=== PATIENT | male | born 1935 | race Caucasian/White ===

== ENCOUNTER → 2016-03-06 | Outpatient (CLI) | payer BC ==
[~2016-03-06] MED LIST: ASPI1TAB83 PO; CALCCHW17 PO; CHOL100010 PO; FSMD/70 PO; LPT40 PO; LSN5 PO; LUTE20CA PO; LZL125 PO; MULT-610 PO; NITR1CAP33 PO; NTRGSL/4 SL; OMEG120013 PO; PLV75 PO; PSYL55.43 PO
[2016-03-06 15:29] LABS: BASO % 0.5 %; BASO ABS # 0.03 K/uL (0-0.2); COMPLETE YES; EOS % 2.5 %; HEMATOCRIT 33.5 % (42-52); IG% 0.2 %; LYMPH % 13.9 %; MEAN CELL VOLUME 93.3 fL (80-100); MEAN CORPUSCULAR HEMOGLOBIN 31.2 pg (25-34); MEAN CORPUSCULAR HGB CONC 33.4 g/dl (32-36); MONO % 10.3 %; NEUT % 72.6 %; PLATELET COUNT 237 K/uL (130-400); RED BLOOD COUNT 3.59 M/uL (4.7-6.1); WHITE BLOOD COUNT 6.48 K/uL (4.8-10.8)
[2016-03-06 15:33] LABS: URINE APPEARANCE CLEAR (CLEAR); URINE BILIRUBIN NEG (NEG); URINE COLOR DK YELLOW; URINE EPITHELIAL CELL AUTO >30 /lpf (0-5); URINE NITRITE NEG (NEG); URINE PH 6.5 (4.5-7.5); URINE SPECIFIC GRAVITY 1.022 (1.000-1.030); UROBILINOGEN NEG (NEG)
[2016-03-06 15:36] LABS: MANUAL MICROSCOPIC REQUIRED? NO; REVIEW REQ? YES
[2016-03-06 15:56] LABS: BLOOD UREA NITROGEN 21 mg/dl (7-18); BUN/CREATININE RATIO 19.3 (10-20); CALCIUM 7.9 mg/dl (8.5-10.1); CARBON DIOXIDE 25 mmol/L (21-32); CHLORIDE 105 mmol/L (98-107); GLUCOSE 93 mg/dl (70-99); POTASSIUM 4.3 mmol/L (3.5-5.1); SODIUM 137 mmol/L (136-145)
[2016-03-06 15:57] LABS: URINE PROTIEN/CREAT RATIO 0.5 (0-0.2); URINE TOTAL PROTEIN 88.6 mg/dl (0-11.9)
== END | disposition home or self-care (01) ==
LOC: C.LAB1850 14:30
PROVIDERS: ATTEND Internal Medicine
DX: E78.00 Pure hypercholesterolemia, unspecified (principal)

== ENCOUNTER → 2016-03-28 | Outpatient (CLI) | payer BC ==
[2016-03-28 12:18] LABS: BASO % 0.8 %; BASO ABS # 0.04 K/uL (0-0.2); COMPLETE YES; EOS % 2.5 %; HEMATOCRIT 34.1 % (42-52); IG% 0.6 %; LYMPH % 19.3 %; LYMPH ABS # 1.01 K/uL (1.2-3.4); MEAN CELL VOLUME 94.2 fL (80-100); MEAN CORPUSCULAR HEMOGLOBIN 31.2 pg (25-34); MEAN CORPUSCULAR HGB CONC 33.1 g/dl (32-36); MEAN PLATELET VOLUME 8.8 fL (7.4-10.4); MONO % 18.9 %; NEUT % 57.9 %; PLATELET COUNT 196 K/uL (130-400); RED BLOOD COUNT 3.62 M/uL (4.7-6.1); WHITE BLOOD COUNT 5.23 K/uL (4.8-10.8)
[2016-03-28 12:27] LABS: BLOOD UREA NITROGEN 21 mg/dl (7-18); BUN/CREATININE RATIO 23.7 (10-20); CALCIUM 8.5 mg/dl (8.5-10.1); CARBON DIOXIDE 27 mmol/L (21-32); CHLORIDE 103 mmol/L (98-107); CREATININE 0.89 mg/dl (0.60-1.40); GLUCOSE 87 mg/dl (70-99); POTASSIUM 4.2 mmol/L (3.5-5.1); SODIUM 140 mmol/L (136-145)
[2016-03-28 12:32] LABS: FERRITIN 155.2 ng/ml (8.0-388.0); TOTAL IRON BINDING CAPACITY 263 mcg/dl (250-450)
== END | disposition home or self-care (01) ==
LOC: C.LAB1850 10:50
PROVIDERS: ATTEND Internal Medicine
DX: R60.9 Edema, unspecified (principal)

== ENCOUNTER → 2016-06-06 | Outpatient (CLI) | payer BC ==
[2016-06-06 17:46] LABS: BASO % 0.7 %; BASO ABS # 0.03 K/uL (0-0.2); COMPLETE YES; EOS % 15.4 %; HEMATOCRIT 35.4 % (42-52); IG% 0.2 %; LYMPH ABS # 1.19 K/uL (1.2-3.4); MEAN CELL VOLUME 95.4 fL (80-100); MEAN CORPUSCULAR HEMOGLOBIN 31.3 pg (25-34); MEAN CORPUSCULAR HGB CONC 32.8 g/dl (32-36); MEAN PLATELET VOLUME 9.1 fL (7.4-10.4); MONO % 11.3 %; NEUT % 45.4 %; PLATELET COUNT 149 K/uL (130-400); RED BLOOD COUNT 3.71 M/uL (4.7-6.1); WHITE BLOOD COUNT 4.41 K/uL (4.8-10.8)
== END | disposition home or self-care (01) ==
LOC: C.LAB1850 16:30
PROVIDERS: ATTEND Internal Medicine
DX: Z00.00 Encounter for general adult medical examination without abnormal findings (principal); D64.9 Anemia, unspecified; I25.10 Atherosclerotic heart disease of native coronary artery without angina pectoris

== ENCOUNTER → 2016-08-24 | Outpatient (CLI) | payer BC ==
[2016-08-24 17:10] LABS: BASO % 0.5 %; BASO ABS # 0.02 K/uL (0-0.2); COMPLETE YES; EOS % 4.1 %; LYMPH % 32.3 %; LYMPH ABS # 1.41 K/uL (1.2-3.4); MEAN CELL VOLUME 95.6 fL (80-100); MEAN CORPUSCULAR HEMOGLOBIN 31.6 pg (25-34); MEAN CORPUSCULAR HGB CONC 33.1 g/dl (32-36); MEAN PLATELET VOLUME 9.7 fL (7.4-10.4); MONO % 12.1 %; PLATELET COUNT 156 K/uL (130-400); RED BLOOD COUNT 4.08 M/uL (4.7-6.1); WHITE BLOOD COUNT 4.37 K/uL (4.8-10.8)
[2016-08-24 17:19] LABS: ALT/SGPT 31 U/L (12-78); AST/SGOT 27 U/L (15-37); BLOOD UREA NITROGEN 18 mg/dl (7-18); BUN/CREATININE RATIO 16.4 (10-20); CALCIUM 8.5 mg/dl (8.5-10.1); CARBON DIOXIDE 29 mmol/L (21-32); CHLORIDE 104 mmol/L (98-107); CHOLESTEROL 82 mg/dl (0-200); GLUCOSE 87 mg/dl (70-99); POTASSIUM 4.2 mmol/L (3.5-5.1); SODIUM 139 mmol/L (136-145)
[2016-08-24 17:29] LABS: CHOLESTEROL/HDL RATIO 2.6; HDL CHOLESTEROL 32 mg/dl; LDL CHOLESTEROL CALCULATED 39 mg/dl; TRIGLYCERIDES 57 mg/dl (0-150); VERY LOW DENSITY LIPOPROT CALC 11 mg/dl
[2016-08-25 07:03] LABS: ESTIMATED AVERAGE GLUCOSE 117 mg/dl; HA1C FLAG Normal (Normal)
--- NOTE | 2016-08-29 06:47 | CODING QUERY MEDICAL NECESSITY ---
SUPPORTING DIAGNOSIS NEEDED A supporting diagnosis is required for the test/procedure performed on this patient in order for us to be reimbursed by the patient's insurance. Please provide a supporting diagnosis for the following test/procedure listed below next to the test name along with your signature. *If there is no additional diagnosis for this patient that would support the following test/procedure please document that below next to the test/procedure. Test(s)/Procedure(s) that require a supporting diagnosis: * HEMOGLOBIN A1C DIAGNOSIS: Provider Signature: Date: Thank you Ranjana Ordoñez [employer] Once completed, please kindly fax back to [phone] For questions please call [phone]
== END | disposition home or self-care (01) ==
LOC: C.LAB1850 15:41
PROVIDERS: ATTEND Internal Medicine
DX: E78.00 Pure hypercholesterolemia, unspecified (principal); R73.9 Hyperglycemia, unspecified

== ENCOUNTER → 2016-12-13 | Outpatient (CLI) | payer BC ==
--- NOTE | 2016-12-13 15:20 | DIAGNOSTIC IMAGING REPORT ---
HEAD CT NONCONTRAST CT DOSE: 537.48 mGy.cm HISTORY: HEADACHE TECHNIQUE: Multiaxial CT images of the head were performed without the use of intravenous contrast. Automated exposure control was utilized for this study. A dose lowering technique was utilized adhering to the principles of ALARA. Comparison: None. Findings: The paranasal sinuses and mastoid air cells are clear. The calvarium and skull base are intact. There is no mass, hematoma, midline shift, acute infarct. White matter hypodensity is nonspecific but suggestive of microvascular ischemic change. The ventricles and sulci demonstrate mild age-related involutional changes. Impression: No acute intracranial abnormality. Atrophy and microvascular ischemic changes. Electronically signed by: Eliel Garrett M.D. 12/13/2016 3:18 PM Dictated Date/Time: 12/13/2016 3:14 PM
== END | disposition home or self-care (01) ==
LOC: C.CTS 15:03
PROVIDERS: ATTEND Internal Medicine
DX: R51 Headache (principal); I67.82 Cerebral ischemia

== ENCOUNTER → 2017-01-22 | Outpatient (CLI) | payer BC | END | disposition home or self-care (01) | LOC: C.MAMM 15:34 | PROVIDERS: ATTEND Internal Medicine | DX: M85.88 Other specified disorders of bone density and structure, other site (principal); M85.852 Other specified disorders of bone density and structure, left thigh; M85.851 Other specified disorders of bone density and structure, right thigh ==

== ENCOUNTER 2021-04-11 17:23 | Inpatient (IN) ==
[2021-04-11] MEDS ORDERED: oxyCODONE HCL IR 5 MG TAB (IMMEDIATE RELEASE) PO STA (17:46)
--- NOTE | 2021-04-11 17:54 | Emergency Department Note ---
Impression & Plan Closed fracture of right hip ED Provider Note CHIEF COMPLAINT: Right hip injury 1 hour ago HISTORY OF PRESENT ILLNESS: Patient is an 85-year-old male who presents the emergency department by private vehicle, accompanied by his , for evaluation of right hip pain after a fall. He was out walking with his , and a dog came up to him. He was trying to back away from the dog when he lost his balance and fell, landing on his right hip on the ground. He did not strike his head, no loss of consciousness. He did try to get up and put some pressure on the right leg, but it was painful and unstable. He sat on the curb, and a neighbor helped to get him into their vehicle and brought him here to the emergency department. He notes a constant, throbbing pain in the right hip that he rates a 9/10. It is in the lateral aspect of the hip and does not radiate. No numbness or tingling, save from his chronic peripheral neuropathy. He denies any other injuries related to the fall. REVIEW OF SYSTEMS: Review of systems as per HPI. All other systems reviewed were negative. 10 systems reviewed. PAST MEDICAL HISTORY: Electronic medical records are reviewed and summarized as above/below. See Problem List. SOCIAL HISTORY: Patient lives at home with his . Non-smoker. PHYSICAL EXAM: Vital Signs: Reviewed Nurse's notes. GENERAL: Pleasant 85-year-old gentleman who is awake and alert and in mild distress due to his stated complaint. HEENT: Head - normocephalic and atraumatic. Pupils are equal, round, and reactive to light. Extraocular eye muscles are intact and sclera are anicteric. Ears - bilaterally patent canals with no evidence of hemotympanum. Nose - brittany st nasal mucosa without evidence of trauma or discharge. Mouth - moist buccal mucosa with no trauma to the teeth or signs of malocclusion. Heart: Regular rate, and regular rhythm. Lungs: Breath sounds equal and clear to auscultation without wheezes, rales, or rhonchi heard. Abdomen: Bowel sounds are present. Abdomen is soft, nontender, nondistended. No guarding or rebound. Extremities: Examination of the right hip note that the patient has the hip and knee flexed. He is tender over the greater trochanter. He is able to extend the leg, there is some slight shortening and internal rotation appreciated. Right lower extremity is neurovascularly intact. EMERGENCY DEPARTMENT COURSE: The patient was seen and assessed as above. Old records were reviewed. He was offered parenteral versus oral pain medications, he elected the latter. He was given oxycodone 5 mg p.o. Right hip and pelvic x-rays were obtained. Hip x-ray note a displaced impacted right femoral neck fracture. Patient was reviewed with Dr. Adam. X-ray findings were reviewed with the patient and his . Preoperative EKG, chest x-ray and laboratory studies were collected. Gerardo catheter was placed. Covid swab was obtained for admitting purposes. Patient's family would like to consult Dr. Edward Schroeder, the patient's had surgery done by him in the past. Consultation was placed with the [facility] Hospitalist service for further care and management. Laboratory studies were reviewed. Mild anemia noted, hemoglobin and hematocrit 12.3 and 36.7. Platelet count is 148,000, coags are normal. Sodium 130, potassium 3.7, chloride 96, carbon dioxide 28, BUN 20 and creatinine 0.86. Transaminases are normal. Urine microscopy notes some hematuria, likely traumatic from the catheter placement. No other indicators for infection. Covid swab is negative. Chest x-ray notes a mild right midlung opacity favoring atelectasis or scarring. Infectious process felt to be less likely, particularly given lack of symptoms. Patient requested something additional for pain. He was given morphine 4 mg IV and Zofran 4 mg IV with good relief of his pain. Patient was reviewed with Dr. Schroeder for admission. Please refer to admission H&P and orders for further information. Past Med/Surg History Medical History CAD (coronary artery disease) Coronary artery disease, occlusive Hypercholesterolemia Hyperglycemia Hyperlipidemia Hypertension Nontoxic multinodular goiter Osteoporosis Paroxysmal atrial fibrillation Presence of stent in LAD coronary artery Unstable angina Surgical History History of coronary artery bypass surgery Family History Uncle Colorectal cancer Prostate cancer Denies family history of Ovarian cancer Myocardial infarction Breast cancer Social History Smoking Status: Never smoker Second Hand Exposure: No; Hx Alcohol Use: No Hx Substance Use: No Preferred Language: Amharic marital status: Current Living Situation: Spouse current occupational status: retired Feels Safe at Home: Yes Childhood Exposure to Second-Hand Smoke: No Dental Care, Regularly: Yes Physical Activity Frequency: Daily Seatbelt Use: always Sunscreen Use: No Allergies Allergies Allergy/AdvReac Type Severity Reaction Status Date / Time Sulfa (Sulfonamide Allergy Intermediate Hives Verified 04/11/21 18:58 Antibiotics) tetracycline Allergy Intermediate Hives Verified 04/11/21 18:58 Home Meds Home Medications Medication Instructions Recorded Confirmed lutein 20 mg capsule 20 mg PO DAILY cap 10/18/18 04/11/21 cholecalciferol (vitamin D3) 50 2,000 units PO DAILY cap 09/02/19 04/11/21 mcg (2,000 unit) capsule docusate sodium 100 mg capsule 200 mg PO DAILY cap 09/02/19 04/11/21 aspirin 81 mg tablet,delayed 81 mg PO PM 03/05/20 04/11/21 release (Aspirin Low Dose) Lactobacillus acidophilus 1 1,000 mmu cells PO DAILY 12/21/20 04/11/21 billion cell tablet cranberry 500 mg capsule 500 mg PO DAILY cap 12/21/20 04/11/21 magnesium oxide 400 mg PO DAILY 12/21/20 04/11/21 atorvastatin 40 mg tablet 40 mg PO HS 04/11/21 04/11/21 coQ10 (ubiquinol) 200 mg capsule 200 mg PO DAILY 04/11/21 04/11/21 chlhcdnwoarw-dgrhammo-erihna tablet 1 tab PO DAILY 04/11/21 04/11/21 Previous Rx's Medication Instructions Recorded nitroglycerin 0.4 mg sublingual 0.4 mg SL Q5M PRN #30 tab 12/26/19 tablet indapamide 1.25 mg tablet 1.25 mg PO QAM #90 tab 07/30/20 apixaban 5 mg tablet 5 mg PO BID #180 tab 08/04/20 lisinopril 2.5 mg tablet 2.5 mg PO DAILY #90 tab 08/09/20 nitrofurantoin macrocrystal 50 mg 50 mg PO DAILY PRN #30 cap 10/15/20 capsule (Macrodantin) Results & Data (ED) Vital Signs Vital Signs - 24 hr 04/11/21 17:31 04/11/21 19:12 Temperature 36.3 C L Temperature Source Temporal Artery Scan Pulse Rate 84 Pulse Rate [Apical] 81 Respiratory Rate 20 15 Respiratory Effort / Characteristics Non-Labored Non-Labored Respiratory Depth Normal Blood Pressure 128/93 Blood Pressure [Left Arm] 168/66 H Blood Pressure Mean 104 Blood Pressure Mean [Left Arm] 100 Pulse Oximetry 99 100 Oxygen Delivery Method Room Air Sepsis Recent Fever Within 48 Hours No Sepsis New/Unexplained Change in Mental Status N/A Sepsis Action Taken by Nursing No Action Required Home Medications Current Medication List: was personally reviewed by me Laboratory Data Attestation: I reviewed the patient's lab results. Result diagrams: 04/11/21 18:46 04/11/21 18:46 Lab Results 04/11/21 04/11/21 04/11/21 Range/Units 18:44 18:46 18:46 WBC 10.03 (4.8-10.8) K/uL RBC 3.86 L (4.7-6.1) M/uL Hgb 12.3 L (14.0-18.0) g/dL Hct 36.7 L (42-52) % MCV 95.1 (80-100) fL MCH 31.9 (25-34) pg MCHC 33.5 (32-36) g/dL RDW Std Deviation 47.3 H (36.4-46.3) fL RDW Coeff of Ralph 13.7 (11.5-14.5) % Plt Count 148 (130-400) K/uL MPV 9.1 (7.4-10.4) fL Immature Gran % (Auto) 0.1 % Neut % (Auto) 82.4 % Lymph % (Auto) 9.2 % [place] % (Auto) 7.5 % Eos % (Auto) 0.7 % Baso % (Auto) 0.1 % Neut # (Auto) 8.27 H (1.4-6.5) K/uL Lymph # (Auto) 0.92 L (1.2-3.4) K/uL [place] # (Auto) 0.75 H (0.11-0.59) K/uL Eos # (Auto) 0.07 (0-0.5) K/uL Baso # (Auto) 0.01 (0-0.2) K/uL Immature Gran # (Auto) 0.01 (0.00-0.02) K/uL PT 11.5 (9.0-12.0) Seconds INR 1.1 (0.9-1.1) APTT 26.3 (21.0-31.0) Seconds PTT Ratio 1.0 Sodium (136-145) mmol/L Potassium (3.5-5.1) mmol/L Chloride (98-107) mmol/L Carbon Dioxide (21-32) mmol/L Anion Gap (3-11) BUN (6-23) mg/dl Creatinine (0.6-1.4) mg/dl Est Cr Clr Drug Dosing Est GFR ( Amer) ml/min Est GFR (Non-Af Amer) ml/min BUN/Creatinine Ratio (10-20) Glucose (70-99(Fasting)) mg/dl Calcium (8.5-10.1) mg/dl Total Bilirubin (0.2-1.0) mg/dl AST (13-39) U/L ALT (7-52) U/L Alkaline Phosphatase (34-104) U/L Total Protein (6.0-8.3) gm/dl Albumin (3.4-5.0) gm/dl Globulin (2.5-4.0) gm/dl Albumin/Globulin Ratio (0.9-2) Urine Color Urine Appearance (Clear) Urine pH (4.5-7.5) Ur Specific [place] (1.000-1.030) Urine Protein (Negative) Urine Glucose (UA) (Negative) Urine Ketones (Negative) Urine Blood (Negative) Urine Nitrite (Negative) Urine Bilirubin (Negative) Urine Urobilinogen (Negative) Ur Leukocyte Esterase (Negative) Urine WBC (Auto) (0-5) /hpf Urine RBC (Auto) (0-4) /hpf U Hyaline Cast (Auto) (0-5) /lpf U Epithel Cells (Auto) (0-5) /lpf Urine Bacteria (Auto) (Negative) SARS-CoV-2, RNA, NAAT NEGATIVE (NEGATIVE) 04/11/21 04/11/21 Range/Units 18:46 18:46 WBC (4.8-10.8) K/uL RBC (4.7-6.1) M/uL Hgb (14.0-18.0) g/dL Hct (42-52) % MCV (80-100) fL MCH (25-34) pg MCHC (32-36) g/dL RDW Std Deviation (36.4-46.3) fL RDW Coeff of Ralph (11.5-14.5) % Plt Count (130-400) K/uL MPV (7.4-10.4) fL Immature Gran % (Auto) % Neut % (Auto) % Lymph % (Auto) % [place] % (Auto) % Eos % (Auto) % Baso % (Auto) % Neut # (Auto) (1.4-6.5) K/uL Lymph # (Auto) (1.2-3.4) K/uL [place] # (Auto) (0.11-0.59) K/uL Eos # (Auto) (0-0.5) K/uL Baso # (Auto) (0-0.2) K/uL Immature Gran # (Auto) (0.00-0.02) K/uL PT (9.0-12.0) Seconds INR (0.9-1.1) APTT (21.0-31.0) Seconds PTT Ratio Sodium 130 L (136-145) mmol/L Potassium 3.7 (3.5-5.1) mmol/L Chloride 96 L (98-107) mmol/L Carbon Dioxide 28 (21-32) mmol/L Anion Gap 6 (3-11) BUN 20 (6-23) mg/dl Creatinine 0.86 (0.6-1.4) mg/dl Est Cr Clr Drug Dosing Not Reportable Est GFR ( Amer) 92.3 ml/min Est GFR (Non-Af Amer) 79.6 ml/min BUN/Creatinine Ratio 23.3 H (10-20) Glucose 141 H (70-99(Fasting)) mg/dl Calcium 8.9 (8.5-10.1) mg/dl Total Bilirubin 0.5 (0.2-1.0) mg/dl AST 31 (13-39) U/L ALT 22 (7-52) U/L Alkaline Phosphatase 80 (34-104) U/L Total Protein 6.6 (6.0-8.3) gm/dl Albumin 4.1 (3.4-5.0) gm/dl Globulin 2.5 (2.5-4.0) gm/dl Albumin/Globulin Ratio 1.6 (0.9-2) Urine Color Yellow Urine Appearance Clear (Clear) Urine pH 7.0 (4.5-7.5) Ur Specific [place] 1.019 (1.000-1.030) Urine Protein Trace H (Negative) Urine Glucose (UA) Negative (Negative) Urine Ketones Negative (Negative) Urine Blood 2+ H (Negative) Urine Nitrite Negative (Negative) Urine Bilirubin Negative (Negative) Urine Urobilinogen Negative (Negative) Ur Leukocyte Esterase Negative (Negative) Urine WBC (Auto) 1-5 (0-5) /hpf Urine RBC (Auto) 10-30 H (0-4) /hpf U Hyaline Cast (Auto) 1-5 (0-5) /lpf U Epithel Cells (Auto) 20-30 H (0-5) /lpf Urine Bacteria (Auto) Negative (Negative) SARS-CoV-2, RNA, NAAT (NEGATIVE) Administered Medications Discontinued Medications Morphine Sulfate (Morphine Sulfate 4 Mg/Ml 1 Ml Carp\Vial) 4 mg IV NOW STA Stop: 04/11/21 18:54 Last Admin: 04/11/21 19:01 Dose: 4 mg Documented by: [id number] Ondansetron HCl (Ondansetron Inj 2 Mg/Ml 2 Ml Vial) 4 mg IV NOW STA Stop: 04/11/21 18:54 Last Admin: 04/11/21 19:01 Dose: 4 mg Documented by: [id number] Oxycodone HCl (Oxycodone Hcl Ir 5 Mg Tab (Immediate Release)) 5 mg PO NOW STA Stop: 04/11/21 17:47 Last Admin: 04/11/21 17:54 Dose: 5 mg Documented by: [id number] Imaging Data Attestation: I personally reviewed and interpreted this imaging study as follows: Radiologist's Impression: Hip/Pelvis X-Ray 04/11/21 17:46 XR hip RT 2V w pelvis CLINICAL HISTORY: Right hip pain following fall. COMPARISON: Pelvis and right hip radiographs October 15, 2020. FINDINGS: Sacroiliac joints and symphysis pubis are intact. Note is made of an acute impacted displaced right femoral neck fracture. There is no acute proximal left femoral fracture. 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 Pelvic calcifications favor phleboliths. IMPRESSION: Acute displaced impacted right femoral neck fracture. ACT 112: Negative or not required by law. Electronically signed by: David Pastor M.D. 04/11/2021 6:20 PM Chest X-Ray 04/11/21 18:19 XR chest 1V portable CLINICAL HISTORY: HIP FRACTURE, PREOP COMPARISON STUDY: Chest radiograph March 05, 2020. FINDINGS: Severe dextroscoliosis of the thoracic spine is incidentally noted. There are median sternotomy wires. Cardiomediastinal silhouette is stable. There is no pneumothorax or pleural effusion. No evidence for pulmonary edema. There is mild right midlung opacity. Old right fifth rib deformity is incidentally noted. IMPRESSION: 1. Mild right midlung opacity. This favors atelectasis or scarring. An infectious process could appear similar although is considered less likely. Radiographic follow-up is recommended. 2. No evidence for pulmonary edema. 3. Severe scoliosis. ACT 112: Negative or not required by law. Electronically signed by: David Pastor M.D. 04/11/2021 6:43 PM Discharge Plan Visit Data Chief Complaint: Hip Pain Stated Complaint: RIGHT HIP PAIN, POSS. FRACTURE ED Provider: Jasen Adam ED Midlevel Provider: Jasmeet Irizarry Discharge Problem: Closed fracture of right hip Patient Disposition: Being Evaluated by Hospitalist Forms Stand Alone Forms: [facility] Prescriptions Prescriptions: No Action nitroglycerin 0.4 mg tablet, sublingual 0.4 mg SL Q5M PRN (Reason: chest pain) Qty: 30 RF: 3 apixaban 5 mg tablet 5 mg PO BID Qty: 180 RF: 3 lisinopril 2.5 mg tablet 2.5 mg PO DAILY Qty: 90 RF: 3 docusate sodium 100 mg capsule 200 mg PO DAILY RF: 0 cranberry 500 mg capsule 500 mg PO DAILY RF: 0 Lactobacillus acidophilus 1 billion cell tablet 1,000 mmu cells PO DAILY RF: 0 magnesium oxide 400 mg magnesium capsule 400 mg PO DAILY RF: 0 cholecalciferol (vitamin D3) 50 mcg (2,000 unit) capsule 2,000 units PO DAILY RF: 0 nitrofurantoin macrocrystal [Macrodantin] 50 mg capsule 50 mg PO DAILY PRN (Reason: HX of UTI) Qty: 30 RF: 0 lutein 20 mg capsule 20 mg PO DAILY RF: 0 indapamide 1.25 mg tablet 1.25 mg PO QAM Qty: 90 RF: 3 aspirin [Aspirin Low Dose] 81 mg Tablet,Delayed Release (Dr/Ec) 81 mg PO PM RF: 0 Centrum Silver Tablet 1 tab PO DAILY RF: 0 coQ10 (ubiquinol) 200 mg Capsule 200 mg PO DAILY RF: 0 atorvastatin 40 mg tablet 40 mg PO HS RF: 0 Referrals Referrals: Leni Schroeder CRNP [Primary Care Provider] - Discharge Problem: Closed fracture of right hip Qualifiers: Encounter type: initial encounter Qualified Code(s): S72.001A - Fracture of unspecified part of neck of right femur, initial encounter for closed fracture
--- NOTE | 2021-04-11 18:21 | XRay Report ---
XR hip RT 2V w pelvis CLINICAL HISTORY: Right hip pain following fall. COMPARISON: Pelvis and right hip radiographs October 15, 2020. FINDINGS: Sacroiliac joints and symphysis pubis are intact. Note is made of an acute impacted displa jemima right femoral neck fracture. There is no acute proximal left femoral fracture. Moderate osteoarth ritis of both hips is greater on the left. Pelvic calcifications favor phleboliths. IMPRESSION: Acute displaced impacted right femoral neck fracture. ACT 112: Negative or not required by law. Electronically signed by: David Pastor M.D. 04/11/2021 6:20 PM
--- NOTE | 2021-04-11 18:45 | XRay Report ---
XR chest 1V portable CLINICAL HISTORY: HIP FRACTURE, PREOP COMPARISON STUDY: Chest radiograph March 05, 2020. FINDINGS: Severe dextroscoliosis of the thoracic spine is incidentally noted. There are median sterno lida wires. Cardiomediastinal silhouette is stable. There is no pneumothorax or pleural effusion. No evidence for pulmonary edema. There is mild right midlung opacity. Old right fifth rib deformity is i ncidentally noted. IMPRESSION: 1. Mild right midlung opacity. This favors atelectasis or scarring. An infectious process could appea r similar although is considered less likely. Radiographic follow-up is recommended. 2. No evidence for pulmonary edema. 3. Severe scoliosis. ACT 112: Negative or not required by law. Electronically signed by: David Pastor M.D. 04/11/2021 6:43 PM
[2021-04-11] MEDS ORDERED: ONDANSETRON INJ 2 MG/ML 2 ML VIAL IV STA (18:53)
[2021-04-11] MEDS ORDERED: MoRPHine SULFATE 4 MG/ML 1 ML CARP\\VIAL IV PRN (18:53)
[2021-04-11] MEDS ORDERED: MoRPHine SULFATE 4 MG/ML 1 ML CARP\\VIAL IV STA (18:53)
--- NOTE | 2021-04-11 18:54 | Emergency Department Note ---
ED Visit Note This Patient was discussed with the physician dam tender assistant, Carmen Irizarry PA-C. The pertinent historical and physical exam findings were confirmed. I agree with the studies ordered and with the interpretations of these studies. I agree with the disposition and care plan. . : Closed fracture of right hip Qualifiers: Encounter type: initial encounter Qualified Code(s): S72.001A - Fracture of unspecified part of neck of right femur, initial encounter for closed fracture
[2021-04-11 19:07] LABS: Appearance Urine Clear (Clear); Bacteria Urine Automated Negative (Negative); Basophils # (auto) 0.01 K/uL (0-0.2); Basophils % (auto) 0.1 %; Bilirubin Urine Negative (Negative); Blood Urine 2+ (Negative); Color Urine Yellow; Eosinophils # (auto) 0.07 K/uL (0-0.5); Eosinophils % (auto) 0.7 %; Epithelial Cell Urine Auto 20-30 /lpf (0-5); Glucose Urine UA Negative (Negative); Hematocrit (blood only) 36.7 % (42-52); Hemoglobin 12.3 g/dL (14.0-18.0); Immature Granulocytes # (auto) 0.01 K/uL (0.00-0.02); Immature Granulocytes % (auto) 0.1 %; Ketones Urine Negative (Negative); Leukocyte Esterase Urine Negative (Negative); Lymphocytes # (auto) 0.92 K/uL (1.2-3.4); Lymphocytes % (auto) 9.2 %; Mean Corpuscular Hemoglobin 31.9 pg (25-34); Mean Corpuscular Hgb Conc 33.5 g/dL (32-36); Mean Corpuscular Volume 95.1 fL (80-100); Mean Platelet Volume 9.1 fL (7.4-10.4); Monocytes # (auto) 0.75 K/uL (0.11-0.59); Monocytes % (auto) 7.5 %; Neutrophils # (auto) 8.27 K/uL (1.4-6.5); Neutrophils % (auto) 82.4 %; Nitrite Urine Negative (Negative); Platelet Count 148 K/uL (130-400); Protein Urine Trace (Negative); RDW Coefficient of Variation 13.7 % (11.5-14.5); RDW Standard Deviation 47.3 fL (36.4-46.3); Red Blood Count 3.86 M/uL (4.7-6.1); Specific Gravity Urine 1.019 (1.000-1.030); Urobilinogen Urine Negative (Negative); White Blood Count 10.03 K/uL (4.8-10.8)
[2021-04-11 19:23] LABS: INR 1.1 (0.9-1.1); Partial Thromboplastin Time 26.3 Seconds (21.0-31.0); Prothrombin Time 11.5 Seconds (9.0-12.0)
[2021-04-11 19:29] LABS: Alanine Aminotransferase 22 U/L (7-52); Albumin Globulin Ratio 1.6 (0.9-2); Albumin Level 4.1 gm/dl (3.4-5.0); Alkaline Phosphatase 80 U/L (34-104); Anion Gap 6 (3-11); Aspartate Aminotransferase 31 U/L (13-39); BUN Creatinine Ratio 23.3 (10-20); Bilirubin,Total 0.5 mg/dl (0.2-1.0); Blood Urea Nitrogen 20 mg/dl (6-23); Calcium 8.9 mg/dl (8.5-10.1); Carbon Dioxide 28 mmol/L (21-32); Chloride 96 mmol/L (98-107); Est GFR (African American) 92.3 ml/min; Est GFR (Non-African American) 79.6 ml/min; Globulin 2.5 gm/dl (2.5-4.0); Glucose 141 mg/dl (70-99(Fasting)); Potassium 3.7 mmol/L (3.5-5.1); Sodium 130 mmol/L (136-145); Total Protein 6.6 gm/dl (6.0-8.3)
--- NOTE | 2021-04-11 19:35 | History & Physical Report ---
Date of Service April 11, 2021 Assessment & Plan (1) Closed fracture of right hip: Plan: -Witnessed ground level fall without LOC. Hip x-ray showed acute displaced impacted right femoral neck fracture. -Patient takes 5 mg Eliquis twice daily, only took first dose today around 4:00 PM. Took ASA 81 mg last evening. -INR 1.2. -NPO after midnight. -LRs at 75 cc/hr. -Gerardo catheter in place, patient on bedrest orders. -Morphine ordered Q3h prn for pain control. -Orthopedics consulted, appreciate their input. (2) CAD (coronary artery disease): Plan: -Does not complain of chest pain or shortness of breath, has never had to use nitroglycerin for chest pain. Patient has been active, walks several days a week. Compliant with medications. -Proximal LAD HOA, August 2014; CABG x2, January 2016. -Hold KIARA inhibitor, thiazide diuretic, and ASA 81 mg due to likely need for surgical repair of hip fracture. -Continuing statin. -Follows with cardiology. (3) Paroxysmal atrial fibrillation: Plan: -Patient denies any recent episodes of palpitations. Currently compliant with Eliquis 5 mg twice daily. Last dose was today around 4 PM. Did not yet take 2nd dose. -Will hold upcoming doses due to likely need for surgical repair of hip fracture. -Follows with cardiology. (4) Hyponatremia: Plan: -Na+ 130 today in ED has previously been low on previous lab draws. Patient not complaining of weakness, dizziness, fatigue, nausea, vomiting, or confusion. -LRs started at 75 cc/hr. -Continue to monitor. (5) Hypertension: Plan: -Stable on lisinopril and indapamide. -We will hold both of these due to likely need for surgical repair of hip fracture. -Monitor BP. (6) Hyperlipidemia: Plan: -Continue atorvastatin 40 mg daily. (7) Hyperglycemia: Plan: -Per PCP note, is controlled with diet and exercise. Most recent A1c was 5.4 in December. Glucose today in ED was 141, unsure if this was fasting or not. -Continue to monitor throughout hospitalization, can consider adding on coverage if sugars are consistently elevated. (8) DVT prophylaxis: Plan: -SCDs ordered. -Patient took half his daily dose of Eliquis today. We will hold off on further chemoprophylaxis due to likely need for surgical repair of hip fracture. History of Present Illness Chief Complaint: Right hip pain Primary Care Provider: JACINDA Wright Patient is an 85 y/o male with a PMH of CAD s/p CABG in 2016, paroxysmal atrial fibrillation on Eliquis, hyperglycemia, hyperlipidemia, and hypertension who presents this evening for evaluation of right hip pain after a fall.Patient was out walking with his when an unleashed dog ran up to him. As he was backing away, he lost his balance and fell landing on his right hip. He notes a constant, throbbing pain in the lateral right hip, without radiation which he rates a 9/10. Denies hitting his head, loss of consciousness, dizziness, weakness or palpitations leading up to the fall. He denies pain elsewhere. Hip x-ray revealed a acute displaced impacted right femoral neck fracture. Patient has been receiving 4 mg IV morphine for pain control, patient states this has been adequate so far. Na+ is 130, glucose is 141, all other labs within normal limits. Last dose of aspirin was last evening, last dose of Eliquis was 5mg around 4 PM today. Allergies Allergy/AdvReac Type Severity Reaction Status Date / Time Sulfa (Sulfonamide Allergy Intermediate Hives Verified 04/11/21 18:58 Antibiotics) tetracycline Allergy Intermediate Hives Verified 04/11/21 18:58 Home Medications Medication Instructions Recorded Confirmed Type lutein 20 mg capsule 20 mg PO DAILY cap 10/18/18 04/11/21 History cholecalciferol (vitamin D3) 50 2,000 units PO DAILY cap 09/02/19 04/11/21 History mcg (2,000 unit) capsule docusate sodium 100 mg capsule 200 mg PO DAILY cap 09/02/19 04/11/21 History nitroglycerin 0.4 mg sublingual 0.4 mg SL Q5M PRN #30 tab 12/26/19 04/11/21 Rx tablet aspirin 81 mg tablet,delayed 81 mg PO PM 03/05/20 04/11/21 History release (Aspirin Low Dose) indapamide 1.25 mg tablet 1.25 mg PO QAM #90 tab 07/30/20 04/11/21 Rx apixaban 5 mg tablet 5 mg PO BID #180 tab 08/04/20 04/11/21 Rx lisinopril 2.5 mg tablet 2.5 mg PO DAILY #90 tab 08/09/20 04/11/21 Rx nitrofurantoin macrocrystal 50 mg 50 mg PO DAILY PRN #30 cap 10/15/20 04/11/21 Rx capsule (Macrodantin) Lactobacillus acidophilus 1 1,000 mmu cells PO DAILY 12/21/20 04/11/21 History billion cell tablet cranberry 500 mg capsule 500 mg PO DAILY cap 12/21/20 04/11/21 History magnesium oxide 400 mg PO DAILY 12/21/20 04/11/21 History atorvastatin 40 mg tablet 40 mg PO HS 04/11/21 04/11/21 History coQ10 (ubiquinol) 200 mg capsule 200 mg PO DAILY 04/11/21 04/11/21 History fdtflpfqmxlg-quuemczt-rankso tablet 1 tab PO DAILY 04/11/21 04/11/21 History Past Med/Surg History Medical History CAD (coronary artery disease) Coronary artery disease, occlusive Hypercholesterolemia Hyperglycemia Hyperlipidemia Hypertension Nontoxic multinodular goiter Osteoporosis Paroxysmal atrial fibrillation Surgical History History of coronary artery bypass surgery Presence of stent in LAD coronary artery Family History Uncle Colorectal cancer Prostate cancer Denies family history of Ovarian cancer Myocardial infarction Breast cancer Social History Smoking Status: Never smoker Second Hand Exposure: No; Hx Alcohol Use: No Hx Substance Use: No Preferred Language: Pakistani Communication Ability: Effective Flower Stripper Required: No Beliefs That Will Affect Care: None marital status: Current Living Situation: Spouse current occupational status: retired Feels Safe at Home: Yes Safety Concerns: Feels Safe At This Time Childhood Exposure to Second-Hand Smoke: No Dental Care, Regularly: Yes Physical Activity Frequency: Daily Seatbelt Use: always Sunscreen Use: No Review of Systems Review of Systems: Constitutional: No fever, sweats or chills Eyes: No diplopia, no worsening or blurred vision ENT: normal hearing, no trouble swallowing Respiratory: No cough, sputum, dyspnea at rest or on exertion Cardiovascular: No chest pain, tightness or palpitations Abdomen: No pain, nausea, vomiting, diarrhea or constipation Musculoskeletal: Right hip pain without radiation; no calf pain, swelling Neurologic: No weakness, numbness/tingling, or balance problems Psychiatric: No anxiety or depression Skin: No rash or itch Physical Exam Physical Exam: General: awake, alert, no apparent distress Head: Normocephalic, atraumatic ENT: PERRL, EOMI, no pharyngeal exudate, mucous membranes moist Chest: Clear to auscultation, on room air, no adventitious breath sounds Cardiac: Regular rate and rhythm, no murmur, no JVD, normal peripheral pulses, good capillary refill Abdominal: NABS x 4 quadrants, soft, nontender to palpation, no rebound, guarding or tenderness Extremities: right hip tender to palpation, limited ROM due to pain. Psych: Normal mood and affect Neuro: AAO x 3, strength intact bilaterally and rated 5/5, no motor deficits, speech is clear, no peripheral sensory deficits Skin: no rash or erythema Results & Data Results & Data ([facility]) Vital Signs (Past 12 Hours) Vital Signs Temp Pulse Pulse Resp BP BP Pulse Ox 04/11/21 19:12 81 15 168/66 H 100 04/11/21 17:31 36.3 C L 84 20 128/93 99 Laboratory Results Abnormal lab results 04/11/21 04/11/21 04/11/21 Range/Units 18:46 18:46 18:46 RBC 3.86 L (4.7-6.1) M/uL Hgb 12.3 L (14.0-18.0) g/dL Hct 36.7 L (42-52) % RDW Std Deviation 47.3 H (36.4-46.3) fL Neut # (Auto) 8.27 H (1.4-6.5) K/uL Lymph # (Auto) 0.92 L (1.2-3.4) K/uL [place] # (Auto) 0.75 H (0.11-0.59) K/uL Sodium 130 L (136-145) mmol/L Chloride 96 L (98-107) mmol/L BUN/Creatinine Ratio 23.3 H (10-20) Glucose 141 H (70-99(Fasting)) mg/dl Urine Protein Trace H (Negative) Urine Blood 2+ H (Negative) Urine RBC (Auto) 10-30 H (0-4) /hpf U Epithel Cells (Auto) 20-30 H (0-5) /lpf Diagnostic Findings Hip/Pelvis X-Ray 04/11/21 17:46 XR hip RT 2V w pelvis CLINICAL HISTORY: Right hip pain following fall. COMPARISON: Pelvis and right hip radiographs October 15, 2020. FINDINGS: Sacroiliac joints and symphysis pubis are intact. Note is made of an acute impacted displaced right femoral neck fracture. There is no acute proximal left femoral fracture. 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 Pelvic calcifications favor phleboliths. IMPRESSION: Acute displaced impacted right femoral neck fracture. Chest X-Ray 04/11/21 18:19 XR chest 1V portable CLINICAL HISTORY: HIP FRACTURE, PREOP COMPARISON STUDY: Chest radiograph March 05, 2020. FINDINGS: Severe dextroscoliosis of the thoracic spine is incidentally noted. There are median sternotomy wires. Cardiomediastinal silhouette is stable. There is no pneumothorax or pleural effusion. No evidence for pulmonary edema. There is mild right midlung opacity. Old right fifth rib deformity is incidentally noted. IMPRESSION: 1. Mild right midlung opacity. This favors atelectasis or scarring. An infectious process could appear similar although is considered less likely. Radiographic follow-up is recommended. 2. No evidence for pulmonary edema. 3. Severe scoliosis. Medications Administered Current Medications Morphine Sulfate (Morphine Sulfate 4 Mg/Ml 1 Ml Carp\Vial) 4 mg IV Q1H PRN PRN Reason: Pain Stop: 04/25/21 18:52 ECG Additional Comments: Undetermined rhythm. Left axis deviation. RSR' or QR pattern in V1 suggests right ventricular conduction delay. Nonspecific T wave abnormality. Abnormal ECG. When compared with ECG of 05-MAR-2020 04:34, Current undetermined rhythm precludes rhythm comparison, needs review Code Status & VTE Plan Code Status Full Code VTE Prophylaxis Plan VTE Prophylaxis will be ordered: Yes Supervising Physician Co-Signing Physician Notes Patient seen and examined, chart reviewed, case discussed with PAC Childers and I agree with her assessment and plan as above PG Care Time/CCT Total # of Minutes Spent Total Time Spent with Patient: Total time spent is greater than 50% in coordination of care (as documented) at patient's floor/unit and/or counseling patient: Coding Level of Care Code 89517 Initial Inpt Care Lvl 3 Diagnoses Closed fracture of right hip S72.001A Encounter type: initial encounter CAD (coronary artery disease) I25.810 Associated angina: without angina Coronary Disease-Associated Artery/Lesion type: bypass graft [place] vs. transplanted heart: [place] heart Hyperlipidemia E78.5 Paroxysmal atrial fibrillation I48.0 Hypertension I10 Hypertension type: unspecified Hyperglycemia R73.9 Hyponatremia E87.1 DVT prophylaxis Z29.9 (1) CAD (coronary artery disease) Associated angina: without angina Coronary Disease-Associated Artery/Lesion type: bypass graft [place] vs. transplanted heart: [place] heart Qualified Code(s): I25.810 - Atherosclerosis of coronary artery bypass graft(s) without angina pectoris (2) Hypertension Hypertension type: unspecified Qualified Code(s): I10 - Essential (primary) hypertension (3) Closed fracture of right hip Encounter type: initial encounter Qualified Code(s): S72.001A - Fracture of unspecified part of neck of right femur, initial encounter for closed fracture
[2021-04-11] MEDS ORDERED: NALOXONE HCL 0.4 MG/1 ML VIAL/CARP IV PRN (20:32)
[2021-04-11] MEDS ORDERED: MoRPHine SULFATE 2 MG/ML CARP IV PRN (20:32)
[2021-04-11] MEDS: LACTATED RINGER'S 1,000 ML IV SCH (20:59)
[2021-04-11 21:01] LABS: INR 1.2 (0.9-1.1)
[2021-04-11] MEDS: MoRPHine SULFATE 4 MG/ML 1 ML CARP\\VIAL IV PRN (21:53)
[2021-04-11] MEDS ORDERED: NITROGLYCERIN SL 0.4 MG/TAB TAB SL PRN (22:26)
[2021-04-11] MEDS ORDERED: POLYETHYLENE (MIRALAX) 17 GM PACK PO PRN (22:26)
[2021-04-12] MEDS: ATORVASTATIN 40 MG TAB PO SCH ×2 (00:47→20:11)
[2021-04-12] MEDS: MoRPHine SULFATE 4 MG/ML 1 ML CARP\\VIAL IV PRN ×4 (00:50→10:23)
[2021-04-12] MEDS: ACETAMINOPHEN 325 MG TAB PO PRN ×2 (03:44→09:03)
[2021-04-12 05:01] LABS: Basophils # (auto) 0.01 K/uL (0-0.2); Basophils % (auto) 0.1 %; Eosinophils # (auto) 0.04 K/uL (0-0.5); Eosinophils % (auto) 0.5 %; Hematocrit (blood only) 34.9 % (42-52); Hemoglobin 11.6 g/dL (14.0-18.0); Immature Granulocytes # (auto) 0.01 K/uL (0.00-0.02); Immature Granulocytes % (auto) 0.1 %; Lymphocytes # (auto) 0.68 K/uL (1.2-3.4); Lymphocytes % (auto) 7.9 %; Mean Corpuscular Hemoglobin 31.7 pg (25-34); Mean Corpuscular Hgb Conc 33.2 g/dL (32-36); Mean Corpuscular Volume 95.4 fL (80-100); Mean Platelet Volume 8.8 fL (7.4-10.4); Monocytes # (auto) 0.77 K/uL (0.11-0.59); Monocytes % (auto) 8.9 %; Neutrophils % (auto) 82.5 %; Platelet Count 135 K/uL (130-400); RDW Coefficient of Variation 13.8 % (11.5-14.5); RDW Standard Deviation 47.5 fL (36.4-46.3); Red Blood Count 3.66 M/uL (4.7-6.1); White Blood Count 8.61 K/uL (4.8-10.8)
[2021-04-12 07:45] LABS: Calcium 8.5 mg/dl (8.5-10.1); Creatinine Clr Calc Pharmacy 58.5 ml/min; Est GFR (African American) 89.4 ml/min; Est GFR (Non-African American) 77.1 ml/min; Potassium 4.7 mmol/L (3.5-5.1)
--- NOTE | 2021-04-12 08:35 | Anesthesiology Consultation ---
Date of Service April 12, 2021 Assessment & Plan (1) Encounter for pre-operative examination: Chart Review Chart Review: Acceptable Risk for Surgery (per notes last took his eliquis at 4PM on 04/11/21) History Surgery Operation Date: 04/12/21 13:05 Proposed Procedures p Right Cemented Hip Hemiarthroplasty - Edward Schroeder MD Height/Weight Height: 5 ft 8 in Weight: 73 kg Allergies Allergy/AdvReac Type Severity Reaction Status Date / Time Sulfa (Sulfonamide Allergy Intermediate Hives Verified 04/11/21 18:58 Antibiotics) tetracycline Allergy Intermediate Hives Verified 04/11/21 18:58 Medications Home Medications Medication Instructions Recorded Confirmed Last Taken lutein 20 mg capsule 20 mg PO DAILY cap 10/18/18 04/11/21 Unknown cholecalciferol (vitamin D3) 50 2,000 units PO DAILY cap 09/02/19 04/11/21 Unknown mcg (2,000 unit) capsule docusate sodium 100 mg capsule 200 mg PO DAILY cap 09/02/19 04/11/21 Unknown nitroglycerin 0.4 mg sublingual 0.4 mg SL Q5M PRN #30 tab 12/26/19 04/11/21 Unknown tablet aspirin 81 mg tablet,delayed 81 mg PO PM 03/05/20 04/11/21 Unknown release (Aspirin Low Dose) indapamide 1.25 mg tablet 1.25 mg PO QAM #90 tab 07/30/20 04/11/21 04/11/21 16:00 apixaban 5 mg tablet 5 mg PO BID #180 tab 08/04/20 04/11/21 04/11/21 16:00 lisinopril 2.5 mg tablet 2.5 mg PO DAILY #90 tab 08/09/20 04/11/21 Unknown nitrofurantoin macrocrystal 50 mg 50 mg PO DAILY PRN #30 cap 10/15/20 04/11/21 Unknown capsule (Macrodantin) Lactobacillus acidophilus 1 1,000 mmu cells PO DAILY 12/21/20 04/11/21 Unknown billion cell tablet cranberry 500 mg capsule 500 mg PO DAILY cap 12/21/20 04/11/21 Unknown magnesium oxide 400 mg PO DAILY 12/21/20 04/11/21 Unknown atorvastatin 40 mg tablet 40 mg PO HS 04/11/21 04/11/21 Unknown coQ10 (ubiquinol) 200 mg capsule 200 mg PO DAILY 04/11/21 04/11/21 Unknown dgnyahferhzc-sijfeuau-simbqq tablet 1 tab PO DAILY 04/11/21 04/11/21 Unknown Active Medications Generic Name Dose Route Start Last Admin Trade Name Freq PRN Reason Stop Dose Admin Acetaminophen 650 mg 04/11/21 22:26 04/12/21 03:44 Acetaminophen 325 Mg Tab PO 05/11/21 22:25 650 mg Q4H PRN Administration Pain or Fever Atorvastatin Calcium 40 mg 04/11/21 22:26 04/12/21 00:47 Atorvastatin 40 Mg Tab PO 05/11/21 22:25 40 mg HS CHANNING Administration Lactated Ringer's 1,000 mls @ 75 mls/hr 04/11/21 20:45 04/11/21 20:59 Lr IV 05/11/21 20:44 75 mls/hr .[id number] CHANNING Administration Morphine Sulfate 4 mg 04/11/21 20:32 04/12/21 07:20 Morphine Sulfate 4 Mg/Ml 1 Ml Carp\\Vial IV 04/25/21 20:31 4 mg Q3H PRN Administration Pain (6,7,8,9,10) Past Medical History Medical History (Updated 04/12/21 @ 08:38 by Aki García MD) CAD (coronary artery disease) Coronary artery disease, occlusive Hypercholesterolemia Hyperglycemia Hyperlipidemia Hypertension Nontoxic multinodular goiter Osteoporosis Paroxysmal atrial fibrillation Past Family History Family History Uncle Colorectal cancer Prostate cancer Denies family history of Ovarian cancer Myocardial infarction Breast cancer Past Surgical History Surgical History History of coronary artery bypass surgery Presence of stent in LAD coronary artery Social History Smoking Status: Never smoker Hx Alcohol Use: No Hx Substance Use: No Physical Exam Vital Signs Last Vital Signs Temp 36.7 C 04/12/21 07:00 Pulse 65 04/12/21 07:00 Resp 16 04/12/21 07:00 BP 114/51 L 04/12/21 07:00 Pulse Ox 96 04/12/21 07:00 Testing Laboratory Results 04/12/21 04:50 04/12/21 04:50 PT 12.0 Seconds (9.0-12.0) 04/11/21 20:43 INR 1.2 (0.9-1.1) H 04/11/21 20:43 APTT 26.3 Seconds (21.0-31.0) 04/11/21 18:46 Urine Color Yellow 04/11/21 18:46 Urine Appearance Clear (Clear) 04/11/21 18:46 Urine pH 7.0 (4.5-7.5) 04/11/21 18:46 Ur Specific [place] 1.019 (1.000-1.030) 04/11/21 18:46 Urine Protein Trace (Negative) H 04/11/21 18:46 Urine Glucose (UA) Negative (Negative) 04/11/21 18:46 Urine Ketones Negative (Negative) 04/11/21 18:46 Urine Nitrite Negative (Negative) 04/11/21 18:46 Ur Leukocyte Esterase Negative (Negative) 04/11/21 18:46 Urine WBC (Auto) 1-5 /hpf (0-5) 04/11/21 18:46 Urine RBC (Auto) 10-30 /hpf (0-4) H 04/11/21 18:46 U Hyaline Cast (Auto) 1-5 /lpf (0-5) 04/11/21 18:46 U Epithel Cells (Auto) 20-30 /lpf (0-5) H 04/11/21 18:46 Urine Bacteria (Auto) Negative (Negative) 04/11/21 18:46 Blood Type A Positive 04/11/21 20:43 Antibody Screen NEGATIVE 04/11/21 20:43 Electrocardiogram Date: 04/11/21 Findings: + NSST changes "undetermined rhythm" rate of 80 - likely a fib? Chest X-Ray Date: 04/11/21 Findings: + NAD severe scoliosis right midlung opacity likely scar vs atelectasis
[2021-04-12] MEDS: DOCUSATE SODIUM 100 MG CAP PO SCH (09:04)
[2021-04-12] MEDS: CHOLECALCIFEROL 1,000 UNITS 25 MCG TAB PO SCH (09:04)
--- NOTE | 2021-04-12 09:31 | Orthopedic Consultation ---
Date of Service April 12, 2021 Assessment & Plan (1) Closed fracture of right hip: He is NPO. He was educated on this type of fracture and treatment for it. I did recommend hemiarthroplasty. The procedure was explained including risks, benefits, and alternatives to surgery. Questions were answered, consent obtained. We will plan on doing this surgery today, with Dr. Schroeder. History of Present Illness Reason for Consultation: . Requesting Physician: . Attending Physician: Francisco Salguero .85 year old male admitted with a right femoral neck fracture. Him and his were out for a walk yesterday evening a stray dog came around. He tried to back up sort of to face the dog and fell. He was brought to the ER, xrays obtained and showed a displaced femoral neck fracture. No other complaints. Allergies Allergy/AdvReac Type Severity Reaction Status Date / Time Sulfa (Sulfonamide Allergy Intermediate Hives Verified 04/11/21 18:58 Antibiotics) tetracycline Allergy Intermediate Hives Verified 04/11/21 18:58 Home Medications Medication Instructions Recorded Confirmed Type lutein 20 mg capsule 20 mg PO DAILY cap 10/18/18 04/11/21 History cholecalciferol (vitamin D3) 50 2,000 units PO DAILY cap 09/02/19 04/11/21 History mcg (2,000 unit) capsule docusate sodium 100 mg capsule 200 mg PO DAILY cap 09/02/19 04/11/21 History nitroglycerin 0.4 mg sublingual 0.4 mg SL Q5M PRN #30 tab 12/26/19 04/11/21 Rx tablet aspirin 81 mg tablet,delayed 81 mg PO PM 03/05/20 04/11/21 History release (Aspirin Low Dose) indapamide 1.25 mg tablet 1.25 mg PO QAM #90 tab 07/30/20 04/11/21 Rx apixaban 5 mg tablet 5 mg PO BID #180 tab 08/04/20 04/11/21 Rx lisinopril 2.5 mg tablet 2.5 mg PO DAILY #90 tab 08/09/20 04/11/21 Rx nitrofurantoin macrocrystal 50 mg 50 mg PO DAILY PRN #30 cap 10/15/20 04/11/21 Rx capsule (Macrodantin) Lactobacillus acidophilus 1 1,000 mmu cells PO DAILY 12/21/20 04/11/21 History billion cell tablet cranberry 500 mg capsule 500 mg PO DAILY cap 12/21/20 04/11/21 History magnesium oxide 400 mg PO DAILY 12/21/20 04/11/21 History atorvastatin 40 mg tablet 40 mg PO HS 04/11/21 04/11/21 History coQ10 (ubiquinol) 200 mg capsule 200 mg PO DAILY 04/11/21 04/11/21 History haxywbacdmaq-buzvwxkc-lfstmd tablet 1 tab PO DAILY 04/11/21 04/11/21 History Past Med/Surg History Medical History CAD (coronary artery disease) Coronary artery disease, occlusive Hypercholesterolemia Hyperglycemia Hyperlipidemia Hypertension Nontoxic multinodular goiter Osteoporosis Paroxysmal atrial fibrillation Surgical History History of coronary artery bypass surgery Presence of stent in LAD coronary artery Family History Uncle Colorectal cancer Prostate cancer Denies family history of Ovarian cancer Myocardial infarction Breast cancer Social History Smoking Status: Never smoker Second Hand Exposure: No; Hx Alcohol Use: No Hx Substance Use: No Preferred Language: Upper Sorbian Communication Ability: Effective Automotive Parts Counterperson Required: No Beliefs That Will Affect Care: None marital status: Current Living Situation: Spouse current occupational status: retired Feels Safe at Home: Yes Safety Concerns: Feels Safe At This Time Childhood Exposure to Second-Hand Smoke: No Dental Care, Regularly: Yes Physical Activity Frequency: Daily Seatbelt Use: always Sunscreen Use: No Review of Systems All systems reviewed & are unremarkable except as noted in HPI & below. Physical Exam . alert and oriented. NAD. No pain with ROM of Bilateral upper extremities. No pain with motion of the left leg. I did not do any hip motion with the right hip. No tenderness around the knee. He is able to DF/PF appropriately. NVI. Skin intact around the lateral hip. Results & Data Results & Data Laboratory Results . Diagnostic Findings . xrays of the pelvis show a displaced femoral neck fracture, right. PG Care Time/CCT Total # of Minutes Spent Total Time Spent with Patient: Total time spent is greater than 50% in coordination of care (as documented) at patient's floor/unit and/or counseling patient: Coding Level of Care Code 03392 Inpt Consult Level 4 Diagnoses Closed fracture of right hip S72.001A Encounter type: initial encounter (1) Closed fracture of right hip Encounter type: initial encounter Qualified Code(s): S72.001A - Fracture of unspecified part of neck of right femur, initial encounter for closed fracture
[2021-04-12] MEDS: LACTATED RINGER'S 1,000 ML IV SCH (10:23)
[2021-04-12] MEDS ORDERED: PROPOFOL IV EMULSION 10 MG/ML 20 ML VIAL IV ONE (11:16)
[2021-04-12] MEDS ORDERED: ONDANSETRON INJ 2 MG/ML 2 ML VIAL ONE ×2 (11:16→14:24)
[2021-04-12] MEDS ORDERED: fentaNYL citrate 100 MCG/2 ML VIAL ONE (11:16)
[2021-04-12] MEDS ORDERED: LIDOCAINE 2% 2 ML VIAL/AMP(20MG/ML) INFIL ONE (11:16)
[2021-04-12] MEDS ORDERED: ROPIVACAINE 0.5% 5 MG/ML 30 ML VIAL ONE (11:24)
[2021-04-12] MEDS ORDERED: fentaNYL citrate 100 MCG/2 ML VIAL IV PRN (11:25)
[2021-04-12] MEDS ORDERED: ePHEDrine sulfate 50 MG/ML AMP IV PRN (11:25)
[2021-04-12] MEDS ORDERED: ATROPINE SULFATE 0.1 MG/ML 10ML SYR IV PRN (11:25)
[2021-04-12] MEDS ORDERED: ONDANSETRON INJ 2 MG/ML 2 ML VIAL IV PRN (11:25)
--- NOTE | 2021-04-12 11:50 | History & Physical Bridge Note ---
Date of Service April 12, 2021 History & Physical Bridge Note I have examined the patient, reviewed the History & Physical and in the interval since the performance of the History & Physical I have noted the following changes of clinical significance: no changes noted
[2021-04-12] MEDS ORDERED: ceFAZolin 2,000 MG/15 ML IV PUSH IV ONE (12:05)
[2021-04-12] MEDS ORDERED: ceFAZolin 2000MG 2,000 MG/15 ML SYR IV ONE (12:07)
[2021-04-12] MEDS ORDERED: EPINEPHrine INJ 1 MG/ML AMP ONE (12:23)
[2021-04-12] MEDS ORDERED: BUPIVACAINE 0.5 % 5 MG/1 ML MPF 30ML VIAL ONE ×2 (12:23→12:27)
[2021-04-12] MEDS ORDERED: DEXAMETHASONE SOD INJ 4 MG/ML VIAL ONE (13:34)
--- NOTE | 2021-04-12 14:41 | Operative Report ---
Post Operative Report Pre & Post Diagnosis Operation Date: 04/12/21 13:05 Pre-Op Diagnosis: Right displaced femoral neck fracture Post-Op Diagnosis: Right displaced femoral neck fracture I identified the patient and participated in the time-out.: Yes Procedure Operation Date: 04/12/21 13:05 Actual Procedures p Right Cemented Hip Hemiarthroplasty(Right) - Edward Schroeder MD Surgeon Edward Schroeder MD Drone Pilot Greg Campos PA-C Estimated Blood Loss 200 Findings Consistent with Post-Op Diagnosis Fluids 700 cc Specimens Right femoral head sent for pathology Anesthesia Type General Regional Complications none Disposition Accompanied Patient To Recovery: No Indications Patient is an 85-year-old gentleman who sustained a fall yesterday. He lost his balance and fell on his right hip. Gait is brought to emergency room where x- rays revealed displaced femoral neck fracture. The patient was admitted by the hospitalist service, medically optimized, and indicated for surgical treatment. Description of Procedure Operative implants consist of: 1. Joes size 14 LD/fracture femoral stem. 2. +3.5/28 mm articular ball. 3. 54 mm bipolar shell and liner. 4. Distal cementralizer. 5. Large cement restrictor. The patient was taken to the operating room, identified, and placed on the operating table supine position protectors were properly padded. IV antibiotics 5 by anesthesia team. A general anesthetic was implemented as the patient's had been on blood thinner. The patient was then placed in the left lateral cubitus position. He did have an emesis so we had to turn him back supine and intubate him. There is no signs of aspiration. The patient was then placed back in the lateral decubitus position. An axillary roll was placed. A Stulberg hip positioner was used for positioning. The right hip and leg were then scrubbed with a Hibiclens and then prepped with ChloraPrep and draped in usual sterile fashion. A posterior lateral approach of the right hip was then performed to a curvilinear incision centered over the greater trochanter. Sharp dissection carried through subcutaneous tissue down to level the IT band gluteal fascia the IT band gluteal fascia were incised longitudinally in line with skin incision. There is quite a bit hemorrhage and hematoma posteriorly where he fell onto the step. The posterior capsule and external rotators were then released from the posterior aspect of the hip joint as a single layer. The capsule was then very carefully teed taking great care to protect the sciatic nerve. The hip was internally rotated. Femoral neck osteotomy cut was made just at the base of the fracture site which was about a centimeter above the lesser trochanter. Femoral head and neck were removed and sent for pathology. The femur was retracted anteriorly. The femoral head was removed and sent for pathology. The femoral head was sized to a size 54. I trialed the acetabulum and 54 bipolar shell was selected. Attention drawn the femur. The proximal femur then with a cookie-cutter followed by canal finder and lateralizing reamer. I then broached beginning with size 10 and progressing up to 14. We got good fit with a 14. We trialed the hip and the +3.5 articular ball procedure provide most appropriate soft tissue tension and leg length. We elect to place these implants. All trial implants were removed. A distal cement plug/restrictor was placed. I irrigated the wound extensively. A double batch [place] G cement was mixed and then injected in the canal. A size 14 stem with a centralizer was placed. All extraneous cement was removed. We held this until the cement hardened. A +3.5/20 mm metal articular ball was placed with a 54 bipolar shell liner. Hip was located once again found to be stable. Was fully stable full extension and external rotation flexion to 9 degrees internal rotation over 50 degrees. I did inject locally with about 30 cc of half percent Marcaine with epinephrine. I irrigated the wound extensively. The posterior capsule was then closed with #2 Tycron suture in a [id number] fashion. The IT band gluteal fascia then loagn sed #1 PDS suture running fashion for subcutaneous tissues then closed 2 layers with a deep layer #1 Vicryl suture in the subcutaneous tissues with 2 Dexon suture in a buried interrupted fashion the skin was closed skin malik. Leg was then cleaned dried and sterile dressing was Xeroform, 4 x 4's, ABD pad, foam tape was applied. The patient then brought out of general incision transferred to the recovery room in stable condition. Patient tolerated procedure well and there were no complications. Greg Campos, my physician dental office assistant, was present for the entire procedure. His assistance was essential and required for appropriate patient positioning, prepping and draping, surgical exposure, performing the technical details of the operation, placement the implants, closure of the wound, and placement of the sterile bandage. I attest to the content of the Intraoperative Record and any orders documented therein. Any exceptions are noted below.
[2021-04-12] MEDS ORDERED: FAMOTIDINE/PF 20 MG/2 ML VIAL IV ONE (14:48)
--- NOTE | 2021-04-12 15:39 | Hospitalist Progress Note ---
Date of Service April 12, 2021 Assessment & Plan (1) Closed fracture of right hip: Plan: -Witnessed ground level fall without LOC. Hip x-ray showed acute displaced im pacted right femoral neck fracture. -is s/p Right hemiarthroplasty (04/12/21 Dr. Schroeder) -There was concern for some minimal ST elevation on monitor intraoperatively (around 1 mm). EKG done at this time showing no evidence of ST elevation. Patient without chest pain. Will obtain cardiac enzymes -Otherwise, uneventful perioperative course -Recommend adequate postoperative pain management, PT/OT, incentive spirometry, continued perioperative antibiotic prophylaxis (at discretion of surgeon), and DVT prophylaxiswould resume Eliquis tomorrow (2) CAD (coronary artery disease): Plan: -Proximal LAD HOA, August 2014; CABG x2, January 2016. -Follows Dr. Barr -Again, there was question of mild ST elevation on the monitor intraoperatively (around 1 mm). EKG done at this time showing no evidence of ST elevation or ST/T wave changes. -Currently, patient without chest pain or anginal equivalent symptoms -We will obtain cardiac enzymes and trend his troponin -Obtain an echocardiogram -KIARA inhibitor on hold X 48 hours given attempted spinal anesthesia of menses to reduce risk of hypotension and/or JANAE -Would resume aspirin 48 hours postoperatively -Continuing statin. (3) Paroxysmal atrial fibrillation: Plan: -Currently in a normal sinus rhythm with controlled ventricular rate -Would resume Eliquis tomorrow (4) Hyponatremia: Plan: -Na+ 130 upon presentation to the EDasymptomatic -With review of old records, not a new finding -Patient appears volume contracted -Likely related to diuretic therapy that he takes routinely -LRs started at 75 cc/hr by admitting provider. Has since been transitioned to NS postoperatively. We will continue this with follow-up labs in the a.m. (5) Hypertension: Plan: -Stable on lisinopril and indapamide--both of these medications currently on hold as outlined above (6) Hyperlipidemia: Plan: -Continue atorvastatin 40 mg daily. (7) DVT prophylaxis: Plan: -Would advise resumption of Eliquis tomorrow. This will provide adequate DVT prophylaxis postoperatively (chemical DVT prophylaxis recommended in the setting of fracture). -Plan of care discussed with Dr. Salguero Admission and Anticipated Discharge Date Admission Date: April 11, 2021 Subjective Patient seen on daily rounds today. S/p right hemiarthroplasty following a ground-level fall resulting in a fracture. Perioperatively, there was concern that the monitor showed some mild ST elevation. This was approximately 1 mm. He was slightly hypotensive with a systolic of 90 requiring a total of 40 mg of ephedrine. EKG done showing no e vidence of ST elevation. Actually no change from preoperative EKG. Does have an underlying history of CAD s/p CABG. Follows Dr. Barr. Patient started with spinal anesthesia but was subsequently converted to general. Did receive TXA, bupivacaine, ropivacaine. Currently, denies any chest pain or shortness of breath. Not having any pain in his lower extremity. Reports living in a one-story home with his Review of Systems Review of Systems: All systems reviewed and are unremarkable except as noted in HPI and below Denies fevers, chills, headache, nasal congestion, sore throat, cough, chest pain, shortness of breath, palpitations, orthopnea, PND, abdominal pain, nausea, vomiting, diarrhea, constipation, dysuria, hematuria, frequency, back pain, joint pain or swelling, easy bruising or bleeding, skin lesions or rashes. Physical Exam Physical Exam: General: Resting comfortably in his hospital bed in PACU. NAD. HEENT: Head is AT/NC buccal mucosa is moist and pink Neck: No JVD. Negative hepatojugular reflex Cardiac: RRR with 1/6 to 2/6 YEIMI Lungs: CTA without W/R/R Abdomen: Normoactive X4. Soft and nontender in all quadrants. Extremities: Right hip with intact dressing that is dry. No obvious indwelling drains. Distal pulses the bilateral lower extremities are intact symmetrical bi laterally. Capillary fill +2. Negative Homans' sign. No calf tenderness. Neuro: A&O X4 cranial nerves II through XII are grossly intact no focal neuro deficits Skin: No obvious skin lesions or rashes Psych: Appropriate affect pleasant and cooperative Results & Data Results & Data ([facility] [place]) Vital Signs (Past 12 Hours) Vital Signs Temp Pulse Pulse Resp BP Pulse Ox 04/12/21 15:20 72 15 144/73 H 97 04/12/21 15:10 73 15 158/73 H 98 04/12/21 15:00 71 16 154/67 H 98 04/12/21 14:50 73 14 161/72 H 98 04/12/21 14:47 36.5 C 77 12 147/76 H 99 04/12/21 11:01 37.1 C 63 18 135/61 99 04/12/21 07:00 36.7 C 65 16 114/51 L 96 04/12/21 04:00 36.7 C 67 16 138/61 92 Laboratory Results 04/12/21 04:50 04/12/21 04:50 PG Care Time/CCT Total # of Minutes Spent Total Time Spent with Patient: Total time spent is greater than 50% in coordination of care (as documented) at patient's floor/unit and/or counseling patient: Coding Level of Care Code 66265 Subseq Hosp Care Lvl 3 Diagnoses Closed fracture of right hip S72.001A Encounter type: initial encounter CAD (coronary artery disease) I25.810 Coronary Disease-Associated Artery/Lesion type: bypass graft [place] vs. transplanted heart: [place] heart Associated angina: without angina Paroxysmal atrial fibrillation I48.0 Hyponatremia E87.1 Hypertension I10 Hypertension type: unspecified Hyperlipidemia E78.5 DVT prophylaxis Z29.9 (1) Closed fracture of right hip Encounter type: initial encounter Qualified Code(s): S72.001A - Fracture of unspecified part of neck of right femur, initial encounter for closed fracture (2) CAD (coronary artery disease) Coronary Disease-Associated Artery/Lesion type: bypass graft [place] vs. transplanted heart: [place] heart Associated angina: without angina Qualified Code(s): I25.810 - Atherosclerosis of coronary artery bypass graft(s) without angina pectoris (3) Hypertension Hypertension type: unspecified Qualified Code(s): I10 - Essential (primary) hypertension
--- NOTE | 2021-04-12 15:53 | XRay Report ---
XR hip RT min 2V CLINICAL HISTORY: Post-Operative implant position TECHNIQUE: 2 views of the right hip and single frontal view of the pelvis were obtained. Comparison: Comparison is made to right hip radiographs 04/11/2021 FINDINGS: Patient is status post total knee arthroplasty with expected postsurgical changes including soft tiss ue swelling, subcutaneous emphysema, and surgical staple placement. No periarticular lucency or hardw are fracture is seen. The alignment is anatomic. Joint spaces are well-preserved. No soft tissue abn ormality is seen. IMPRESSION: Expected postoperative appearance status post placement of total hip arthroplasty. ACT 112: Negative or not required by law. Electronically signed by: Mingo Castillo M.D. 04/12/2021 3:51 PM
--- NOTE | 2021-04-12 17:43 | Anesthesiology Progress Note ---
Date of Service April 12, 2021 Anesthesia Post Procedure Vital Signs Vital Signs: Temp Pulse Pulse Resp BP Pulse Ox 04/12/21 17:25 71 20 127/67 100 04/12/21 16:55 72 19 135/66 99 04/12/21 16:40 68 16 129/71 99 04/12/21 16:25 67 20 145/73 H 100 04/12/21 16:10 70 20 143/74 H 100 04/12/21 15:55 69 16 143/70 H 99 04/12/21 15:40 36.4 C L 72 15 147/72 H 99 04/12/21 15:30 74 15 140/70 98 04/12/21 15:20 72 15 144/73 H 97 04/12/21 15:10 73 15 158/73 H 98 04/12/21 15:00 71 16 154/67 H 98 04/12/21 14:50 73 14 161/72 H 98 04/12/21 14:47 36.5 C 77 12 147/76 H 99 04/12/21 11:01 37.1 C 63 18 135/61 99 04/12/21 07:00 36.7 C 65 16 114/51 L 96 04/12/21 04:00 36.7 C 67 16 138/61 92 04/11/21 23:48 36.8 C 75 17 132/62 96 04/11/21 21:00 64 22 118/56 L 98 04/11/21 19:12 81 15 168/66 H 100 Pain Intensity Hip: Pain Intensity: 8 Right Hip: Pain Intensity: 0 Transfer of Care Handoff Completed per policy Notes Mental Status: alert / awake / arousable Patient Amnestic to Procedure: Yes Nausea / Vomiting: adequately controlled Pain: adequately controlled Airway Patency, RR, SpO2: stable & adequate BP & HR: stable & adequate Hydration State: stable & adequate Anesthetic Complications: no major complications apparent
[2021-04-12] MEDS: SODIUM CHLORIDE 0.9% 1000ML 1,000 ML IV SCH (20:53)
--- NOTE | 2021-04-12 22:43 | Electrocardiogram Report ---
Test Reason : Blood Pressure : / mmHG Vent. Rate : 080 BPM Atrial Rate : 080 BPM P-R Int : 172 ms QRS Dur : 100 ms QT Int : 380 ms P-R-T Axes : 154 -42 059 degrees QTc Int : 438 ms Poor data quality, interpretation may be adversely affected Sinus rhythm Left axis deviation RSR' or QR pattern in V1 suggests right ventricular conduction delay Nonspecific T wave abnormality Abnormal ECG When compared with ECG of 05-MAR-2020 04:34, Premature ventricular complexes are no longer Present Confirmed by Dawit Landin ([id number]) on 04/12/2021 10:43:12 PM Referred By: REFERRED SELF Confirmed By:Dawit Landin
[2021-04-13 07:20] LABS: Eosinophils # (auto) 0.01 K/uL (0-0.5); Eosinophils % (auto) 0.1 %; Hematocrit (blood only) 30.4 % (42-52); Hemoglobin 10.2 g/dL (14.0-18.0); Immature Granulocytes # (auto) 0.01 K/uL (0.00-0.02); Immature Granulocytes % (auto) 0.1 %; Lymphocytes # (auto) 0.48 K/uL (1.2-3.4); Lymphocytes % (auto) 5.5 %; Mean Corpuscular Hgb Conc 33.6 g/dL (32-36); Mean Corpuscular Volume 95.3 fL (80-100); Mean Platelet Volume 8.9 fL (7.4-10.4); Monocytes # (auto) 1.01 K/uL (0.11-0.59); Monocytes % (auto) 11.5 %; Neutrophils # (auto) 7.29 K/uL (1.4-6.5); Neutrophils % (auto) 82.8 %; Platelet Count 132 K/uL (130-400); RDW Coefficient of Variation 13.9 % (11.5-14.5); RDW Standard Deviation 48.6 fL (36.4-46.3); Red Blood Count 3.19 M/uL (4.7-6.1)
[2021-04-13] MEDS: DOCUSATE SODIUM 100 MG CAP PO SCH (07:41)
[2021-04-13] MEDS: CHOLECALCIFEROL 1,000 UNITS 25 MCG TAB PO SCH (07:41)
[2021-04-13 07:43] LABS: Troponin I 0.04 ng/ml (0-0.04)
[2021-04-13 07:46] LABS: Albumin Globulin Ratio 1.5 (0.9-2); Albumin Level 3.2 gm/dl (3.4-5.0); BUN Creatinine Ratio 26.4 (10-20); Bilirubin,Total 0.6 mg/dl (0.2-1.0); Calcium 8.2 mg/dl (8.5-10.1); Creatinine Clr Calc Pharmacy 61.1 ml/min; Est GFR (African American) 91.9 ml/min; Est GFR (Non-African American) 79.3 ml/min; Globulin 2.2 gm/dl (2.5-4.0); Magnesium 1.7 mg/dl (1.7-2.4); Potassium 4.4 mmol/L (3.5-5.1); Total Protein 5.4 gm/dl (6.0-8.3)
[2021-04-13] MEDS: SODIUM CHLORIDE 0.9% 1000ML 1,000 ML IV SCH (07:47)
--- NOTE | 2021-04-13 07:53 | Hospitalist Progress Note ---
Date of Service April 13, 2021 Assessment & Plan (1) Closed fracture of right hip: Plan: -Witnessed ground level fall without LOC. Hip x-ray showed acute displaced impacted right femoral neck fracture. -is -There was concern for some minimal ST elevation on monitor intraoperatively (around 1 mm). EKG done at this time showing no evidence of ST elevation. Patient without chest pain. Will obtain cardiac enzymes -Otherwise, uneventful perioperative course -Recommend adequate postoperative pain management, PT/OT, incentive spirometry, continued perioperative antibiotic prophylaxis (at discretion of surgeon), and DVT prophylaxiswould resume Eliquis tomorrow 04/13 POD #1 s/p Right hemiarthroplasty (04/12/21 Dr. Schroeder) PT/OT consults pending Pain control -- added oxycodone for oral/longer lasting option Passing gas but no BM -- added senna/increase ambulation Doing well this AM except for some low BP when up with therapy (got 20mg IV lasix for elevated BNP/hyponatremia this morning) and BPs had been ok, improved this afternoon AFIB/RVR TSH wnl 1.086 04/13 However, flipped into afib rbvr with rates up to 180s, palpations noted but no CP/SOB reported --> 250cc NSS bolus, 2gm IV mag for mag 1.7 on am labs, and lopressor IV 5mg x 3 given. Mag currently infusing --> Monitor on telemetry Eliquis resumed this morning for his history of afib of note, given 5mg but ortho ordered 2.5mg BID --> changed back to 5mg BID (got 5mg dose this morning) Cards consulted -- appreciate recs. Holding off on additional IV medications to prevent further hypotension unless becomes symptomatic --> Per Dr Barr, happens at home 25mg Q6H at home as needed. Ordered Q6H prn. Possible amiodarone tomorrow if needed. (2) Paroxysmal atrial fibrillation: Plan: -Currently in a normal sinus rhythm with controlled ventricular rate THIS MORNING, however around lunch flipped into afib/rvr with rates 170-180s. Palpitations but no SOB/CP reported Eliquis resumed this morning Lopressor 5mg IV x 3 this morning, then 10mg iv cardizem per cards, patient asymptomatic and does this at home and uses metoprolol 25mg q6h prn cards to see later this afternoon but rec to avoid further iv medications at this time to prevent worsening hypotension with elevated HRs --> possible amiodarone tomorrow if needed -- appreciate recs/asssitance (3) CAD (coronary artery disease): Plan: -Proximal LAD HOA, August 2014; CABG x2, January 2016. -Follows Dr. Barr -Again, there was question of mild ST elevation on the monitor intraoperatively (around 1 mm). EKG done at this time showing no evidence of ST elevation or ST/T wave changes. -Currently, patient without chest pain or anginal equivalent symptoms Repeat trop 0.04 KIARA on hold -- resume in AM (lisinopril 2.5mg daily) if not hypotensive (holding continued given low BPs and giving medications to help with his ECHO to have been ordered, not in system. Ordered Resume ASA in AM 48 hours post op, continued statin No CP/SOB reported --> See above regarding afib/RVR. Takes metoprolol po prn at home per dr Barr note Cards on consult as above (4) Hyponatremia: Plan: -Na+ 130 upon presentation to the EDasymptomatic -With review of old records, not a new finding -Patient appears volume contracted -Likely related to diuretic therapy that he takes routinely (indapamide 1.25mg daily) No further IVF at this time -- given 250nss bolus for some hypotension/low BP this morning Hold KIARA still Encourage PO intake BMP in AM (5) Hypertension: Plan: -Stable on lisinopril and indapamide--both of these medications currently on hold as outlined above 250cc bolus for low BP above Continue to hold KIARA/diuretic BP currently 94/61 Continue to monitor (6) Hyperlipidemia: Plan: -Continue atorvastatin 40 mg daily. (7) DVT prophylaxis: Plan: Eliquis 5mg resumed this morning Admission and Anticipated Discharge Date Admission Date: April 11, 2021 Subjective patient evaluated this morning pain controlled but had some nausea/lightheadedness from the morphine and anesthesia. Stated some pain when standing, worse with movement and this could contribute to the lightheadedness. No headache/visual changes. Will ask RN to recheck orthostatic vitals as well as wean O2 as is 99% on 1L currently. If symptomatic on repeat can give some IVF but hoping to avoid given the elevated BNP and he did get 20mg dose of IV lasix this morning. Murmur c/w , discussed fine balance. He is hopeful for d/c with home health through [facility], possible in next 24-48 hours. This afternoon following drinking coffee/cold water noted to have palpitations and flipped into afib/rvr with rates to 170-180s. No chest pain/shortness of breath. Ordered IV magnesium and IV lopressor and 250cc NS bolus. BPs better If continues may need moved/cardizem gtt but will order 10mg IV cardizem now/consult cards and continue to monitor. Review of Systems Review of Systems: All systems reviewed & are unremarkable except as noted in HPI & below Physical Exam Physical Exam: General: WN/WD male sitting up in bed eating breakfast, NAD Eyes anicteric, pupils equal and reactive ENT: mmm, trachea midline without deviation Resp: CTAB, no w/c/r, on1L NC CV: RRR, systolic ejection murmur, no edema/calf tenderness, pulses palpable GI: +BS, soft, nontender Ext: dressing to R hip c/d/i, tender to palpation, pulses palpable and symmetric, cap refill <3 seconds. Skin: warm, dry Neuro/Psych: alert, oriented to person/place/time, cooperative, no focal deficit Results & Data Results & Data ([facility]) Vital Signs (Past 12 Hours) Vital Signs Temp Pulse Pulse Resp BP Pulse Ox 04/13/21 07:23 37.5 C 69 18 134/69 99 04/13/21 07:09 64 04/13/21 04:41 65 04/13/21 04:03 36.7 C 65 18 138/58 L 99 04/13/21 00:27 36.9 C 66 18 120/67 99 04/12/21 23:27 36.6 C 65 18 122/70 100 04/12/21 22:27 36.9 C 71 18 123/67 97 04/12/21 21:21 36.9 C 78 18 122/69 97 04/12/21 20:51 36.9 C 77 18 130/70 97 04/12/21 20:16 36.7 C 76 18 128/72 96 04/12/21 19:55 36.8 C 80 18 124/66 97 Laboratory Results 04/13/21 04/13/21 04/13/21 Range/Units 06:53 06:53 06:53 WBC 8.80 (4.8-10.8) K/uL RBC 3.19 L (4.7-6.1) M/uL Hgb 10.2 L (14.0-18.0) g/dL Hct 30.4 L (42-52) % MCV 95.3 (80-100) fL MCH 32.0 (25-34) pg MCHC 33.6 (32-36) g/dL RDW Std Deviation 48.6 H (36.4-46.3) fL RDW Coeff of Ralph 13.9 (11.5-14.5) % Plt Count 132 (130-400) K/uL MPV 8.9 (7.4-10.4) fL Immature Gran % (Auto) 0.1 % Neut % (Auto) 82.8 % Lymph % (Auto) 5.5 % [place] % (Auto) 11.5 % Eos % (Auto) 0.1 % Baso % (Auto) 0.0 % Neut # (Auto) 7.29 H (1.4-6.5) K/uL Lymph # (Auto) 0.48 L (1.2-3.4) K/uL [place] # (Auto) 1.01 H (0.11-0.59) K/uL Eos # (Auto) 0.01 (0-0.5) K/uL Baso # (Auto) 0.00 (0-0.2) K/uL Immature Gran # (Auto) 0.01 (0.00-0.02) K/uL Sodium 129 L (136-145) mmol/L Potassium 4.4 (3.5-5.1) mmol/L Chloride 97 L (98-107) mmol/L Carbon Dioxide 26 (21-32) mmol/L Anion Gap 6 (3-11) BUN 23 (6-23) mg/dl Creatinine 0.87 (0.6-1.4) mg/dl Est Cr Clr Drug Dosing 61.1 ml/min Est GFR ( Amer) 91.9 ml/min Est GFR (Non-Af Amer) 79.3 ml/min BUN/Creatinine Ratio 26.4 H (10-20) Glucose 144 H (70-99(Fasting)) mg/dl Calcium 8.2 L (8.5-10.1) mg/dl Magnesium 1.7 (1.7-2.4) mg/dl Total Bilirubin 0.6 (0.2-1.0) mg/dl AST 23 (13-39) U/L ALT 15 (7-52) U/L Alkaline Phosphatase 58 (34-104) U/L Troponin I 0.04 (0-0.04) ng/ml Total Protein 5.4 L (6.0-8.3) gm/dl Albumin 3.2 L (3.4-5.0) gm/dl Globulin 2.2 L (2.5-4.0) gm/dl Albumin/Globulin Ratio 1.5 (0.9-2) 25-OH Vitamin D Total Pending 04/12/21 04/12/21 Range/Units 22:42 16:17 WBC (4.8-10.8) K/uL RBC (4.7-6.1) M/uL Hgb (14.0-18.0) g/dL Hct (42-52) % MCV (80-100) fL MCH (25-34) pg MCHC (32-36) g/dL RDW Std Deviation (36.4-46.3) fL RDW Coeff of Ralph (11.5-14.5) % Plt Count (130-400) K/uL MPV (7.4-10.4) fL Immature Gran % (Auto) % Neut % (Auto) % Lymph % (Auto) % [place] % (Auto) % Eos % (Auto) % Baso % (Auto) % Neut # (Auto) (1.4-6.5) K/uL Lymph # (Auto) (1.2-3.4) K/uL [place] # (Auto) (0.11-0.59) K/uL Eos # (Auto) (0-0.5) K/uL Baso # (Auto) (0-0.2) K/uL Immature Gran # (Auto) (0.00-0.02) K/uL Sodium (136-145) mmol/L Potassium (3.5-5.1) mmol/L Chloride (98-107) mmol/L Carbon Dioxide (21-32) mmol/L Anion Gap (3-11) BUN (6-23) mg/dl Creatinine (0.6-1.4) mg/dl Est Cr Clr Drug Dosing ml/min Est GFR ( Amer) ml/min Est GFR (Non-Af Amer) ml/min BUN/Creatinine Ratio (10-20) Glucose (70-99(Fasting)) mg/dl Calcium (8.5-10.1) mg/dl Magnesium (1.7-2.4) mg/dl Total Bilirubin (0.2-1.0) mg/dl AST (13-39) U/L ALT (7-52) U/L Alkaline Phosphatase (34-104) U/L Troponin I 0.05 H* 0.05 H* (0-0.04) ng/ml Total Protein (6.0-8.3) gm/dl Albumin (3.4-5.0) gm/dl Globulin (2.5-4.0) gm/dl Albumin/Globulin Ratio (0.9-2) 25-OH Vitamin D Total PG Care Time/CCT Total # of Minutes Spent Total Time Spent with Patient: Total time spent is greater than 50% in coordination of care (as documented) at patient's floor/unit and/or counseling patient: Coding Level of Care Code 28317 Subseq Hosp Care Lvl 3 Diagnoses Closed fracture of right hip S72.001A Encounter type: initial encounter CAD (coronary artery disease) I25.810 Associated angina: without angina Coronary Disease-Associated Artery/Lesion type: bypass graft [place] vs. transplanted heart: [place] heart Paroxysmal atrial fibrillation I48.0 Hyponatremia E87.1 Hypertension I10 Hypertension type: unspecified Hyperlipidemia E78.5 DVT prophylaxis Z29.9 (1) CAD (coronary artery disease) Associated angina: without angina Coronary Disease-Associated Artery/Lesion type: bypass graft [place] vs. transplanted heart: [place] heart Qualified Code(s): I25.810 - Atherosclerosis of coronary artery bypass graft(s) without angina pectoris (2) Hypertension Hypertension type: unspecified Qualified Code(s): I10 - Essential (primary) hypertension (3) Closed fracture of right hip Encounter type: initial encounter Qualified Code(s): S72.001A - Fracture of unspecified part of neck of right femur, initial encounter for closed fracture
[2021-04-13] MEDS ORDERED: APIXABAN 5 MG TABLET PO SCH (09:00)
[2021-04-13] MEDS ORDERED: FUROSEMIDE INJ 20 MG/2 ML VIAL IV ONE (09:26)
[2021-04-13] MEDS: MoRPHine SULFATE 4 MG/ML 1 ML CARP\\VIAL IV PRN (10:12)
--- NOTE | 2021-04-13 12:15 | Progress Notes ---
DATE OF SERVICE: 04/13/2021. SUBJECTIVE: An 85-year-old gentleman now postoperative day 1 from a right cemented bipolar hip arthr oplasty for fracture. He is doing pretty well. Has not been out of bed yet, but complains of no arminda n. No chest pain or shortness of breath. Not feeling dizzy or lightheaded. OBJECTIVE: VITAL SIGNS: Temperature 37.5. Vital signs are stable. PHYSICAL EXAMINATION: GENERAL: Shows a pleasant, elderly male. He is lying in bed, looks pretty comfortable. EXTREMITIES: Examination of the right hip reveals the leg to be well aligned. Dressing is clean, dr y and intact. Thigh is soft and supple. He can dorsiflex and plantarflex his foot appropriately. NEUROLOGIC: He is neurologically intact. LABORATORY DATA: Hemoglobin 10.2. Hematocrit 30.4. Electrolytes are fairly stable. He is chronica lly hyponatremic. ASSESSMENT: An 85-year-old gentleman postoperative day 1 from right cemented bipolar hip arthroplast y for fracture. He is doing pretty well orthopedically. Medically, he seems stable. His hip is loc ated. He is neurologically intact. PLAN: 1. DVT prophylaxis includes thigh-high TEDs, SCDs, and we will start him back on anticoagulation tod ay. We will use a prophylactic dose for 48 hours and then back to his regular dose. 2. PT, OT, he can weightbear as tolerated. Right total hip protocol. 3. Pain control, doing okay with current pain regimen. 4. Medical management as per the medicine service. 5. Disposition: He is orthopedically okay for discharge any time medically stable. I need to see h im back 2-3 weeks out from surgery date. Any orthopedic questions can be directed to me at . Job ID: [id number]
[2021-04-13] MEDS ORDERED: METOPROLOL TARTRATE 1 MG/ML VIAL IV STA ×2 (12:57→13:24)
[2021-04-13] MEDS ORDERED: METOPROLOL TARTRATE 1 MG/ML VIAL IV ONE (12:59)
[2021-04-13] MEDS ORDERED: SODIUM CHLORIDE 0.9% 1000ML 250 ML IV ONE ×2 (13:25→21:05)
[2021-04-13] MEDS: METOPROLOL TARTRATE 1 MG/ML VIAL IV PRN ×2 (13:41→13:55)
[2021-04-13] MEDS: MAGNESIUM SULFATE / D5W 1 GM/100 ML BAG IV SCH ×2 (14:00→16:01)
[2021-04-13] MEDS ORDERED: dilTIAZem HCl 5 MG/ML 5 ML VIAL IV STA (14:03)
[2021-04-13] MEDS ORDERED: dilTIAZem HCl 5 MG/ML 5 ML VIAL IV ONE (14:06)
[2021-04-13] MEDS ORDERED: METOPROLOL TARTRATE 25 MG TAB PO PRN (14:30)
--- NOTE | 2021-04-13 14:51 | XCELERA ---
[id number] \\[id number]_[id number]
--- NOTE | 2021-04-13 16:50 | Cardiology Consultation ---
Date of Consultation April 13, 2021 Assessment & Plan (1) Paroxysmal atrial fibrillation: (2) CAD (coronary artery disease): (3) Hypertension: ASSESSMENT/PLAN: 1. Paroxysmal atrial fibrillation: Developed atrial fibrillation 04/13/2021 while receiving anticoagulation therapy earlier in the morning. Mildly symptomatic but nothing out of the ordinary for him. Episode may be exacerbated by the fact that he is postop. Discussed treatment strategies. For now, recommend metoprolol 25 mg p.o. q.6 hours for rate control. He typically converts spontaneously. If not, will consider cardioversion versus antiarrhythmic therapy. These options were discussed with him. If episodes bec ome more frequent, could consider long-term antiarrhythmic therapy at some point. Continue anticoagulation for stroke risk reduction. 2. CAD s/p prior LAD PCI and then CABG x 2: No angina. Given prior PCI, recommend resuming aspirin 81 mg daily, although had significant in stent restenosis, prompting CABG and unclear if LAD stent is still patent. Continue high-intensity statin therapy. 3. Hypertension: History of hypertension although blood pressure has been mostly normotensive here. Had orthostatic symptoms this morning. Typically takes lisinopril at home. Beta-percy being used now for rate control as noted above. 4. Disposition: Cardiology will continue to follow. Plan of care personally discussed with Sandi Santamaria of the primary hospitalist service. When ready for discharge, follow-up with Dr. Barr, his primary screen making technician. Thank you for allowing me to participate in the care of your patient. Please call for any other questions or concerns. Sincerely, Kirill Landin M.D. History of Present Illness Reason for Consultation: afib with rvr Requesting Physician: Hina Attending Physician: Francisco Salguero History of Present Illness Mr. Valdez is a very pleasant 85-year-old gentleman with a history significant for multivessel CAD s/p CABG x2 (ALLEN to LAD and SVG to ramus; January 2016) and previous LAD PCI (August 2014), paroxysmal atrial fibrillation, PFO ligation during CABG, hypertension, and dyslipidemia. His primary screen making technician is Dr. Barr. He was admitted on 04/11/2021 with right hip fracture. Hip fracture was sustained after mechanical fall when on least dog ran towards him and he fell while backing away. He denied any loss of consciousness. He had been on Eliquis for stroke risk reduction given paroxysmal atrial fibrillation. This was held briefly while undergoing surgical correction by Dr. Schroeder on 04/12/2021. Eliquis was resumed this morning. He had been in sinus rhythm on presentation and also noted on telemetry until 12:46 p.m. this afternoon when he developed AFib with RVR. He had his typical symptoms, which includes only palpitations. He denies syncope, near-syncope, chest pain, shortness of breath, or any other significant symptom. He was given intravenous diltiazem 10 mg x 1 and multiple doses of metoprolol 5 mg IV to help improve heart rate, by hospitalist service. He has a few episodes of atrial fibrillation throughout the year and typically episodes last anywhere from 30 seconds to 2 minutes but has had episodes lasting a few days, with the longest being 12 days. He recalls being cardioverted following CABG in 2016 at [facility] [place] He was discharged on amiodarone. While on loading dose, he had dermatologic issues, decreased appetite, and difficulty walking. Amiodarone was then discontinued. He also has developed fatigue if taking beta-percy on a scheduled prolonged basis. He tolerates it well when taking it on an as-needed basis. At home he takes 25 mg p.o. q.6 hours as needed for episodes of atrial fibrillation as outlined by his screen making technician. He was comfortable laying in bed without particular issues other than mild palpitations. He denies melena, hematochezia, hematuria, chest pain or shortness of breath. He had orthostatic symptoms this morning when standing out of bed, while in sinus rhythm. Review of systems: As above. Review of systems otherwise negative/unremarkable. Family history: Mother had atrial fibrillation in her 70s. Social history: Denies smoking, alcohol, drug abuse. Lives at home with his . They have no children. His was present at the bedside. Allergies Allergy/AdvReac Type Severity Reaction Status Date / Time Sulfa (Sulfonamide Allergy Intermediate Hives Verified 04/11/21 18:58 Antibiotics) tetracycline Allergy Intermediate Hives Verified 04/11/21 18:58 Home Medications Medication Instructions Recorded Confirmed Type lutein 20 mg capsule 20 mg PO DAILY cap 10/18/18 04/11/21 History cholecalciferol (vitamin D3) 50 2,000 units PO DAILY cap 09/02/19 04/11/21 History mcg (2,000 unit) capsule docusate sodium 100 mg capsule 200 mg PO DAILY cap 09/02/19 04/11/21 History nitroglycerin 0.4 mg sublingual 0.4 mg SL Q5M PRN #30 tab 12/26/19 04/11/21 Rx tablet aspirin 81 mg tablet,delayed 81 mg PO PM 03/05/20 04/11/21 History release (Aspirin Low Dose) indapamide 1.25 mg tablet 1.25 mg PO QAM #90 tab 07/30/20 04/11/21 Rx apixaban 5 mg tablet 5 mg PO BID #180 tab 08/04/20 04/11/21 Rx lisinopril 2.5 mg tablet 2.5 mg PO DAILY #90 tab 08/09/20 04/11/21 Rx nitrofurantoin macrocrystal 50 mg 50 mg PO DAILY PRN #30 cap 10/15/20 04/11/21 Rx capsule (Macrodantin) Lactobacillus acidophilus 1 1,000 mmu cells PO DAILY 12/21/20 04/11/21 History billion cell tablet cranberry 500 mg capsule 500 mg PO DAILY cap 12/21/20 04/11/21 History magnesium oxide 400 mg PO DAILY 12/21/20 04/11/21 History atorvastatin 40 mg tablet 40 mg PO HS 04/11/21 04/11/21 History coQ10 (ubiquinol) 200 mg capsule 200 mg PO DAILY 04/11/21 04/11/21 History mjlpeqkbjooe-kqowumat-lsvpfq tablet 1 tab PO DAILY 04/11/21 04/11/21 History Patient History Medical History CAD (coronary artery disease) Coronary artery disease, occlusive Hypercholesterolemia Hyperglycemia Hyperlipidemia Hypertension Nontoxic multinodular goiter Osteoporosis Paroxysmal atrial fibrillation Surgical History History of coronary artery bypass surgery Presence of stent in LAD coronary artery Family History Uncle Colorectal cancer Prostate cancer Denies family history of Ovarian cancer Myocardial infarction Breast cancer Social History Smoking Status: Never smoker Second Hand Exposure: No; Hx Alcohol Use: No Hx Substance Use: No Preferred Language: Amharic Communication Ability: Effective Ct Scan Tech Required: No Beliefs That Will Affect Care: None marital status: Current Living Situation: Spouse current occupational status: retired Feels Safe at Home: Yes Childhood Exposure to Second-Hand Smoke: No Dental Care, Regularly: Yes Physical Activity Frequency: Daily Seatbelt Use: always Sunscreen Use: No Assistive Devices: Walker Physical Exam Physical Exam: Gen.: No acute distress. Alert and oriented. HEENT: Anicteric sclera. Neck: No JVD. No bruits. Normal carotid upstrokes bilaterally. Cardiac: PMI was prominent but nondisplaced. No ventricular heave. Irregularly irregular and tachycardic. Normal S1-S2. No murmurs, rubs, or gallops. Pulmonary: Clear to auscultation bilaterally without wheezes, rales, or rhonchi. Abdomen: Soft, nontender, nondistended, with normoactive bowel sounds. No bruits noted. Extremities: 2+ radial pulses bilaterally. 2+ posterior tibialis pulses bilaterally. No edema or cyanosis. Psychiatric: Affect appears appropriate. Results & Data ([facility]) Vital Signs (Past 12 Hours) Vital Signs Temp Pulse Pulse Pulse Resp BP BP 04/13/21 15:18 36.3 C L 103 H 18 04/13/21 14:30 110 H 94/61 L 04/13/21 14:25 109 H 82/54 L 04/13/21 14:21 150 H 16 104/67 04/13/21 14:13 04/13/21 13:50 96/53 L 04/13/21 13:41 97/60 L 04/13/21 13:26 36.8 C 171 H 16 97/60 L 04/13/21 13:00 36.4 C L 171 H 16 142/93 H 04/13/21 10:59 37.0 C 77 16 116/66 04/13/21 07:23 37.5 C 69 18 134/69 04/13/21 07:09 64 BP Pulse Ox 04/13/21 15:18 105/67 98 04/13/21 14:30 04/13/21 14:25 04/13/21 14:21 100 02/09/22 14:13 100 04/13/21 13:50 04/13/21 13:41 04/13/21 13:26 100 04/13/21 13:00 100 04/13/21 10:59 99 04/13/21 07:23 99 04/13/21 07:09 Laboratory Results Laboratory Results - last 24 hr 04/12/21 04/12/21 04/13/21 16:17 22:42 06:53 WBC 8.80 RBC 3.19 L Hgb 10.2 L Hct 30.4 L MCV 95.3 MCH 32.0 MCHC 33.6 RDW Std Deviation 48.6 H RDW Coeff of Ralph 13.9 Plt Count 132 MPV 8.9 Immature Gran % (Auto) 0.1 Neut % (Auto) 82.8 Lymph % (Auto) 5.5 [place] % (Auto) 11.5 Eos % (Auto) 0.1 Baso % (Auto) 0.0 Neut # (Auto) 7.29 H Lymph # (Auto) 0.48 L [place] # (Auto) 1.01 H Eos # (Auto) 0.01 Baso # (Auto) 0.00 Immature Gran # (Auto) 0.01 Sodium Potassium Chloride Carbon Dioxide Anion Gap BUN Creatinine Est Cr Clr Drug Dosing Est GFR ( Amer) Est GFR (Non-Af Amer) BUN/Creatinine Ratio Glucose Calcium Magnesium Total Bilirubin AST ALT Alkaline Phosphatase Troponin I 0.05 H* 0.05 H* B-Natriuretic Peptide Total Protein Albumin Globulin Albumin/Globulin Ratio 25-OH Vitamin D Total TSH 04/13/21 04/13/21 04/13/21 06:53 06:53 08:00 WBC RBC Hgb Hct MCV MCH MCHC RDW Std Deviation RDW Coeff of Ralph Plt Count MPV Immature Gran % (Auto) Neut % (Auto) Lymph % (Auto) [place] % (Auto) Eos % (Auto) Baso % (Auto) Neut # (Auto) Lymph # (Auto) [place] # (Auto) Eos # (Auto) Baso # (Auto) Immature Gran # (Auto) Sodium 129 L Potassium 4.4 Chloride 97 L Carbon Dioxide 26 Anion Gap 6 BUN 23 Creatinine 0.87 Est Cr Clr Drug Dosing 61.1 Est GFR ( Amer) 91.9 Est GFR (Non-Af Amer) 79.3 BUN/Creatinine Ratio 26.4 H Glucose 144 H Calcium 8.2 L Magnesium 1.7 Total Bilirubin 0.6 AST 23 ALT 15 Alkaline Phosphatase 58 Troponin I 0.04 B-Natriuretic Peptide 127 H Total Protein 5.4 L Albumin 3.2 L Globulin 2.2 L Albumin/Globulin Ratio 1.5 25-OH Vitamin D Total 49.0 TSH 04/13/21 08:00 WBC RBC Hgb Hct MCV MCH MCHC RDW Std Deviation RDW Coeff of Ralph Plt Count MPV Immature Gran % (Auto) Neut % (Auto) Lymph % (Auto) [place] % (Auto) Eos % (Auto) Baso % (Auto) Neut # (Auto) Lymph # (Auto) [place] # (Auto) Eos # (Auto) Baso # (Auto) Immature Gran # (Auto) Sodium Potassium Chloride Carbon Dioxide Anion Gap BUN Creatinine Est Cr Clr Drug Dosing Est GFR ( Amer) Est GFR (Non-Af Amer) BUN/Creatinine Ratio Glucose Calcium Magnesium Total Bilirubin AST ALT Alkaline Phosphatase Troponin I B-Natriuretic Peptide Total Protein Albumin Globulin Albumin/Globulin Ratio 25-OH Vitamin D Total TSH 1.086 Diagnostic Findings Telemetry personally reviewed: Sinus rhythm until approximately 12:46 p.m. on 04/13/2021 when AFib with RVR developed. No significant pauses. ECG personally reviewed: ECG 04/12/2021 at 12:44 p.m.: Sinus rhythm 72 beats per minute. Incomplete RBBB. LVH. Echo 04/13/2021: Normal LV size, wall motion, systolic function. EF 55-60%. Moderate biatrial dilation. Sclerotic aortic valve. RVSP 41. Similar findings compared to prior study on 12/15/2015. Chart reviewed. Medications Administered Current Inpatient Medications Acetaminophen (Acetaminophen 325 Mg Tab) 650 mg PO Q4H PRN PRN Reason: Pain or Fever Stop: 05/11/21 22:25 Last Admin: 04/12/21 09:03 Dose: 650 mg Documented by: Apixaban (Apixaban 5 Mg Tablet) 5 mg PO BID [facility] Stop: 05/13/21 20:59 Atorvastatin Calcium (Atorvastatin 40 Mg Tab) 40 mg PO HS [place] Stop: 05/11/21 22:25 Last Admin: 04/12/21 20:11 Dose: 40 mg Documented by: Docusate Sodium (Docusate Sodium 100 Mg Cap) 200 mg PO DAILY [place] Stop: 05/12/21 08:59 Last Admin: 04/13/21 07:41 Dose: 200 mg Documented by: Magnesium Sulfate/Dextrose (Magnesium Sulfate / D5w) 1 gm in 100 mls @ 50 mls/hr IV Q2H [place] Stop: 04/13/21 17:29 Last Admin: 04/13/21 16:01 Dose: 50 mls/hr Documented by: Metoprolol Tartrate (Metoprolol Tartrate 1 Mg/Ml Vial) 5 mg IV Q5M PRN; Protocol PRN Reason: Tachycardia, HR > 120 Last Admin: 04/13/21 13:55 Dose: 5 mg Documented by: Metoprolol Tartrate (Metoprolol Tartrate 25 Mg Tab) 25 mg PO Q6H [facility] Stop: 05/13/21 16:29 Morphine Sulfate (Morphine Sulfate 2 Mg/Ml Carp) 2 mg IV Q3H PRN PRN Reason: Pain (1,2,3,4,5) & Pre PT Stop: 04/25/21 20:31 Morphine Sulfate (Morphine Sulfate 4 Mg/Ml 1 Ml Carp\Vial) 4 mg IV Q3H PRN PRN Reason: Pain (6,7,8,9,10) Stop: 04/25/21 20:31 Last Admin: 04/13/21 10:12 Dose: 4 mg Documented by: Naloxone HCl (Naloxone Hcl 0.4 Mg/1 Ml Vial/Carp) 0.1 mg IV UD PRN PRN Reason: Opiate Overdose Stop: 05/11/21 20:31 Nitroglycerin (Nitroglycerin Sl 0.4 Mg/Tab Tab) 0.4 mg SL Q5M PRN PRN Reason: chest pain Stop: 05/11/21 22:25 Ondansetron HCl (Ondansetron Inj 2 Mg/Ml 2 Ml Vial) 4 mg IV Q6H PRN PRN Reason: Nausea Stop: 05/11/21 22:25 Oxycodone HCl (Oxycodone Hcl Ir 5 Mg Tab (Immediate Release)) 5 mg PO Q4H PRN PRN Reason: Pain Stop: 04/27/21 12:08 Polyethylene Glycol (Polyethylene (Miralax) 17 Gm Pack) 17 gm PO DAILY PRN PRN Reason: Constipation Stop: 05/11/21 22:25 Sennosides (Senna 8.6 Mg Tab) 8.6 mg PO QAM [facility] Stop: 05/14/21 08:59 Vitamin D (Cholecalciferol 1,000 Units 25 Mcg Tab) 2,000 units PO DAILY [facility] Stop: 05/12/21 08:59 Last Admin: 04/13/21 07:41 Dose: 2,000 units Documented by: PG Care Time/CCT Total # of Minutes Spent Total Time Spent with Patient: Total time spent is greater than 50% in coordination of care (as documented) at patient's floor/unit and/or counseling patient: Coding Level of Care Code 06489 Initial Inpt Care Lvl 3 Diagnoses Paroxysmal atrial fibrillation I48.0 CAD (coronary artery disease) I25.810 Coronary Disease-Associated Artery/Lesion type: bypass graft [place] vs. transplanted heart: [place] heart Associated angina: without angina Hypertension I10 Hypertension type: unspecified (1) CAD (coronary artery disease) Coronary Disease-Associated Artery/Lesion type: bypass graft [place] vs. transplanted heart: [place] heart Associated angina: without angina Qualified Code(s): I25.810 - Atherosclerosis of coronary artery bypass graft(s) without angina pectoris (2) Hypertension Hypertension type: unspecified Qualified Code(s): I10 - Essential (primary) h ypertension
[2021-04-13] MEDS: METOPROLOL TARTRATE 25 MG TAB PO SCH ×2 (17:47→21:38)
--- NOTE | 2021-04-13 20:13 | Communication Note ---
Date of Service: April 13, 2021 Informed by patient's RN that patient has persistently been in atrial fibrillation with rapid ventricular response with rates in the 150s to 160s over the last several hours. Unfortunately, his blood pressure has also been on the softer side in the setting of administration of rate control medications at the start of the evening. Blood pressure obtained at the bedside did reveal 85/56, which precludes further as needed medications and scheduled metoprolol. Thankfully, patient does not report any symptoms at this time and reports feeling quite well. Update: approx. 30 min later, patient's BP was rechecked and found to be 135/77. At the bedside: Patient reports palpitations but otherwise no chest symptoms, SOB, nausea, TOURE. No pallor. He has an irregular heart rhythm. Lung sounds CTAB w/o crackles or wheezes. At this point, this individual continues to be in paroxysmal atrial fibrillation with RVR despite numerous rate controlling medications throughout the day, magnesium repletion, and fluid boluses. Suspect the majority of this is postoperative stress. He is appropriately anticoagulated. Cardiology consultation was reviewed. I will recheck his CBC given his postop status to ensure his hemoglobin is stable. I will also recheck a magnesium and BMP. I will transfer him to PCU for further cardiac monitoring. Based on the results of the after mentioned labs / his BPs / HRs, will consider amiodarone loading and initiation of gtt if metoprolol becomes contraindicated d/t pressures. I have reviewed this case with my attending. Spoke briefly with Dr. Sandy reviewing his case, too. Resident Activity Tracking Resident Involvement: Resident Care Provided Care Provided: Adult [facility] Medicine
[2021-04-13] MEDS: ATORVASTATIN 40 MG TAB PO SCH (20:24)
[2021-04-13] MEDS: APIXABAN 5 MG TABLET PO SCH (20:26)
[2021-04-13 20:44] LABS: Basophils # (auto) 0.01 K/uL (0-0.2); Basophils % (auto) 0.1 %; Eosinophils # (auto) 0.08 K/uL (0-0.5); Eosinophils % (auto) 0.9 %; Hematocrit (blood only) 31.1 % (42-52); Hemoglobin 10.3 g/dL (14.0-18.0); Immature Granulocytes # (auto) 0.01 K/uL (0.00-0.02); Immature Granulocytes % (auto) 0.1 %; Lymphocytes # (auto) 0.76 K/uL (1.2-3.4); Lymphocytes % (auto) 8.6 %; Mean Corpuscular Hemoglobin 31.6 pg (25-34); Mean Corpuscular Hgb Conc 33.1 g/dL (32-36); Mean Corpuscular Volume 95.4 fL (80-100); Monocytes % (auto) 14.7 %; Neutrophils % (auto) 75.6 %; Platelet Count 136 K/uL (130-400); RDW Coefficient of Variation 13.9 % (11.5-14.5); RDW Standard Deviation 48.2 fL (36.4-46.3); Red Blood Count 3.26 M/uL (4.7-6.1); White Blood Count 8.86 K/uL (4.8-10.8)
[2021-04-13] MEDS ORDERED: APIXABAN 2.5 MG TAB PO SCH (21:00)
[2021-04-13 21:03] LABS: BUN Creatinine Ratio 25.7 (10-20); Calcium 8.2 mg/dl (8.5-10.1); Creatinine Clr Calc Pharmacy 52.7 ml/min; Est GFR (African American) 78.8 ml/min; Magnesium 2.2 mg/dl (1.7-2.4); Potassium 4.5 mmol/L (3.5-5.1)
--- NOTE | 2021-04-13 21:57 | Electrocardiogram Report ---
Test Reason : Blood Pressure : / mmHG Vent. Rate : 072 BPM Atrial Rate : 072 BPM P-R Int : 224 ms QRS Dur : 108 ms QT Int : 422 ms P-R-T Axes : 085 -44 084 degrees QTc Int : 462 ms Poor data quality, interpretation may be adversely affected Sinus rhythm with 1st degree A-V block Left axis deviation Incomplete right bundle branch block Left ventricular hypertrophy with repolarization abnormality Cannot rule out Septal infarct , age undetermined Abnormal ECG When compared with ECG of 11-APR-2021 18:36, Minimal criteria for Septal infarct are now Present Non-specific change in ST segment in Anterior leads Confirmed by Dawit Landin ([id number]) on 04/13/2021 9:57:16 PM Referred By: REFERRED SELF Confirmed By:Dawit Landin
[2021-04-14] MEDS ORDERED: METOPROLOL TARTRATE 1 MG/ML VIAL IV STA (03:15)
[2021-04-14] MEDS: METOPROLOL TARTRATE 25 MG TAB PO SCH ×2 (04:48→12:04)
--- NOTE | 2021-04-14 06:06 | Electrocardiogram Report ---
Test Reason : Blood Pressure : / mmHG Vent. Rate : 068 BPM Atrial Rate : 068 BPM P-R Int : 166 ms QRS Dur : 116 ms QT Int : 444 ms P-R-T Axes : 070 -39 075 degrees QTc Int : 472 ms Normal sinus rhythm Left axis deviation Left ventricular hypertrophy with QRS widening and repolarization abnormality Abnormal ECG When compared with ECG of 12-APR-2021 12:44, No significant change Confirmed by Dawit Landin ([id number]) on 04/14/2021 6:05:37 AM Referred By: REFERRED SELF Confirmed By:Dawit Landin
--- NOTE | 2021-04-14 06:30 | Electrocardiogram Report ---
Test Reason : Blood Pressure : / mmHG Vent. Rate : 120 BPM Atrial Rate : 122 BPM P-R Int : 000 ms QRS Dur : 112 ms QT Int : 330 ms P-R-T Axes : 000 -08 056 degrees QTc Int : 466 ms Atrial fibrillation with rapid ventricular response Septal infarct (cited on or before 12-APR-2021) Abnormal ECG When compared with ECG of 12-APR-2021 16:16, Atrial fibrillation has replaced Sinus rhythm Vent. rate has increased BY 52 BPM Questionable change in initial forces of Septal leads Confirmed by Dawit Landin ([id number]) on 04/14/2021 6:30:29 AM Referred By: REFERRED SELF Confirmed By:Dawit Landin
[2021-04-14 07:42] LABS: Basophils # (auto) 0.01 K/uL (0-0.2); Basophils % (auto) 0.1 %; Eosinophils # (auto) 0.16 K/uL (0-0.5); Eosinophils % (auto) 1.8 %; Hematocrit (blood only) 29.1 % (42-52); Hemoglobin 9.8 g/dL (14.0-18.0); Immature Granulocytes # (auto) 0.02 K/uL (0.00-0.02); Immature Granulocytes % (auto) 0.2 %; Lymphocytes # (auto) 1.16 K/uL (1.2-3.4); Lymphocytes % (auto) 12.7 %; Mean Corpuscular Hemoglobin 31.9 pg (25-34); Mean Corpuscular Hgb Conc 33.7 g/dL (32-36); Mean Corpuscular Volume 94.8 fL (80-100); Monocytes # (auto) 1.34 K/uL (0.11-0.59); Monocytes % (auto) 14.7 %; Neutrophils # (auto) 6.43 K/uL (1.4-6.5); Neutrophils % (auto) 70.5 %; Platelet Count 133 K/uL (130-400); RDW Coefficient of Variation 14.1 % (11.5-14.5); Red Blood Count 3.07 M/uL (4.7-6.1); White Blood Count 9.12 K/uL (4.8-10.8)
--- NOTE | 2021-04-14 08:24 | Progress Notes ---
DATE OF SERVICE: 04/14/2021. SUBJECTIVE: An 85-year-old gentleman, postoperative day 2 from right cemented bipolar hip arthroplas ty for fracture. He is doing pretty well. Not having any pain at all while lying in bed. No chest pain or shortness of breath. Apparently, he did go into AFib yesterday. OBJECTIVE: VITAL SIGNS: Temperature is 37.2. Vital signs, fairly stable. His heart rate is fairly fast this m orning at 129. GENERAL: Examination reveals a pleasant, elderly male. He is lying in bed, looks completely comfort able. EXTREMITIES: Examination of the right hip and leg reveals the dressing to be clean, dry and intact. Leg lengths are equal. His hip is located. He is neurologically intact. He can dorsiflex and plan tarflex his foot appropriately. LABORATORY DATA: Pending this morning. ASSESSMENT: An 85-year-old gentleman with history of paroxysmal atrial fibrillation, postoperative d ay 2 from right cemented bipolar hip arthroplasty for fracture. Orthopedically, he is doing well. H e did go back into AFib yesterday and his heart rate still a little bit fast. PLAN: 1. DVT prophylaxis includes thigh-high TEDs, SCDs and back on his Eliquis. He is back on a full dos e due to his recurrent AFib. His leg looks benign and there is no significant bruising or swelling. He is neurologically intact. 2. PT/OT. He can fully weightbear on the right leg. He needs to obey hip precautions. 3. Pain control, doing okay with current pain regimen. 4. Medical management as per the medicine service. 5. Disposition: He is orthopedically okay for discharge any time medically stable. It sounds like his AFib issue needs to be evaluated and straightened out. I need to see him back in 2-3 weeks out f rom surgery date. Any orthopedic questions can be directed to me at [phone]. Job ID: [id number]
[2021-04-14 08:30] LABS: BUN Creatinine Ratio 27.2 (10-20); Creatinine Clr Calc Pharmacy 57.8 ml/min; Est GFR (African American) 88.2 ml/min; Est GFR (Non-African American) 76.1 ml/min; Potassium 4.1 mmol/L (3.5-5.1)
[2021-04-14] MEDS ORDERED: SODIUM CHLORIDE 0.9% 1000ML 1,000 ML IV SCH (08:45)
--- NOTE | 2021-04-14 08:53 | Hospitalist Progress Note ---
Date of Service April 14, 2021 Assessment & Plan (1) Closed fracture of right hip: Plan: Witnessed ground level fall without LOC. Hip x-ray showed acute displaced impacted right femoral neck fracture. There was concern for some minimal ST elevation on monitor intraoperatively (around 1 mm). EKG done at this time showing no evidence of ST elevation. Patient without chest pain. trop 0.05, 0.05, 0.04 04/14 --> POD #2 s/p Right hemiarthroplasty (04/12/21 Dr. Schroeder) Went into Afib rvr with rates 170-180 afternoon 04/13 --> given lopressor 5mg IV x3, 10mg cardizem IV. Discussed with cards, and scheduled 25mg metoprolol PO Q6H. TSH wnl Did have his eliquis resumed 5mg BID AM 04/13 as was initially to have half dose for 24 hours, but ok'd with orthopedics given possible need for cardioversion if remained in afib/rvr --> Got 250cc NSS bolus last night, also given 2gm IV mag and repeat 2.2 at that time --> Converted to NSR last evening around 22:54pm and rates have been in 110-120s but confirmed on EKG still in aflutter --> transferred to PCU overnight in case of need for IV cardiac meds Amiodarone initiated by cardiology, if chemically not converted, possible need for cardioversion tomorrow. Dr Barr to resume care tomorrow. Hgb did drop slightly since initiation of eliquis back to usual dosing, however had received multiple IVF boluses for low BPs Will also order 2gm IV mag for mag 1.8 to keep >2. K 4.1 on BMP +JVD on exam and avoiding restarting diuretics at this time per cardiology and working on rate/rhythm control with low BPs. Patient denies any CP/SOB at this time Pain control -- added oxycodone for oral/longer lasting option Passing gas but no BM -- added senna/increase ambulation PT/OT with rec for rehab. Patient refusing referrals. Will need to see how he does once above resolved Continue to monitor (2) Paroxysmal atrial fibrillation: Plan: -Currently in a normal sinus rhythm with controlled ventricular rate THIS MORNING, however around lunch flipped into afib/rvr with rates 170-180s. Palpitations but no SOB/CP reported Eliquis resumed 04/13 04/13 Lopressor 5mg IV x 3 this morning, then 10mg IV Cardizem per cards, patient asymptomatic and does this at home and uses metoprolol 25mg q6h prn cards to see later this afternoon but rec to avoid further iv medications at this time to prevent worsening hypotension with elevated HRs --> possible amiodarone tomorrow if needed -- appreciate recs/assistance 04/14 Amiodarone started by cardiology Continue eliquis possible cardioversion tomorrow --> DR Barr to resume service, patient's primary research laboratory manager Mag 2gm IV to keep closer to 2, K>4 Continue to monitor on telemetry (3) CAD (coronary artery disease): Plan: -Proximal LAD HOA, August 2014; CABG x2, January 2016. -Follows Dr. Barr -Again, there was question of mild ST elevation on the monitor intraoperatively (around 1 mm). EKG done at this time showing no evidence of ST elevation or ST/T wave changes. -Currently, patient without chest pain or anginal equivalent symptoms Repeat trop 0.04 KIARA on hold -- (lisinopril 2.5mg daily) -- holding continued given low BPs and giving medications to help with his ECHO ordered --> Normal LV size/systolic function. EF 55-60%. No visualized wma but cannor exclude regional wall motion abnormalities due to image quality Similar findings compared to prior study Dec 2015 Cards on consult as above --> Amio gtt for afib/flutter as above. Resume ASA in AM 48 hours post op, continued statin -- ASA resumed today No CP/SOB reported --> See above regarding afib/RVR. Takes metoprolol po prn at home per dr Barr note (4) Hyponatremia: Plan: Na+ 130 upon presentation to the EDasymptomatic -With review of old records, not a new finding -Patient appears volume contracted -Likely related to diuretic therapy that he takes routinely (indapamide 1.25mg daily), HOWEVER WITH JVD ON EXAM this morning and further IVF held Got additional 250cc bolus x 2 04/13 for low BPs and Na 128 on AM labs --> No diuretics to be resumed per cards while working on converting back to NSR TSH wnl Continue to hold indapamide/KIARA for hypotension Encourage PO intake BMP in AM (5) Hypertension: Plan: Has been on low end of normal -- see IV bolus/IVF as above, no further at this time BP currently 98/66 Amiodarone gtt as above for afib/flutter Continue to monitor (6) Hyperlipidemia: Plan: -Continue atorvastatin 40 mg daily. (7) DVT prophylaxis: Plan: Eliquis 5mg resumed AM 04/13 Admission and Anticipated Discharge Date Admission Date: April 11, 2021 Subjective patient evaluated this morning feeling better, does not endorse the same irregularity with palpitations. per maintenance mechanic telephone, converted to NSR last evening around 22:54 but EKG with aflutter, rates one teens. Patient does have appreciable JVD, discussed will check with cards prior to resuming the indapamide but he may have aspect of heart failure. No fever, chills, chest pain or shortness of breath. Has not been up out of bed yet today and did not get to work with therapy yesterday but hopeful for today. No lightheadedness/dizziness. Had been on RA this morning but currently on 2L for SpO2 92%. Eating/drinking no issues and reports passing gas. No BM yet but stated bringing some prunes with her this afternoon as this typically works for him. Review of Systems Review of Systems: All systems reviewed & are unremarkable except as noted in HPI & below Physical Exam Physical Exam: General: WN/WD male sitting up in bed eating breakfast, NAD Eyes anicteric, pupils equal and reactive ENT: mmm, trachea midline without deviation, +JVD Resp: CTAB, diminished in the bases, no w/c/r, on 2L NC CV: irregularly irregular, systolic ejection murmur, no edema/calf tenderness, pulses palpable GI: +BS, soft, nontender Ext: dressing to R hip c/d/i, tender to palpation, pulses palpable and symmetric, cap refill <3 seconds. Skin: warm, dry Neuro/Psych: alert, oriented to person/place/time, cooperative, no focal deficit Results & Data Results & Data ([facility]) Vital Signs (Past 12 Hours) Vital Signs Temp Pulse Pulse Pulse Resp BP BP 04/14/21 07:06 37.3 C 129 H 17 99/67 L 04/14/21 04:49 128 H 106/73 04/14/21 03:21 126 H 107/71 04/14/21 03:12 37.1 C 126 H 18 107/71 04/13/21 22:45 120 H 95/60 L 04/13/21 22:30 121 H 04/13/21 21:30 137 H 18 135/77 04/13/21 21:11 132 H Pulse Ox 04/14/21 07:06 90 04/14/21 04:49 04/14/21 03:21 04/14/21 03:12 95 04/13/21 22:45 04/13/21 22:30 04/13/21 21:30 04/13/21 21:11 Laboratory Results 04/14/21 04/14/21 04/13/21 Range/Units 06:55 06:55 20:26 WBC 9.12 (4.8-10.8) K/uL RBC 3.07 L (4.7-6.1) M/uL Hgb 9.8 L (14.0-18.0) g/dL Hct 29.1 L (42-52) % MCV 94.8 (80-100) fL MCH 31.9 (25-34) pg MCHC 33.7 (32-36) g/dL RDW Std Deviation 49.0 H (36.4-46.3) fL RDW Coeff of Ralph 14.1 (11.5-14.5) % Plt Count 133 (130-400) K/uL MPV 9.0 (7.4-10.4) fL Immature Gran % (Auto) 0.2 % Neut % (Auto) 70.5 % Lymph % (Auto) 12.7 % [place] % (Auto) 14.7 % Eos % (Auto) 1.8 % Baso % (Auto) 0.1 % Neut # (Auto) 6.43 (1.4-6.5) K/uL Lymph # (Auto) 1.16 L (1.2-3.4) K/uL [place] # (Auto) 1.34 H (0.11-0.59) K/uL Eos # (Auto) 0.16 (0-0.5) K/uL Baso # (Auto) 0.01 (0-0.2) K/uL Immature Gran # (Auto) 0.02 (0.00-0.02) K/uL Sodium 128 L 128 L (136-145) mmol/L Potassium 4.1 4.5 (3.5-5.1) mmol/L Chloride 96 L 96 L (98-107) mmol/L Carbon Dioxide 27 28 (21-32) mmol/L Anion Gap 5 4 (3-11) BUN 25 H 26 H (6-23) mg/dl Creatinine 0.92 1.01 (0.6-1.4) mg/dl Est Cr Clr Drug Dosing 57.8 52.7 ml/min Est GFR ( Amer) 88.2 78.8 ml/min Est GFR (Non-Af Amer) 76.1 68.0 ml/min BUN/Creatinine Ratio 27.2 H 25.7 H (10-20) Glucose 106 H 134 H (70-99(Fasting)) mg/dl Calcium 8.0 L 8.2 L (8.5-10.1) mg/dl Magnesium 2.2 (1.7-2.4) mg/dl B-Natriuretic Peptide (0-100) pg/ml TSH (0.300-4.500) uIu/ml 04/13/21 04/13/21 04/13/21 Range/Units 20:26 08:00 08:00 WBC 8.86 (4.8-10.8) K/uL RBC 3.26 L (4.7-6.1) M/uL Hgb 10.3 L (14.0-18.0) g/dL Hct 31.1 L (42-52) % MCV 95.4 (80-100) fL MCH 31.6 (25-34) pg MCHC 33.1 (32-36) g/dL RDW Std Deviation 48.2 H (36.4-46.3) fL RDW Coeff of Ralph 13.9 (11.5-14.5) % Plt Count 136 (130-400) K/uL MPV 9.0 (7.4-10.4) fL Immature Gran % (Auto) 0.1 % Neut % (Auto) 75.6 % Lymph % (Auto) 8.6 % [place] % (Auto) 14.7 % Eos % (Auto) 0.9 % Baso % (Auto) 0.1 % Neut # (Auto) 6.70 H (1.4-6.5) K/uL Lymph # (Auto) 0.76 L (1.2-3.4) K/uL [place] # (Auto) 1.30 H (0.11-0.59) K/uL Eos # (Auto) 0.08 (0-0.5) K/uL Baso # (Auto) 0.01 (0-0.2) K/uL Immature Gran # (Auto) 0.01 (0.00-0.02) K/uL Sodium (136-145) mmol/L Potassium (3.5-5.1) mmol/L Chloride (98-107) mmol/L Carbon Dioxide (21-32) mmol/L Anion Gap (3-11) BUN (6-23) mg/dl Creatinine (0.6-1.4) mg/dl Est Cr Clr Drug Dosing ml/min Est GFR ( Amer) ml/min Est GFR (Non-Af Amer) ml/min BUN/Creatinine Ratio (10-20) Glucose (70-99(Fasting)) mg/dl Calcium (8.5-10.1) mg/dl Magnesium (1.7-2.4) mg/dl B-Natriuretic Peptide 127 H (0-100) pg/ml TSH 1.086 (0.300-4.500) uIu/ml PG Care Time/CCT Total # of Minutes Spent Total Time Spent with Patient: Total time spent is greater than 50% in coordination of care (as documented) at patient's floor/unit and/or counseling patient: Coding Level of Care Code 23915 Subseq Hosp Care Lvl 3 Diagnoses Closed fracture of right hip S72.001A Encounter type: initial encounter Paroxysmal atrial fibrillation I48.0 CAD (coronary artery disease) I25.810 Associated angina: without angina Coronary Disease-Associated Artery/Lesion type: bypass graft [place] vs. transplanted heart: [place] heart Hyponatremia E87.1 Hypertension I10 Hypertension type: unspecified Hyperlipidemia E78.5 DVT prophylaxis Z29.9 (1) CAD (coronary artery disease) Associated angina: without angina Coronary Disease-Associated Artery/Lesion type: bypass graft [place] vs. transplanted heart: [place] heart Qualified Code(s): I25.810 - Atherosclerosis of coronary artery bypass graft(s) without angina pectoris (2) Hypertension Hypertension type: unspecified Qualified Code(s): I10 - Essential (primary) hypertension (3) Closed fracture of right hip Encounter type: initial encounter Qualified Code(s): S72.001A - Fracture of unspecified part of neck of right femur, initial encounter for closed fracture
[2021-04-14] MEDS: SENNA 8.6 MG TAB PO SCH (08:55)
[2021-04-14] MEDS: DOCUSATE SODIUM 100 MG CAP PO SCH (08:55)
[2021-04-14] MEDS: CHOLECALCIFEROL 1,000 UNITS 25 MCG TAB PO SCH (08:55)
[2021-04-14] MEDS: APIXABAN 5 MG TABLET PO SCH ×2 (08:56→20:29)
[2021-04-14] MEDS ORDERED: STAT IV Infusion **Titration per Protocol STA (12:30)
[2021-04-14] MEDS ORDERED: AMIODARONE / D5W 150 MG/100 ML BAG IV STA (12:30)
[2021-04-14] MEDS ORDERED: 0.2 MICRON FILTER SET 1 EA IV ONE (12:30)
[2021-04-14] MEDS ORDERED: AMIODARONE IV BOLUS & DRIP IV STA (12:30)
--- NOTE | 2021-04-14 12:34 | Cardiology Progress Note ---
Date of Service April 14, 2021 Assessment & Plan (1) Paroxysmal atrial fibrillation: (2) CAD (coronary artery disease): (3) Hypertension: Plan: ASSESSMENT/PLAN: 1. Paroxysmal atrial fibrillation: Developed atrial fibrillation 04/13/2021. Had already received therapeutic anticoagulation prior to AFib episode. Intermittent mild symptoms described as palpitations which appear to occur when heart rate is especially fast. Episode may be exacerbated by the fact that he is postop. Because he has not yet spontaneously converted, recommended attempt at cardioversion. For now, start amiodarone IV. If he does not chemically convert, could consider electrical cardioversion at some point. Tolerating rhythm well. Amiodarone for now will be used in the short term during this hospital stay. 2. CAD s/p prior LAD PCI and then CABG x 2: No angina. Given prior PCI, recommend resuming aspirin 81 mg daily, although had significant in stent restenosis, prompting CABG and unclear if LAD stent is still patent. Continue high-intensity statin therapy. 3. Hypertension: History of hypertension although blood pressure has been mostly normotensive or hypotensive here. Had orthostatic symptoms in the morning of 04/13/2021. Typically takes lisinopril at home. 4. Disposition: Cardiology will continue to follow. Plan of care communicated with Sandi Santamaria of the primary hospitalist service. Dr. Barr, his primary lock fitter, will likely resume his cardiology care tomorrow. When ready for discharge, follow-up with Dr. Barr, his primary lock fitter. Admission and Anticipated Discharge Date Admission Date: April 11, 2021 Subjective Patient was transferred to PCU overnight. He had some episodes of asymptomatic hypotension. He is no longer experiencing palpitations although remains in AFib or flutter with rapid ventricular response. He denies chest pain, lightheadedness, syncope, shortness of breath. Review of systems: As above. Physical Exam Physical Exam: Gen.: No acute distress. Alert and oriented. HEENT: Anicteric sclera. Neck: No JVD. Cardiac: PMI was prominent but nondisplaced. No ventricular heave. Irregularly irregular and tachycardic. Normal S1-S2. No murmurs, rubs, or gallops. Pulmonary: Clear to auscultation bilaterally without wheezes, rales, or rhonchi. Abdomen: Soft, nontender, nondistended, with normoactive bowel sounds. No bruits noted. Extremities: 2+ radial pulses bilaterally. 2+ posterior tibialis pulses bilaterally. No significant edema. No cyanosis. Psychiatric: Affect appears appropriate. Results & Data ([facility]) Vital Signs (Past 12 Hours) Vital Signs Temp Pulse Pulse Pulse Resp BP BP 04/14/21 11:40 36.8 C 119 H 16 103/66 04/14/21 11:09 120 H 94/69 L 04/14/21 08:49 117 H 92/58 L 04/14/21 08:48 04/14/21 07:06 37.3 C 129 H 17 99/67 L 04/14/21 07:00 127 H 04/14/21 04:49 128 H 106/73 04/14/21 03:21 126 H 107/71 04/14/21 03:12 37.1 C 126 H 18 107/71 Pulse Ox 04/14/21 11:40 96 04/14/21 11:09 04/14/21 08:49 92 04/14/21 08:48 87 L 04/14/21 07:06 90 04/14/21 07:00 04/14/21 04:49 04/14/21 03:21 04/14/21 03:12 95 Laboratory Results Laboratory Results - last 24 hr 04/13/21 04/13/21 04/14/21 20:26 20:26 06:55 WBC 8.86 9.12 RBC 3.26 L 3.07 L Hgb 10.3 L 9.8 L Hct 31.1 L 29.1 L MCV 95.4 94.8 MCH 31.6 31.9 MCHC 33.1 33.7 RDW Std Deviation 48.2 H 49.0 H RDW Coeff of Ralph 13.9 14.1 Plt Count 136 133 MPV 9.0 9.0 Immature Gran % (Auto) 0.1 0.2 Neut % (Auto) 75.6 70.5 Lymph % (Auto) 8.6 12.7 [place] % (Auto) 14.7 14.7 Eos % (Auto) 0.9 1.8 Baso % (Auto) 0.1 0.1 Neut # (Auto) 6.70 H 6.43 Lymph # (Auto) 0.76 L 1.16 L [place] # (Auto) 1.30 H 1.34 H Eos # (Auto) 0.08 0.16 Baso # (Auto) 0.01 0.01 Immature Gran # (Auto) 0.01 0.02 Sodium 128 L Potassium 4.5 Chloride 96 L Carbon Dioxide 28 Anion Gap 4 BUN 26 H Creatinine 1.01 Est Cr Clr Drug Dosing 52.7 Est GFR ( Amer) 78.8 Est GFR (Non-Af Amer) 68.0 BUN/Creatinine Ratio 25.7 H Glucose 134 H Calcium 8.2 L Magnesium 2.2 04/14/21 04/14/21 06:55 06:55 WBC RBC Hgb Hct MCV MCH MCHC RDW Std Deviation RDW Coeff of Ralph Plt Count MPV Immature Gran % (Auto) Neut % (Auto) Lymph % (Auto) [place] % (Auto) Eos % (Auto) Baso % (Auto) Neut # (Auto) Lymph # (Auto) [place] # (Auto) Eos # (Auto) Baso # (Auto) Immature Gran # (Auto) Sodium 128 L Potassium 4.1 Chloride 96 L Carbon Dioxide 27 Anion Gap 5 BUN 25 H Creatinine 0.92 Est Cr Clr Drug Dosing 57.8 Est GFR ( Amer) 88.2 Est GFR (Non-Af Amer) 76.1 BUN/Creatinine Ratio 27.2 H Glucose 106 H Calcium 8.0 L Magnesium 1.8 Diagnostic Findings Telemetry personally reviewed: Atrial fibrillation with rapid ventricular response. ECG personally reviewed 04/14/2021 9:32 a.m.: Atrial fibrillation 127 beats per minute. Medications Administered Current Inpatient Medications Acetaminophen (Acetaminophen 325 Mg Tab) 650 mg PO Q4H PRN PRN Reason: Pain or Fever Stop: 05/11/21 22:25 Last Admin: 04/12/21 09:03 Dose: 650 mg Documented by: Apixaban (Apixaban 5 Mg Tablet) 5 mg PO BID [facility] Stop: 05/13/21 20:59 Last Admin: 04/14/21 08:56 Dose: 5 mg Documented by: Atorvastatin Calcium (Atorvastatin 40 Mg Tab) 40 mg PO HS [facility] Stop: 05/11/21 22:25 Last Admin: 04/13/21 20:24 Dose: 40 mg Documented by: Docusate Sodium (Docusate Sodium 100 Mg Cap) 200 mg PO DAILY [facility] Stop: 05/12/21 08:59 Last Admin: 04/14/21 08:55 Dose: 200 mg Documented by: Sodium Chloride (Nss 1000ml) 1,000 mls @ 80 mls/hr IV .[id number] [place] Stop: 05/14/21 08:44 Last Infusion: 04/14/21 10:00 Dose: 0 mls/hr Documented by: Amiodarone HCl/Dextrose (Nexterone / D5w) 360 mg in 200 mls @ 33.333 mls/hr IV ONE ONE Stop: 04/14/21 18:39 Last Admin: 04/14/21 13:07 Dose: 33.3 mls/hr Documented by: Amiodarone HCl/Dextrose (Nexterone / D5w) 360 mg in 200 mls @ 16.667 mls/hr IV .Q12H [place] Stop: 05/14/21 18:29 Metoprolol Tartrate (Metoprolol Tartrate 1 Mg/Ml Vial) 5 mg IV Q5M PRN; Protocol PRN Reason: Tachycardia, HR > 120 Last Admin: 04/13/21 13:55 Dose: 5 mg Documented by: Morphine Sulfate (Morphine Sulfate 2 Mg/Ml Carp) 2 mg IV Q3H PRN PRN Reason: Pain (1,2,3,4,5) & Pre PT Stop: 04/25/21 20:31 Morphine Sulfate (Morphine Sulfate 4 Mg/Ml 1 Ml Carp\Vial) 4 mg IV Q3H PRN PRN Reason: Pain (6,7,8,9,10) Stop: 04/25/21 20:31 Last Admin: 04/13/21 10:12 Dose: 4 mg Documented by: Naloxone HCl (Naloxone Hcl 0.4 Mg/1 Ml Vial/Carp) 0.1 mg IV UD PRN PRN Reason: Opiate Overdose Stop: 05/11/21 20:31 Nitroglycerin (Nitroglycerin Sl 0.4 Mg/Tab Tab) 0.4 mg SL Q5M PRN PRN Reason: chest pain Stop: 05/11/21 22:25 Ondansetron HCl (Ondansetron Inj 2 Mg/Ml 2 Ml Vial) 4 mg IV Q6H PRN PRN Reason: Nausea Stop: 05/11/21 22:25 Oxycodone HCl (Oxycodone Hcl Ir 5 Mg Tab (Immediate Release)) 5 mg PO Q4H PRN PRN Reason: Pain Stop: 04/27/21 12:08 Polyethylene Glycol (Polyethylene (Miralax) 17 Gm Pack) 17 gm PO DAILY PRN PRN Reason: Constipation Stop: 05/11/21 22:25 Sennosides (Senna 8.6 Mg Tab) 8.6 mg PO QAM [place] Stop: 05/14/21 08:59 Last Admin: 04/14/21 08:55 Dose: 8.6 mg Documented by: Vitamin D (Cholecalciferol 1,000 Units 25 Mcg Tab) 2,000 units PO DAILY [place] Stop: 05/12/21 08:59 Last Admin: 04/14/21 08:55 Dose: 2,000 units Documented by: PG Care Time/CCT Total # of Minutes Spent Total Time Spent with Patient: Total time spent is greater than 50% in coordination of care (as documented) at patient's floor/unit and/or counseling patient: Coding Level of Care Code 60480 Subseq Hosp Care Lvl 3 Diagnoses Paroxysmal atrial fibrillation I48.0 CAD (coronary artery disease) I25.810 Associated angina: without angina Coronary Disease-Associated Artery/Lesion type: bypass graft [place] vs. transplanted heart: [place] heart Hypertension I10 Hypertension type: unspecified (1) CAD (coronary artery disease) Associated angina: without angina Coronary Disease-Associated Artery/Lesion type: bypass graft [place] vs. transplanted heart: [place] heart Qualified Code(s): I25.810 - Atherosclerosis of coronary artery bypass graft(s) without angina pectoris (2) Hypertension Hypertension type: unspecified Qualified Code(s): I10 - Essential (primary) hypertension
[2021-04-14] MEDS ORDERED: AMIODARONE / D5W 360 MG/200 ML BAG IV ONE (12:40)
[2021-04-14] MEDS: ASPIRIN 81 MG ECTAB PO SCH (15:44)
[2021-04-14] MEDS: MAGNESIUM SULFATE / D5W 1 GM/100 ML BAG IV SCH ×2 (17:02→19:28)
[2021-04-14] MEDS: AMIODARONE / D5W 360 MG/200 ML BAG IV SCH (18:41)
[2021-04-14] MEDS: ATORVASTATIN 40 MG TAB PO SCH (20:29)
[2021-04-15] MEDS: ONDANSETRON INJ 2 MG/ML 2 ML VIAL IV PRN (03:32)
[2021-04-15] MEDS: AMIODARONE / D5W 360 MG/200 ML BAG IV SCH ×2 (05:36→16:32)
[2021-04-15 07:06] LABS: Basophils # (auto) 0.01 K/uL (0-0.2); Basophils % (auto) 0.1 %; Eosinophils # (auto) 0.07 K/uL (0-0.5); Eosinophils % (auto) 0.8 %; Hematocrit (blood only) 29.2 % (42-52); Hemoglobin 9.9 g/dL (14.0-18.0); Immature Granulocytes # (auto) 0.01 K/uL (0.00-0.02); Immature Granulocytes % (auto) 0.1 %; Lymphocytes # (auto) 0.87 K/uL (1.2-3.4); Lymphocytes % (auto) 10.1 %; Mean Corpuscular Hemoglobin 31.5 pg (25-34); Mean Corpuscular Hgb Conc 33.9 g/dL (32-36); Mean Platelet Volume 9.4 fL (7.4-10.4); Monocytes # (auto) 1.36 K/uL (0.11-0.59); Monocytes % (auto) 15.7 %; Neutrophils # (auto) 6.33 K/uL (1.4-6.5); Neutrophils % (auto) 73.2 %; Platelet Count 158 K/uL (130-400); RDW Coefficient of Variation 13.9 % (11.5-14.5); RDW Standard Deviation 47.5 fL (36.4-46.3); Red Blood Count 3.14 M/uL (4.7-6.1); White Blood Count 8.65 K/uL (4.8-10.8)
[2021-04-15 07:26] LABS: BUN Creatinine Ratio 27.5 (10-20); Calcium 7.7 mg/dl (8.5-10.1); Creatinine Clr Calc Pharmacy 66.5 ml/min; Est GFR (African American) 95.1 ml/min; Magnesium 1.8 mg/dl (1.7-2.4); Potassium 3.7 mmol/L (3.5-5.1)
--- NOTE | 2021-04-15 07:43 | Hospitalist Progress Note ---
Date of Service April 15, 2021 Assessment & Plan (1) Closed fracture of right hip: Plan: Witnessed ground level fall without LOC. Hip x-ray showed acute displaced impacted right femoral neck fracture. There was concern for some minimal ST elevation on monitor intraoperatively (around 1 mm). EKG done at this time showing no evidence of ST elevation. Patient without chest pain. trop 0.05, 0.05, 0.04 04/15 --> POD #3 s/p Right hemiarthroplasty (04/12/21 Dr. Schroeder) Went into Afib rvr with rates 170-180 afternoon 04/13 --> given lopressor 5mg IV x3, 10mg cardizem IV. Discussed with cards, and scheduled 25mg metoprolol PO Q6H. TSH wnl Did have his eliquis resumed 5mg BID AM 04/13 as was initially to have half dose for 24 hours, but ok'd with orthopedics given possible need for cardioversion if remained in afib/rvr --> Got 250cc NSS bolus last night, also given 2gm IV mag and repeat 2.2 at that time --> Converted to NSR last evening around 22:54pm and rates have been in 110-120s but confirmed on EKG still in aflutter --> transferred to PCU overnight 04/13 in case of need for IV cardiac meds Amiodarone initiated by cardiology 04/14 Still in afib/flutter rates 120-130s Palpitations but no CP/SOB NPO for cardioversion with Dr. Landin when anesthesia available. Has been back on his eliquis 5mg BID since AM 04/13 TO hold off on further metoprolol at this time, BP stable and improved compared to prior at 108/73 Home indapamide and lisinopril 2.5mg currently on hold NSS @ 80cc/hr for now while NPO Mag 1gm IV to keep Mag closer to 2 Obtain orthostatic VS later today to assess for orthostatic hypotension but has not yet been again out of bed Pain control -- added oxycodone for oral/longer lasting option Passing gas but no BM -- added senna/increase ambulation PT/OT with rec for rehab. Patient refusing referrals. Will need to see how he does once above resolved -- encouraged rehab with patient today Continue to monitor (2) Paroxysmal atrial fibrillation: Plan: -Currently in a normal sinus rhythm with controlled ventricular rate THIS MORNING, however around lunch flipped into afib/rvr with rates 170-180s. Palpitations but no SOB/CP reported Eliquis resumed 04/13 Lopressor x 3IV, cardizem on 04/13, consulted cards PO metoprolol Q6H scheduled -- currently onl hold, as started amio gtt 04/14 Remains in afib/flutter. NO CP/SOB. +Palpitations Mag to keep closer to 2 NPO for cardioversion today as above Continue to monitor on telemetry Hgb stable but prior B12 levels lower end of normal 2020, and will check B12/iron levels to see if anemia also contributing. Also having issues with balance but felt related to BP/pain --> monitor B12/iron panel (3) CAD (coronary artery disease): Plan: -Proximal LAD HOA, August 2014; CABG x2, January 2016. -Follows Dr. Barr -Again, there was question of mild ST elevation on the monitor intraoperatively (around 1 mm). EKG done at this time showing no evidence of ST elevation or ST/T wave changes. -Currently, patient without chest pain or anginal equivalent symptoms Repeat trop 0.04 KIARA on hold -- (lisinopril 2.5mg daily) -- holding continued given low BPs and giving medications to help with his ECHO ordered --> Normal LV size/systolic function. EF 55-60%. No visualized wma but cannor exclude regional wall motion abnormalities due to image quality Similar findings compared to prior study Dec 2015 Cards on consult as above --> Amio gtt for afib/flutter as above. Resume ASA in AM 48 hours post op, continued statin -- ASA resumed today No CP/SOB reported --> See above regarding afib/RVR. Takes metoprolol po prn at home per dr Barr note (4) Hyponatremia: Plan: Na+ 130 upon presentation to the EDasymptomatic -With review of old records, not a new finding -Patient appears volume contracted -Likely related to diuretic therapy that he takes routinely (indapamide 1.25mg daily), HOWEVER WITH JVD ON EXAM this morning and further IVF held Got additional 250cc bolus x 2 04/13 for low BPs and Na 128 on AM labs --> No diuretics to be resumed per cards while working on converting back to NSR TSH wnl Continue to hold indapamide/KIARA for hypotension -- BP improved Not much PO intake 04/14, started NS @ 80cc/hr while NPO for cardioversion as above Follow BMP , possibly recheck later today (5) Hypertension: Plan: Has been on low end of normal -- see IV bolus/IVF as above, no further at this time BP currently 100s systolically Amiodarone gtt as above for afib/flutter, cardioversion planned Continue to monitor (6) Hyperlipidemia: Plan: -Continue atorvastatin 40 mg daily. (7) DVT prophylaxis: Plan: Eliquis 5mg resumed AM 04/13 Plan: NPO for cardioversion today Admission and Anticipated Discharge Date Admission Date: April 11, 2021 Subjective patient evaluated this morning doing alright pain controlled, worse with movement has not really been out of bed much no fever, chills can still endorse palpitations but no chest pain or shortness of breath did not have much of an appetite yesterday. IVF ordered while NPO as plans for cardioversion this morning with Dr Landin. Patient states he does have concerning about lightheaded/dizziness when standing and also discussed rehab may be best option but we can see how he does. He is not keen on going to rehab, but does understand his post-op course has been complicated and we will continue to evaluate. Passing gas but no BM yet. Physical Exam Physical Exam: General: WN/WD male sitting up in bed eating breakfast, NAD Eyes anicteric, pupils equal and reactive ENT: mmm, trachea midline without deviation, +JVD Resp: CTAB, diminished in the bases, no w/c/r, on 2L NC CV: irregularly irregular (rate 124bpm), systolic ejection murmur, no edema/calf tenderness, pulses palpable GI: +BS, soft, nontender Ext: dressing to R hip c/d/i, tender to palpation, pulses palpable and symmetric, cap refill <3 seconds. Skin: warm, dry Neuro/Psych: alert, oriented to person/place/time, cooperative, no focal deficit Results & Data Results & Data ([facility]) Vital Signs (Past 12 Hours) Vital Signs Temp Pulse Pulse Resp BP BP Pulse Ox 04/15/21 04:17 37.3 C 130 H 18 97/66 L 98 04/15/21 00:05 131 H 04/14/21 22:40 37.5 C 130 H 18 105/64 97 04/14/21 20:02 37.6 C H 129 H 17 100/65 99 Laboratory Results 04/15/21 04/15/21 04/14/21 Range/Units 06:33 06:33 06:55 WBC 8.65 (4.8-10.8) K/uL RBC 3.14 L (4.7-6.1) M/uL Hgb 9.9 L (14.0-18.0) g/dL Hct 29.2 L (42-52) % MCV 93.0 (80-100) fL MCH 31.5 (25-34) pg MCHC 33.9 (32-36) g/dL RDW Std Deviation 47.5 H (36.4-46.3) fL RDW Coeff of Ralph 13.9 (11.5-14.5) % Plt Count 158 (130-400) K/uL MPV 9.4 (7.4-10.4) fL Immature Gran % (Auto) 0.1 % Neut % (Auto) 73.2 % Lymph % (Auto) 10.1 % [place] % (Auto) 15.7 % Eos % (Auto) 0.8 % Baso % (Auto) 0.1 % Neut # (Auto) 6.33 (1.4-6.5) K/uL Lymph # (Auto) 0.87 L (1.2-3.4) K/uL [place] # (Auto) 1.36 H (0.11-0.59) K/uL Eos # (Auto) 0.07 (0-0.5) K/uL Baso # (Auto) 0.01 (0-0.2) K/uL Immature Gran # (Auto) 0.01 (0.00-0.02) K/uL Sodium 125 L (136-145) mmol/L Potassium 3.7 (3.5-5.1) mmol/L Chloride 93 L (98-107) mmol/L Carbon Dioxide 25 (21-32) mmol/L Anion Gap 7 (3-11) BUN 22 (6-23) mg/dl Creatinine 0.80 (0.6-1.4) mg/dl Est Cr Clr Drug Dosing 66.5 ml/min Est GFR ( Amer) 95.1 ml/min Est GFR (Non-Af Amer) 82.0 ml/min BUN/Creatinine Ratio 27.5 H (10-20) Glucose 118 H (70-99(Fasting)) mg/dl Calcium 7.7 L (8.5-10.1) mg/dl Magnesium 1.8 1.8 (1.7-2.4) mg/dl 04/14/21 Range/Units 06:55 WBC (4.8-10.8) K/uL RBC (4.7-6.1) M/uL Hgb (14.0-18.0) g/dL Hct (42-52) % MCV (80-100) fL MCH (25-34) pg MCHC (32-36) g/dL RDW Std Deviation (36.4-46.3) fL RDW Coeff of Ralph (11.5-14.5) % Plt Count (130-400) K/uL MPV (7.4-10.4) fL Immature Gran % (Auto) % Neut % (Auto) % Lymph % (Auto) % [place] % (Auto) % Eos % (Auto) % Baso % (Auto) % Neut # (Auto) (1.4-6.5) K/uL Lymph # (Auto) (1.2-3.4) K/uL [place] # (Auto) (0.11-0.59) K/uL Eos # (Auto) (0-0.5) K/uL Baso # (Auto) (0-0.2) K/uL Immature Gran # (Auto) (0.00-0.02) K/uL Sodium 128 L (136-145) mmol/L Potassium 4.1 (3.5-5.1) mmol/L Chloride 96 L (98-107) mmol/L Carbon Dioxide 27 (21-32) mmol/L Anion Gap 5 (3-11) BUN 25 H (6-23) mg/dl Creatinine 0.92 (0.6-1.4) mg/dl Est Cr Clr Drug Dosing 57.8 ml/min Est GFR ( Amer) 88.2 ml/min Est GFR (Non-Af Amer) 76.1 ml/min BUN/Creatinine Ratio 27.2 H (10-20) Glucose 106 H (70-99(Fasting)) mg/dl Calcium 8.0 L (8.5-10.1) mg/dl Magnesium (1.7-2.4) mg/dl PG Care Time/CCT Total # of Minutes Spent Total Time Spent with Patient: Total time spent is greater than 50% in coordination of care (as documented) at patient's floor/unit and/or counseling patient: Coding Level of Care Code 35620 Subseq Hosp Care Lvl 3 Diagnoses Closed fracture of right hip S72.001A Encounter type: initial encounter Paroxysmal atrial fibrillation I48.0 CAD (coronary artery disease) I25.810 Coronary Disease-Associated Artery/Lesion type: bypass graft [place] vs. transplanted heart: [place] heart Associated angina: without angina Hyponatremia E87.1 Hypertension I10 Hypertension type: unspecified Hyperlipidemia E78.5 DVT prophylaxis Z29.9 (1) Closed fracture of right hip Encounter type: initial encounter Qualified Code(s): S72.001A - Fracture of unspecified part of neck of right femur, initial encounter for closed fracture (2) CAD (coronary artery disease) Coronary Disease-Associated Artery/Lesion type: bypass graft [place] vs. trans planted heart: [place] heart Associated angina: without angina Qualified Code(s): I25.810 - Atherosclerosis of coronary artery bypass graft(s) without angina pectoris (3) Hypertension Hypertension type: unspecified Qualified Code(s): I10 - Essential (primary) hypertension
[2021-04-15] MEDS ORDERED: SODIUM CHLORIDE 0.9% 1000ML 1,000 ML IV SCH (07:45)
--- NOTE | 2021-04-15 07:58 | Progress Notes ---
DATE OF SERVICE: 04/15/2021. SUBJECTIVE: An 85-year-old gentleman now postop day 3 from a right cemented bipolar hip arthroplasty for fracture. Orthopedically, he has done pretty well. He continues to have a rapid heart rate and AFib. His pain is controlled. No other complaints. OBJECTIVE: VITAL SIGNS: Temperature 37.3. Vital signs are stable. Pulse is 130. GENERAL: Reveals a pleasant, elderly male. He is lying in bed, looks completely comfortable. EXTREMITIES: Examination of the right leg reveals the leg to be well aligned. His thigh is soft and supple. He is neurologically intact. Hip is located. LABORATORY DATA: Hemoglobin 9.9. Hematocrit 29.2. Electrolytes are pretty stable. Still slightly h yponatremic. ASSESSMENT: An 85-year-old gentleman now postop day 3 from a right cemented bipolar hip arthroplasty for fracture. Orthopedically, he is doing well. Hip is located. He is neurologically intact. He has been tachycardic since surgery and back in atrial fibrillation. He is on appropriate anticoagula tion. PLAN: 1. DVT prophylaxis includes thigh-high TEDs, SCDs and back on his therapeutic Eliquis. 2. PT/OT. He can weight bear as tolerated on the right leg. 3. Pain control, doing okay with current pain regimen. 4. Medical management as per the Medicine and Cardiology services. 5. Disposition: He is okay for discharge any time medically stable. I need to see him back in 2-3 weeks out from surgery date. Any orthopedic questions can be directed to me at [phone]. Job ID: [id number]
[2021-04-15] MEDS: ASPIRIN 81 MG ECTAB PO SCH (07:59)
[2021-04-15] MEDS: MAGNESIUM SULFATE / D5W 1 GM/100 ML BAG IV SCH ×2 (07:59→10:03)
[2021-04-15] MEDS: CHOLECALCIFEROL 1,000 UNITS 25 MCG TAB PO SCH (08:00)
[2021-04-15] MEDS: APIXABAN 5 MG TABLET PO SCH ×2 (08:00→20:28)
[2021-04-15] MEDS: DOCUSATE SODIUM 100 MG CAP PO SCH (08:00)
[2021-04-15] MEDS: SENNA 8.6 MG TAB PO SCH (08:49)
--- NOTE | 2021-04-15 09:57 | Cardiology Progress Note ---
Date of Service April 15, 2021 Assessment & Plan (1) Paroxysmal atrial fibrillation: Plan: -ventricular response remains elevated despite intravenous amiodarone. -blood pressure borderline low. -remains on Eliquis 5 mg b.i.d.. -will proceed with electrical cardioversion today. (2) CAD (coronary artery disease): Plan: -proximal LAD HOA, August 2014; CABG x2, January 2016. -quiescent on medical therapy. (3) Hypertension: Plan: -blood pressure is borderline low. Admission and Anticipated Discharge Date Admission Date: April 11, 2021 Subjective The patient is resting comfortably in bed without complaints of chest pain, dyspnea, or palpitations. Does note some orthostatic dizziness. Physical Exam Physical Exam: In general is well-developed well-nourished white male in no acute distress. HEENT exam is negative. Neck is supple with full carotid upstrokes. No carotid bruits. No JVD. No thyromegaly. Cardiovascular exam reveals an irregular rhythm with distant heart sounds. No obvious murmurs. Lungs are clear without rales, rhonchi or wheezes. Chest reveals well-healed midline scar. Abdomen is soft without bruits. Extremities reveal intact radial artery and posterior tibial pulses bilaterally. There is no peripheral edema. Results & Data ([facility]) Vital Signs (Past 12 Hours) Vital Signs Temp Pulse Pulse Pulse Resp BP BP 04/15/21 07:52 36.7 C 130 H 18 108/73 04/15/21 07:00 129 H 04/15/21 04:17 37.3 C 130 H 18 97/66 L 04/15/21 00:05 131 H 04/14/21 22:40 37.5 C 130 H 18 105/64 Pulse Ox 04/15/21 07:52 97 04/15/21 07:00 04/15/21 04:17 98 04/15/21 00:05 04/14/21 22:40 97 PG Care Time/CCT Total # of Minutes Spent Total Time Spent with Patient: Total time spent is greater than 50% in coordination of care (as documented) at patient's floor/unit and/or counseling patient: Coding Level of Care Code 14160 Subseq Hosp Care Lvl 3 Diagnoses Paroxysmal atrial fibrillation I48.0 CAD (coronary artery disease) I25.810 Coronary Disease-Associated Artery/Lesion type: bypass graft [place] vs. transplanted heart: [place] heart Associated angina: without angina Hypertension I10 Hypertension type: unspecified (1) CAD (coronary artery disease) Coronary Disease-Associated Artery/Lesion type: bypass graft [place] vs. transplanted heart: [place] heart Associated angina: without angina Qualified Code(s): I25.810 - Atherosclerosis of coronary artery bypass graft(s) without angina pectoris (2) Hypertension Hypertension type: unspecified Qualified Code(s): I10 - Essential (primary) hypertension
--- NOTE | 2021-04-15 10:05 | XRay Report ---
XR chest 1V portable CLINICAL HISTORY: Hypoxia. Fever. COMPARISON STUDY: Chest radiograph April 11, 2021. FINDINGS: Severe S-shaped scoliosis of the thoracolumbar spine is incidentally noted. There are media n sternotomy wires. Cardiomediastinal silhouette is stable. There is no pneumothorax or pleural effus ion. No evidence for pulmonary edema. Linear left lower lung retrocardiac opacity is noted. Mild righ t lower lung opacity has improved. IMPRESSION: 1. Mild right lower lung opacity, improved since prior exam. 2. Linear left lower lung retrocardiac opacity which favors atelectasis. ACT 112: Negative or not required by law. Electronically signed by: David Pastor M.D. 04/15/2021 10:04 AM
--- NOTE | 2021-04-15 10:49 | Anesthesiology Consultation ---
Date of Service April 15, 2021 Assessment & Plan (1) Encounter for pre-operative examination: Chart Review Chart Review: Acceptable Risk for Surgery History Surgery Operation Date: 04/12/21 13:05 Proposed Procedures p Right Cemented Hip Hemiarthroplasty - Edward Schroeder MD Operation Date: 04/15/21 11:00 Proposed Procedures p Cardioversion Site Medical Director w/Anesthesia - Dawit Landin MD Height/Weight Height: 5 ft 8 in Weight: 79.1 kg Allergies Allergy/AdvReac Type Severity Reaction Status Date / Time Sulfa (Sulfonamide Allergy Intermediate Hives Verified 04/11/21 18:58 Antibiotics) tetracycline Allergy Intermediate Hives Verified 04/11/21 18:58 Medications Home Medications Medication Instructions Recorded Confirmed Last Taken lutein 20 mg capsule 20 mg PO DAILY cap 10/18/18 04/11/21 Unknown cholecalciferol (vitamin D3) 50 2,000 units PO DAILY cap 09/02/19 04/11/21 Unknown mcg (2,000 unit) capsule docusate sodium 100 mg capsule 200 mg PO DAILY cap 09/02/19 04/11/21 Unknown nitroglycerin 0.4 mg sublingual 0.4 mg SL Q5M PRN #30 tab 12/26/19 04/11/21 Unknown tablet aspirin 81 mg tablet,delayed 81 mg PO PM 03/05/20 04/11/21 Unknown release (Aspirin Low Dose) indapamide 1.25 mg tablet 1.25 mg PO QAM #90 tab 07/30/20 04/11/21 04/11/21 16:00 apixaban 5 mg tablet 5 mg PO BID #180 tab 08/04/20 04/11/21 04/11/21 16:00 lisinopril 2.5 mg tablet 2.5 mg PO DAILY #90 tab 08/09/20 04/11/21 Unknown nitrofurantoin macrocrystal 50 mg 50 mg PO DAILY PRN #30 cap 10/15/20 04/11/21 Unknown capsule (Macrodantin) Lactobacillus acidophilus 1 1,000 mmu cells PO DAILY 12/21/20 04/11/21 Unknown billion cell tablet cranberry 500 mg capsule 500 mg PO DAILY cap 12/21/20 04/11/21 Unknown magnesium oxide 400 mg PO DAILY 12/21/20 04/11/21 Unknown atorvastatin 40 mg tablet 40 mg PO HS 04/11/21 04/11/21 Unknown coQ10 (ubiquinol) 200 mg capsule 200 mg PO DAILY 04/11/21 04/11/21 Unknown bpzigpfqzeik-xijobkzr-cvixvw tablet 1 tab PO DAILY 04/11/21 04/11/21 Unknown Active Medications Generic Name Dose Route Start Last Admin Trade Name Freq PRN Reason Stop Dose Admin Acetaminophen 650 mg 04/11/21 22:26 04/12/21 09:03 Acetaminophen 325 Mg Tab PO 05/11/21 22:25 650 mg Q4H PRN Administration Pain or Fever Apixaban 5 mg 04/13/21 21:00 04/15/21 08:00 Apixaban 5 Mg Tablet PO 05/13/21 20:59 5 mg BID CHANNING Administration Aspirin 81 mg 04/14/21 14:30 04/15/21 07:59 Aspirin 81 Mg Ectab PO 05/14/21 14:29 81 mg QAM CHANNING Administration Atorvastatin Calcium 40 mg 04/11/21 22:26 04/14/21 20:29 Atorvastatin 40 Mg Tab PO 05/11/21 22:25 40 mg HS CHANNING Administration Docusate Sodium 200 mg 04/12/21 09:00 04/15/21 08:00 Docusate Sodium 100 Mg Cap PO 05/12/21 08:59 200 mg DAILY CHANNING Administration Amiodarone HCl/Dextrose 360 mg in 200 mls @ 16.667 mls/hr 04/14/21 18:30 04/15/21 05:36 Nexterone / D5w IV 05/14/21 18:29 0.5 mg/min .Q12H CHANNING 16.7 mls/hr Administration 0.5 MG/MIN Sodium Chloride 1,000 mls @ 80 mls/hr 04/15/21 07:45 04/15/21 07:50 Nss 1000ml IV 05/15/21 07:44 80 mls/hr .[id number] CHANNING Administration Magnesium Sulfate/Dextrose 1 gm in 100 mls @ 50 mls/hr 04/15/21 08:00 04/15/21 10:03 Magnesium Sulfate / D5w IV 04/15/21 11:59 50 mls/hr Q2H CHANNING Administration Metoprolol Tartrate 5 mg 04/13/21 13:24 04/13/21 13:55 Metoprolol Tartrate 1 Mg/Ml Vial IV 5 mg Q5M PRN Administration Tachycardia, HR > 120 Protocol Morphine Sulfate 4 mg 04/11/21 20:32 04/13/21 10:12 Morphine Sulfate 4 Mg/Ml 1 Ml Carp\Vial IV 04/25/21 20:31 4 mg Q3H PRN Administration Pain (6,7,8,9,10) Ondansetron HCl 4 mg 04/11/21 22:26 04/15/21 03:32 Ondansetron Inj 2 Mg/Ml 2 Ml Vial IV 05/11/21 22:25 4 mg Q6H PRN Administration Nausea Sennosides 8.6 mg 04/14/21 09:00 04/15/21 08:49 Senna 8.6 Mg Tab PO 05/14/21 08:59 8.6 mg QAM CHANNING Administration Vitamin D 2,000 units 04/12/21 09:00 04/15/21 08:00 Cholecalciferol 1,000 Units 25 Mcg Tab PO 05/12/21 08:59 2,000 units DAILY CHANNING Administration NPO Date Last Intake of Fluids: 04/11/21 Time Last Intake of Fluids: 23:00 Date Last Intake of Solids: 04/11/21 Time Last Intake of Solids: 17:00 Past Medical History Medical History CAD (coronary artery disease) Coronary artery disease, occlusive Hypercholesterolemia Hyperglycemia Hyperlipidemia Hypertension Nontoxic multinodular goiter Osteoporosis Paroxysmal atrial fibrillation Past Family History Family History Uncle Colorectal cancer Prostate cancer Denies family history of Ovarian cancer Myocardial infarction Breast cancer Past Surgical History Surgical History History of coronary artery bypass surgery Presence of stent in LAD coronary artery had troch nail done 04/12/21 Social History Smoking Status: Never smoker Hx Alcohol Use: No Hx Substance Use: No substance use type: does not use Physical Exam Vital Signs Last Vital Signs Temp 36.8 C 04/15/21 10:30 Pulse 132 H 04/15/21 10:30 Resp 20 04/15/21 10:30 BP 103/68 04/15/21 10:30 Pulse Ox 98 04/15/21 10:30 Testing Laboratory Results 04/15/21 06:33 04/15/21 06:33 PT 12.0 Seconds (9.0-12.0) 04/11/21 20:43 INR 1.2 (0.9-1.1) H 04/11/21 20:43 APTT 26.3 Seconds (21.0-31.0) 04/11/21 18:46 Urine Color Yellow 04/11/21 18:46 Urine Appearance Clear (Clear) 04/11/21 18:46 Urine pH 7.0 (4.5-7.5) 04/11/21 18:46 Ur Specific [place] 1.019 (1.000-1.030) 04/11/21 18:46 Urine Protein Trace (Negative) H 04/11/21 18:46 Urine Glucose (UA) Negative (Negative) 04/11/21 18:46 Urine Ketones Negative (Negative) 04/11/21 18:46 Urine Nitrite Negative (Negative) 04/11/21 18:46 Ur Leukocyte Esterase Negative (Negative) 04/11/21 18:46 Urine WBC (Auto) 1-5 /hpf (0-5) 04/11/21 18:46 Urine RBC (Auto) 10-30 /hpf (0-4) H 04/11/21 18:46 U Hyaline Cast (Auto) 1-5 /lpf (0-5) 04/11/21 18:46 U Epithel Cells (Auto) 20-30 /lpf (0-5) H 04/11/21 18:46 Urine Bacteria (Auto) Negative (Negative) 04/11/21 18:46 Blood Type A Positive 04/11/21 20:43 Antibody Screen NEGATIVE 04/11/21 20:43 Electrocardiogram Date: 04/14/21 Findings: + AFIB @ (127) and + RBBB (incomplete) Echocardiogram Date: 04/13/21 EF: 55-60% Valvular Disease: + no significant valvular disease mild pulm htn
--- NOTE | 2021-04-15 11:17 | Cardioversion ---
Date of Service April 15, 2021 PG Electrical Cardioversion Rp Electrical Cardioversion Report Procedure: Elective DC cardioversion Indication: Atrial fibrillation/flutter Sedation: Provided by anesthesiology Anticoagulation: Eliquis Antiarrhythmic therapy: Intravenous amiodarone Consent: Informed written consent was obtained prior to procedure. Time out: Performed. Procedure details: Once he was sufficiently sedated, 100 joules were delivered in a synchronized fashion which successfully converted atrial flutter to sinus rhythm. He tolerated the procedure well. He became hypotensive following sedation with systolic blood pressure in the 70s. IV fluids were given and systolic blood pressure remained in the 70s to 80s. Anesthesiology provided intravenous medical therapy to further improved blood pressure. No complications known at the time of this note. Plan: 1. Amiodarone to be managed by Dr. Barr, his primary shell sorter. 2. Continue anticoagulation therapy without interruption for at least 4 weeks following cardioversion. He has been on indefinite anticoagulation therapy. Coding Level of Care Code Cardioversion, elective Additional Codes Electrical Cardioversion Report ([id number])
--- NOTE | 2021-04-15 11:25 | Anesthesiology Progress Note ---
Date of Service April 15, 2021 Anesthesia Post Procedure Vital Signs Vital Signs: Temp Pulse Pulse Pulse Resp BP BP 04/15/21 11:02 60 14 79/40 L 04/15/21 11:00 86 14 121/86 04/15/21 10:30 36.8 C 132 H 20 103/68 04/15/21 07:52 36.7 C 130 H 18 108/73 04/15/21 07:00 129 H 04/15/21 04:17 37.3 C 130 H 18 97/66 L 04/15/21 00:05 131 H 04/14/21 22:40 37.5 C 130 H 18 105/64 04/14/21 20:02 37.6 C H 129 H 17 100/65 04/14/21 16:35 37.1 C 110 H 18 93/61 L 04/14/21 15:00 130 H 04/14/21 13:33 127 H 94/63 L 98/66 L 04/14/21 12:49 123 H 100/66 04/14/21 11:40 36.8 C 119 H 16 103/66 Pulse Ox 04/15/21 11:02 98 04/15/21 11:00 97 04/15/21 10:30 98 04/15/21 07:52 97 04/15/21 07:00 04/15/21 04:17 98 04/15/21 00:05 04/14/21 22:40 97 04/14/21 20:02 99 04/14/21 16:35 100 04/14/21 15:00 04/14/21 13:33 04/14/21 12:49 04/14/21 11:40 96 Pain Intensity Hip: Pain Intensity: 8 Right Hip: Pain Intensity: 8 Transfer of Care Handoff Completed per policy Notes Mental Status: alert / awake / arousable Patient Amnestic to Procedure: Yes Nausea / Vomiting: adequately controlled Pain: adequately controlled Airway Patency, RR, SpO2: stable & adequate BP & HR: stable & adequate Hydration State: stable & adequate Anesthetic Complications: no major complications apparent
[2021-04-15] MEDS ORDERED: PROPOFOL IV EMULSION 10 MG/ML 20 ML VIAL IV ONE (11:32)
[2021-04-15] MEDS ORDERED: ePHEDrine sulfate 50 MG/ML SYR ONE (11:32)
[2021-04-15 12:11] LABS: Ferritin 435.8 ng/ml (8-388)
[2021-04-15] MEDS ORDERED: STAT IV STA (13:54)
[2021-04-15] MEDS ORDERED: bisacodyL 5 MG TABEC PO ONE (13:56)
[2021-04-15] MEDS ORDERED: CALCIUM GLUCONATE 10% 1,000 MG in DEXTROSE 5% 50 ML IV ONE (14:00)
[2021-04-15] MEDS ORDERED: IRON SUCROSE 200 MG in 0.9 % SODIUM CHLORIDE 100 ML IV ONE (14:00)
[2021-04-15 18:26] LABS: Creatinine Clr Calc Pharmacy 57.8 ml/min; Est GFR (African American) 88.2 ml/min; Est GFR (Non-African American) 76.1 ml/min; Potassium 3.9 mmol/L (3.5-5.1)
[2021-04-15] MEDS: INDAPAMIDE 1.25 MG TAB PO SCH (19:49)
[2021-04-15] MEDS: ATORVASTATIN 40 MG TAB PO SCH (20:28)
[2021-04-15 20:58] LABS: Creatinine Urine Random 137.6 mg/dl; Sodium Random Urine < 10 mmol/L
[2021-04-15 23:07] LABS: BUN Creatinine Ratio 26.7 (10-20); Calcium 7.8 mg/dl (8.5-10.1); Creatinine Clr Calc Pharmacy 61.9 ml/min; Est GFR (African American) 92.3 ml/min; Est GFR (Non-African American) 79.6 ml/min; Potassium 3.7 mmol/L (3.5-5.1)
[2021-04-16] MEDS: AMIODARONE / D5W 360 MG/200 ML BAG IV SCH (03:24)
--- NOTE | 2021-04-16 05:56 | Electrocardiogram Report ---
Test Reason : Blood Pressure : / mmHG Vent. Rate : 127 BPM Atrial Rate : 264 BPM P-R Int : 000 ms QRS Dur : 098 ms QT Int : 288 ms P-R-T Axes : 113 -36 048 degrees QTc Int : 418 ms Atrial flutter with variable A-V block Left axis deviation Incomplete right bundle branch block Nonspecific T wave abnormality Abnormal ECG When compared with ECG of 13-APR-2021 14:48, Atrial flutter has replaced Atrial fibrillation Incomplete right bundle branch block is now Present Confirmed by Dawit Landin ([id number]) on 04/16/2021 5:55:56 AM Referred By: REFERRED SELF Confirmed By:Dawit Landin
--- NOTE | 2021-04-16 07:35 | Hospitalist Progress Note ---
Date of Service April 16, 2021 Assessment & Plan (1) Closed fracture of right hip: Plan: Witnessed ground level fall without LOC. Hip x-ray showed acute displaced impacted right femoral neck fracture. There was concern for some minimal ST elevation on monitor intraoperatively (around 1 mm). EKG done at this time showing no evidence of ST elevation. Patient without chest pain. trop 0.05, 0.05, 0.04 04/16 --> POD #4 s/p Right hemiarthroplasty (04/12/21 Dr. Schroeder) Went into Afib rvr with rates 170-180 afternoon 04/13 --> given lopressor 5mg IV x3, 10mg cardizem IV. Discussed with cards, and scheduled 25mg metoprolol PO Q6H. TSH wnl Did have his eliquis resumed 5mg BID AM 04/13 as was initially to have half dose for 24 hours, but ok'd with orthopedics given possible need for cardioversion if remained in afib/rvr --> Got 250cc NSS bolus last night, also given 2gm IV mag and repeat 2.2 at that time --> Converted to NSR last evening around 22:54pm and rates have been in 110-120s but confirmed on EKG still in aflutter --> transferred to PCU overnight 04/13 in case of need for IV cardiac meds Amiodarone initiated by cards 04/14 --> did not cardiovert. Shock x 1 04/16 with return of NSR and remains in the 60-80s on monitor --> Per discussion with cards, switched to 200mg PO daily until out of window from stress from surgery -- of note, had issues in past with amio n/rash but will monitor and continue per cards recs, has not seen yet today Indapamide given last evening and placed on fluid restriction for Na 124 --> 126 last evening but again 124 this morning and further limited fluid intake and give 1 gm NaCl tablet and monitor BMP on repeat this afternoon --> Per review of nephrology notes Mar 2020 with Na 131->124 and reported lightheaded/dizzy and improved with restricting fluids to 50% of normal intake. patient does endorse increased free water intake on the regular and suspect some dilutional effect. random sodium <10 (did endorse some lightheadedness when up with therapy today) Hold further indapamide for now and monitor repeat BMP Encouraging incentive spirometer --> bibasilar crackles/diminished in the bases but 96% on room air and denies SOB/cough/sputum production Pain control Bowel regimen PT/OT rec rehab but patient refusing --> will continue to monitor progress with therapy while inpatient and possible d/c with home PT if improves as Na improving (2) Hyponatremia: Plan: Na+ 130 upon presentation to the EDasymptomatic Review of old records, excessive free water intake and improved with fluid restriction per Dr Villatoro note Mar 2020 --> Fluid restriction 1800 last evening, decreased to 1200ml today. 1gm NaCl tablet today for low serum osm as well Hold further diuretics for tomorrow until review of labs --> BMP this afternoon (3) Paroxysmal atrial fibrillation: Plan: Currently in a normal sinus rhythm with controlled ventricular rate THIS MORNING , however around lunch flipped into afib/rvr with rates 170-180s. Palpitations but no SOB/CP reported Eliquis resumed 04/13 Lopressor, cardizem, then initiated amio gtt 04/14, needed shock 04/15 and now in NSR --> Per cards, to d/c gtt and place on 200mg daily until follow up Continue to monitor on telemetry Iron studies low iron/trans % sat --> 2nd dose venofer for today as well (4) CAD (coronary artery disease): Plan: Proximal LAD HOA, August 2014; CABG x2, January 2016. Follow[address] Dr. Barr Again, there was question of mild ST elevation on the monitor intraoperatively (around 1 mm). EKG done at this time showing no evidence of ST elevation or ST/T wave changes. Currently, patient without chest pain or anginal equivalent symptoms Repeat trop 0.04 KIARA on hold -- (lisinopril 2.5mg daily) -- holding continued given low BPs and giving medications to help with his ECHO ordered --> Normal LV size/systolic function. EF 55-60%. No visualized wma but cannor exclude regional wall motion abnormalities due to image quality Similar findings compared to prior study Dec 2015 Cards on consult as above --> Amio gtt for afib/flutter as above, shocked, now on PO amiodarone and to be continued ASA resumed 04/15 No CP/SOB reported --> See above regarding afib/RVR. Takes metoprolol po prn at home per dr Barr note (5) Hypertension: Plan: Has been on low end of normal -- see IV bolus/IVF as above, no further at this time and BP improved to 139/64 now that in NSR Got indapamide 1.25mg this morning, BP stable but holding further Have not resumed lisinopril just yet, could resume in AM if BP remains stable Metoprolol available prn for tachycardia as well Continue to monitor on tele (6) Hyperlipidemia: Plan: Continue atorvastatin 40 mg daily (7) DVT prophylaxis: Plan: Eliquis 5mg resumed AM 04/13, continued Plan: continued inpatient stay, continued PT/OT while inpatient Fluid restriction for hyponatremia as above, give 1gm NaCl and repeat BMP this afternoon Admission and Anticipated Discharge Date Admission Date: April 11, 2021 Subjective patient evaluated this morning got up into chair passing gas, but no BM. Thinks he may have to have one soon Issues in past with amiodarone and will contact Dr Barr about possible d/c this as causing nausea (did get zofran this morning) Discussed fluid restriction given nephrology notes. He does endorse lot of free water intake. Got up with therapy today and had some mild dizziness noted but states his blood pressure stayed in the 130-150s systolically. No fever, chills, chest pain, shortness of breath, cough, sputum production. Still not much of an appetite. Review of Systems Review of Systems: All systems reviewed & are unremarkable except as noted in HPI & below Physical Exam Physical Exam: General: WN/WD male sitting up in chair this morning, NAD Eyes anicteric, pupils equal and reactive ENT: mmm, trachea midline without deviation, no JVD Resp: CTAB, diminished in the bases/associated crackles (improved with cough), no wheezing/rales, on ROOM AIR CV: regular rhythm/rate (72bpm), systolic ejection murmur, minimal edema from hip surgery but no calf tenderness, pulses palpable GI: +BS (increased BS today), soft, nontender Ext: dressing to R hip c/d/i, tender to palpation, pulses palpable and symmetric, cap refill <3 seconds. Skin: warm, dry Neuro/Psych: alert, oriented to person/place/time, cooperative, no focal deficit Results & Data Results & Data ([facility]) Vital Signs (Past 12 Hours) Vital Signs Temp Pulse Pulse Resp BP BP Pulse Ox 04/16/21 06:19 36.8 C 61 16 125/68 98 04/16/21 03:23 36.8 C 62 16 153/72 H 95 04/16/21 00:00 70 04/15/21 20:37 37.1 C 72 22 137/72 95 Laboratory Results 04/16/21 04/16/21 04/15/21 Range/Units 09:31 09:31 22:36 WBC 7.78 (4.8-10.8) K/uL RBC 3.07 L (4.7-6.1) M/uL Hgb 9.8 L (14.0-18.0) g/dL Hct 28.4 L (42-52) % MCV 92.5 (80-100) fL MCH 31.9 (25-34) pg MCHC 34.5 (32-36) g/dL RDW Std Deviation 46.5 H (36.4-46.3) fL RDW Coeff of Ralph 13.7 (11.5-14.5) % Plt Count 184 (130-400) K/uL MPV 8.9 (7.4-10.4) fL Sodium 124 L 126 L (136-145) mmol/L Potassium 3.5 3.7 (3.5-5.1) mmol/L Chloride 90 L 93 L (98-107) mmol/L Carbon Dioxide 27 26 (21-32) mmol/L Anion Gap 7 7 (3-11) BUN 21 23 (6-23) mg/dl Creatinine 0.84 0.86 (0.6-1.4) mg/dl Est Cr Clr Drug Dosing 63.3 61.9 ml/min Est GFR ( Amer) 93.2 92.3 ml/min Est GFR (Non-Af Amer) 80.4 79.6 ml/min BUN/Creatinine Ratio 25.0 H 26.7 H (10-20) Glucose 146 H 122 H (70-99(Fasting)) mg/dl Osmolality (280-300) mOsm/kg Calcium 7.8 L 7.8 L (8.5-10.1) mg/dl Magnesium 1.8 (1.7-2.4) mg/dl Vitamin B12 (211-911) pg/ml Urine Osmolality (500-800) mOsm/kg Ur Random Creatinine mg/dl Ur Random Sodium mmol/L 04/15/21 04/15/21 04/15/21 Range/Units 20:00 20:00 17:44 WBC (4.8-10.8) K/uL RBC (4.7-6.1) M/uL Hgb (14.0-18.0) g/dL Hct (42-52) % MCV (80-100) fL MCH (25-34) pg MCHC (32-36) g/dL RDW Std Deviation (36.4-46.3) fL RDW Coeff of Ralph (11.5-14.5) % Plt Count (130-400) K/uL MPV (7.4-10.4) fL Sodium 124 L (136-145) mmol/L Potassium 3.9 (3.5-5.1) mmol/L Chloride 92 L (98-107) mmol/L Carbon Dioxide 25 (21-32) mmol/L Anion Gap 7 (3-11) BUN 23 (6-23) mg/dl Creatinine 0.92 (0.6-1.4) mg/dl Est Cr Clr Drug Dosing 57.8 ml/min Est GFR ( Amer) 88.2 ml/min Est GFR (Non-Af Amer) 76.1 ml/min BUN/Creatinine Ratio 25.0 H (10-20) Glucose 164 H (70-99(Fasting)) mg/dl Osmolality (280-300) mOsm/kg Calcium 8.0 L (8.5-10.1) mg/dl Magnesium (1.7-2.4) mg/dl Vitamin B12 (211-911) pg/ml Urine Osmolality 771 (500-800) mOsm/kg Ur Random Creatinine 137.6 mg/dl Ur Random Sodium < 10 mmol/L 04/15/21 04/15/21 Range/Units 12:02 12:02 WBC (4.8-10.8) K/uL RBC (4.7-6.1) M/uL Hgb (14.0-18.0) g/dL Hct (42-52) % MCV (80-100) fL MCH (25-34) pg MCHC (32-36) g/dL RDW Std Deviation (36.4-46.3) fL RDW Coeff of Ralph (11.5-14.5) % Plt Count (130-400) K/uL MPV (7.4-10.4) fL Sodium (136-145) mmol/L Potassium (3.5-5.1) mmol/L Chloride (98-107) mmol/L Carbon Dioxide (21-32) mmol/L Anion Gap (3-11) BUN (6-23) mg/dl Creatinine (0.6-1.4) mg/dl Est Cr Clr Drug Dosing ml/min Est GFR ( Amer) ml/min Est GFR (Non-Af Amer) ml/min BUN/Creatinine Ratio (10-20) Glucose (70-99(Fasting)) mg/dl Osmolality 267 L (280-300) mOsm/kg Calcium (8.5-10.1) mg/dl Magnesium (1.7-2.4) mg/dl Vitamin B12 497 (211-911) pg/ml Urine Osmolality (500-800) mOsm/kg Ur Random Creatinine mg/dl Ur Random Sodium mmol/L Diagnostic Findings Chest X-Ray 04/16/21 07:00 XR chest 2V PA/lateral HISTORY: f/u right middle lobe opacity vs atelectasis COMPARISON: Chest 04/15/2021. FINDINGS: No pneumothorax. The heart remains mildly enlarged. There are poststernotomy changes. Severe scoliosis persists. Bibasilar linear densities and trace bilateral pleural effusions. The upper lung zones are clear. No evidence for pulmonary edema. IMPRESSION: 1. Trace bilateral pleural effusions with slight progression of bibasilar linear densities suggesting subsegmental atelectasis. 2. Stable cardiomegaly. ACT 112: Negative or not required by law. Electronically signed by: Eliel Garrett M.D. 04/16/2021 8:04 AM PG Care Time/CCT Total # of Minutes Spent Total Time Spent with Patient: Total time spent is greater than 50% in coordination of care (as documented) at patient's floor/unit and/or counseling patient: Coding Level of Care Code 67297 Subseq Hosp Care Lvl 3 Diagnoses Closed fracture of right hip S72.001A Encounter type: initial encounter Paroxysmal atrial fibrillation I48.0 CAD (coronary artery disease) I25.810 Coronary Disease-Associated Artery/Lesion type: bypass graft [place] vs. transplanted heart: [place] heart Associated angina: without angina Hyponatremia E87.1 Hypertension I10 Hypertension type: unspecified Hyperlipidemia E78.5 DVT prophylaxis Z29.9 (1) Closed fracture of right hip Encounter type: initial encounter Qualified Code(s): S72.001A - Fracture of unspecified part of neck of right femur, initial encounter for closed fracture (2) CAD (coronary artery disease) Coronary Disease-Associated Artery/Lesion type: bypass graft [place] vs. transplanted heart: [place] heart Associated angina: without angina Qualified Code(s): I25.810 - Atherosclerosis of coronary artery bypass graft(s) without angina pectoris (3) Hypertension Hypertension type: unspecified Qualified Code(s): I10 - Essential (primary) hypertension
[2021-04-16] MEDS: APIXABAN 5 MG TABLET PO SCH ×2 (07:39→20:37)
[2021-04-16] MEDS: SENNA 8.6 MG TAB PO SCH (07:39)
[2021-04-16] MEDS: CHOLECALCIFEROL 1,000 UNITS 25 MCG TAB PO SCH (07:39)
[2021-04-16] MEDS: ASPIRIN 81 MG ECTAB PO SCH (07:39)
[2021-04-16] MEDS: INDAPAMIDE 1.25 MG TAB PO SCH (07:40)
[2021-04-16] MEDS: DOCUSATE SODIUM 100 MG CAP PO SCH (07:42)
[2021-04-16] MEDS ORDERED: IRON SUCROSE 200 MG in 0.9 % SODIUM CHLORIDE 100 ML IV ONE (08:00)
--- NOTE | 2021-04-16 08:05 | XRay Report ---
XR chest 2V PA/lateral HISTORY: f/u right middle lobe opacity vs atelectasis COMPARISON: Chest 04/15/2021. FINDINGS: No pneumothorax. The heart remains mildly enlarged. There are poststernotomy changes. Sever e scoliosis persists. Bibasilar linear densities and trace bilateral pleural effusions. The upper [place] g zones are clear. No evidence for pulmonary edema. IMPRESSION: 1. Trace bilateral pleural effusions with slight progression of bibasilar linear densities suggesting subsegmental atelectasis. 2. Stable cardiomegaly. ACT 112: Negative or not required by law. Electronically signed by: Eliel Garrett M.D. 04/16/2021 8:04 AM
[2021-04-16 09:52] LABS: Hematocrit (blood only) 28.4 % (42-52); Hemoglobin 9.8 g/dL (14.0-18.0); Mean Corpuscular Hemoglobin 31.9 pg (25-34); Mean Corpuscular Hgb Conc 34.5 g/dL (32-36); Mean Corpuscular Volume 92.5 fL (80-100); Mean Platelet Volume 8.9 fL (7.4-10.4); Platelet Count 184 K/uL (130-400); RDW Coefficient of Variation 13.7 % (11.5-14.5); RDW Standard Deviation 46.5 fL (36.4-46.3); Red Blood Count 3.07 M/uL (4.7-6.1); White Blood Count 7.78 K/uL (4.8-10.8)
[2021-04-16] MEDS: AMIODARONE 200 MG TAB PO SCH (10:47)
[2021-04-16 11:05] LABS: Calcium 7.8 mg/dl (8.5-10.1); Creatinine Clr Calc Pharmacy 63.3 ml/min; Est GFR (African American) 93.2 ml/min; Est GFR (Non-African American) 80.4 ml/min; Magnesium 1.8 mg/dl (1.7-2.4); Potassium 3.5 mmol/L (3.5-5.1)
[2021-04-16] MEDS ORDERED: SODIUM CHLORIDE 1 GM TABLET PO ONE (11:20)
[2021-04-16] MEDS: ONDANSETRON INJ 2 MG/ML 2 ML VIAL IV PRN (12:28)
[2021-04-16 16:28] LABS: BUN Creatinine Ratio 24.7 (10-20); Calcium 7.6 mg/dl (8.5-10.1); Creatinine Clr Calc Pharmacy 65.7 ml/min; Est GFR (African American) 94.6 ml/min; Est GFR (Non-African American) 81.6 ml/min; Potassium 3.6 mmol/L (3.5-5.1)
[2021-04-16] MEDS: SODIUM CHLORIDE 0.9% 1000ML 1,000 ML IV SCH (17:28)
[2021-04-16] MEDS: ATORVASTATIN 40 MG TAB PO SCH (20:37)
[2021-04-16 23:34] LABS: BUN Creatinine Ratio 21.8 (10-20); Calcium 7.5 mg/dl (8.5-10.1); Creatinine Clr Calc Pharmacy 61.1 ml/min; Est GFR (African American) 91.9 ml/min; Est GFR (Non-African American) 79.3 ml/min; Potassium 3.5 mmol/L (3.5-5.1)
[2021-04-17] MEDS: SODIUM CHLORIDE 0.9% 1000ML 1,000 ML IV SCH (04:29)
[2021-04-17 05:17] LABS: Appearance Urine Clear (Clear); Bacteria Urine Automated Negative (Negative); Bilirubin Urine Negative (Negative); Blood Urine 2+ (Negative); Cast Urine Automated 0 /lpf (0-5); Color Urine Yellow; Epithelial Cell Urine Auto 0-5 /lpf (0-5); Glucose Urine UA Negative (Negative); Ketones Urine Negative (Negative); Leukocyte Esterase Urine Negative (Negative); Nitrite Urine Negative (Negative); Protein Urine Negative (Negative); Specific Gravity Urine 1.011 (1.000-1.030); Urobilinogen Urine Negative (Negative); pH Urine 6.5 (4.5-7.5)
[2021-04-17] MEDS: ASPIRIN 81 MG ECTAB PO SCH (07:44)
[2021-04-17] MEDS: APIXABAN 5 MG TABLET PO SCH ×2 (07:44→20:37)
[2021-04-17] MEDS: AMIODARONE 200 MG TAB PO SCH (07:44)
[2021-04-17] MEDS: SENNA 8.6 MG TAB PO SCH (07:44)
[2021-04-17] MEDS: CHOLECALCIFEROL 1,000 UNITS 25 MCG TAB PO SCH (07:44)
[2021-04-17] MEDS: DOCUSATE SODIUM 100 MG CAP PO SCH (07:47)
--- NOTE | 2021-04-17 07:52 | Hospitalist Progress Note ---
Date of Service April 17, 2021 Assessment & Plan (1) Closed fracture of right hip: Plan: Witnessed ground level fall without LOC. Hip x-ray showed acute displaced impacted right femoral neck fracture. There was concern for some minimal ST elevation on monitor intraoperatively (around 1 mm). EKG done at this time showing no evidence of ST elevation. Patient without chest pain. trop 0.05, 0.05, 0.04 04/17 --> POD #5 s/p Right hemiarthroplasty (04/12/21 Dr. Schroeder) Pain control -- decreased pain reported today with better ability to work with therapy Bowel regimen -- +BM 04/16 PT/OT rec rehab but patient refusing * will continue to monitor progress with therapy while inpatient and possible d/c with home PT if improves as Na improving Went into Afib rvr with rates 170-180 afternoon 04/13 --> given lopressor 5mg IV x3, 10mg cardizem IV. Discussed with [facility], and scheduled 25mg metoprolol PO Q6H. TSH wnl * Did have his eliquis resumed 5mg BID AM 04/13 as was initially to have half dose for 24 hours, but ok'd with orthopedics given possible need for cardioversion if remained in afib/rvr * --> Got 250cc NSS bolus last night, also given 2gm IV mag and repeat 2.2 at that time * --> transferred to PCU overnight 04/13 in case of need for IV cardiac meds * Amiodarone initiated by [facility] 04/14 --> did not cardiovert. * Shock x 1 04/16 with return of NSR and remains in the 60-80s on monitor * --> Per discussion with cards, switched to 200mg PO daily until out of window from stress from surgery -- of note, had issues in past with amio n/rash but will monitor and continue per cards recs, has not seen yet today Hyponatremia/llightheadedness/dizziness with standing ACUTE ON CHRONIC ISSUE --> Per review of nephrology notes Mar 2020 with Na 131->124 and reported lightheaded/dizzy and improved with restricting fluids to 50% of normal intake. patient does endorse increased free water intake on the regular and suspect some dilutional effect. random sodium <10 * Placed on NSS @ 100cc/hr evening 04/16, repeat Na evening 124-->125, Ordered 1gm NaCl as well 04/16 * AM labs pending --> Na up to 127 * Also given 1gm NaCl 04/16 as well. * Liberalized salt in diet as well and decreased free water restriction. * Hold further indapamide. Nephrology consulted as well, appreciate input Nephrology saw this morning, * repeat urine osm ordered, now low. * IVF d/c, STOPPED INDAPAMIDE (would at d/c as well), giving lasix 20mg daily * Continue to hold lisinopril for now * Follow labs (2) Hyponatremia: Plan: ABOVE * [facility] and had been drinking lots of water during inpatient stay to stay hydrated * Review of old records, excessive free water intake and improved with fluid restriction per Dr Villatoro note Mar 2020 * Urine sodium <10 * --> Fluid restriction 1800, decreased to 1200ml 04/16, given 1gm NaCl * Repeat BMP Na 124--125, started NSS @ 100cc/hr, consulted Nephro -- see above (3) Paroxysmal atrial fibrillation: Plan: Currently in a normal sinus rhythm with controlled ventricular rate THIS MORNING, however around lunch flipped into afib/rvr with rates 170-180s. Palpitations but no SOB/CP reported TSH wnl Eliquis resumed 04/13 Lopressor, cardizem, then initiated amio gtt 04/14, needed shock 04/15 and now in NSR and continues in NSR on monitor --> Per cards, to d/c gtt and placed on 200mg daily until follow up Iron studies low iron/trans % sat --> 2nd dose venofer as well, can repeat tomorrow vs start some oral supplementation but will hold off PO at this time to prevent worsening constipation. Hgb 8.4 and stable/no bleeding/sob --> had gotten 2L IVF overnight for above Continue to monitor on telemetry (4) CAD (coronary artery disease): Plan: Proximal LAD HOA, August 2014; CABG x2, January 2016. Follow[address] Dr[address] Barr, Takes metoprolol po prn at home per dr Barr note Again, there was question of mild ST elevation on the monitor intraoperatively (around 1 mm). EKG done at this time showing no evidence of ST elevation or ST/T wave changes. Currently, patient without chest pain or anginal equivalent symptoms Repeat trop 0.04 ECHO ordered --> Normal LV size/systolic function. EF 55-60%. No visualized wma but cannor exclude regional wall motion abnormalities due to image quality Similar findings compared to prior study Dec 2015 KIARA on hold -- (lisinopril 2.5mg daily) -- holding continued given low BPs and giving medications to help with his Cards on consult as above --> Amio gtt for afib/flutter as above, shocked, now on PO amiodarone and to be continued until follow up per Dr Momo WELLS resumed 04/15 No on daily BB, lisinopril on hold for BP as above (5) Hypertension: Plan: Has been on low end of normal -- see IV bolus/IVF as above, no further at this time and BP improved to 139/64 now that in NSR Got indapamide 1.25mg AM 04/16, since discontinued Started 20mg PO lasix daily Have not resumed lisinopril just yet, could resume in AM if BP remains stable but holding per nephr and BP stable Metoprolol available prn for tachycardia as well -- HRs 50-70/80s on monitor currently and will continue to monitor (6) Hyperlipidemia: Plan: Continue atorvastatin 40 mg daily (7) DVT prophylaxis: Plan: Eliquis 5mg resumed AM 04/13, continued Plan: Eliquis BID for DVT prophylaxis/pAfib Tx for hyponatremia--> 1gm NaCl tablet daily, lasix 20mg daily (indapamide discontinued). D/c'd IVF would start daily iron supplementation for a couple of weeks. will need to continue amiodarone 200mg daily as well until see by cards in follow up continued inpatient stay, continued PT/OT while inpatient but if making improvements possible could go home with home health but working on correction of Na to help with dizzy/lightheadedness and prevention of repeat falls would be ideal given fall/hip fx on admission Admission and Anticipated Discharge Date Admission Date: April 11, 2021 Subjective patient evaluated this morning feeling better, improvement in appetite, less dizziness reported when working with therapy up in chair, pain much improved as well no palpitations/cp/sob reported seen by nephrology and discussed fluid restriction and d/c of IVF. To liberalize salt in diet and only to drink when thirsty. Started on daily NaCl tablets as well. Continued PT/repletion of Na but if continues to remain stable HR/rhythm/pain and continued improvement of sodium can consider home with home therapy vs inpatient rehab (but had been refusing). No fever, chills, chest pain, shortness of breath, headache, vomiting. +BM /. Questions/concerns addressed at this time. Review of Systems Review of Systems: All systems reviewed & are unremarkable except as noted in HPI & below Physical Exam Physical Exam: General: WN/WD male sitting up in chair this morning, NAD Eyes anicteric, pupils equal and reactive ENT: mmm, trachea midline without deviation, + JVD Resp: CTAB, diminished in the bases, no wheezing, on room air CV: regular rhythm/rate (70bpm), systolic ejection murmur, minimal edema from hip surgery (decreased) but no calf tenderness, pulses palpable GI: +BS, soft, nontender, no guarding/rigidity Ext: dressing to R hip c/d/i, tender to palpation, pulses palpable and symmetric, cap refill <3 seconds. good strength testing plantar/dorsiflexion and improvement in flexion/extension Skin: warm, dry Neuro/Psych: alert, oriented to person/place/time, cooperative, no focal deficit Results & Data Results & Data ([facility]) Vital Signs (Past 12 Hours) Vital Signs Temp Pulse Resp BP BP Pulse Ox 04/17/21 07:37 36.7 C 55 L 16 145/65 H 96 04/17/21 03:11 37.0 C 63 18 125/59 L 96 04/16/21 23:05 36.4 C L 60 16 144/65 H 97 04/16/21 20:27 36.8 C 73 18 161/66 H 92 Laboratory Results 04/17/21 04/17/21 04/17/21 Range/Units 11:30 07:10 07:10 WBC (4.8-10.8) K/uL RBC (4.7-6.1) M/uL Hgb (14.0-18.0) g/dL Hct (42-52) % MCV (80-100) fL MCH (25-34) pg MCHC (32-36) g/dL RDW Std Deviation (36.4-46.3) fL RDW Coeff of Ralph (11.5-14.5) % Plt Count (130-400) K/uL MPV (7.4-10.4) fL Immature Gran % (Auto) % Neut % (Auto) % Lymph % (Auto) % [place] % (Auto) % Eos % (Auto) % Baso % (Auto) % Neut # (Auto) (1.4-6.5) K/uL Lymph # (Auto) (1.2-3.4) K/uL [place] # (Auto) (0.11-0.59) K/uL Eos # (Auto) (0-0.5) K/uL Baso # (Auto) (0-0.2) K/uL Immature Gran # (Auto) (0.00-0.02) K/uL Sodium 127 L (136-145) mmol/L Potassium 3.3 L (3.5-5.1) mmol/L Chloride 96 L (98-107) mmol/L Carbon Dioxide 28 (21-32) mmol/L Anion Gap 3 (3-11) BUN 16 (6-23) mg/dl Creatinine 0.79 (0.6-1.4) mg/dl Est Cr Clr Drug Dosing 67.3 ml/min Est GFR ( Amer) 95.6 ml/min Est GFR (Non-Af Amer) 82.5 ml/min BUN/Creatinine Ratio 20.3 H (10-20) Glucose 101 H (70-99(Fasting)) mg/dl Calcium 7.2 L (8.5-10.1) mg/dl Magnesium 1.8 (1.7-2.4) mg/dl Folate > 22.30 (>5.38) ng/ml Urine Color Urine Appearance (Clear) Urine pH (4.5-7.5) Ur Specific [place] (1.000-1.030) Urine Protein (Negative) Urine Glucose (UA) (Negative) Urine Ketones (Negative) Urine Blood (Negative) Urine Nitrite (Negative) Urine Bilirubin (Negative) Urine Urobilinogen (Negative) Ur Leukocyte Esterase (Negative) Urine WBC (Auto) (0-5) /hpf Urine RBC (Auto) (0-4) /hpf U Hyaline Cast (Auto) (0-5) /lpf U Epithel Cells (Auto) (0-5) /lpf Urine Bacteria (Auto) (Negative) Urine Osmolality 493 L (500-800) mOsm/kg 04/17/21 04/17/21 04/16/21 Range/Units 07:10 05:05 22:43 WBC 6.36 (4.8-10.8) K/uL RBC 2.64 L (4.7-6.1) M/uL Hgb 8.4 L (14.0-18.0) g/dL Hct 24.3 L (42-52) % MCV 92.0 (80-100) fL MCH 31.8 (25-34) pg MCHC 34.6 (32-36) g/dL RDW Std Deviation 45.4 (36.4-46.3) fL RDW Coeff of Ralph 13.6 (11.5-14.5) % Plt Count 176 (130-400) K/uL MPV 9.0 (7.4-10.4) fL Immature Gran % (Auto) 0.3 % Neut % (Auto) 67.7 % Lymph % (Auto) 11.0 % [place] % (Auto) 18.6 % Eos % (Auto) 2.4 % Baso % (Auto) 0.0 % Neut # (Auto) 4.31 (1.4-6.5) K/uL Lymph # (Auto) 0.70 L (1.2-3.4) K/uL [place] # (Auto) 1.18 H (0.11-0.59) K/uL Eos # (Auto) 0.15 (0-0.5) K/uL Baso # (Auto) 0.00 (0-0.2) K/uL Immature Gran # (Auto) 0.02 (0.00-0.02) K/uL Sodium 125 L (136-145) mmol/L Potassium 3.5 (3.5-5.1) mmol/L Chloride 92 L (98-107) mmol/L Carbon Dioxide 27 (21-32) mmol/L Anion Gap 6 (3-11) BUN 19 (6-23) mg/dl Creatinine 0.87 (0.6-1.4) mg/dl Est Cr Clr Drug Dosing 61.1 ml/min Est GFR ( Amer) 91.9 ml/min Est GFR (Non-Af Amer) 79.3 ml/min BUN/Creatinine Ratio 21.8 H (10-20) Glucose 110 H (70-99(Fasting)) mg/dl Calcium 7.5 L (8.5-10.1) mg/dl Magnesium (1.7-2.4) mg/dl Folate (>5.38) ng/ml Urine Color Yellow Urine Appearance Clear (Clear) Urine pH 6.5 (4.5-7.5) Ur Specific [place] 1.011 (1.000-1.030) Urine Protein Negative (Negative) Urine Glucose (UA) Negative (Negative) Urine Ketones Negative (Negative) Urine Blood 2+ H (Negative) Urine Nitrite Negative (Negative) Urine Bilirubin Negative (Negative) Urine Urobilinogen Negative (Negative) Ur Leukocyte Esterase Negative (Negative) Urine WBC (Auto) 1-5 (0-5) /hpf Urine RBC (Auto) 10-30 H (0-4) /hpf U Hyaline Cast (Auto) 0 (0-5) /lpf U Epithel Cells (Auto) 0-5 (0-5) /lpf Urine Bacteria (Auto) Negative (Negative) Urine Osmolality (500-800) mOsm/kg 04/16/21 Range/Units 15:44 WBC (4.8-10.8) K/uL RBC (4.7-6.1) M/uL Hgb (14.0-18.0) g/dL Hct (42-52) % MCV (80-100) fL MCH (25-34) pg MCHC (32-36) g/dL RDW Std Deviation (36.4-46.3) fL RDW Coeff of Ralph (11.5-14.5) % Plt Count (130-400) K/uL MPV (7.4-10.4) fL Immature Gran % (Auto) % Neut % (Auto) % Lymph % (Auto) % [place] % (Auto) % Eos % (Auto) % Baso % (Auto) % Neut # (Auto) (1.4-6.5) K/uL Lymph # (Auto) (1.2-3.4) K/uL [place] # (Auto) (0.11-0.59) K/uL Eos # (Auto) (0-0.5) K/uL Baso # (Auto) (0-0.2) K/uL Immature Gran # (Auto) (0.00-0.02) K/uL Sodium 124 L (136-145) mmol/L Potassium 3.6 (3.5-5.1) mmol/L Chloride 91 L (98-107) mmol/L Carbon Dioxide 27 (21-32) mmol/L Anion Gap 6 (3-11) BUN 20 (6-23) mg/dl Creatinine 0.81 (0.6-1.4) mg/dl Est Cr Clr Drug Dosing 65.7 ml/min Est GFR ( Amer) 94.6 ml/min Est GFR (Non-Af Amer) 81.6 ml/min BUN/Creatinine Ratio 24.7 H (10-20) Glucose 122 H (70-99(Fasting)) mg/dl Calcium 7.6 L (8.5-10.1) mg/dl Magnesium (1.7-2.4) mg/dl Folate (>5.38) ng/ml Urine Color Urine Appearance (Clear) Urine pH (4.5-7.5) Ur Specific [place] (1.000-1.030) Urine Protein (Negative) Urine Glucose (UA) (Negative) Urine Ketones (Negative) Urine Blood (Negative) Urine Nitrite (Negative) Urine Bilirubin (Negative) Urine Urobilinogen (Negative) Ur Leukocyte Esterase (Negative) Urine WBC (Auto) (0-5) /hpf Urine RBC (Auto) (0-4) /hpf U Hyaline Cast (Auto) (0-5) /lpf U Epithel Cells (Auto) (0-5) /lpf Urine Bacteria (Auto) (Negative) Urine Osmolality (500-800) mOsm/kg Diagnostic Findings Chest X-Ray 04/16/21 07:00 XR chest 2V PA/lateral HISTORY: f/u right middle lobe opacity vs atelectasis COMPARISON: Chest 04/15/2021. FINDINGS: No pneumothorax. The heart remains mildly enlarged. There are poststernotomy changes. Severe scoliosis persists. Bibasilar linear densities and trace bilateral pleural effusions. The upper lung zones are clear. No evidence for pulmonary edema. IMPRESSION: 1. Trace bilateral pleural effusions with slight progression of bibasilar linear densities suggesting subsegmental atelectasis. 2. Stable cardiomegaly. ACT 112: Negative or not required by law. Electronically signed by: Eliel Garrett M.D. 04/16/2021 8:04 AM PG Care Time/CCT Total # of Minutes Spent Total Time Spent with Patient: Total time spent is greater than 50% in coordination of care (as documented) at patient's floor/unit and/or counseling patient: Coding Level of Care Code 45350 Subseq Hosp Care Lvl 3 Diagnoses Closed fracture of right hip S72.001A Encounter type: initial encounter Hyponatremia E87.1 Paroxysmal atrial fibrillation I48.0 CAD (coronary artery disease) I25.810 Associated angina: without angina Coronary Disease-Associated Artery/Lesion type: bypass graft [place] vs. transplanted heart: [place] heart Hypertension I10 Hypertension type: unspecified Hyperlipidemia E78.5 DVT prophylaxis Z29.9 (1) CAD (coronary artery disease) Associated angina: without angina Coronary Disease-Associated Artery/Lesion type: bypass graft [place] vs. transplanted heart: [place] heart Qualified Code(s): I25.810 - Atherosclerosis of coronary artery bypass graft(s) without angina pectoris (2) Hypertension Hypertension type: unspecified Qualified Code(s): I10 - Essential (primary) hypertension (3) Closed fracture of right hip Encounter type: initial encounter Qualified Code(s): S72.001A - Fracture of unspecified part of neck of right femur, initial encounter for closed fracture
[2021-04-17 08:09] LABS: Eosinophils # (auto) 0.15 K/uL (0-0.5); Eosinophils % (auto) 2.4 %; Hematocrit (blood only) 24.3 % (42-52); Hemoglobin 8.4 g/dL (14.0-18.0); Immature Granulocytes # (auto) 0.02 K/uL (0.00-0.02); Immature Granulocytes % (auto) 0.3 %; Mean Corpuscular Hemoglobin 31.8 pg (25-34); Mean Corpuscular Hgb Conc 34.6 g/dL (32-36); Monocytes # (auto) 1.18 K/uL (0.11-0.59); Monocytes % (auto) 18.6 %; Neutrophils # (auto) 4.31 K/uL (1.4-6.5); Neutrophils % (auto) 67.7 %; Platelet Count 176 K/uL (130-400); RDW Coefficient of Variation 13.6 % (11.5-14.5); RDW Standard Deviation 45.4 fL (36.4-46.3); Red Blood Count 2.64 M/uL (4.7-6.1); White Blood Count 6.36 K/uL (4.8-10.8)
[2021-04-17] MEDS: oxyCODONE HCL IR 5 MG TAB (IMMEDIATE RELEASE) PO PRN (08:27)
[2021-04-17 08:30] LABS: BUN Creatinine Ratio 20.3 (10-20); Calcium 7.2 mg/dl (8.5-10.1); Creatinine Clr Calc Pharmacy 67.3 ml/min; Est GFR (African American) 95.6 ml/min; Est GFR (Non-African American) 82.5 ml/min; Magnesium 1.8 mg/dl (1.7-2.4); Potassium 3.3 mmol/L (3.5-5.1)
[2021-04-17] MEDS ORDERED: POTASSIUM CHLORIDE 20 MEQ in SODIUM CHLORIDE 0.9% 1000ML 1,000 ML IV SCH (08:44)
[2021-04-17] MEDS ORDERED: POTASSIUM CHLORIDE CRTAB 20 MEQ TABCR PO STA (08:44)
[2021-04-17] MEDS ORDERED: NORMOSOL-R 1,000 ML IV SCH (08:45)
[2021-04-17] MEDS ORDERED: IRON SUCROSE 200 MG in 0.9 % SODIUM CHLORIDE 100 ML IV ONE (09:30)
--- NOTE | 2021-04-17 10:45 | Nephrology Consultation ---
Date of Consultation April 17, 2021 Assessment & Plan (1) Hyponatremia: * Hypoosmolar hyponatremia. No serum osmolar gap. No clinical evidence of CHF, cirrhosis or nephrosis. Hyponatremia has been chronic and likely related to thiazide therapy and low oral NaCl intake * Stop Indapamide. Avoid all thiazide diuretics * TSH wnl this hospitalization * Serum osmolality 267 measured (264 calculated) * Will order urine osmolality * D/C IVF * Liberalize NaCl in diet (stop salt substitute) and provide 1g NaCl today * Start Furosemide 20 mg po daily * Monitor PRP (2) Hypertension: * Stop Indapamide * Start low dose Furosemide * Hold Lisinopril for now and monitor BP (3) Nontoxic multinodular goiter: * TSH 1.086 04/13/21 (4) Paroxysmal atrial fibrillation: * s/p cardioversion 04/15/21 (5) Closed fracture of right hip: * R hemiarthroplasty 04/12/21 History of Present Illness Reason for Consultation: Hyponatremia Attending Physician: Gal Burt MD History of Present Illness Mr. Valdez is an 85 year old white male who is seen at the request of Sandi Santamaria PA-c for evaluation of hyponatremia. Medical records in the EMR were reviewed today and are summarized as follows: Mr. Valdez has longstanding arterial HTN that has been well controlled with a combination of Indapamide, low dose Lisinopril and a low Na diet. He substitutes KCl for NaCl. As an outpatient Mr. Valdez maintained ~ 2L free water intake/day. He developed chronic hyponatremia w/ serum Na 125 - 135 mmol/L. His PCP advised limiting free water intake by 50% and serum sodium improved to 130 - 135 mmol/L. Indapamide was continued for BP management. Mr. Valdez was admitted to [facility] 04/11 following a mechanical fall and R hip fracture. He underwent hemiarthro plasty 04/12/21. Since admission Indapamide has been administered and serum sodium has ranged 124 - 127 mmol/L. Mr. Valdez's medical history is significant for HTN, paroxysmal atrial fibrillation,, multinodular goiter, osteoporosis, ASCVD s/p PCI w/ stent. There is no documented h/o CHF, liver disease, nephrotic syndrome, tobacco use or malignancy. Allergies Allergy/AdvReac Type Severity Reaction Status Date / Time Sulfa (Sulfonamide Allergy Intermediate Hives Verified 04/11/21 18:58 Antibiotics) tetracycline Allergy Intermediate Hives Verified 04/11/21 18:58 Home Medications Medication Instructions Recorded Confirmed Type lutein 20 mg capsule 20 mg PO DAILY cap 10/18/18 04/11/21 History cholecalciferol (vitamin D3) 50 2,000 units PO DAILY cap 09/02/19 04/11/21 History mcg (2,000 unit) capsule docusate sodium 100 mg capsule 200 mg PO DAILY cap 09/02/19 04/11/21 History nitroglycerin 0.4 mg sublingual 0.4 mg SL Q5M PRN #30 tab 12/26/19 04/11/21 Rx tablet aspirin 81 mg tablet,delayed 81 mg PO PM 03/05/20 04/11/21 History release (Aspirin Low Dose) indapamide 1.25 mg tablet 1.25 mg PO QAM #90 tab 07/30/20 04/11/21 Rx apixaban 5 mg tablet 5 mg PO BID #180 tab 08/04/20 04/11/21 Rx lisinopril 2.5 mg tablet 2.5 mg PO DAILY #90 tab 08/09/20 04/11/21 Rx nitrofurantoin macrocrystal 50 mg 50 mg PO DAILY PRN #30 cap 10/15/20 04/11/21 Rx capsule (Macrodantin) Lactobacillus acidophilus 1 1,000 mmu cells PO DAILY 12/21/20 04/11/21 History billion cell tablet cranberry 500 mg capsule 500 mg PO DAILY cap 12/21/20 04/11/21 History magnesium oxide 400 mg PO DAILY 12/21/20 04/11/21 History atorvastatin 40 mg tablet 40 mg PO HS 04/11/21 04/11/21 History coQ10 (ubiquinol) 200 mg capsule 200 mg PO DAILY 04/11/21 04/11/21 History oycuiyxznlcg-xvogeswf-aqemii tablet 1 tab PO DAILY 04/11/21 04/11/21 History Patient History Medical History CAD (coronary artery disease) Coronary artery disease, occlusive Hypercholesterolemia Hyperglycemia Hyperlipidemia Hypertension Nontoxic multinodular goiter Osteoporosis Paroxysmal atrial fibrillation Surgical History History of coronary artery bypass surgery Presence of stent in LAD coronary artery Family History Uncle Colorectal cancer Prostate cancer Denies family history of Ovarian cancer Myocardial infarction Breast cancer Social History Smoking Status: Never smoker Second Hand Exposure: No; Hx Alcohol Use: No Hx Substance Use: No Preferred Language: [place]ic Communication Ability: Effective Hose Tender Required: No Beliefs That Will Affect Care: None marital status: Current Living Situation: Spouse current occupational status: retired Feels Safe at Home: Yes Childhood Exposure to Second-Hand Smoke: No Dental Care, Regularly: Yes Physical Activity Frequency: Daily Seatbelt Use: always Sunscreen Use: No Assistive Devices: Walker Review of Systems Constitutional: no fever Eyes: no problem reported Ear, Nose, Mouth, Throat: no problem reported Respiratory: no cough and no dyspnea Cardiovascular: no chest pain, no palpitations and no edema Gastrointestinal: no abdominal pain, no nausea, no vomiting and no diarr hea/loose stools Genitourinary: no dysuria, no urinary hesitancy or no hematuria Musculoskeletal: no back pain Integumentary: no rash Neurologic: no dizziness and no confusion Physical Exam Constitutional: not in distress Eyes: PERRL, conjunctivae normal, anicteric sclerae ENMT: external ear and nose normal, oropharynx normal Neck: trachea midline, no thyromegaly Respiratory: normal respiratory effort, lungs clear to auscultation Cardiovascular: RRR, no murmur, no edema Gastrointestinal (Abdomen): normal bowel sounds, soft, nontender, no hepatosplenomegaly Skin: no rashes, warm and dry Neurologic: awake; not confused Results & Data ([facility]) Vital Signs (Past 12 Hours) Vital Signs Temp Pulse Pulse Resp BP BP Pulse Ox 04/17/21 08:00 53 L 04/17/21 07:37 36.7 C 55 L 16 145/65 H 96 04/17/21 03:11 37.0 C 63 18 125/59 L 96 04/16/21 23:05 36.4 C L 60 16 144/65 H 97 Laboratory Results Laboratory Tests 04/13/21 04/13/21 04/17/21 06:53 08:00 07:10 WBC 6.36 Hgb 8.4 L Hct 24.3 L Plt Count 176 Sodium Potassium Chloride Carbon Dioxide BUN Creatinine Glucose Calcium Magnesium AST 23 ALT 15 Albumin 3.2 L TSH 1.086 04/17/21 07:10 WBC Hgb Hct Plt Count Sodium 127 L Potassium 3.3 L Chloride 96 L Carbon Dioxide 28 BUN 16 Creatinine 0.79 Glucose 101 H Calcium 7.2 L Magnesium 1.8 AST ALT Albumin TSH Laboratory Tests 04/15/21 12:02 Osmolality 267 L PG Care Time/CCT Total # of Minutes Spent Total Time Spent with Patient: Total time spent is greater than 50% in coordination of care (as documented) at patient's floor/unit and/or counseling patient: Coding Level of Care Code 16233 Inpt Consult Level 5 Diagnoses Hyponatremia E87.1 Hypertension I10 Hypertension type: unspecified Nontoxic multinodular goiter E04.2 Closed fracture of right hip S72.001A Encounter type: initial encounter Paroxysmal atrial fibrillation I48.0 (1) Hypertension Hypertension type: unspecified Qualified Code(s): I10 - Essential (primary) hypertension (2) Closed fracture of right hip Encounter type: initial encounter Qualified Code(s): S72.001A - Fracture of unspecified part of neck of right femur, initial encounter for closed fracture
[2021-04-17] MEDS ORDERED: SODIUM CHLORIDE 1 GM TABLET PO ONE ×2 (11:00→18:01)
[2021-04-17] MEDS: FUROSEMIDE 20 MG TAB PO SCH (11:21)
[2021-04-17 16:45] LABS: BUN Creatinine Ratio 22.4 (10-20); Calcium 7.4 mg/dl (8.5-10.1); Creatinine Clr Calc Pharmacy 62.6 ml/min; Est GFR (African American) 92.7 ml/min; Potassium 3.5 mmol/L (3.5-5.1)
[2021-04-17] MEDS: ATORVASTATIN 40 MG TAB PO SCH (20:37)
[2021-04-18 06:32] LABS: Hemoglobin 8.6 g/dL (14.0-18.0); Mean Corpuscular Hgb Conc 34.4 g/dL (32-36); Mean Corpuscular Volume 92.9 fL (80-100); Mean Platelet Volume 8.9 fL (7.4-10.4); Platelet Count 197 K/uL (130-400); RDW Coefficient of Variation 13.9 % (11.5-14.5); RDW Standard Deviation 46.8 fL (36.4-46.3); Red Blood Count 2.69 M/uL (4.7-6.1); White Blood Count 7.43 K/uL (4.8-10.8)
[2021-04-18 06:46] LABS: BUN Creatinine Ratio 19.5 (10-20); Calcium 7.4 mg/dl (8.5-10.1); Creatinine Clr Calc Pharmacy 74.8 ml/min; Est GFR (African American) 96.6 ml/min; Est GFR (Non-African American) 83.3 ml/min; Magnesium 1.8 mg/dl (1.7-2.4); Potassium 3.6 mmol/L (3.5-5.1)
[2021-04-18] MEDS: FUROSEMIDE 20 MG TAB PO SCH (07:30)
[2021-04-18] MEDS: ASPIRIN 81 MG ECTAB PO SCH (07:30)
[2021-04-18] MEDS: SENNA 8.6 MG TAB PO SCH (07:31)
[2021-04-18] MEDS: APIXABAN 5 MG TABLET PO SCH ×2 (07:31→20:13)
[2021-04-18] MEDS: AMIODARONE 200 MG TAB PO SCH (07:31)
[2021-04-18] MEDS: CHOLECALCIFEROL 1,000 UNITS 25 MCG TAB PO SCH (07:31)
[2021-04-18] MEDS: DOCUSATE SODIUM 100 MG CAP PO SCH (07:31)
[2021-04-18] MEDS ORDERED: SODIUM CHLORIDE 1 GM TABLET PO ONE (09:00)
[2021-04-18] MEDS: lisinopril 2.5 MG TAB PO SCH (09:35)
--- NOTE | 2021-04-18 09:56 | Nephrology Progress Note ---
Date of Service April 18, 2021 Assessment & Plan (1) Hyponatremia: Plan: * Hypoosmolar hyponatremia. No serum osmolar gap. No clinical evidence of CHF, cirrhosis or nephrosis. 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 Avoid all thiazide diuretics * TSH wnl this hospitalization * Serum osmolality 267 measured (264 calculated) * Urine osmolality > 400 * Hold IVF * Liberalize NaCl in diet (stop salt substitute) and supplement NaCl today * Continue Furosemide 20 mg po daily * SNa has risen from 124 to 128 mmol/L last 48 hours. Continue current management and monitor PRP (2) Hypertension: Plan: * Indapamide has been stopped. Recommend avoiding thiazide diuretics due to h/o hyponatremia * Continue low dose Furosemide * Will resume Lisinopril 2.5 mg po qAM and monitor BP (3) Nontoxic multinodular goiter: Plan: * TSH 1.086 04/13/21 (4) Paroxysmal atrial fibrillation: Plan: * s/p cardioversion 04/15/21 (5) Closed fracture of right hip: Plan: * R hemiarthroplasty 04/12/21 Admission and Anticipated Discharge Date Admission Date: April 11, 2021 Subjective Mr. Valdez was evaluated following OT this morning. He denies orthostatic symptoms and notes that he is tolerating NaCl supplement and Furosemide without GI upset Review of Systems Constitutional: no fever Eyes: no problem reported Ear, Nose, Mouth, Throat: no problem reported Respiratory: no cough and no dyspnea Cardiovascular: no chest pain, no palpitations and no edema Gastrointestinal: no abdominal pain, no nausea, no vomiting and no diarrhea/loose stools Genitourinary: no dysuria, no urinary hesitancy or no hematuria Musculoskeletal: no back pain Integumentary: no rash Neurologic: no dizziness and no confusion Physical Exam Constitutional: not in distress Eyes: PERRL, conjunctivae normal, anicteric sclerae ENMT: external ear and nose normal, oropharynx normal Neck: trachea midline, no thyromegaly Respiratory: normal respiratory effort, lungs clear to auscultation Cardiovascular: RRR, no murmur, no edema Gastrointestinal (Abdomen): normal bowel sounds, soft, nontender, no hepatosplenomegaly Skin: no rashes, warm and dry Neurologic: awake; not confused Results & Data ([facility]) Vital Signs (Past 12 Hours) Vital Signs Temp Pulse Pulse Resp BP BP Pulse Ox 04/18/21 08:00 61 04/18/21 07:39 36.8 C 61 18 147/71 H 96 04/18/21 04:15 37.0 C 60 16 136/66 96 04/17/21 22:28 37.0 C 65 16 135/69 98 Laboratory Results Laboratory Tests 04/17/21 04/17/21 04/18/21 05:05 11:30 05:35 WBC Hgb Hct Plt Count Sodium Potassium Chloride Carbon Dioxide BUN Creatinine Osmolality 270 L Calcium Magnesium Urine Color Yellow Urine Appearance Clear Urine pH 6.5 Ur Specific [place] 1.011 Urine Protein Negative Urine Glucose (UA) Negative Urine Ketones Negative Urine Blood 2+ H Urine Nitrite Negative Urine WBC (Auto) 1-5 Urine RBC (Auto) 10-30 H U Hyaline Cast (Auto) 0 U Epithel Cells (Auto) 0-5 Urine Bacteria (Auto) Negative Urine Osmolality 493 L 04/18/21 04/18/21 05:35 05:35 WBC 7.43 Hgb 8.6 L Hct 25.0 L Plt Count 197 Sodium 128 L Potassium 3.6 Chloride 96 L Carbon Dioxide 29 BUN 15 Creatinine 0.77 Osmolality Calcium 7.4 L Magnesium 1.8 Urine Color Urine Appearance Urine pH Ur Specific [place] Urine Protein Urine Glucose (UA) Urine Ketones Urine Blood Urine Nitrite Urine WBC (Auto) Urine RBC (Auto) U Hyaline Cast (Auto) U Epithel Cells (Auto) Urine Bacteria (Auto) Urine Osmolality PG Care Time/CCT Total # of Minutes Spent Total Time Spent with Patient: Total time spent is greater than 50% in coordination of care (as documented) at patient's floor/unit and/or counseling patient: Coding Level of Care Code 37146 Subseq Hosp Care Lvl 3 Diagnoses Hyponatremia E87.1 Hypertension I10 Hypertension type: unspecified Nontoxic multinodular goiter E04.2 Paroxysmal atrial fibrillation I48.0 Closed fracture of right hip S72.001A Encounter type: initial encounter (1) Hypertension Hypertension type: unspecified Qualified Code(s): I10 - Essential (primary) hypertension (2) Closed fracture of right hip Encounter type: initial encounter Qualified Code(s): S72.001A - Fracture of unspecified part of neck of right femur, initial encounter for closed fracture
[2021-04-18] MEDS: oxyCODONE HCL IR 5 MG TAB (IMMEDIATE RELEASE) PO PRN (10:51)
--- NOTE | 2021-04-18 12:53 | Cardiology Progress Note ---
Date of Service April 18, 2021 Assessment & Plan (1) Paroxysmal atrial fibrillation: Plan: -remains in sinus rhythm on amiodarone. -as above, he would like to discontinue amiodarone therapy as he had side effects previously. -remains on Eliquis 5 mg b.i.d. (2) CAD (coronary artery disease): Plan: -proximal LAD HOA, August 2014; CABG x2, January 2016. -quiescent on medical therapy. (3) Hypertension: Plan: -blood pressure is adequately controlled. Admission and Anticipated Discharge Date Admission Date: April 11, 2021 Subjective The patient is resting comfortably in bed without complaints of chest pain, dyspnea, or palpitations. He is anxious to discontinue amiodarone therapy as he had difficulty previously. Physical Exam Physical Exam: In general is well-developed well-nourished white male in no acute distress. HEENT exam is negative. Neck is supple with full carotid upstrokes. No carotid bruits. No JVD. No thyromegaly. Cardiovascular exam reveals a regular rhythm with distant heart sounds. No obvious murmurs. Lungs are clear without rales, rhonchi or wheezes. Chest reveals well-healed midline scar. Abdomen is soft without bruits. Extremities reveal intact radial artery and posterior tibial pulses bilaterally. There is no peripheral edema. Results & Data ([facility]) Vital Signs (Past 12 Hours) Vital Signs Temp Pulse Pulse Resp BP BP Pulse Ox 04/18/21 11:31 36.7 C 60 18 129/65 97 04/18/21 08:00 61 04/18/21 07:39 36.8 C 61 18 147/71 H 96 04/18/21 04:15 37.0 C 60 16 136/66 96 Diagnostic Findings cardiac monitor technician notes sinus rhythm. No further atrial fibrillation. PG Care Time/CCT Total # of Minutes Spent Total Time Spent with Patient: Total time spent is greater than 50% in coordination of care (as documented) at patient's floor/unit and/or counseling patient: Coding Level of Care Code 83071 Subseq Hosp Care Lvl 3 Diagnoses Paroxysmal atrial fibrillation I48.0 CAD (coronary artery disease) I25.810 Coronary Disease-Associated Artery/Lesion type: bypass graft [place] vs. transplanted heart: [place] heart Associated angina: without angina Hypertension I10 Hypertension type: unspecified (1) CAD (coronary artery disease) Coronary Disease-Associated Artery/Lesion type: bypass graft [place] vs. transplanted heart: [place] heart Associated angina: without angina Qualified Code(s): I25.810 - Atherosclerosis of coronary artery bypass graft(s) without angina pectoris (2) Hypertension Hypertension type: unspecified Qualified Code(s): I10 - Essential (primary) hypertension
--- NOTE | 2021-04-18 16:35 | Hospitalist Progress Note ---
Date of Service April 18, 2021 Assessment & Plan (1) Closed fracture of right hip: Plan: Witnessed ground level fall without LOC. Hip x-ray showed acute displaced impacted right femoral neck fracture. There was concern for some minimal ST elevation on monitor intraoperatively (around 1 mm). EKG done at this time showing no evidence of ST elevation. Patient without chest pain. trop 0.05, 0.05, 0.04 - S/P R hemiarthroplasty by Dr. Schroeder on 04/12 - Pain adequately controlled - maintain pain and bowel regimen - PT/OT -- Patient is considering [facility] with referral placed (2) Hyponatremia: Plan: - IMPROVING; Acute on Chronic - Hyperosmolar hyponatremia - suspected related to thiazide therapy and low salt intake -- Serum Osm 267 and urine Osm > 400 -- Per records review - seems to take in excessive free water intake - D/C Indapamide; liberalize NaCl in diet; Given NaCl tabs per nephro - Continue Lasix 20 mg daily - Nephrology following - appreciate input (3) Paroxysmal atrial fibrillation: Plan: - Currently NSR with rates of 60-70 on monitor - On 04/13 went into A Fib RVR with rates 170-180 and ultimately required cardioversion on 04/15 - placed on Amiodarone but patient would like to stop this medication due to side effects in the past and discussed with cardiology - will stop amiodarone but initial plan was to continue until out of stress from surgery and close outpatient F/U - will monitor - Eliquis resumed on 04/13 - initially covered with half dosing due to surgery but now on full dosing (4) CAD (coronary artery disease): Plan: - Proximal LAD HOA, August 2014; CABG x2, January 2016. -- Follows with Dr. Barr, Takes metoprolol PRN at home per Dr Barr's note -- Again, there was question of mild ST elevation on the monitor intraoeratively (around 1 mm); EKG done at this time showing no evidence of ST elevation or ST/T wave changes. - Currently, patient without chest pain or anginal equivalent symptoms - Echo - Normal LV size/systolic function. EF 55-60%. No visualized wma but cannot exclude regional wall motion abnormalities due to image quality; Similar findings compared to prior study Dec 2015 - Continue Lisinopril 2.5 mg daily and ASA 81 mg daily - Cardiology following - appreciate assistance (5) Hypertension: Plan: - STABLE - Continue Lasix and Lisinopril; D/C Indapamide (6) Hyperlipidemia: Plan: - Continue atorvastatin 40 mg daily (7) DVT prophylaxis: Plan: - Eliquis 5mg resumed AM 04/13 Plan: Continued inpatient stay, continued PT/OT while inpatient but if making improvements possible could go home but is considering [facility] referral Admission and Anticipated Discharge Date Admission Date: April 11, 2021 Subjective No acute events overnight. Reports getting poor sleep overall but at home tends to stay up until 3 AM and sleeps in longer so he is not on his normal routine. He is anxious about amiodarone and would like to come off of this. Na is starting to trend up and having less dizziness with working with therapy. Is considering acute rehab. Reports pain is manageable at this time. Review of Systems Review of Systems: All systems reviewed & are unremarkable except as noted in Subjective Physical Exam Physical Exam: PHYSICAL EXAM General Appearance: WDWN in NAD who is A&O x 3 HEENT: Head is normocephalic/atraumatic; Hearing grossly intact; Mucous membranes mo[place] Neck: Supple; Trachea midline; Neg JVD Heart: RRR with no M/G/R Lungs: CTA in all lung lopez bilaterally; Respirations unlabored; Neg accessory muscle use Abdomen: Soft, non-tender, non-distended; Positive BS x 4 quadrants Extremities: Neg cyanosis; Does appear to have more RLE edema but was sitting in a chair for majority of the day and will re-assess tomorrow Neurological: Speech clear; Gross motor/sensory function intact; Neg focal neurologic deficits Psychiatric: Appropriate mood/affect Skin: Normal Color; Warm/Dry Results & Data Results & Data ([facility]) Vital Signs (Past 12 Hours) Vital Signs Temp Pulse Pulse Resp BP BP Pulse Ox 04/18/21 15:29 36.7 C 58 L 18 102/59 L 99 04/18/21 11:31 36.7 C 60 18 129/65 97 04/18/21 08:00 61 04/18/21 07:39 36.8 C 61 18 147/71 H 96 PG Care Time/CCT Total # of Minutes Spent Total Time Spent with Patient: Total time spent is greater than 50% in coordination of care (as documented) at patient's floor/unit and/or counseling patient: Coding Level of Care Code 66248 Subseq Hosp Care Lvl 3 Diagnoses Closed fracture of right hip S72.001A Encounter type: initial encounter Hyponatremia E87.1 Paroxysmal atrial fibrillation I48.0 CAD (coronary artery disease) I25.810 Associated angina: without angina Coronary Disease-Associated Artery/Lesion type: bypass graft [place] vs. transplanted heart: [place] heart Hypertension I10 Hypertension type: unspecified Hyperlipidemia E78.5 DVT prophylaxis Z29.9 (1) CAD (coronary artery disease) Associated angina: without angina Coronary Disease-Associated Artery/Lesion type: bypass graft [place] vs. transplanted heart: [place] heart Qualified Code(s): I25.810 - Atherosclerosis of coronary artery bypass graft(s) without angina pectoris (2) Hypertension Hypertension type: unspecified Qualified Code(s): I10 - Essential (primary) hypertension (3) Closed fracture of right hip Encounter type: initial encounter Qualified Code(s): S72.001A - Fracture of unspecified part of neck of right femur, initial encounter for closed fracture
[2021-04-18 16:37] LABS: BUN Creatinine Ratio 21.6 (10-20); Calcium 7.6 mg/dl (8.5-10.1); Creatinine Clr Calc Pharmacy 65.5 ml/min; Est GFR (African American) 91.4 ml/min; Est GFR (Non-African American) 78.9 ml/min; Potassium 3.4 mmol/L (3.5-5.1)
[2021-04-18] MEDS: ATORVASTATIN 40 MG TAB PO SCH (20:13)
[2021-04-19 07:41] LABS: BUN Creatinine Ratio 23.8 (10-20); Calcium 7.3 mg/dl (8.5-10.1); Creatinine Clr Calc Pharmacy 91.5 ml/min; Est GFR (African American) 104.9 ml/min; Est GFR (Non-African American) 90.5 ml/min; Potassium 3.4 mmol/L (3.5-5.1)
[2021-04-19] MEDS: ASPIRIN 81 MG ECTAB PO SCH (08:15)
[2021-04-19] MEDS: FUROSEMIDE 20 MG TAB PO SCH (08:16)
[2021-04-19] MEDS: APIXABAN 5 MG TABLET PO SCH ×2 (08:16→19:52)
[2021-04-19] MEDS: CHOLECALCIFEROL 1,000 UNITS 25 MCG TAB PO SCH (08:16)
[2021-04-19] MEDS: lisinopril 2.5 MG TAB PO SCH (08:19)
[2021-04-19] MEDS: SENNA 8.6 MG TAB PO SCH ×2 (08:20→08:23)
[2021-04-19] MEDS: DOCUSATE SODIUM 100 MG CAP PO SCH (08:23)
[2021-04-19] MEDS ORDERED: SODIUM CHLORIDE 1 GM TABLET PO ONE ×2 (09:25→12:34)
--- NOTE | 2021-04-19 09:26 | Nephrology Progress Note ---
Date of Service April 19, 2021 Assessment & Plan (1) Hyponatremia: Plan: * Hypoosmolar hyponatremia. No serum osmolar gap. No clinical evidence of CHF, cirrhosis or nephrosis. 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 Avoid all thiazide diuretics * TSH wnl this hospitalization * Serum osmolality 267 measured (264 calculated) * Urine osmolality > 400 * Hold IVF * Liberalize NaCl in diet (stop salt substitute) and supplement NaCl today * Continue Furosemide 20 mg po daily * SNa remains stable at ~128 mmol/L. Continue to monitor PRP (2) Hypertension: Plan: * Indapamide has been stopped. Recommend avoiding thiazide diuretics due to h/o hyponatremia * Continue low dose Furosemide * Continue Lisinopril 2.5 mg po qAM * SBP 110 - 140 mm Hg (3) Nontoxic multinodular goiter: Plan: * TSH 1.086 04/13/21 (4) Paroxysmal atrial fibrillation: Plan: * s/p cardioversion 04/15/21 (5) Closed fracture of right hip: Plan: * R hemiarthroplasty 04/12/21 Admission and Anticipated Discharge Date Admission Date: April 11, 2021 Subjective Mr. Valdez was evaluated this morning. He denies orthostatic symptoms and notes that he is tolerating NaCl supplement and Furosemide without GI upset. He has been participating in PT and hopes to transfer to [facility] later for ongoing strengthening Review of Systems Constitutional: no fever Eyes: no problem reported Ear, Nose, Mouth, Throat: no problem reported Respiratory: no cough and no dyspnea Cardiovascular: no chest pain, no palpitations and no edema Gastrointestinal: no abdominal pain, no nausea, no vomiting and no diarrhea/loose stools Genitourinary: no dysuria, no urinary hesitancy or no hematuria Musculoskeletal: no back pain Integumentary: no rash Neurologic: no dizziness and no confusion Physical Exam Constitutional: not in distress Eyes: PERRL, conjunctivae normal, anicteric sclerae ENMT: external ear and nose normal, oropharynx normal Neck: trachea midline, no thyromegaly Respiratory: normal respiratory effort, lungs clear to auscultation Cardiovascular: RRR, no murmur, no edema Gastrointestinal (Abdomen): normal bowel sounds, soft, nontender, no hepatosplenomegaly Skin: no rashes, warm and dry Neurologic: awake; not confused Results & Data ([facility]) Vital Signs (Past 12 Hours) Vital Signs Temp Pulse Pulse Resp BP BP Pulse Ox 04/19/21 07:42 54 L 04/19/21 07:41 36.8 C 58 L 19 147/68 H 97 04/19/21 03:55 36.6 C 72 18 110/80 95 04/19/21 01:00 62 04/18/21 23:21 37 C 65 18 121/64 95 Laboratory Results Laboratory Tests 04/19/21 06:33 Sodium 127 L Potassium 3.4 L Chloride 96 L Carbon Dioxide 26 BUN 15 Creatinine 0.63 Glucose 96 PG Care Time/CCT Total # of Minutes Spent Total Time Spent with Patient: Total time spent is greater than 50% in coordination of care (as documented) at patient's floor/unit and/or counseling patient: Coding Level of Care Code 98606 Subseq Hosp Care Lvl 3 Diagnoses Hyponatremia E87.1 Hypertension I10 Hypertension type: unspecified Nontoxic multinodular goiter E04.2 Paroxysmal atrial fibrillation I48.0 Closed fracture of right hip S72.001A Encounter type: initial encounter (1) Hypertension Hypertension type: unspecified Qualified Code(s): I10 - Essential (primary) hypertension (2) Closed fracture of right hip Encounter type: initial encounter Qualified Code(s): S72.001A - Fracture of unspecified part of neck of right femur, initial encounter for closed fracture
[2021-04-19] MEDS: oxyCODONE HCL IR 5 MG TAB (IMMEDIATE RELEASE) PO PRN ×2 (10:26→14:38)
--- NOTE | 2021-04-19 11:11 | Hospitalist Progress Note ---
Date of Service April 19, 2021 Assessment & Plan (1) Closed fracture of right hip: Plan: Witnessed ground level fall without LOC. Hip x-ray showed acute displaced impacted right femoral neck fracture. There was concern for some minimal ST elevation on monitor intraoperatively (around 1 mm). EKG done at this time showing no evidence of ST elevation. Patient without chest pain. trop 0.05, 0.05, 0.04 - S/P R hemiarthroplasty by Dr. Schroeder on 04/12 - Pain adequately controlled - maintain pain and bowel regimen - Does have unilateral swelling of the RLE which is likely related injury/surgery and was off his thiazide diuretic - however was off anticoagulation for a period of time and will obtain doppler to R/O DVT - do not overall suspect this is the case but should appropriately rule out - PT/OT -- Patient is considering [facility] with referral placed (2) Hyponatremia: Plan: - IMPROVING; Acute on Chronic - Hyperosmolar hyponatremia - suspected related to thiazide therapy and low salt intake -- Serum Osm 267 and urine Osm > 400 -- Per records review - seems to take in excessive free water intake - D/C Indapamide; liberalize NaCl in diet; Given NaCl tabs per nephro - Continue Lasix 20 mg daily - Nephrology following - appreciate input (3) Paroxysmal atrial fibrillation: Plan: - Currently NSR with rates of 60-70 on monitor - On 04/13 went into A Fib RVR with rates 170-180 and ultimately required cardioversion on 04/15 - placed on Amiodarone but patient would like to stop this medication due to side effects in the past and discussed with cardiology - will stop amiodarone but initial plan was to continue until out of stress from surgery and close outpatient F/U - will monitor - Eliquis resumed on 04/13 - initially covered with half dosing due to surgery but now on full dosing (4) CAD (coronary artery disease): Plan: - Proximal LAD HOA, August 2014; CABG x2, January 2016. -- Follows with Dr. Barr, Takes metoprolol PRN at home per Dr Barr's note -- Again, there was question of mild ST elevation on the monitor intraoeratively (around 1 mm); EKG done at this time showing no evidence of ST elevation or ST/T wave changes. - Currently, patient without chest pain or anginal equivalent symptoms - Echo - Normal LV size/systolic function. EF 55-60%. No visualized wma but cannot exclude regional wall motion abnormalities due to image quality; Similar findings compared to prior study Dec 2015 - Continue Lisinopril 2.5 mg daily and ASA 81 mg daily - Cardiology following - appreciate assistance (5) Hypertension: Plan: - STABLE - Continue Lasix and Lisinopril; D/C Indapamide (6) Hyperlipidemia: Plan: - Continue atorvastatin 40 mg daily (7) DVT prophylaxis: Plan: - Eliquis 5mg resumed AM 04/13 Plan: Continued inpatient stay, continued PT/OT while inpatient but if making improvements possible could go home but is considering [facility] referral Trying to get Na to 130 prior to D/C to confirm stability Admission and Anticipated Discharge Date Admission Date: April 11, 2021 Subjective No acute events overnight. Reports hip pain was better in the evening but a little more pronounced this AM but improving through the morning. He reports no dizziness. Was able to sleep better last night. Moving his bowels. Tolerating a diet. Verbalizes no new complaints Review of Systems Review of Systems: All systems reviewed & are unremarkable except as noted in Subjective Physical Exam Physical Exam: PHYSICAL EXAM General Appearance: WDWN in NAD who is A&O x 3 HEENT: Head is normocephalic/atraumatic; Hearing grossly intact; Mucous membranes moist Neck: Supple; Trachea midline; Neg JVD Heart: RRR with no M/G/R Lungs: CTA in all lung lopez bilaterally; Respirations unlabored; Neg accessory muscle use Abdomen: Soft, non-tender, non-distended; Positive BS x 4 quadrants Extremities: Capillary refill < 2 seconds; Neg cyanosis; edema of RLE extending to lateral thigh Neurological: Speech clear; Gross motor/sensory function intact; Neg focal neurologic deficits Psychiatric: Appropriate mood/affect Skin: Normal Color; Warm/Dry Results & Data Results & Data ([facility]) Vital Signs (Past 12 Hours) Vital Signs Temp Pulse Pulse Resp BP BP Pulse Ox 04/19/21 07:42 54 L 04/19/21 07:41 36.8 C 58 L 19 147/68 H 97 04/19/21 03:55 36.6 C 72 18 110/80 95 04/19/21 01:00 62 04/18/21 23:21 37 C 65 18 121/64 95 PG Care Time/CCT Total # of Minutes Spent Total Time Spent with Patient: Total time spent is greater than 50% in coordination of care (as documented) at patient's floor/unit and/or counseling patient: Coding Level of Care Code 93882 Subseq Hosp Care Lvl 3 Diagnoses Closed fracture of right hip S72.001A Encounter type: initial encounter Hyponatremia E87.1 Paroxysmal atrial fibrillation I48.0 CAD (coronary artery disease) I25.810 Coronary Disease-Associated Artery/Lesion type: bypass graft [place] vs. transplanted heart: [place] heart Associated angina: without angina Hypertension I10 Hypertension type: unspecified Hyperlipidemia E78.5 DVT prophylaxis Z29.9 (1) Closed fracture of right hip Encounter type: initial encounter Qualified Code(s): S72.001A - Fracture of unspecified part of neck of right femur, initial encounter for closed fracture (2) CAD (coronary artery disease) Coronary Disease-Associated Artery/Lesion type: bypass graft [place] vs. transplanted heart: [place] heart Associated angina: without angina Qualified Code(s): I25.810 - Atherosclerosis of coronary artery bypass graft(s) without angina pectoris (3) Hypertension Hypertension type: unspecified Qualified Code(s): I10 - Essential (primary) hypertension
--- NOTE | 2021-04-19 12:59 | Cardiology Progress Note ---
Date of Service April 19, 2021 Assessment & Plan (1) Paroxysmal atrial fibrillation: Plan: -remains in sinus rhythm. -amiodarone therapy discontinued yesterday as he had side effects previously. -remains on Eliquis 5 mg b.i.d. (2) CAD (coronary artery disease): Plan: -proximal LAD HOA, August 2014; CABG x2, January 2016. -quiescent on medical therapy. (3) Hypertension: Plan: -blood pressure is adequately controlled. Admission and Anticipated Discharge Date Admission Date: April 11, 2021 Subjective The patient is resting comfortably in bed without complaints of chest pain, dyspnea, or palpitations. He feels he slept better last evening as he was not taking amiodarone. Physical Exam Physical Exam: In general is well-developed well-nourished white male in no acute distress. HEENT exam is negative. Neck is supple with full carotid upstrokes. No carotid bruits. No JVD. No thyromegaly. Cardiovascular exam reveals a regular rhythm with distant heart sounds. No obvious murmurs. Lungs are clear without rales, rhonchi or wheezes. Chest reveals well-healed midline scar. Abdomen is soft without bruits. Extremities reveal intact radial artery and posterior tibial pulses bilaterally. There is no peripheral edema. Results & Data ([facility]) Vital Signs (Past 12 Hours) Vital Signs Temp Pulse Pulse Resp BP Pulse Ox 04/19/21 07:42 54 L 04/19/21 07:41 36.8 C 58 L 19 147/68 H 97 04/19/21 03:55 36.6 C 72 18 110/80 95 04/19/21 01:00 62 PG Care Time/CCT Total # of Minutes Spent Total Time Spent with Patient: Total time spent is greater than 50% in coordination of care (as documented) at patient's floor/unit and/or counseling patient: Coding Level of Care Code 45327 Subseq Hosp Care Lvl 3 Diagnoses Paroxysmal atrial fibrillation I48.0 CAD (coronary artery disease) I25.810 Coronary Disease-Associated Artery/Lesion type: bypass graft [place] vs. transplanted heart: [place] heart Associated angina: without angina Hypertension I10 Hypertension type: unspecified (1) CAD (coronary artery disease) Coronary Disease-Associated Artery/Lesion type: bypass graft [place] vs. transplanted heart: [place] heart Associated angina: without angina Qualified Code(s): I25.810 - Atherosclerosis of coronary artery bypass graft(s) without angina pectoris (2) Hypertension Hypertension type: unspecified Qualified Code(s): I10 - Essential (primary) hypertension
--- NOTE | 2021-04-19 13:47 | Ultrasound Report ---
US venous doppler LE RT CLINICAL HISTORY: Right lower extremity swelling COMPARISON: None available at the time of this dictation. TECHNIQUE: Right lower extremity real-time compression venous ultrasound with Color Doppler imaging. Utilizing real-time ultrasonic imaging multiple real time high-resolution ultrasonic images with comp ression and noncompression maneuvers of the deep venous system in addition to color doppler imaging w ere performed from the common femoral vein through the proximal calf veins. FINDINGS: Currently there is normal compressibility of the deep venous system from the common femoral vein thro ugh the proximal calf veins. No current evidence of acute thrombosis is identified. There is evidence for a popliteal cyst posteromedially measuring 5.6 x 1.6 x 3.2 cm. Impression: No evidence of deep venous thrombus. Popliteal cyst. ACT 112: Negative or not required by law. Electronically signed by: Hamzah Tineo M.D. 04/19/2021 1:46 PM
[2021-04-19 15:31] LABS: BUN Creatinine Ratio 21.8 (10-20); Calcium 7.5 mg/dl (8.5-10.1); Creatinine Clr Calc Pharmacy 73.9 ml/min; Est GFR (African American) 96.1 ml/min; Est GFR (Non-African American) 82.9 ml/min; Potassium 3.4 mmol/L (3.5-5.1)
[2021-04-19] MEDS: ATORVASTATIN 40 MG TAB PO SCH (19:53)
--- NOTE | 2021-04-19 20:44 | Progress Notes ---
DATE OF SERVICE: 04/19/2021. SUBJECTIVE: An 85-year-old gentleman now 1 week out from a right cemented bipolar hip arthroplasty f or fracture. He is doing relatively well. Not really having much hip pain. He underwent cardiovers ion, is now in sinus rhythm. Still on Eliquis. No real complaints. Anxious to get out of the hospi [facility]. OBJECTIVE: VITAL SIGNS: Temperature 36.8. Vital signs stable. PHYSICAL EXAMINATION: GENERAL: Shows a pleasant, elderly male. He is lying in bed, looks comfortable, talking to his . EXTREMITIES: Examination of the right leg reveals the leg to be well aligned. He has got diffuse ed roberto in his leg. Incision is clean, dry and intact. He is neurologically intact. IMAGING: He did have a venous Doppler, which showed no signs of DVT. LABORATORIES: Electrolytes still show hyponatremia at 127. Rest of the labs look pretty stable. ASSESSMENT: An 85-year-old gentleman with multiple medical comorbidities, now a week out from a righ t cemented bipolar hip arthroplasty for fracture. He is currently in sinus rhythm. He is on Eliquis . He has been hyponatremic and treated by the wire stretcher. He did have an ultrasound today, which showed no deep venous thrombosis. PLAN: 1. DVT prophylaxis includes thigh-high TEDs, SCDs and back on his Eliquis. He is back on his full d ose. 2. PT, OT, weightbear as tolerated in the right lower extremity. 3. Pain control, doing okay with current pain regimen. 4. Medical management as per the medicine service. 5. Disposition: He is orthopedically okay for discharge any time. I need to see him back in 2-3 we eks out from surgery date. Any orthopedic questions can be directed to me at [phone]. We will sign off for now. Call with any questions or issues. Job ID: [id number]
[2021-04-20] MEDS: DOCUSATE SODIUM 100 MG CAP PO SCH (07:26)
[2021-04-20] MEDS: ASPIRIN 81 MG ECTAB PO SCH (07:27)
[2021-04-20] MEDS: SENNA 8.6 MG TAB PO SCH (07:27)
[2021-04-20] MEDS: APIXABAN 5 MG TABLET PO SCH ×2 (07:27→21:19)
[2021-04-20] MEDS: CHOLECALCIFEROL 1,000 UNITS 25 MCG TAB PO SCH (07:27)
[2021-04-20] MEDS: FUROSEMIDE 20 MG TAB PO SCH (07:27)
[2021-04-20] MEDS: lisinopril 2.5 MG TAB PO SCH (07:27)
[2021-04-20 08:25] LABS: BUN Creatinine Ratio 21.1 (10-20); Calcium 7.7 mg/dl (8.5-10.1); Creatinine Clr Calc Pharmacy 74.9 ml/min; Est GFR (African American) 99.9 ml/min; Est GFR (Non-African American) 86.2 ml/min; Potassium 3.4 mmol/L (3.5-5.1)
[2021-04-20] MEDS ORDERED: POTASSIUM CHLORIDE CRTAB 20 MEQ TABCR PO STA (08:43)
[2021-04-20] MEDS ORDERED: SODIUM CHLORIDE 1 GM TABLET PO ONE (09:29)
--- NOTE | 2021-04-20 10:30 | Nephrology Progress Note ---
Date of Service April 20, 2021 Assessment & Plan (1) Hyponatremia: Plan: * Hypoosmolar hyponatremia. No serum osmolar gap. No clinical evidence of CHF, cirrhosis or nephrosis. 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 Avoid all thiazide diuretics * TSH wnl this hospitalization * Serum osmolality 267 measured (264 calculated) * Urine osmolality > 400 * Hold IVF * Liberalize NaCl in diet (stop salt substitute) and supplement NaCl today * Continue Furosemide 20 mg po daily * SNa remains stable at ~128 mmol/L. Continue to monitor PRP * Patient has h/o chronic hyponatremia. Na has been stable. If discharge or transfer is anticipated, recommend 1200 cc oral free water restriction/day, liberal Na diet, furosemide 20 mg po qAM (2) Hypertension: Plan: * Indapamide has been stopped. Recommend avoiding thiazide diuretics due to h/o hyponatremia * Continue low dose Furosemide * Continue Lisinopril 2.5 mg po qAM * SBP 110 - 140 mm Hg (3) Nontoxic multinodular goiter: Plan: * TSH 1.086 04/13/21 (4) Paroxysmal atrial fibrillation: Plan: * s/p cardioversion 04/15/21 (5) Closed fracture of right hip: Plan: * R hemiarthroplasty 04/12/21 Admission and Anticipated Discharge Date Admission Date: April 11, 2021 Subjective Mr. Valdez was evaluated this morning. He denies orthostatic symptoms and notes that he is tolerating NaCl supplement and Furosemide without GI upset. He has been participating in PT and hopes to transfer to [facility] later for ongoing strengthening Review of Systems Constitutional: no fever Eyes: no problem reported Ear, Nose, Mouth, Throat: no problem reported Respiratory: no cough and no dyspnea Cardiovascular: no chest pain, no palpitations and no edema Gastrointestinal: no abdominal pain, no nausea, no vomiting and no diarrhea/loose stools Genitourinary: no dysuria, no urinary hesitancy or no hematuria Musculoskeletal: no back pain Integumentary: no rash Neurologic: no dizziness and no confusion Physical Exam Constitutional: not in distress Eyes: PERRL, conjunctivae normal, anicteric sclerae ENMT: external ear and nose normal, oropharynx normal Neck: trachea midline, no thyromegaly Respiratory: normal respiratory effort, lungs clear to auscultation Cardiovascular: RRR, no murmur, no edema Gastrointestinal (Abdomen): normal bowel sounds, soft, nontender, no hepatosplenomegaly Skin: no rashes, warm and dry Neurologic: awake; not confused Results & Data ([facility]) Vital Signs (Past 12 Hours) Vital Signs Temp Pulse Pulse Resp BP Pulse Ox 04/20/21 08:00 55 L 04/20/21 07:48 36.7 C 57 L 18 139/67 96 04/20/21 03:29 37 C 61 15 118/67 96 04/19/21 23:25 37 C 65 15 137/70 100 04/19/21 22:53 62 Laboratory Results Laboratory Tests 04/19/21 04/20/21 11:00 07:27 Sodium 128 L Potassium 3.4 L Chloride 95 L Carbon Dioxide 28 BUN 15 Creatinine 0.71 Glucose 96 Urine Osmolality 542 PG Care Time/CCT Total # of Minutes Spent Total Time Spent with Patient: Total time spent is greater than 50% in coordination of care (as documented) at patient's floor/unit and/or counseling patient: Coding Level of Care Code 01930 Subseq Hosp Care Lvl 3 Diagnoses Hyponatremia E87.1 Hypertension I10 Hypertension type: unspecified Nontoxic multinodular goiter E04.2 Paroxysmal atrial fibrillation I48.0 Closed fracture of right hip S72.001A Encounter type: initial encounter (1) Hypertension Hypertension type: unspecified Qualified Code(s): I10 - Essential (primary) hypertension (2) Closed fracture of right hip Encounter type: initial encounter Qualified Code(s): S72.001A - Fracture of unspecified part of neck of right femur, initial encounter for closed fracture
[2021-04-20] MEDS: oxyCODONE HCL IR 5 MG TAB (IMMEDIATE RELEASE) PO PRN (12:27)
[2021-04-20 15:19] LABS: BUN Creatinine Ratio 24.7 (10-20); Calcium 7.8 mg/dl (8.5-10.1); Creatinine Clr Calc Pharmacy 72.9 ml/min; Est GFR (African American) 98.7 ml/min; Est GFR (Non-African American) 85.2 ml/min; Potassium 3.7 mmol/L (3.5-5.1)
--- NOTE | 2021-04-20 18:57 | Hospitalist Progress Note ---
Date of Service April 20, 2021 Assessment & Plan (1) Closed fracture of right hip: Plan: Witnessed ground level fall without LOC. Hip x-ray showed acute displaced impacted right femoral neck fracture. There was concern for some minimal ST elevation on monitor intraoperatively (around 1 mm). EKG done at this time showing no evidence of ST elevation. Patient without chest pain. trop 0.05, 0.05, 0.04 - S/P R hemiarthroplasty by Dr. Schroeder on 04/12 - Pain adequately controlled - maintain pain and bowel regimen - Does have unilateral swelling of the RLE which is likely related injury/surgery and was off his thiazide diuretic - Doppler negative for DVT - PT/OT -- Awaiting insurance authorization from [facility] - Orthopedics following - WBAT; Dr. Schroeder will need to see in 2-3 weeks from surgery day (2) Hyponatremia: Plan: - IMPROVING/Stable; Acute on Chronic - Hyperosmolar hyponatremia - suspected related to thiazide therapy and low salt intake -- Serum Osm 267 and urine Osm > 400 -- Per records review - seems to take in excessive free water intake - D/C Indapamide; liberalize NaCl in diet; Given NaCl tabs per nephro in house but no plans to continue this as outpatient as labs stabilized here an asymptomatic - Continue Lasix 20 mg daily - Nephrology following - discussed plan with Dr. Kate - appreciate input (3) Paroxysmal atrial fibrillation: Plan: - Currently NSR with rates of 50-70 on monitor - On 04/13 went into A Fib RVR with rates 170-180 and ultimately required cardioversion on 04/15 - placed on Amiodarone but patient would like to stop this medication due to side effects in the past and discussed with cardiology - will stop amiodarone but initial plan was to continue until out of stress from surgery and close outpatient F/U - will monitor - Eliquis resumed on 04/13 - initially covered with half dosing due to surgery but now on full dosing (4) CAD (coronary artery disease): Plan: - Proximal LAD HOA, August 2014; CABG x2, January 2016. -- Follows with Dr. Barr, Takes metoprolol PRN at home per Dr Barr's note -- Again, there was question of mild ST elevation on the monitor intraoeratively (around 1 mm); EKG done at this time showing no evidence of ST elevation or ST/T wave changes. - Currently, patient without chest pain or anginal equivalent symptoms - Echo - Normal LV size/systolic function. EF 55-60%. No visualized wma but cannot exclude regional wall motion abnormalities due to image quality; Similar findings compared to prior study Dec 2015 - Continue Lisinopril 2.5 mg daily and ASA 81 mg daily - Cardiology following - appreciate assistance (5) Hypertension: Plan: - STABLE - Continue Lasix and Lisinopril; D/C Indapamide (6) Hyperlipidemia: Plan: - Continue atorvastatin 40 mg daily (7) DVT prophylaxis: Plan: - Eliquis 5mg resumed AM 04/13 Plan: Continued inpatient stay while awaiting auth Check BMP in AM however has been stable at this level and can be monitored as outpatient as he is asymptomatic Admission and Anticipated Discharge Date Admission Date: April 11, 2021 Subjective No acute events overnight. Reports feeling well today and each day less pain. Also feels that each day he is a bit stronger but still interested in going to [facility]. He no longer has any dizziness and no further A Fib on monitor. Review of Systems Review of Systems: All systems reviewed & are unremarkable except as noted in Subjective Physical Exam Physical Exam: PHYSICAL EXAM General Appearance: WDWN in NAD who is A&O x 3 HEENT: Head is normocephalic/atraumatic; Hearing grossly intact; Mucous membranes moist Neck: Supple; Trachea midline; Neg JVD Heart: RRR with no M/G/R Lungs: CTA in all lung lopez bilaterally; Respirations unlabored; Neg accessory muscle use Abdomen: Soft, non-tender, non-distended; Positive BS x 4 quadrants Extremities: Neg cyanosis; edema of RLE extending to lateral thigh Neurological: Speech clear; Gross motor/sensory function intact; Neg focal neurologic deficits Psychiatric: Appropriate mood/affect Skin: Normal Color; Warm/Dry Results & Data Results & Data ([facility]) Vital Signs (Past 12 Hours) Vital Signs Temp Pulse Pulse Resp BP Pulse Ox 04/20/21 16:00 66 04/20/21 15:40 36.5 C 68 16 126/70 99 04/20/21 12:05 36.7 C 70 18 125/66 96 04/20/21 08:00 55 L 04/20/21 07:48 36.7 C 57 L 18 139/67 96 PG Care Time/CCT Total # of Minutes Spent Total Time Spent with Patient: Total time spent is greater than 50% in coordination of care (as documented) at patient's floor/unit and/or counseling patient: Coding Level of Care Code 95824 Subseq Hosp Care Lvl 3 Diagnoses Closed fracture of right hip S72.001A Encounter type: initial encounter Hyponatremia E87.1 Paroxysmal atrial fibrillation I48.0 CAD (coronary artery disease) I25.810 Coronary Disease-Associated Artery/Lesion type: bypass graft [place] vs. transplanted heart: [place] heart Associated angina: without angina Hypertension I10 Hypertension type: unspecified Hyperlipidemia E78.5 DVT prophylaxis Z29.9 (1) Closed fracture of right hip Encounter type: initial encounter Qualified Code(s): S72.001A - Fracture of unspecified part of neck of right femur, initial encounter for closed fracture (2) CAD (coronary artery disease) Coronary Disease-Associated Artery/Lesion type: bypass graft [place] vs. transplanted heart: [place] heart Associated angina: without angina Qualified Code(s): I25.810 - Atherosclerosis of coronary artery bypass graft(s) without angina pectoris (3) Hypertension Hypertension type: unspecified Qualified Code(s): I10 - Essential (primary) hypertension
[2021-04-20] MEDS: ATORVASTATIN 40 MG TAB PO SCH (21:19)
[2021-04-21 06:32] LABS: BUN Creatinine Ratio 21.9 (10-20); Calcium 7.7 mg/dl (8.5-10.1); Creatinine Clr Calc Pharmacy 83.1 ml/min; Est GFR (African American) 104.2 ml/min; Est GFR (Non-African American) 89.9 ml/min; Potassium 3.6 mmol/L (3.5-5.1)
[2021-04-21] MEDS: DOCUSATE SODIUM 100 MG CAP PO SCH (07:39)
[2021-04-21] MEDS: SENNA 8.6 MG TAB PO SCH (07:39)
[2021-04-21] MEDS: FUROSEMIDE 20 MG TAB PO SCH (07:40)
[2021-04-21] MEDS: CHOLECALCIFEROL 1,000 UNITS 25 MCG TAB PO SCH (07:40)
[2021-04-21] MEDS: ASPIRIN 81 MG ECTAB PO SCH (07:40)
[2021-04-21] MEDS: lisinopril 2.5 MG TAB PO SCH (07:40)
[2021-04-21] MEDS: APIXABAN 5 MG TABLET PO SCH ×2 (07:40→20:56)
[2021-04-21] MEDS ORDERED: SODIUM CHLORIDE 1 GM TABLET PO ONE (08:36)
--- NOTE | 2021-04-21 08:39 | Nephrology Progress Note ---
Date of Service April 21, 2021 Assessment & Plan (1) Hyponatremia: Plan: * Hypoosmolar hyponatremia. No serum osmolar gap. No clinical evidence of CHF, cirrhosis or nephrosis. 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 Avoid all thiazide diuretics * TSH wnl this hospitalization * Serum osmolality 267 measured (264 calculated) * Urine osmolality > 400 * Hold IVF * Liberalize NaCl in diet (stop salt substitute) and supplement NaCl today * Continue Furosemide 20 mg po daily * SNa remains stable at ~129 mmol/L. Continue to monitor PRP * Patient has h/o chronic hyponatremia. Na has gradually improved w/ above medical interventions. If discharge or transfer is anticipated, recommend 1200 cc oral free water restriction/day, liberal Na diet, furosemide 20 mg po qAM (2) Hypertension: Plan: * Indapamide has been stopped. Recommend avoiding thiazide diuretics due to h/o hyponatremia * Continue low dose Furosemide * Continue Lisinopril 2.5 mg po qAM * SBP 110 - 140 mm Hg (3) Nontoxic multinodular goiter: Plan: * TSH 1.086 04/13/21 (4) Paroxysmal atrial fibrillation: Plan: * s/p cardioversion 04/15/21 (5) Closed fracture of right hip: Plan: * R hemiarthroplasty 04/12/21 Admission and Anticipated Discharge Date Admission Date: April 11, 2021 Subjective Mr. Valdez was evaluated this morning. He denies orthostatic symptoms and notes that he is tolerating NaCl supplement and Furosemide without GI upset. He has been participating in PT and hopes to transfer to [facility] later for ongoing strengthening Review of Systems Constitutional: no fever Eyes: no problem reported Ear, Nose, Mouth, Throat: no problem reported Respiratory: no cough and no dyspnea Cardiovascular: no chest pain, no palpitations and no edema Gastrointestinal: no abdominal pain, no nausea, no vomiting and no diarrhea/loose stools Genitourinary: no dysuria, no urinary hesitancy or no hematuria Musculoskeletal: no back pain Integumentary: no rash Neurologic: no dizziness and no confusion Physical Exam Constitutional: not in distress Eyes: PERRL, conjunctivae normal, anicteric sclerae ENMT: external ear and nose normal, oropharynx normal Neck: trachea midline, no thyromegaly Respiratory: normal respiratory effort, lungs clear to auscultation Cardiovascular: RRR, no murmur, no edema Gastrointestinal (Abdomen): normal bowel sounds, soft, nontender, no hepatosplenomegaly Skin: no rashes, warm and dry Neurologic: awake; not confused Results & Data ([facility]) Vital Signs (Past 12 Hours) Vital Signs Temp Pulse Pulse Resp BP Pulse Ox 04/21/21 06:56 36.7 C 58 L 20 135/57 L 97 04/21/21 03:34 36.4 C L 63 15 150/68 H 96 04/20/21 23:49 62 04/20/21 23:35 36.9 C 63 15 151/68 H 99 Laboratory Results Laboratory Tests 04/18/21 04/21/21 05:35 05:41 WBC 7.43 Hgb 8.6 L Hct 25.0 L Plt Count 197 Sodium 129 L Potassium 3.6 Chloride 98 Carbon Dioxide 28 BUN 14 Creatinine 0.64 Glucose 97 PG Care Time/CCT Total # of Minutes Spent Total Time Spent with Patient: Total time spent is greater than 50% in coordination of care (as documented) at patient's floor/unit and/or counseling patient: Coding Level of Care Code 25918 Subseq Hosp Care Lvl 3 Diagnoses Hyponatremia E87.1 Hypertension I10 Hypertension type: unspecified Nontoxic multinodular goiter E04.2 Paroxysmal atrial fibrillation I48.0 Closed fracture of right hip S72.001A Encounter type: initial encounter (1) Hypertension Hypertension type: unspecified Qualified Code(s): I10 - Essential (primary) hypertension (2) Closed fracture of right hip Encounter type: initial encounter Qualified Code(s): S72.001A - Fracture of unspecified part of neck of right femur, initial encounter for closed fracture
--- NOTE | 2021-04-21 12:24 | Hospitalist Progress Note ---
Date of Service April 21, 2021 Assessment & Plan (1) Closed fracture of right hip: Plan: Witnessed ground level fall without LOC. Hip x-ray showed acute displaced impacted right femoral neck fracture. There was concern for some minimal ST elevation on monitor intraoperatively (around 1 mm). EKG done at this time showing no evidence of ST elevation. Patient without chest pain. trop 0.05, 0.05, 0.04 on admission - S/P R hemiarthroplasty by Dr. Schroeder on 04/12 - Pain adequately controlled - maintain pain and bowel regimen - Does have unilateral swelling of the RLE which is likely related injury/surgery and was off his thiazide diuretic - Doppler negative for DVT - PT/OT -- Awaiting insurance authorization from [facility] - Orthopedics following - WBAT; Dr. Schroeder will need to see in 2-3 weeks from surgery day (2) Hyponatremia: Plan: - IMPROVING/Stable; Acute on Chronic -- up to 129 - Hyperosmolar hyponatremia - suspected related to thiazide therapy and low salt intake -- Serum Osm 267 and urine Osm > 400 -- Per records review - seems to take in excessive free water intake - D/C Indapamide; liberalize NaCl in diet; Given NaCl tabs per nephro in house but no plans to continue this as outpatient as labs stabilized here an asymptomatic - Continue Lasix 20 mg daily - Nephrology following - appreciate input (3) Paroxysmal atrial fibrillation: Plan: - Currently NSR with rates of 50-70 on monitor; no further bouts of A Fib since cardioversion - On 04/13 went into A Fib RVR with rates 170-180 and ultimately required cardioversion on 04/15 - placed on Amiodarone but patient would like to stop this medication due to side effects in the past and discussed with cardiology - will stop amiodarone but initial plan was to continue until out of stress from surgery and close outpatient F/U - will monitor - Eliquis resumed on 04/13 - initially covered with half dosing due to surgery but now on full dosing (4) CAD (coronary artery disease): Plan: - Proximal LAD HOA, August 2014; CABG x2, January 2016. -- Follows with Dr. Barr, Takes metoprolol PRN at home per Dr Barr's note -- Again, there was question of mild ST elevation on the monitor intraoeratively (around 1 mm); EKG done at this time showing no evidence of ST elevation or ST/T wave changes. - Currently, patient without chest pain or anginal equivalent symptoms - Echo - Normal LV size/systolic function. EF 55-60%. No visualized wma but cannot exclude regional wall motion abnormalities due to image quality; Similar findings compared to prior study Dec 2015 - Continue Lisinopril 2.5 mg daily and ASA 81 mg daily - Cardiology following - appreciate assistance (5) Hypertension: Plan: - STABLE - Continue Lasix and Lisinopril; D/C Indapamide (6) Hyperlipidemia: Plan: - Continue atorvastatin 40 mg daily (7) DVT prophylaxis: Plan: - Eliquis 5mg resumed AM 04/13 Plan: Continued inpatient stay while awaiting auth Check BMP in AM however has been stable at this level and can be monitored as outpatient as he is asymptomatic Admission and Anticipated Discharge Date Admission Date: April 11, 2021 Subjective No acute events overnight. Reports doing well. Pain continues to be controlled. He feels like he is getting stronger each day. No dizziness. Tolerating a diet without issue. Na up to 129. He is still interested in pursuing [facility] and awaiting authorization Review of Systems Review of Systems: All systems reviewed & are unremarkable except as noted in Subjective Physical Exam Physical Exam: PHYSICAL EXAM General Appearance: WDWN in NAD who is A&O x 3 HEENT: Head is normocephalic/atraumatic; Hearing grossly intact; Mucous membranes moist Neck: Supple; Trachea midline; Neg JVD Heart: RRR with no M/G/R Lungs: CTA in all lung lopez bilaterally; Respirations unlabored; Neg accessory muscle use Abdomen: Soft, non-tender, non-distended; Positive BS x 4 quadrants Extremities: Neg cyanosis; edema of RLE extending to lateral thigh Neurological: Speech clear; Gross motor/sensory function intact; Neg focal neurologic deficits Psychiatric: Appropriate mood/affect Skin: Normal Color; Warm/Dry Results & Data Results & Data ([facility]) Vital Signs (Past 12 Hours) Vital Signs Temp Pulse Pulse Resp BP Pulse Ox 04/21/21 11:01 36.9 C 65 19 130/64 93 04/21/21 08:00 55 L 04/21/21 06:56 36.7 C 58 L 20 135/57 L 97 04/21/21 03:34 36.4 C L 63 15 150/68 H 96 PG Care Time/CCT Total # of Minutes Spent Total Time Spent with Patient: Total time spent is greater than 50% in coordination of care (as documented) at patient's floor/unit and/or counseling patient: Coding Level of Care Code 54631 Subseq Hosp Care Lvl 3 Diagnoses Closed fracture of right hip S72.001A Encounter type: initial encounter Hyponatremia E87.1 Paroxysmal atrial fibrillation I48.0 CAD (coronary artery disease) I25.810 Associated angina: without angina Coronary Disease-Associated Artery/Lesion type: bypass graft [place] vs. transplanted heart: [place] heart Hypertension I10 Hypertension type: unspecified Hyperlipidemia E78.5 DVT prophylaxis Z29.9 (1) CAD (coronary artery disease) Associated angina: without angina Coronary Disease-Associated Artery/Lesion type: bypass graft [place] vs. transplanted heart: [place] heart Qualified Code(s): I25.810 - Atherosclerosis of coronary artery bypass graft(s) without angina pectoris (2) Hypertension Hypertension type: unspecified Qualified Code(s): I10 - Essential (primary) hypertension (3) Closed fracture of right hip Encounter type: initial encounter Qualified Code(s): S72.001A - Fracture of unspecified part of neck of right femur, initial encounter for closed fracture
[2021-04-21 15:44] LABS: BUN Creatinine Ratio 23.2 (10-20); Calcium 7.9 mg/dl (8.5-10.1); Creatinine Clr Calc Pharmacy 64.9 ml/min; Est GFR (African American) 94.1 ml/min; Est GFR (Non-African American) 81.2 ml/min; Potassium 3.7 mmol/L (3.5-5.1)
[2021-04-21] MEDS ORDERED: oxyCODONE HCL IR 5 MG TAB (IMMEDIATE RELEASE) PO PRN (20:36)
[2021-04-21] MEDS: ATORVASTATIN 40 MG TAB PO SCH (20:56)
[2021-04-22 06:41] LABS: Hematocrit (blood only) 25.1 % (42-52); Hemoglobin 8.4 g/dL (14.0-18.0); Mean Corpuscular Hemoglobin 32.2 pg (25-34); Mean Corpuscular Hgb Conc 33.5 g/dL (32-36); Mean Corpuscular Volume 96.2 fL (80-100); Mean Platelet Volume 8.3 fL (7.4-10.4); Platelet Count 284 K/uL (130-400); RDW Coefficient of Variation 15.1 % (11.5-14.5); RDW Standard Deviation 50.5 fL (36.4-46.3); Red Blood Count 2.61 M/uL (4.7-6.1); White Blood Count 7.74 K/uL (4.8-10.8)
[2021-04-22 06:42] LABS: BUN Creatinine Ratio 23.9 (10-20); Calcium 7.8 mg/dl (8.5-10.1); Creatinine Clr Calc Pharmacy 74.9 ml/min; Est GFR (African American) 99.9 ml/min; Est GFR (Non-African American) 86.2 ml/min; Potassium 3.7 mmol/L (3.5-5.1)
[2021-04-22] MEDS: APIXABAN 5 MG TABLET PO SCH ×2 (08:41→19:54)
[2021-04-22] MEDS: ASPIRIN 81 MG ECTAB PO SCH (08:42)
[2021-04-22] MEDS: CHOLECALCIFEROL 1,000 UNITS 25 MCG TAB PO SCH (08:42)
[2021-04-22] MEDS: lisinopril 2.5 MG TAB PO SCH (08:42)
[2021-04-22] MEDS: FUROSEMIDE 20 MG TAB PO SCH (08:42)
[2021-04-22] MEDS: SENNA 8.6 MG TAB PO SCH (08:42)
[2021-04-22] MEDS: DOCUSATE SODIUM 100 MG CAP PO SCH (08:45)
--- NOTE | 2021-04-22 08:59 | Nephrology Progress Note ---
Date of Service April 22, 2021 Assessment & Plan (1) Hyponatremia: Plan: * Hypoosmolar hyponatremia. No serum osmolar gap. No clinical evidence of CHF, cirrhosis or nephrosis. 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 Avoid all thiazide diuretics * TSH wnl this hospitalization * Serum osmolality 267 measured (264 calculated) * Urine osmolality > 400 * Hold IVF * Liberalize NaCl in diet (stop salt substitute) and supplement NaCl today * Continue Furosemide 20 mg po daily * SNa remains stable at ~129 mmol/L. Continue to monitor PRP * Patient has h/o chronic hyponatremia. Na has gradually improved w/ above medical interventions. If discharge or transfer is anticipated, recommend 1200 cc oral free water restriction/day, liberal Na diet, furosemide 20 mg po qAM * No further recommendations at this time. Will sign off. Please call if further Nephrology assistance is needed (2) Hypertension: Plan: * Indapamide has been stopped. Recommend avoiding thiazide diuretics due to h/o hyponatremia * Continue low dose Furosemide * Continue Lisinopril 2.5 mg po qAM * SBP 110 - 140 mm Hg (3) Nontoxic multinodular goiter: Plan: * TSH 1.086 04/13/21 (4) Paroxysmal atrial fibrillation: Plan: * s/p cardioversion 04/15/21 (5) Closed fracture of right hip: Plan: * R hemiarthroplasty 04/12/21 Admission and Anticipated Discharge Date Admission Date: April 11, 2021 Subjective Mr. Valdez was evaluated this morning. He denies orthostatic symptoms and notes that he is tolerating NaCl supplement and Furosemide without GI upset. He has been participating in PT and hopes to transfer to [facility] later for ongoing strengthening Review of Systems Constitutional: no fever Eyes: no problem reported Ear, Nose, Mouth, Throat: no problem reported Respiratory: no cough and no dyspnea Cardiovascular: no chest pain, no palpitations and no edema Gastrointestinal: no abdominal pain, no nausea, no vomiting and no diarrhea/loose stools Genitourinary: no dysuria, no urinary hesitancy or no hematuria Musculoskeletal: no back pain Integumentary: no rash Neurologic: no dizziness and no confusion Physical Exam Constitutional: not in distress Eyes: PERRL, conjunctivae normal, anicteric sclerae ENMT: external ear and nose normal, oropharynx normal Neck: trachea midline, no thyromegaly Respiratory: normal respiratory effort, lungs clear to auscultation Cardiovascular: RRR, no murmur, no edema Gastrointestinal (Abdomen): normal bowel sounds, soft, nontender, no hepatosplenomegaly Skin: no rashes, warm and dry Neurologic: awake; not confused Results & Data ([facility]) Vital Signs (Past 12 Hours) Vital Signs Temp Pulse Pulse Resp BP BP Pulse Ox 04/22/21 08:41 36.7 C 72 18 116/64 97 04/22/21 03:42 36.6 C 63 15 120/56 L 96 04/21/21 23:43 72 04/21/21 23:00 36.7 C 74 19 138/70 99 Laboratory Results Laboratory Tests 04/22/21 04/22/21 05:14 05:14 WBC 7.74 Hgb 8.4 L Hct 25.1 L Plt Count 284 Sodium 129 L Potassium 3.7 Chloride 97 L Carbon Dioxide 29 BUN 17 Creatinine 0.71 Glucose 89 PG Care Time/CCT Total # of Minutes Spent Total Time Spent with Patient: Total time spent is greater than 50% in coordination of care (as documented) at patient's floor/unit and/or counseling patient: Coding Level of Care Code 03795 Subseq Hosp Care Lvl 3 Diagnoses Hyponatremia E87.1 Hypertension I10 Hypertension type: unspecified Nontoxic multinodular goiter E04.2 Paroxysmal atrial fibrillation I48.0 Closed fracture of right hip S72.001A Encounter type: initial encounter (1) Hypertension Hypertension type: unspecified Qualified Code(s): I10 - Essential (primary) hypertension (2) Closed fracture of right hip Encounter type: initial encounter Qualified Code(s): S72.001A - Fracture of unspecified part of neck of right femur, initial encounter for closed fracture
[2021-04-22] MEDS: oxyCODONE HCL IR 5 MG TAB (IMMEDIATE RELEASE) PO PRN (15:31)
--- NOTE | 2021-04-22 18:56 | Progress Notes ---
DATE OF SERVICE: 04/22/2021. SUBJECTIVE: An 85-year-old gentleman, now 10 days out from a right cemented bipolar hip arthroplasty for fracture. He is doing pretty well. Pain is getting better. Swelling is improved. No chest pa in or shortness of breath. OBJECTIVE: VITAL SIGNS: Temperature 36.7. Vital signs are stable. PHYSICAL EXAMINATION: GENERAL: Shows a pleasant, elderly male. He is lying in bed, looks pretty comfortable this morning. EXTREMITIES: Examination of the right hip reveals the leg lengths are equal. The dressing is clean, dry and intact. His hip is located. He is neurologically intact. LABORATORY DATA: Hemoglobin 8.4. Hematocrit 25.1. Electrolytes still show hyponatremia. Fairly st able. ASSESSMENT: An 85-year-old gentleman, now 10 days out from a right cemented bipolar hip arthroplasty for fracture. Orthopedically, he is doing well. He has got a lot of medical issues that are being tuned up. PLAN: 1. DVT prophylaxis includes thigh-high TEDs, SCDs, and he is back on his normal anticoagulation. He is on Eliquis. 2. PT, OT, weightbear as tolerated. Right total hip protocol. Does need to obey hip precautions. 3. Pain control, doing okay with current pain regimen. 4. Medical management as per the medicine service. 5. Disposition: Orthopedically okay for discharge any time. I need to see him back in 2-3 weeks out from surgery date. Any orthopedic questions can be directed to me at [phone]. Job ID: [id number]
--- NOTE | 2021-04-22 19:32 | Hospitalist Progress Note ---
Date of Service April 22, 2021 Assessment & Plan (1) Closed fracture of right hip: Plan: Witnessed ground level fall without LOC. Hip x-ray showed acute displaced impacted right femoral neck fracture. There was concern for some minimal ST elevation on monitor intraoperatively (around 1 mm). EKG done at this time showing no evidence of ST elevation. Patient without chest pain. trop 0.05, 0.05, 0.04 on admission - S/P R hemiarthroplasty by Dr. Schroeder on 04/12 - Pain adequately controlled - maintain pain and bowel regimen - Does have unilateral swelling of the RLE which is likely related injury/surgery and was off his thiazide diuretic (is improving) - Doppler negative for DVT - PT/OT -- Now planning on returning home with home health services - Orthopedics following - WBAT; Dr. Schroeder will need to see in 2-3 weeks from surgery day (2) Hyponatremia: Plan: - IMPROVING/Stable; Acute on Chronic -- up to 129 - Hyperosmolar hyponatremia - suspected related to thiazide therapy and low salt intake -- Serum Osm 267 and urine Osm > 400 -- Per records review - seems to take in excessive free water intake - D/C Indapamide; liberalize NaCl in diet; Given NaCl tabs per nephro in house but no plans to continue this as outpatient as labs stabilized here an asymptomatic - Continue Lasix 20 mg daily - Nephrology following - appreciate input (3) Paroxysmal atrial fibrillation: Plan: - Currently NSR with rates of 50-70 on monitor; no further bouts of A Fib since cardioversion - On 04/13 went into A Fib RVR with rates 170-180 and ultimately required cardioversion on 04/15 - placed on Amiodarone but patient would like to stop this medication due to side effects in the past and discussed with cardiology - will stop amiodarone but initial plan was to continue until out of stress from surgery and close outpatient F/U - will monitor - Eliquis resumed on 04/13 - initially covered with half dosing due to surgery but now on full dosing (4) CAD (coronary artery disease): Plan: - Proximal LAD HOA, August 2014; CABG x2, January 2016. -- Follows with Dr. Barr, Takes metoprolol PRN at home per Dr Barr's note -- Again, there was question of mild ST elevation on the monitor intraoeratively (around 1 mm); EKG done at this time showing no evidence of ST elevation or ST/T wave changes. - Currently, patient without chest pain or anginal equivalent symptoms - Echo - Normal LV size/systolic function. EF 55-60%. No visualized wma but cannot exclude regional wall motion abnormalities due to image quality; Similar findings compared to prior study Dec 2015 - Continue Lisinopril 2.5 mg daily and ASA 81 mg daily - Cardiology following - appreciate assistance (5) Hypertension: Plan: - STABLE - Continue Lasix and Lisinopril; D/C Indapamide (6) Hyperlipidemia: Plan: - Continue atorvastatin 40 mg daily (7) DVT prophylaxis: Plan: - Eliquis 5mg resumed AM 2/ Plan: Plan for D/C home tomorrow after PT/OT; home with services Admission and Anticipated Discharge Date Admission Date: April 11, 2021 Subjective No acute events overnight. Reports feeling well. Tolerating a diet without issue. Continues to work with therapy. Insurance requested peer to peer however patient feels he can go home and did discuss with him and . Obtained a wheeled walker. Would like to work with therapy tomorrow to do stairs and plan will be to do PT/OT at home. Review of Systems Review of Systems: All systems reviewed & are unremarkable except as noted in Subjective Physical Exam Physical Exam: PHYSICAL EXAM General Appearance: WDWN in NAD who is A&O x 3 HEENT: Head is normocephalic/atraumatic; Hearing grossly intact; Mucous membranes moist Neck: Supple; Trachea midline; Neg JVD Heart: RRR with no M/G/R Lungs: CTA in all lung lopez bilaterally; Respirations unlabored; Neg accessory muscle use Abdomen: Soft, non-tender, non-distended; Positive BS x 4 quadrants Extremities: Neg cyanosis; edema of RLE extending to lateral thigh Neurological: Speech clear; Gross motor/sensory function intact; Neg focal neurologic deficits Psychiatric: Appropriate mood/affect Skin: Normal Color; Warm/Dry Results & Data [facility] Vital Signs (Past 12 Hours) Vital Signs Temp Pulse Pulse Resp BP Pulse Ox 04/22/21 16:50 72 04/22/21 12:35 36.7 C 68 18 127/67 97 04/22/21 08:45 61 04/22/21 08:41 36.7 C 72 18 116/64 97 PG Care Time/CCT Total # of Minutes Spent Total Time Spent with Patient: Total time spent is greater than 50% in coordination of care (as documented) at patient's floor/unit and/or counseling patient: Coding Level of Care Code 17307 Subseq Hosp Care Lvl 3 Diagnoses Closed fracture of right hip S72.001A Encounter type: initial encounter Hyponatremia E87.1 Paroxysmal atrial fibrillation I48.0 CAD (coronary artery disease) I25.810 Coronary Disease-Associated Artery/Lesion type: bypass graft [place] vs. transplanted heart: [place] heart Associated angina: without angina Hypertension I10 Hypertension type: unspecified Hyperlipidemia E78.5 DVT prophylaxis Z29.9 (1) Closed fracture of right hip Encounter type: initial encounter Qualified Code(s): S72.001A - Fracture of unspecified part of neck of right femur, initial encounter for closed fracture (2) CAD (coronary artery disease) Coronary Disease-Associated Artery/Lesion type: bypass graft [place] vs. transplanted heart: [place] heart Associated angina: without angina Qualified Code(s): I25.810 - Atherosclerosis of coronary artery bypass graft(s) without angina pectoris (3) Hypertension Hypertension type: unspecified Qualified Code(s): I10 - Essential (primary) hypertension
[2021-04-22] MEDS: ATORVASTATIN 40 MG TAB PO SCH (19:54)
[2021-04-23] MEDS: oxyCODONE HCL IR 5 MG TAB (IMMEDIATE RELEASE) PO PRN ×2 (01:15→14:38)
[2021-04-23 06:10] LABS: Hematocrit (blood only) 24.2 % (42-52); Hemoglobin 8.2 g/dL (14.0-18.0); Mean Corpuscular Hemoglobin 32.3 pg (25-34); Mean Corpuscular Hgb Conc 33.9 g/dL (32-36); Mean Corpuscular Volume 95.3 fL (80-100); Mean Platelet Volume 8.1 fL (7.4-10.4); Platelet Count 289 K/uL (130-400); RDW Coefficient of Variation 15.2 % (11.5-14.5); RDW Standard Deviation 50.7 fL (36.4-46.3); Red Blood Count 2.54 M/uL (4.7-6.1); White Blood Count 7.98 K/uL (4.8-10.8)
[2021-04-23 06:40] LABS: BUN Creatinine Ratio 23.4 (10-20); Calcium 7.7 mg/dl (8.5-10.1); Creatinine Clr Calc Pharmacy 83.1 ml/min; Est GFR (African American) 104.2 ml/min; Est GFR (Non-African American) 89.9 ml/min; Potassium 3.7 mmol/L (3.5-5.1)
[2021-04-23] MEDS: FUROSEMIDE 20 MG TAB PO SCH (08:14)
[2021-04-23] MEDS: lisinopril 2.5 MG TAB PO SCH (08:14)
[2021-04-23] MEDS: ASPIRIN 81 MG ECTAB PO SCH (08:14)
[2021-04-23] MEDS: SENNA 8.6 MG TAB PO SCH (08:14)
[2021-04-23] MEDS: APIXABAN 5 MG TABLET PO SCH (08:14)
[2021-04-23] MEDS: CHOLECALCIFEROL 1,000 UNITS 25 MCG TAB PO SCH (08:14)
[2021-04-23] MEDS: DOCUSATE SODIUM 100 MG CAP PO SCH (08:17)
--- NOTE | 2021-04-23 11:24 | Discharge Summary ---
Date of Service April 23, 2021 Admission HPI Per Admitting Provider Patient is an 85 y/o male with a PMH of CAD s/p CABG in 2016, paroxysmal atrial fibrillation on Eliquis, hyperglycemia, hyperlipidemia, and hypertension who presents this evening for evaluation of right hip pain after a fall.Patient was out walking with his when an unleashed dog ran up to him. As he was backing away, he lost his balance and fell landing on his right hip. He notes a constant, throbbing pain in the lateral right hip, without radiation which he rates a 9/10. Denies hitting his head, loss of consciousness, dizziness, weakness or palpitations leading up to the fall. He denies pain elsewhere. Hip x-ray revealed a acute displaced impacted right femoral neck fracture. Patient has been receiving 4 mg IV morphine for pain control, patient states this has been adequate so far. Na+ is 130, glucose is 141, all other labs within normal limits. Last dose of aspirin was last evening, last dose of Eliquis was 5mg around 4 PM today. Principal Diagnosis Right Hip Fracture S/P Repair; Paroxysmal Atrial Fibrillation with RVR S/P Cardioversion; Hyponatremia Discharge Exam PHYSICAL EXAM General Appearance: WDWN in NAD who is A&O x 3 HEENT: Head is normocephalic/atraumatic; Hearing grossly intact; Mucous membranes moist Neck: Supple; Trachea midline; Neg JVD Heart: RRR with no M/G/R Lungs: CTA in all lung lopez bilaterally; Respirations unlabored; Neg accessory muscle use Abdomen: Soft, non-tender, non-distended; Positive BS x 4 quadrants Extremities: Neg cyanosis; edema of RLE mostly around R knee but is not warm, no erythema, nontender to palp; linear ecchymosis extending down R lateral thigh Neurological: Speech clear; Gross motor/sensory function intact; Neg focal neurologic deficits Psychiatric: Appropriate mood/affect Skin: Normal Color; Warm/Dry Discharge Data Allergies Allergy/AdvReac Type Severity Reaction Status Date / Time Sulfa (Sulfonamide Allergy Intermediate Hives Verified 04/11/21 18:58 Antibiotics) tetracycline Allergy Intermediate Hives Verified 04/11/21 18:58 Consultations 04/11/21 19:29 ED Decision to Admit Stat 04/11/21 20:32 Consult Anesthesiology Routine Consult Orthopedic Surgery Routine 04/13/21 14:15 Consult Cardiology Routine 04/16/21 15:29 Consult Nephrology Routine Procedures Performed Operation Date: 04/12/21 13:05 Actual Procedures p Right Cemented Hip Hemiarthroplasty(Right) - Edward Schroeder MD Operation Date: 04/15/21 11:00 Actual Procedures p Cardioversion - Dawit Landin MD Ordered Studies Hip/Pelvis X-Ray 04/11/21 17:46 XR hip RT 2V w pelvis CLINICAL HISTORY: Right hip pain following fall. COMPARISON: Pelvis and right hip radiographs October 15, 2020. FINDINGS: Sacroiliac joints and symphysis pubis are intact. Note is made of an acute impacted displaced right femoral neck fracture. There is no acute proximal left femoral fracture. 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 Pelvic calcifications favor phleboliths. IMPRESSION: Acute displaced impacted right femoral neck fracture. ACT 112: Negative or not required by law. Electronically signed by: David Pastor M.D. 04/11/2021 6:20 PM Chest X-Ray 04/11/21 18:19 XR chest 1V portable CLINICAL HISTORY: HIP FRACTURE, PREOP COMPARISON STUDY: Chest radiograph March 05, 2020. FINDINGS: Severe dextroscoliosis of the thoracic spine is incidentally noted. There are median sternotomy wires. Cardiomediastinal silhouette is stable. There is no pneumothorax or pleural effusion. No evidence for pulmonary edema. There is mild right midlung opacity. Old right fifth rib deformity is incidentally noted. IMPRESSION: 1. Mild right midlung opacity. This favors atelectasis or scarring. An infectious process could appear similar although is considered less likely. Radiographic follow-up is recommended. 2. No evidence for pulmonary edema. 3. Severe scoliosis. ACT 112: Negative or not required by law. Electronically signed by: David Pastor M.D. 04/11/2021 6:43 PM Hip X-Ray 04/12/21 15:05 XR hip RT min 2V CLINICAL HISTORY: Post-Operative implant position TECHNIQUE: 2 views of the right hip and single frontal view of the pelvis were obtained. Comparison: Comparison is made to right hip radiographs 04/11/2021 FINDINGS: Patient is status post total knee arthroplasty with expected postsurgical changes including soft tissue swelling, subcutaneous emphysema, and surgical staple placement. No periarticular lucency or hardware fracture is seen. The alignment is anatomic. Joint spaces are well-preserved. No soft tissue abnormality is seen. IMPRESSION: Expected postoperative appearance status post placement of total hip arthroplasty. ACT 112: Negative or not required by law. Electronically signed by: Mingo Castillo M.D. 04/12/2021 3:51 PM Chest X-Ray 04/15/21 07:43 XR chest 1V portable CLINICAL HISTORY: Hypoxia. Fever. COMPARISON STUDY: Chest radiograph April 11, 2021. FINDINGS: Severe S-shaped scoliosis of the thoracolumbar spine is incidentally noted. There are median sternotomy wires. Cardiomediastinal silhouette is stable. There is no pneumothorax or pleural effusion. No evidence for pulmonary edema. Linear left lower lung retrocardiac opacity is noted. Mild right lower lung opacity has improved. IMPRESSION: 1. Mild right lower lung opacity, improved since prior exam. 2. Linear left lower lung retrocardiac opacity which favors atelectasis. ACT 112: Negative or not required by law. Electronically signed by: David Pastor M.D. 04/15/2021 10:04 AM Chest X-Ray 04/16/21 07:00 XR chest 2V PA/lateral HISTORY: f/u right middle lobe opacity vs atelectasis COMPARISON: Chest 04/15/2021. FINDINGS: No pneumothorax. The heart remains mildly enlarged. There are poststernotomy changes. Severe scoliosis persists. Bibasilar linear densities and trace bilateral pleural effusions. The upper lung zones are clear. No evidence for pulmonary edema. IMPRESSION: 1. Trace bilateral pleural effusions with slight progression of bibasilar linear densities suggesting subsegmental atelectasis. 2. Stable cardiomegaly. ACT 112: Negative or not required by law. Electronically signed by: Eliel Garrett M.D. 04/16/2021 8:04 AM Venous Doppler Study 04/19/21 11:03 US venous doppler LE RT CLINICAL HISTORY: Right lower extremity swelling COMPARISON: None available at the time of this dictation. TECHNIQUE: Right lower extremity real-time compression venous ultrasound with Color Doppler imaging. Utilizing real-time ultrasonic imaging multiple real time high-resolution ultrasonic images with compression and noncompression maneuvers of the deep venous system in addition to color doppler imaging were performed from the common femoral vein through the proximal calf veins. FINDINGS: Currently there is normal compressibility of the deep venous system from the common femoral vein through the proximal calf veins. No current evidence of acute thrombosis is identified. There is evidence for a popliteal cyst posteromedially measuring 5.6 x 1.6 x 3.2 cm. Impression: No evidence of deep venous thrombus. Popliteal cyst. ACT 112: Negative or not required by law. Electronically signed by: Hamzah Tineo M.D. 04/19/2021 1:46 PM Hospital Course (1) Closed fracture of right hip: Witnessed ground level fall without LOC. Hip x-ray showed acute displaced impacted right femoral neck fracture. There was concern for some minimal ST elevation on monitor intraoperatively (around 1 mm). EKG done at this time showing no evidence of ST elevation. Patient without chest pain. trop 0.05, 0.05, 0.04 on admission - S/P R hemiarthroplasty by Dr. Schroeder on 04/12 - Pain adequately controlled - continue Oxycodone PRN - Does have unilateral swelling of the RLE which is likely related injury/surgery and was off his thiazide diuretic (is improving) -- moslty around R knee and also with significant ecchymosis to the later R thigh - Doppler negative for DVT - PT/OT -- Now planning on returning home with home health services - Rx provided for repeat CBC/BMP in 2 weeks -- Hgb stable in 8s and asymptomatic. no indication for transfusion at this time - Orthopedics following - [facility]AT; Dr. Schroeder will need to see in 2-3 weeks from surgery day (2) Hyponatremia: - IMPROVING/Stable; Acute on Chronic -- up to 129 and stable x multiple days and asymptomatic - Hyperosmolar hyponatremia - suspected related to thiazide therapy and low salt intake -- Serum Osm 267 and urine Osm > 400 -- Per records review - seems to take in excessive free water intake - D/C Indapamide; liberalize NaCl in diet - Continue Lasix 20 mg daily - Rx provided for repeat CBC/BMP in 2 weeks - Nephrology followed - appreciate input (3) Paroxysmal atrial fibrillation: - Currently NSR with rates of 50-70 on monitor; no further bouts of A Fib since cardioversion - On 04/13 went into A Fib RVR with rates 170-180 and ultimately required cardioversion on 04/15 - placed on Amiodarone but patient would like to stop this medication due to side effects in the past and discussed with cardiology - did stop this medication and no further episodes of A Fib - Eliquis resumed on 04/13 - initially covered with half dosing due to surgery but now on full dosing (4) CAD (coronary artery disease): - Proximal LAD HOA, August 2014; CABG x2, January 2016. -- Follows with Dr. Barr, Takes metoprolol PRN at home per Dr Barr's note -- Again, there was question of mild ST elevation on the monitor intraoeratively (around 1 mm); EKG done at this time showing no evidence of ST elevation or ST/T wave changes. - Currently, patient without chest pain or anginal equivalent symptoms - Echo - Normal LV size/systolic function. EF 55-60%. No visualized wma but cannot exclude regional wall motion abnormalities due to image quality; Similar findings compared to prior study Dec 2015 - Continue Lisinopril 2.5 mg daily and ASA 81 mg daily - Cardiology followed - appreciate assistance (5) Hypertension: - STABLE - Continue Lasix and Lisinopril; D/C Indapamide (6) Hyperlipidemia: - Continue atorvastatin 40 mg daily (7) DVT prophylaxis: - Eliquis 5mg resumed AM 04/13 Return home with PT/OT/Home Services F/U with Dr. Schroeder in 2-3 weeks from surgery CBC/BMP x 2 weeks to reassess anemia and Na/K levels Home Health Attestation I certify that this patient is under my care and that I, or a physicians sales assistants and salespersons working with me, had a face to-face encounter that meets the home health [id number] encounter requirements with this patient. The encounter with the patient was in whole, or in part, for the following medical condition, which is the primary reason for home health care (list medical condition): Right Hip Fracture I certify that, based on my findings, the following services are medically necessary home health services: PT/OT/Visiting nurses My clinical findings support the need for the above services because: Improve mobility and independence following hip repair; reduce hospital re-admission Further, I certify that my clinical findings support that this patient is homebound (i.e. absences from home require considerable and taxing effort and are for medical reasons or restorationism services or infrequently or of short duration when for other reasons) because: Limited mobility independently Certification for Home Health Services: Based on the above findings, I certify that this patient is confined to the home and needs intermittent care home care, physical therapy and/or speech therapy or continues to need occupational therapy. The patient is under my care, and I have initiated the establishment of the plan of care. This patient will be followed by a physician who will periodically review the plan of care. Total Time Total Time Spent Total Time Spent (In Minutes): Spent greater than 30 minutes preparing patient for discharge. This includes discussion with patient/family, assessment, intervention, medication reconciliat ion, and coordination of care. Discharge Plan Discharge Items Patient Disposition: Home - Home Health Services Reason For Visit: RIGHT HIP FRACTURE Discharge Diagnosis: Right Hip Replacement for fracture Activity: Per Instructions section Activity Comment: Obey hip precautions at all times. Weightbearing: Full weightbearing Weightbearing Comment: Weightbear as tolerated obeying hip precautions at all times. Non-emergency contact: Primary Care Provider and Surgeon Call non-emergency contact if: you have any medication questions, your symptoms worsen and you have a fever Follow-up/Referrals: Leni Schroeder CRNP [Primary Care Provider] - Edward Schroeder MD [Physician] - (Orthopedic follow-up 2-3 weeks from surgery date.) Diet: Regular Ambulatory Orders: Basic Metabolic Panel (Routine) Timeframe: 2 Weeks Location: Determined by Patient Ordered By: Carmel Humphreys Complete Blood Count no Diff (Routine) Timeframe: 2 Weeks Location: Determined by Patient Ordered By: Carmel Humphreys Addtl Attending Provider Instructions: ACTIVITY RECOMMENDATIONS: Physical Therapy: * Aggressive physical therapy is not usually needed. You will learn to take care of yourself safely and walk. * Follow the "Hip Precautions Instructions." * In some cases, the social psychologist at the hospital will arrange to have a therapist come to your house for the first couple of weeks to help you learn these skills. * You need to practice on your own or with the help of a family member as needed. * When you learn these skills, most of the therapy can be done on your own. Home Exercise: * You were shown a series of exercises in the hospital. Do these exercises three to four times each day including the exercises you were shown in physical therapy. Walking: * Get up and walk several times each day. For the first four weeks, try not to stand or walk for more than one hour at a time. If you do stand or walk for more than one hour, you will not hurt anything, but your leg will likely swell. * As you feel comfortable, you may change from the walker or crutches to a cane and then to independent walking. MEDICATIONS: "VERY IMPORTANT TO READ AND REVIEW" Pain: * The immediate post-operative period after hip replacement surgery is often quite painful. * You are given a prescription for pain medicine. You should take it, as directed, when you need it, especially before physical therapy and before going to bed. Pain that interferes with sleep is very common and can last several months. * You will likely need pain medicine for the first two to four weeks. It will not stop all of the pain. The pain will lessen and as you feel better, you may change to milder pain medicine such as Tylenol. * The most common side effects of pain medicine are nausea and constipation, so don't take more than you need. SPECIAL CARE INSTRUCTIONS: TEDs/Elastic Stockings: * The white elastic stockings help limit swelling and prevent blood clots from forming in your legs. The more you wear them, the more they work. * Wear them for six weeks. Prevention of Infection: * Take antibiotics one hour before any dental cleaning, dental work, urological procedure, gastrointestinal procedure or any invasive surgery in order to prevent your new joint from getting infected. * You may get the antibiotics from the doctor performing the procedure or you may call our office at before and we will call in a prescription to the pharmacy of your choice. Things to Watch For: * Drainage from the incision site that occurs more than one week after your surgery. * Severely increased leg pain or swelling. * Increased redness at the incision site. * Fever above 102 degrees Fahrenheit. * Unusual chest pain or shortness of breath. * Unusual pain or burning with urination. Call [facility] at with any of the above problems or if you have any questions about your medicines or recovery. FOLLOW UP VISIT: Make an appointment to see your doctor for approximately two weeks after surgery for a progress check and staple removal by calling the office at . Addtl Assistant Women'S Rowing Coach Provider Instructions: Closed fracture of right hip: - Recommend to follow the directions/instructions given by the surgeon in this discharge paperwork - Recommend to continue to use your roller walker and follow-up with Dr. Schroeder as planned - You do have anemia (lower hemoglobin). This is normal after a surgery and overtime will come back up. There will be a script for blood work as well to check this Hyponatremia (Low Salt) - This has been a long standing issue and suspect this could ultimately be your baseline levels - Currently your salt level is at 129. Recommend to have routine testing with your family doctor to keep track of this -- Will give a script to have lab work in 1-2 weeks and this can be done wherever you normally get lab work and results will go to your family doctor - Plan is to STOP your indapamide and you were changed over to Lasix -- Will check your potassium levels with blood work. While in the hospital this has been fine but sometimes potassium supplements need added if this goes a bit lower. So your family doctor can add this if your next labs show lower levels. It has been good here and you can get potassium in your diet with bananas, avocado, spinach, sweet potatoes, oranges.... - You can stop limiting additional salt in your diet at this time Paroxysmal Atrial Fibrillation: - While in the hospital you went into atrial fibrillation with very high heart rates (170-180) which required cardioversion (a shock to reset it). Thankfully you had no more issues with this - Plan to continue your normal Eliquis - You were initially treated with Amiodarone but this was discontinued. Plan to follow-up with Dr. Barr as needed Home Medications: - Continue your home medications as previously prescribed. Pending Studies at Discharge: No Stand-Alone Forms: [facility], Smoking Cessation Medications and DC Order Prescriptions: New oxycodone 5 mg Tablet 5 - 10 mg PO Q4H PRN (Reason: pain) 3 Days Qty: 30 RF: 0 furosemide 20 mg Tablet 20 mg PO QAM 30 Days Qty: 30 RF: 0 Continued nitroglycerin 0.4 mg tablet, sublingual 0.4 mg SL Q5M PRN (Reason: chest pain) Qty: 30 RF: 3 apixaban 5 mg tablet 5 mg PO BID Qty: 180 RF: 3 lisinopril 2.5 mg tablet 2.5 mg PO DAILY Qty: 90 RF: 3 docusate sodium 100 mg capsule 200 mg PO DAILY RF: 0 cranberry 500 mg capsule 500 mg PO DAILY RF: 0 Lactobacillus acidophilus 1 billion cell tablet 1,000 mmu cells PO DAILY RF: 0 magnesium oxide 400 mg magnesium capsule 400 mg PO DAILY RF: 0 cholecalciferol (vitamin D3) 50 mcg (2,000 unit) capsule 2,000 units PO DAILY RF: 0 nitrofurantoin macrocrystal [Macrodantin] 50 mg capsule 50 mg PO DAILY PRN (Reason: HX of UTI) Qty: 30 RF: 0 lutein 20 mg capsule 20 mg PO DAILY RF: 0 aspirin [Aspirin Low Dose] 81 mg Tablet,Delayed Release (Dr/Ec) 81 mg PO PM RF: 0 dmyroicsulmn-ohnkcgcp-foymgl Tablet 1 tab PO DAILY RF: 0 coQ10 (ubiquinol) 200 mg Capsule 200 mg PO DAILY RF: 0 atorvastatin 40 mg tablet 40 mg PO HS RF: 0 Discontinued indapamide 1.25 mg tablet 1.25 mg PO QAM Qty: 90 RF: 3 Discharge Orders: Discharge Order (Routine); Ordered 04/23/21 Ordered By: Carmel Humphreys Admission Data Admit Date/Time: 04/11/21 20:09 Attending Provider: Francisco Salguero Admit Provider: Jodi Schroeder Primary Care Provider: Leni Schroeder. Other Providers: [facility] ; Jodi Schroeder ; Susan Barron ; Jackie Albert ; Ludivina Bedoya ; Angelica Darnell ; Aki García ; Frandy Benitez ; Chris Gates ; Eliel Corbin ; Aruna Corbin ; Catrachito Walters ; Ashley Rivera ; Arsen Baca ; Khoa Sinha ; Martin Escalona ; Derik Gregg ; Christel Khan ; Clark Manning ; Hetal Crabtree ; Sandi Manning ; Raza Weaver ; Carmel Garcia ; Otf Burris ; Leatha Crawford ; Marcelle Tidwell ; Carmel Yusuf ; Pilar Butt ; Juan Manuel Jones ; Jodi Saba ; Allie Garrett ; Elif Clifford ; Lucy Patton ; Layo Patton V ; Vinicio Madison ; Jackie Niño ; Rodger Grossman ; Judie Golden ; Rashmi Sharma ; Layo Clement ; Morro Khan ; Mingo Morris ; Sisi Santiago ; Elvi Buckner ; Layo Tracey ; Elif Pimentel ; Edward Moser ; Eh Gregg ; Ai De Dios ; Anjum Holley ; Taylor Ferrell ; Edgar Estes ; Wil Skinner ; Anjum Morrissey ; kAi Ly Jr ; Shanthi De Oliveira ; Johanna Gonzales ; Edward Schroeder ; [facility] ; Dawit Landin ; Lauro Billy ; Anca [facility] Other Interventions: Discharge Summary Assessment (RN) Last Done: 04/23/21 15:02 Supervising Physician Co-Signing Physician Notes During face to face encounter, obtained summary of hospital stay and physical examination. Patient appears calm, sitting up in no acute distress . I reviewed plan of care with CHUCK Humphreys and patient. I reviewed above document and agree with it. Patient will be discharged after sustaining hip fracture that was repaired. Patient is foregoing rehab placement as i was denied and did not want to wait for another appeal. Patient feels he can tolerated home health exercises. If patient is unable to improve at home, placement to rehab may be reconsidered. Will defer to PCP and ortho. Coding Level of Care Code D/C DAY MANAGEMENT >30 MINS Diagnoses Closed fracture of right hip S72.001A Encounter type: initial encounter Hyponatremia E87.1 Paroxysmal atrial fibrillation I48.0 CAD (coronary artery disease) I25.810 Associated angina: without angina Coronary Disease-Associated Artery/Lesion type: bypass graft [place] vs. transplanted heart: [place] heart Hypertension I10 Hypertension type: unspecified Hyperlipidemia E78.5 DVT prophylaxis Z29.9
--- NOTE | 2021-04-27 07:37 | Coding Query ---
To promote full compliance with coding requirements relating to patient care, physician participation is requested in all cases of wall attendant uncertainty. Please assist us with the question(s) below: Coding Question(s): It was noted on the ER and H&P and Consultations that the patient has/is suspected to have a history of osteoporosis. According to coding guidelines "a code for osteoporotic fracture, and not a traumatic fracture, should be used for any patient with known osteoporosis who suffers a fracture, even if the patient had a minor fall or trauma, if that fall or trauma would not usually break a normal, healthy bone." Please indicate below the type of fracture: Physician's Response(s): ( x ) Osteoporotic fracture of Right Hip ( ) Traumatic fracture of Right Hip ( ) Other, please specify ( ) Unable to be determined MTDD
== END 2021-04-23 15:03 | disposition home health service (06) | DRG 522 ==
LOC: ED 17:23 → EDINP 20:09 → SUATTDRO 20:09 → 2N 22:25 → 2S 04-13 21:08

== ENCOUNTER 2024-03-06 12:17 | Inpatient (IN) ==
[2024-03-06 13:31] LABS: Hematocrit (blood only) 31.3 % (42.0-52.0); Hemoglobin 10.6 g/dl (14.0-18.0); Mean Corpuscular Hemoglobin 31.8 pg (25.0-34.0); Mean Corpuscular Hgb Conc 33.9 g/dL (32.0-36.0); Mean Platelet Volume 8.6 fL (9.4-12.4); Platelet Count 217 K/uL (130-400); RDW Coefficient of Variation 15.1 % (11.5-14.5); RDW Standard Deviation 51.8 fL (36.4-46.3); Red Blood Count 3.33 M/uL (4.70-6.10); White Blood Count 24.43 K/ul (4.8-10.8)
[2024-03-06 13:48] LABS: Alanine Aminotransferase 20 U/L (7-52); Albumin Globulin Ratio 1.2 (0.9-2); Albumin Level 3.2 gm/dl (3.4-5.0); Alkaline Phosphatase 105 U/L (34-104); Anion Gap 8 (3-11); Aspartate Aminotransferase 26 U/L (13-39); Bilirubin,Total 0.6 mg/dl (0.2-1.0); Blood Urea Nitrogen 23 mg/dl (6-23); Calcium 8.4 mg/dl (8.6-10.3); Carbon Dioxide 25 mmol/L (21-32); Chloride 94 mmol/L (98-107); Globulin 2.7 gm/dl (2.5-4.0); Glucose 150 mg/dl (70-99(Fasting)); Potassium 4.4 mmol/L (3.5-5.1); Sodium 127 mmol/L (136-145); Total Protein 5.9 gm/dl (6.0-8.3)
[2024-03-06 13:51] LABS: Basophils # (auto) 0.05 K/uL (0.00-0.20); Basophils % (auto) 0.2 %; Eosinophils # (auto) 0.14 K/uL (0.00-0.50); Eosinophils % (auto) 0.6 %; Immature Granulocytes # (auto) 0.53 K/uL (0.01-0.20); Immature Granulocytes % (auto) 2.2 %; Lymphocytes # (auto) 0.36 K/uL (1.20-3.40); Lymphocytes % (auto) 1.5 %; Monocytes % (auto) 5.3 %; Neutrophils # (auto) 22.05 K/uL (1.40-6.50); Neutrophils % (auto) 90.2 %; Toxic Vacuolation 1+
[2024-03-06 13:55] LABS: Troponin I High Sensitivity 48.4 pg/ml (0-20)
--- NOTE | 2024-03-06 14:23 | Electrocardiogram Report ---
Test Reason : Blood Pressure : */* mmHG Vent. Rate : 103 BPM Atrial Rate : 208 BPM P-R Int : * ms QRS Dur : 104 ms QT Int : 352 ms P-R-T Axes : 261 -41 55 degrees QTcB Int : 461 ms Atrial flutter with variable A-V block Left axis deviation Incomplete right bundle branch block Nonspecific ST and T wave abnormality Abnormal ECG When compared with ECG of 08-Jan-2024 07:02, Atrial flutter has replaced Sinus rhythm Confirmed by Jasen Barr ([id number]) on 03/06/2024 2:22:53 PM Referred By: Confirmed By: Jasen Barr
--- NOTE | 2024-03-06 14:29 | Emergency Department Note ---
Impression & Plan Generalized weakness, Sepsis, Acute UTI (urinary tract infection), Presence of indwelling Gerardo catheter, Dehydration ED Provider Note ED Provider Note NAME: RICH MCDONALD AGE:88 SEX: Male : 1935 ARRIVES VIA: EMS INFORMANT: Patient, ED PROVIDER(s): Kerry Puentes DO CHIEF COMPLAINT: Weakness, near syncope HPI: This is an 88-year-old male presents emergency department via EMS with his after a near syncopal event at home. Patient just discharged from [facility] 2 days ago following evaluation and admission there for polytrauma. Patient states yesterday he felt well, however today he felt more weak and fatigued. He stood up out of his chair to walk towards the bathroom while using his walker, was immediately behind him. He states while en route to the bathroom he began to feel more weak and as though his legs were going to give out from under him. states his walking slowed to a standstill and then he slowly started to fall to the floor. She states he fell backwards onto her leg and then slid down her leg onto the floor landing on his buttocks. He was never unconscious and they both deny he struck his head. called a neighbor for help however the 2 of them were unable to successfully get him back up and into a chair again so they called 911. He denies any new prodromal pain, palpitations, worsening shortness of breath, fevers, nausea, or blurred vision. He states he did feel lightheaded while walking. He admits to decreased oral intake since arriving home. He states home health was arranged, and they did not feel he required inpatient rehab at time of discharge. He states he has been taking all of his medications as prescribed including the oxycodone and Flexeril he was discharged on. He did take both of those today as well. states he has been taking them concurrently. states patient's catheter has been in for more than a week and she was hoping he could be seen by urology to have it removed. She states she has been draining it every morning and this morning drain for 450 mL. She states she had not noticed any blood. PAST MEDICAL HISTORY:See Below PAST SURGICAL HISTORY:See Below FAMILY HISTORY:See Below SOCIAL HISTORY:See Below HOME MEDICATIONS:See Below ALLERGIES:See Below VITALS:See Below PHYSICAL EXAMINATION: GENERAL: alert, well appearing, well nourished, no distress, non-toxic EYE EXAM: normal conjunctiva, PERRL and EOM's grossly intact OROPHARYNX: no exudate, no erythema, lips, buccal mucosa, and tongue normal and mucous membranes are very dry LUNGS: Clear to auscultation. Normal chest wall mechanics, no w/r/r HEART: no murmurs, S1 normal and S2 normal CHEST WALL: Areas of resolving ecchymosis noted to the supraclavicular region on the right, dressing from prior chest tube noted to the right lateral chest wall, dressing removed and site well-appearing, a new dressing was placed by myself, additional ecchymosis noted into the right flank ABDOMEN: abdomen soft, non-tender, normo-active bowel sounds, no masses, no rebound or guarding. BACK: Back is symmetrical on inspection and there is no deformity, no midline tenderness, no CVA tenderness. SKIN: no rashes, petechiae, orbruising UPPER EXTREMITIES: upper extremities are grossly normal. FROM, nml pulses b/l. LOWER EXTREMITIES: No pitting edema. FROM, nml pulses b/l. NEURO EXAM: Normal sensorium, cranial nerves II-XII grossly intact, normal speech, no facial droop,nogross weakness of arms, no gross weakness of legs. Gross sensation intact. No ataxia. Vital Signs: reviewed and remarkable Differential Diagnosis: dehydration, anemia, hypoglycemia, hyponatremia, hypernatremia, urinary tract infection, pneumonia, bronchitis, sepsis, gastroenteritis, additional abdominal pathology, metabolic abnormalities, as well as others were considered MEDICAL DECISION MAKING: This is an 88-year-old male presents emergency department via EMS after having increased weakness and lightheaded this this morning trying to walk to the bathroom. Patient with minimal fall having landed on his . I do not suspect other acute injury. Patient never lost consciousness and denied hitting his head. Patient noted to be hypotensive and tachycardic on arrival. He did appear significantly clinically dehydrated. Patient's exam includes areas of resolving ecchymosis and prior incision from chest tube following a recent fall and admission to [facility]. These appear to be slowly improving. Labs drawn and sent, IV established, EKG and chest ray performed at bedside interpreted me and patient monitored on telemetry. After noting leukocytosis blood cultures, procalcitonin, lactic acid added. I did add urine culture additionally due to indwelling Greardo. Patient given IV cefepime after review of prior cultures. Patient's blood pressure improved with IV fluids. While in the emergency room patient did receive a total of 30 mL/KG based on ideal body weight. Patient did confirm he had not been taking his Eliquis since the original fall. Patient noted to have mild anemia compared to prior however I suspect this is secondary to recent trauma. I have a low suspicion for additional or ongoing occult blood loss. Patient noted to have elevated troponin however on repeat this was downtrending. Mild elevation of lactic acid at 2.1, procalcitonin mildly elevated also. Hyponatremia also noted although patient does have a chronic history of hyponatremia. Patient heart rate slowly improved as blood pressure remained stable following further IV fluid rehydration. I suspect his dizziness and weakness today are secondary to hypotension which is due to infection, poor p.o. intake and dehydration, as well as the concurrent use of oxycodone and Flexeril at his advanced age. Patient's blood pressure remains stable with IV fluid hydration. Case discussed with the hospitalist team for additional evaluation and management. Consultation(s): 1545: Discussed with Dr. P[place], [place] hospitalist team, for additional evaluation and mgmt. ER Treatment Provided: See below Diagnostics Interpreted By Me: -ECG: A flutter at 103, leftward axis, normal intervals, nonspecific ST/T wave changes -Cardiac Monitoring: An order was placed for continuous cardiac monitoring. The monitor shows a rate of 112 with a.flutter rhythm. -Laboratory studies: As stated above and show below. -Imaging studies: cxr: Right-sided rib fractures and clavicle fracture again noted, right pleural effusion, no pneumothorax, no cardiomegaly Triage Nursing Note Reviewed Prior/Outside Records Reviewed -discharge summary from 03/04/[address] [facility] Critical Care: Critical care of 48 min performed to assess and manage high likelihood of life-threatening hypotension and sepsis, involving labs and imaging performed with assessment to evaluate hypotension and weakness diagnosis with frequent reassessment. This time includes bedside time, treatment discussions with patient/family/consultants, documentation time and excludes procedure time. Past Med/Surg History Problem List (Updated 03/06/24 @ 22:25 by Kerry S. Pheasant, DO) Dehydration (Acute) Presence of indwelling Gerardo catheter (Acute) Acute UTI (urinary tract infection) (Acute) Sepsis (Acute) Atrial fibrillation Urinary retention Elevated troponin Sepsis Fall Generalized weakness (Acute) Fall from slipping on ice (Acute) HX: anticoagulation (Acute) Hematoma of muscle (Acute) Fracture of transverse process of thoracic vertebra (Acute) Multiple fractures of ribs, right side, initial encounter for closed fracture (Acute) Hemothorax on right (Acute) Chronic anticoagulation Atrial fibrillation, persistent Atrial fibrillation with RVR Tachycardia Recurrent urinary tract infection Fatigue Chronic hyponatremia 10/27/21 Anemia (Chronic) Constipation (Chronic) 10/20/20 Scoliosis Right hip pain 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) Dysuria 10/15/20 Bilateral leg numbness (Acute) 02/09/19 Hyperglycemia (Chronic) Nontoxic multinodular goiter (Chronic) Osteoporosis (Chronic) Paroxysmal atrial fibrillation (Chronic) Unstable angina (Chronic) Hypertension (Chronic) Hyperlipidemia (Chronic) CAD (coronary artery disease) (Chronic) Medical History On anticoagulant therapy History of unstable angina Osteoporosis Neuropathy Nontoxic multinodular goiter Hx of recurrent urinary tract infection Scoliosis Chronic anemia History of Mohs micrographic surgery for skin cancer Hx of basal cell carcinoma Chronic hyponatremia Atrial fibrillation History of cardioversion (04/2021) Coronary artery disease, occlusive Hypercholesterolemia Surgical History Hx of tooth extraction Presence of stent in LAD coronary artery (2015) History of total hip arthroplasty (04/2021) History of coronary artery bypass surgery (2016) Family History Uncle Colorectal cancer Prostate cancer Denies family history of Ovarian cancer Myocardial infarction Breast cancer Social History Smoking Status: Never smoker Second Hand Exposure: No; Do You Dip or Chew Tobacco: No; Hx Alcohol Use: No Hx Substance Use: No Preferred Language: Danish Communication Ability: Effective Twisting Operator Required: No Beliefs That Will Affect Care: None marital status: Current Living Situation: Spouse current occupational status: retired Feels Safe at Home: Yes Childhood Exposure to Second-Hand Smoke: No Dental Care, Regularly: Yes Physical Activity Frequency: Daily Seatbelt Use: always Sunscreen Use: No Assistive Devices: Glasses, Raised Toilet Seat and Walker Allergies Allergies Allergy/AdvReac Type Severity Reaction Status Date / Time Sulfa (Sulfonamide Allergy Intermediate Hives Verified 02/13/24 15:57 Antibiotics) tetracycline Allergy Intermediate Hives Verified 02/13/24 15:57 Home Meds Home Medications Medication Instructions Recorded Confirmed lutein 20 mg capsule 20 mg PO QPM 10/18/18 03/06/24 cholecalciferol (vitamin D3) 50 2,000 units PO QPM 09/02/19 03/06/24 mcg (2,000 unit) capsule docusate sodium 100 mg capsule 200 mg PO QPM 09/02/19 03/06/24 aspirin 81 mg tablet,delayed 81 mg PO PM 03/05/20 03/06/24 release (Marisol Low Dose Aspirin) magnesium oxide 400 mg PO QPM 12/21/20 03/06/24 coQ10 (ubiquinol) 200 mg capsule 200 mg PO QPM 04/11/21 03/06/24 [id number] tablet 1 tab PO QPM 04/11/21 03/06/24 cranberry 500 mg capsule 1,000 mg PO QPM 10/27/21 03/06/24 calcium carbonate (Tums Ultra) 400 mg PO DAILY PRN gerd 03/09/23 03/06/24 nitroglycerin 0.4 mg sublingual 0.4 mg sublingual Q5M PRN CHEST 03/09/23 03/06/24 tablet (Nitrostat) PAIN acetaminophen 500 mg tablet 1,000 mg PO Q6H PRN Pain 03/06/24 03/06/24 (Tylenol Extra Strength) amiodarone 200 mg tablet 200 mg PO QPM 03/06/24 03/06/24 apixaban 5 mg tablet (Eliquis) 5 mg PO UD 03/06/24 03/06/24 atorvastatin 40 mg tablet (Lipitor) 40 mg PO QPM 03/06/24 03/06/24 cyclobenzaprine 5 mg tablet 5 mg PO TID 03/06/24 03/06/24 digoxin 125 mcg (0.125 mg) tablet 250 mcg PO QPM 03/06/24 03/06/24 ezetimibe 10 mg tablet (Zetia) 10 mg PO QPM 03/06/24 03/06/24 furosemide 20 mg tablet (Lasix) 20 mg PO .ON HOLD 03/06/24 03/06/24 gabapentin 1 tab PO TID 03/06/24 03/06/24 metoprolol tartrate 25 mg tablet 25 mg PO QPM atrial fibrillation 03/06/24 03/06/24 nitrofurantoin macrocrystal 50 mg 50 mg PO DAILY PRN HISTORY OF UTI 03/06/24 03/06/24 capsule oxycodone 5 mg tablet 2.5 - 5 mg PO TID PRN Pain 03/06/24 03/06/24 tamsulosin 0.4 mg capsule 0.4 mg PO QPM 03/06/24 03/06/24 Results & Data (ED) Vital Signs Vital Signs - 24 hr 03/06/24 12:43 03/06/24 13:59 03/06/24 14:07 Temperature 36.8 C Temperature Source Temporal Artery Scan Pulse Rate 117 H 100 H 104 H Pulse Rate from SpO2 Sensor Pulse Rhythm Regular Respiratory Rate 22 22 20 Respiratory Effort / Characteristics Non-Labored Respiratory Depth Normal Blood Pressure 93/55 L 97/57 L Blood Pressure Mean 67 70 Pulse Oximetry 94 94 96 Oxygen Delivery Method Room Air Room Air Sepsis Recent Fever Within 48 Hours No Sepsis New/Unexplained Change in Mental Status No Sepsis Action Taken by Nursing No Action Required 03/06/24 14:12 03/06/24 14:30 03/06/24 15:00 Temperature Temperature Source Pulse Rate 104 H 114 H 112 H Pulse Rate from SpO2 Sensor Pulse Rhythm Respiratory Rate 23 17 Respiratory Effort / Characteristics Respiratory Depth Blood Pressure 100/57 L 101/50 L Blood Pressure Mean 62 77 Pulse Oximetry 93 91 Oxygen Delivery Method Sepsis Recent Fever Within 48 Hours Sepsis New/Unexplained Change in Mental Status Sepsis Action Taken by Nursing 03/06/24 15:30 03/06/24 15:47 Temperature Temperature Source Pulse Rate 119 H 117 H Pulse Rate from SpO2 Sensor 119 H Pulse Rhythm Respiratory Rate 22 23 Respiratory Effort / Characteristics Respiratory Depth Blood Pressure 92/56 L 108/59 L Blood Pressure Mean 65 75 Pulse Oximetry 92 Oxygen Delivery Method Sepsis Recent Fever Within 48 Hours Sepsis New/Unexplained Change in Mental Status Sepsis Action Taken by Nursing Laboratory Data 03/06/24 13:14 03/06/24 13:14 Lab Results 03/06/24 03/06/24 03/06/24 Range/Units 13:14 14:26 14:28 WBC 24.43 H (4.8-10.8) K/ul RBC 3.33 L (4.70-6.10) M/uL Hgb 10.6 L (14.0-18.0) g/dl Hct 31.3 L (42.0-52.0) % MCV 94.0 (80.0-100.0) fL MCH 31.8 (25.0-34.0) pg MCHC 33.9 (32.0-36.0) g/dL RDW Std Deviation 51.8 H (36.4-46.3) fL RDW Coeff of Ralph 15.1 H (11.5-14.5) % Plt Count 217 (130-400) K/uL MPV 8.6 L (9.4-12.4) fL Immature Gran % (Auto) 2.2 % Neut % (Auto) 90.2 % Lymph % (Auto) 1.5 % [place] % (Auto) 5.3 % Eos % (Auto) 0.6 % Baso % (Auto) 0.2 % Neut # (Auto) 22.05 H (1.40-6.50) K/uL Lymph # (Auto) 0.36 L (1.20-3.40) K/uL [place] # (Auto) 1.30 H (0.11-0.59) K/uL Eos # (Auto) 0.14 (0.00-0.50) K/uL Baso # (Auto) 0.05 (0.00-0.20) K/uL Immature Gran # (Auto) 0.53 H (0.01-0.20) K/uL Toxic Vacuolation 1+ Sodium 127 L (136-145) mmol/L Potassium 4.4 (3.5-5.1) mmol/L Chloride 94 L (98-107) mmol/L Carbon Dioxide 25 (21-32) mmol/L Anion Gap 8 (3-11) BUN 23 (6-23) mg/dl Creatinine 1.15 (0.6-1.4) mg/dl Est Cr Clr Drug Dosing Not Reportable eGFR 61.60 BUN/Creatinine Ratio 20.0 (10-20) Glucose 150 H (70-99(Fasting)) mg/dl Lactate 2.1 H* (0.4-2.0) mmol/L Calcium 8.4 L (8.6-10.3) mg/dl Magnesium 2.1 (1.7-2.4) mg/dl Total Bilirubin 0.6 (0.2-1.0) mg/dl AST 26 (13-39) U/L ALT 20 (7-52) U/L Alkaline Phosphatase 105 H (34-104) U/L Troponin I High Sens 48.4 H 36.5 H D (0-20) pg/ml Total Protein 5.9 L (6.0-8.3) gm/dl Albumin 3.2 L (3.4-5.0) gm/dl Globulin 2.7 (2.5-4.0) gm/dl Albumin/Globulin Ratio 1.2 (0.9-2) Procalcitonin 0.62 H (0-0.5) ng/ml TSH 6.567 H (0.300-4.500) uIu/ml Free T4 1.57 (0.61-1.60) ng/dl Administered Medications Sodium Chloride (Nss) 1,000 mls @ 80 mls/hr IV .[id number] CHANNING Stop: 03/07/24 16:29 Last Admin: 03/06/24 16:27 Dose: 80 mls/hr Documented By: FRANDY Discontinued Medications Cefepime HCl (Maxipime 2000mg) 2,000 mg in 20 mls @ 5 mls/min IV NOW STA; Protocol Stop: 03/06/24 14:25 Last Admin: 03/06/24 14:31 Dose: 5 mls/min Documented By: ANT Sodium Chloride (Nss) 1,000 mls @ 999 mls/hr IV .Q1H1M ONE Stop: 03/06/24 15:22 Last Infusion: 03/06/24 15:23 Dose: Infused Documented By: Admin: 03/06/24 14:31 Dose: 999 mls/hr Documented By: ANT Sodium Chloride (Nss) 1,000 mls @ 999 mls/hr IV .Q1H1M ONE Stop: 03/06/24 16:30 Last Infusion: 03/06/24 16:26 Dose: Infused Documented By: Admin: 03/06/24 15:46 Dose: 999 mls/hr Documented By: FRANDY Vancomycin HCl 1,500 mg/ (Sodium Chloride) 530 mls @ 200 mls/hr IV NOW ONE Stop: 03/06/24 18:23 Last Infusion: 03/06/24 21:05 Dose: Infused Documented By: Admin: 03/06/24 16:14 Dose: 200 mls/hr Documented By: FRANDY Acetaminophen (Ofirmev) 1,000 mg in 100 mls @ 400 mls/hr IV NOW STA Stop: 03/06/24 16:47 Last Infusion: 03/06/24 17:03 Dose: Infused Documented By: Admin: 03/06/24 16:42 Dose: 400 mls/hr Documented By: FRANDY Imaging Data Radiologist's Impression: Chest X-Ray 03/06/24 12:47 XR chest 1V portable CLINICAL HISTORY: recent broken ribs COMPARISON STUDY: Chest radiograph June 14, 2021. Chest CT February 25, 2024. FINDINGS: Thoracic spine dextroscoliosis is incidentally noted. Subacute minimally displaced distal right clavicular fracture is again noted as well as numerous subacute right-sided rib fractures which were shown on CT of February 25, 2024. A moderate size right pleural effusion is noted. There is associated right basilar opacity. There is no pneumothorax. Linear left basilar densities are present. There are median sternotomy wires. There is no radiographic evidence for pulmonary edema. IMPRESSION: 1. Numerous subacute right-sided rib fractures, as shown on chest CT of February 25, 2024. No pneumothorax. Redemonstration of a right pleural effusion which may represent a hemothorax which was also shown on prior CT. 2. Left basilar opacity which favors atelectasis. 3. Minimally displaced subacute distal right clavicular fracture. ACT 112: Negative or not required by law. Electronically signed by: David Pastor M.D. 03/06/2024 2:47 PM Discharge Plan Visit Data Chief Complaint: Fall ED Provider: Kerry Puentes Discharge Problem: Generalized weakness, Sepsis, Acute UTI (urinary tract infection), Presence of indwelling Gerardo catheter, Dehydration Patient Disposition: Admitted As Inpatient Discharge Instructions Interventions: ED Discharge Assessment Last Done: 03/06/24 21:40
[2024-03-06 14:31] LABS: Magnesium 2.1 mg/dl (1.7-2.4)
[2024-03-06] MEDS: SODIUM CHLORIDE 0.9% 1,000 ML IV ONE ×2 (14:31→15:46)
[2024-03-06] MEDS: CEFEPIME 2000MG 2,000 MG/20 ML SYR IV STA (14:31)
--- NOTE | 2024-03-06 14:49 | XRay Report ---
XR chest 1V portable CLINICAL HISTORY: recent broken ribs COMPARISON STUDY: Chest radiograph June 14, 2021. Chest CT February 25, 2024. FINDINGS: Thoracic spine dextroscoliosis is incidentally noted. Subacute minimally displaced distal r ight clavicular fracture is again noted as well as numerous subacute right-sided rib fractures which were shown on CT of February 25, 2024. A moderate size right pleural effusion is noted. There is asso ciated right basilar opacity. There is no pneumothorax. Linear left basilar densities are present. Th ere are median sternotomy wires. There is no radiographic evidence for pulmonary edema. IMPRESSION: 1. Numerous subacute right-sided rib fractures, as shown on chest CT of February 25, 2024. No pneumot horax. Redemonstration of a right pleural effusion which may represent a hemothorax which was also s hown on prior CT. 2. Left basilar opacity which favors atelectasis. 3. Minimally displaced subacute distal right clavicular fracture. ACT 112: Negative or not required by law. Electronically signed by: David Pastor M.D. 03/06/2024 2:47 PM
[2024-03-06] MEDS ORDERED: VANCOMYCIN CONSULT ACTIVE PRN (15:45)
[2024-03-06] MEDS: VANCOMYCIN HCL 1,500 MG in SODIUM CHLORIDE 0.9% 500 ML IV ONE (16:14)
--- NOTE | 2024-03-06 16:14 | History & Physical Report ---
Date of Service March 06, 2024 Assessment & Plan (1) Sepsis: Plan: Source unknown but suspect urinary source - WBC 24.43, hypotensive (93/55), tachycardic (117), afebrile on admission - leukocytosis with neutrophil predominance and left shift - procal 0.62 - lactate 2.1 -> 1.5 Fluids: Sepsis fluid bolus for ideal body weight = 2100 - Sepsis fluid bolus of 2L NSS given in ED - will give additional 1L NSS gentle resuscitation on admission - no history of CHF - Continue cefepime; will add vancomycin given recent hospitalization and risk for MRSA with numerous IV lines and chest tube placement - Blood and urine cultures pending - UA ordered although suspect contaminated with Wren catheter being placed for 1 week - trend CBC to monitor WBC - add COVID/flu/RSV (2) Generalized weakness: Plan: currently using rollator at baseline after fall noted below suspect secondary to sepsis with possible urinary source above along with polypharmacy with pain medication - covid/flu/rsv ordered - UA ordered - TSH ordered - digoxin level ordered pain medication polypharmacy: patient discharged home from [facility] on oxycodone 5 Mg Q6h, Flexeril 5 mg TID, gabapentin 100 TID, and Tylenol - suspect dizziness and weakness relating to taking all 4 medications together - will discontinue Flexeril - Decreasing gabapentin to 100 BID; plan to titrate during hospitalization and discontinue on discharge - cont oxycodone prn and Tylenol prn - PT/OT consulted - was to have home health PT after recent fall - fall and aspiration precautions (3) Fall: Plan: s/p polytrauma and transfer to [facility] 02/25; discharged 03/03 S/p right chest tube for hemopneumothorax, distal right clavicle fracture, R 3- 11 rib fxs, r T11 transverse process fx mild/debatable fall 1/2 while using rollator; no HS or LOC as per [facility] records holding Eliquis until 03/17; continue to hold Defer head CT as no HS, no neurological symptoms Q4 hour neurochecks overnight fall precautions (4) Hemothorax on right: Plan: s/p fall above wound care daily to right chest wall incentive spirometry (5) Chronic hyponatremia: Plan: chronic hyponatremia not on sodium supplement 127 on admission Suspect acutely worsened due to decreased p.o. intake IV fluid resuscitation with 3L NSS Trend BMP (6) Elevated troponin: Plan: 48.4 -> 36.5 suspect secondary to demand with acute infection and chronic A-fib denies cp trend trop EKG showing afib/flutter, artifact -> will repeat desk monitor on tele (7) Urinary retention: Plan: dx during recent admission at [facility] wren catheter in place and likely contributing to sepsis/urinary infection suspected continue flomax (8) Atrial fibrillation: Plan: previous history of a fib on Eliquis; currently being held after trauma until 03/17 electrolytes stable EKG in ED with artifact and difficult to differentiate A-fib versus a flutter; will repeat Continue to hold Eliquis Continue metoprolol with holding precautions Continue digoxin and amiodarone (9) Anemia: Plan: chronic Hgb 10.6, stable continue to trend CBC (10) Hypertension: Plan: Currently hypotensive with sepsis Recently discontinued Lasix Continue metoprolol with holding precautions Plan Patient is an 88-year-old male who was recently discharged from [facility] 03/03 after polytrauma due to fall; s/p right sided chest tube for hemopneumothorax, distal right clavicular fracture, multiple right sided rib fractures, T11 fracture. He presents today after an increase weakness and a slow fall to the ground. Suspect weakness is due to taking multiple pain medications together along with sepsis; no known source at this time but suspect urinary given Wren catheter placed for 1 week. Chronic stable diagnoses: CAD - s/p stent and CABG - continue ASA and statin VTE ppx: SCDs; Holding Eliquis given recent fall Diet: heart healthy Dispo: PCU Admission and Anticipated Discharge Date Admission Date: 03/06/23 History of Present Illness Chief Complaint: fall Primary Care Provider: Breanna Asif MD Patient is an 88-year-old male with past medical history of A-fib on Eliquis, hypertension, hyperlipidemia, CAD s/p CABG and stent placement, anemia, chronic hyponatremia. He was transferred to [facility] 02/25 after a fall/trauma. He was just discharged from there on Sunday after needing a right chest tube for hemopneumothorax. He also was found to have a right sided clavicle fracture. He had urinary retention while at [facility] and was discharged home on a Wren catheter. The patient presents today after increase in weakness and a "fall "while walking to the bathroom this morning. Patient's stated that the patient has been using a rollator and was getting around slowly today, he slowly fell to the ground, he denies it being a fall but more so slowly sitting down. He did not strike his head or lose consciousness. He has had decreased p.o. intake for the past few days while being home just due to generalized weakness. His has been changing his Wren catheter and stated it produced 450 mL overnight; she has had assistance with home health. Patient has chronic dizziness and lightheadedness and did feel dizzy prior to the fall today, currently dizzy but at baseline. He was to have home health PT/OT to start tomorrow. He was also discharged home on many new pain medications including oxycodone 5 mg, Flexeril, gabapentin 100 3 times daily, and Tylenol. His gave him all of these medications together at 1040 this morning. He denies any new pain after the "fall "today. He took all of his home medications this morning. He does not use oxygen at baseline. He wishes to be full code at this time. He has been holding his Eliquis as noted by Aleida till 03/17. Allergies Allergy/AdvReac Type Severity Reaction Status Date / Time Sulfa (Sulfonamide Allergy Intermediate Hives Verified 02/13/24 15:57 Antibiotics) tetracycline Allergy Intermediate Hives Verified 02/13/24 15:57 Home Medications Medication Instructions Recorded Confirmed Type lutein 20 mg capsule 20 mg PO QPM 10/18/18 03/06/24 History cholecalciferol (vitamin D3) 50 2,000 units PO QPM 09/02/19 03/06/24 History mcg (2,000 unit) capsule docusate sodium 100 mg capsule 200 mg PO QPM 09/02/19 03/06/24 History aspirin 81 mg tablet,delayed 81 mg PO PM 03/05/20 03/06/24 History release (Marisol Low Dose Aspirin) magnesium oxide 400 mg PO QPM 12/21/20 03/06/24 History coQ10 (ubiquinol) 200 mg capsule 200 mg PO QPM 04/11/21 03/06/24 History jkydolzzyujx-oxnwqmqs-cftuff tablet 1 tab PO QPM 04/11/21 03/06/24 History cranberry 500 mg capsule 1,000 mg PO QPM 10/27/21 03/06/24 History calcium carbonate (Tums Ultra) 400 mg PO DAILY PRN gerd 03/09/23 03/06/24 History nitroglycerin 0.4 mg sublingual 0.4 mg sublingual Q5M PRN CHEST 03/09/23 03/06/24 History tablet (Nitrostat) PAIN acetaminophen 500 mg tablet 1,000 mg PO Q6H PRN Pain 03/06/24 03/06/24 History (Tylenol Extra Strength) amiodarone 200 mg tablet 200 mg PO QPM 03/06/24 03/06/24 History apixaban 5 mg tablet (Eliquis) 5 mg PO UD 03/06/24 03/06/24 History atorvastatin 40 mg tablet (Lipitor) 40 mg PO QPM 03/06/24 03/06/24 History cyclobenzaprine 5 mg tablet 5 mg PO TID 03/06/24 03/06/24 History digoxin 125 mcg (0.125 mg) tablet 250 mcg PO QPM 03/06/24 03/06/24 History ezetimibe 10 mg tablet (Zetia) 10 mg PO QPM 03/06/24 03/06/24 History furosemide 20 mg tablet (Lasix) 20 mg PO .ON HOLD 03/06/24 03/06/24 History gabapentin 1 tab PO TID 03/06/24 03/06/24 History metoprolol tartrate 25 mg tablet 25 mg PO QPM atrial fibrillation 03/06/24 03/06/24 History nitrofurantoin macrocrystal 50 mg 50 mg PO DAILY PRN HISTORY OF UTI 03/06/2404/29 History capsule oxycodone 5 mg tablet 2.5 - 5 mg PO TID PRN Pain 03/06/24 03/06/24 History tamsulosin 0.4 mg capsule 0.4 mg PO QPM 03/06/24 03/06/24 History Past Med/Surg History Problem List (Updated 03/06/24 @ 16:29 by Daria Ybarra PA-C) Atrial fibrillation Urinary retention Elevated troponin Sepsis Fall Generalized weakness (Acute) Fall from slipping on ice (Acute) HX: anticoagulation (Acute) Hematoma of muscle (Acute) Fracture of transverse process of thoracic vertebra (Acute) Multiple fractures of ribs, right side, initial encounter for closed fracture (Acute) Hemothorax on right (Acute) Chronic anticoagulation Atrial fibrillation, persistent Atrial fibrillation with RVR Tachycardia Recurrent urinary tract infection Fatigue Chronic hyponatremia 10/27/21 Anemia (Chronic) Constipation (Chronic) 10/20/20 Scoliosis Right hip pain 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) Dysuria 10/15/20 Bilateral leg numbness (Acute) 02/09/19 Hyperglycemia (Chronic) Nontoxic multinodular goiter (Chronic) Osteoporosis (Chronic) Paroxysmal atrial fibrillation (Chronic) Unstable angina (Chronic) Hypertension (Chronic) Hyperlipidemia (Chronic) CAD (coronary artery disease) (Chronic) Medical History On anticoagulant therapy History of unstable angina Osteoporosis Neuropathy Nontoxic multinodular goiter Hx of recurrent urinary tract infection Scoliosis Chronic anemia History of Mohs micrographic surgery for skin cancer Hx of basal cell carcinoma Chronic hyponatremia Atrial fibrillation History of cardioversion (04/2021) Coronary artery disease, occlusive Hypercholesterolemia Surgical History Hx of tooth extraction Presence of stent in LAD coronary artery (2015) History of total hip arthroplasty (04/2021) History of coronary artery bypass surgery (2016) Family History Uncle Colorectal cancer Prostate cancer Denies family history of Ovarian cancer Myocardial infarction Breast cancer Social History Smoking Status: Never smoker Second Hand Exposure: No; Do You Dip or Chew Tobacco: No; Hx Alcohol Use: No Hx Substance Use: No Preferred Language: [place] Citizen Communication Ability: Effective Java Integration Developer Required: No Beliefs That Will Affect Care: None marital status: Current Living Situation: Spouse current occupational status: retired Feels Safe at Home: Yes Childhood Exposure to Second-Hand Smoke: No Dental Care, Regularly: Yes Physical Activity Frequency: Daily Seatbelt Use: always Sunscreen Use: No Assistive Devices: Other Review of Systems Review of Systems: see HPI Physical Exam Physical Exam: The patient is awake, alert and oriented 3, well developed and well nourished, normocephalic and atraumatic, in no acute distress. Non-toxic appearing. HEENT- EOMI, mucous membranes dry. Hearing grossly intact. Heart-normal S1 and S2. No murmurs, rubs or gallops. Lungs-clear bilaterally, no respiratory distress, no accessory muscle use. Ecchymosis to right clavicle. Clean healing wound from right chest tube. Abdomen-normal bowel sounds and soft. No ascites noted. Non-tender. Extremities- no clubbing, cyanosis, or edema. Rheumatologic-decreased range of motion. Psychiatric-normal affect. Results & Data Results & Data Vital Signs (Past 12 Hours) Vital Signs Temp Pulse Resp BP Pulse Ox O2 Del Method 03/06/24 15:30 119 H 22 92/56 L 03/06/24 15:00 112 H 17 101/50 L 91 03/06/24 14:30 114 H 23 100/57 L 93 03/06/24 14:12 104 H 03/06/24 14:07 104 H 20 96 Room Air 03/06/24 13:59 100 H 22 97/57 L 94 03/06/24 12:43 36.8 C 117 H 22 93/55 L 94 Room Air Laboratory Results reviewed CBC, CMP, troponin, lactate, magnesium Diagnostic Findings reviewed CXR Medications Administered ED: 2L NSS, cefepime 2g ECG Additional Comments: read as a flutter although artifact and possibly A-fib Code Status & VTE Plan Code Status full VTE Prophylaxis Plan VTE Prophylaxis will be ordered: Yes Supervising Physician Co-Signing Physician Notes I have personally seen, evaluated and examined the patient. I have also personally discussed the management of the patient with the resident physician/PAULINO and I agree with the exam findings documented in the history and physical examination and the documented assessment and plan unless otherwise stated below. Brief Exam: In general is a pleasant 88-year-old male who is accompanied by his at the time my exam he interacts appropriately and pleasantly. HEENT: Normocephalic atraumatic. Oral mucosa is pink and dry on exam. Torso: Has got a lot of ecchymoses in the shoulder region and right flank region. This is from his recent trauma please refer to the above. Heart: Irregular rate and rhythm consistent with atrial fibrillation. Heart rates around 95 bpm at the time of my exam. I do not appreciate any katia murmur. Lungs: Diminished right lower lung lopez secondary to trauma and pleural effusion. But essentially clear. No adventitious sounds. Abdomen: Soft and nontender. Wren catheter noted. Urinalysis pending at the time my evaluation. Neurologically: Alert and oriented x 3. No focal deficit. Assessment/plan: As discussed above. Due to his recent hospitalization and clinical sepsis here we will treat him with vancomycin and cefepime. Panculture the patient. COVID and influenza testing are pending. Monitor carefully on telemetry. Please refer to orders for further planning. PG Care Time/CCT Total # of Minutes Spent Total Time Spent with Patient: Total time spent is greater than 50% in coordination of care (as documented) at patient's floor/unit and/or counseling patient: Coding Level of Care Code 24327 INT INP/OBS CARE 375MIN Diagnoses Sepsis A41.9 Generalized weakness R53.1 Fall W19.XXXA Hemothorax on right J94.2 Chronic hyponatremia E87.1 Elevated troponin R79.89 Urinary retention R33.9 Atrial fibrillation I48.91 Anemia D64.9 Hypertension, unspecified type I10 Hypertension type: unspecified (10) Hypertension Hypertension type: unspecified Qualified Code(s): I10 - Essential (primary) hypertension
[2024-03-06] MEDS: SODIUM CHLORIDE 0.9% 1,000 ML IV SCH (16:27)
[2024-03-06] MEDS: ACETAMINOPHEN 1,000 MG/100 ML VIAL IV STA (16:42)
[2024-03-06 17:10] LABS: Thyroid Stimulating Hormone 6.567 uIu/ml (0.300-4.500)
[2024-03-06 17:43] LABS: T4 Free Thyroxine 1.57 ng/dl (0.61-1.60)
[2024-03-06 18:20] LABS: Influenza A virus by PCR Negative (Neg); Influenza B virus by PCR Negative (Neg); RSV by PCR Negative (Neg); SARS CoV2 RNA(COVID-19) Ceph NEGATIVE (Negative)
--- NOTE | 2024-03-06 19:03 | Pharmacy Report ---
Pharmacy PK ABX Note - Date of Service March 06, 2024 - Assessment and Plan Assessment * 88 year old M receiving cefepime and vancomycin for treatment of sepsis. Possible urinary source, although notable recent hospitalization w numerous IV lines and chest tube placement also considered as possible sources. WBC 24.43, hypotensive (93/55), tachycardic (117), afebrile on admission * Pertinent microbiologic data includes: blood and urine cultures pending * SCr may be slightly elevated from baseline Vancomycin * Will dose via level for now, but may consider scheduling vancomycin tomorrow pending SCr/vanco level assessment * Target AUC/ELISE of 400-600 mg/L.hr (when SCr at baseline / scheduling vanco) Plan * Vancomycin 1500 mg IV already administered * Random level with AM labs tomorrow Pharmacy will continue to follow and will adjust dose/frequency as necessary. Thank you. Pharmacy has transitioned to AUC monitoring for vancomycin. AUC/ELISE is the preferred PK/PD target and is associated with decreased risk of nephrotoxicity compared to traditional trough targets.
[2024-03-06 20:35] LABS: Appearance Urine Turbid (Clear); Bacteria Urine Automated 2+ (None Seen); Bilirubin Urine Negative (Negative); Blood Urine 2+ (Negative); Color Urine Dark Yellow; Epithelial Cell Urine Auto 0-2 /hpf (0-2); Glucose Urine UA Negative (Negative); Ketones Urine 1+ (Negative); Leukocyte Esterase Urine 3+ (Negative); Nitrite Urine Negative (Negative); Protein Urine 2+ (Negative); RBC Urine Automated >20 /hpf (0-2); Specific Gravity Urine 1.028 (1.000-1.030); Urobilinogen Urine Negative (Negative); WBC Urine Automated >50 /hpf (0-5); pH Urine 5.5 (4.5-7.5)
[2024-03-06] MEDS ORDERED: ONDANSETRON INJ 2 MG/ML 2 ML VIAL IV PRN (22:09)
[2024-03-06] MEDS ORDERED: CALCIUM CARBONATE 500 MG CHEWABLE TAB PO PRN (22:26)
[2024-03-06] MEDS: EZETIMIBE 10 MG TAB PO SCH (23:14)
[2024-03-06] MEDS: ASPIRIN 81 MG ECTAB PO SCH (23:14)
[2024-03-06] MEDS: GABAPENTIN 100 MG CAP PO SCH (23:15)
[2024-03-06] MEDS: ATORVASTATIN 40 MG TAB PO SCH (23:15)
[2024-03-06] MEDS: AMIODARONE 200 MG TAB PO SCH (23:15)
[2024-03-06] MEDS: DIGOXIN 0.25 MG TAB PO SCH (23:15)
[2024-03-06] MEDS: CHOLECALCIFEROL 25 MCG (1000 UNITS) TAB PO SCH (23:15)
[2024-03-06] MEDS: TAMSULOSIN HCL 0.4 MG CAP PO SCH (23:16)
[2024-03-06] MEDS: MAGNESIUM OXIDE 400 MG TAB PO SCH (23:16)
[2024-03-06] MEDS: METOPROLOL TARTRATE 25 MG TAB PO SCH (23:16)
[2024-03-07 01:56] LABS: Appearance Urine Turbid (Clear); Bacteria Urine Automated 3+ (None Seen); Bilirubin Urine Negative (Negative); Blood Urine 2+ (Negative); Color Urine Yellow; Epithelial Cell Urine Auto 0-2 /hpf (0-2); Glucose Urine UA Negative (Negative); Ketones Urine Trace (Negative); Leukocyte Esterase Urine 3+ (Negative); Mucus Urine Present (None Prsent); Nitrite Urine Positive (Negative); Protein Urine 2+ (Negative); RBC Urine Automated >20 /hpf (0-2); Specific Gravity Urine 1.029 (1.000-1.030); Urobilinogen Urine Negative (Negative); WBC Urine Automated >50 /hpf (0-5)
[2024-03-07] MEDS: CEFEPIME 2000MG 2,000 MG/20 ML SYR IV SCH (02:09)
[2024-03-07 04:10] LABS: Hematocrit (blood only) 25.2 % (42.0-52.0); Hemoglobin 8.6 g/dl (14.0-18.0); Mean Corpuscular Hemoglobin 31.6 pg (25.0-34.0); Mean Corpuscular Hgb Conc 34.1 g/dL (32.0-36.0); Mean Corpuscular Volume 92.6 fL (80.0-100.0); Mean Platelet Volume 8.7 fL (9.4-12.4); Platelet Count 202 K/uL (130-400); RDW Coefficient of Variation 14.7 % (11.5-14.5); RDW Standard Deviation 49.7 fL (36.4-46.3); Red Blood Count 2.72 M/uL (4.70-6.10); White Blood Count 23.08 K/ul (4.8-10.8)
[2024-03-07 04:24] LABS: BUN Creatinine Ratio 26.7 (10-20); Calcium 7.3 mg/dl (8.6-10.3); Creatinine Clr Calc Pharmacy 58.5 ml/min; Magnesium 1.9 mg/dl (1.7-2.4)
[2024-03-07 04:30] LABS: Basophils # (auto) 0.04 K/uL (0.00-0.20); Basophils % (auto) 0.2 %; Dohle Bodies 1+; Eosinophils # (auto) 0.11 K/uL (0.00-0.50); Eosinophils % (auto) 0.5 %; Immature Granulocytes # (auto) 0.79 K/uL (0.01-0.20); Immature Granulocytes % (auto) 3.4 %; Lymphocytes # (auto) 0.44 K/uL (1.20-3.40); Lymphocytes % (auto) 1.9 %; Monocytes # (auto) 1.43 K/uL (0.11-0.59); Monocytes % (auto) 6.2 %; Neutrophils # (auto) 20.27 K/uL (1.40-6.50); Neutrophils % (auto) 87.8 %; Polychromasia 1+
--- NOTE | 2024-03-07 07:35 | Pharmacy Report ---
Pharmacy PK ABX Note - Date of Service March 07, 2024 - Assessment and Plan Assessment * 88 year old M receiving cefepime and vancomycin for treatment of sepsis. Possible urinary source, although notable recent hospitalization w numerous IV lines and chest tube placement also considered as possible sources. WBC 24.43, hypotensive (93/55), tachycardic (117), afebrile on admission * Pertinent microbiologic data includes: blood and urine cultures pending * SCr was slightly elevated from baseline on admission yesterday, but back to ~ baseline today Vancomycin * Will schedule vancomycin now that SCr at/near baseline * Target AUC/ELISE of 400-600 mg/L.hr Plan * Vancomycin 1000 mg IV q12h * Random level with AM labs 03/09 Pharmacy will continue to follow and will adjust dose/frequency as necessary. Thank you. Pharmacy has transitioned to AUC monitoring for vancomycin. AUC/ELISE is the preferred PK/PD target and is associated with decreased risk of nephrotoxicity compared to traditional trough targets.
[2024-03-07] MEDS: VANCOMYCIN HCL 1,000 MG/270 ML BAG IV SCH (09:35)
--- NOTE | 2024-03-07 13:04 | Hospitalist Progress Note ---
Date of Service March 07, 2024 Assessment & Plan (1) Sepsis: Plan: Source Urinary tract infection, Wren catheter - WBC 24.43, hypotensive (93/55), tachycardic (117), afebrile on admission - leukocytosis with neutrophil predominance and left shift - procal 0.62 - lactate 2.1 -> 1.5 - Urine culture: Pseudomonas - Blood culture negative for 24 hrs - Continue IV NSS 80 ml/hr - Bolus 500 ml given today due to hypotension - Continue Cefepime and Vancomycin until finalization of cultures- High risk for MRSA due to recent hospitalization and chest tube - - Will do a voiding trial with change of Wren before placing the new one. Plan to do it Sunday - trend CBC (2) Generalized weakness: Plan: currently using rollator at baseline after fall noted below suspect secondary to sepsis with possible urinary source above along with polypharmacy with pain medication TSH: 6.56 T4: 1.57 - digoxin level ordered - Polypharmacy: patient discharged home from [facility] on oxycodone 5 Mg Q6h, Flexeril 5 mg TID, gabapentin 100 TID, and Tylenol - suspect dizziness and weakness relating to taking all 4 medications together - will discontinue Flexeril - Decreasing gabapentin to 100 BID; plan to titrate during hospitalization and discontinue on discharge - cont oxycodone prn and Tylenol prn - PT/ OT (3) Fall: Plan: s/p polytrauma and transfer to [facility] 02/25; discharged 03/03 S/p right chest tube for hemopneumothorax, distal right clavicle fracture, R 3- 11 rib fxs, r T11 transverse process fx mild/debatable fall / while using rollator; no HS or LOC as per [facility] records holding Eliquis until 03/17; continue to hold Defer head CT as no HS, no neurological symptoms Q4 hour neurochecks overnight fall precautions (4) Hemothorax on right: Plan: s/p fall above wound care daily to right chest wall incentive spirometry (5) Chronic hyponatremia: Plan: chronic hyponatremia not on sodium supplement 127 on admission Suspect acutely worsened due to decreased p.o. intake Trend BMP (6) Elevated troponin: Plan: Peaked at 74 suspect secondary to demand with acute infection and chronic A-fib denies cp monitor on tele (7) Urinary retention: Plan: dx during recent admission at [facility] wren catheter in place and likely contributing to sepsis/urinary infection suspected continue flomax - Will do a voiding trial with change of Wren before placing the new one. Plan to do it Sunday (8) Atrial fibrillation: Plan: previous history of a fib on Eliquis; currently being held after trauma until 03/17 electrolytes stable EKG in ED with artifact and difficult to differentiate A-fib versus a flutter; will repeat Continue to hold Eliquis Continue metoprolol with holding precautions Continue digoxin and amiodarone (9) Anemia: Plan: chronic Hgb 10.6, stable continue to trend CBC (10) Hypertension: Plan: Currently hypotensive with sepsis Recently discontinued Lasix Continue metoprolol with holding precautions Plan Chronic stable diagnoses: CAD - s/p stent and CABG - continue ASA and statin FEN: HH Code status: full code DVT ppx: SCDs holding Eliquis PT/OT Dispo: PCU Admission and Anticipated Discharge Date Admission Date: March 06, 2024 Supervising Physician Co-Signing Physician Notes I personally examined the patient and verified all granados points of history and exam, discussed case, and agree with decision making with Dr Bi Herrera Feeling better overall. Was able to walk around some. Updated patient and to the best my ability and answered all questions to their satisfaction. Vitals noted, in general he is awake and alert fatigued but appears to be in no distress. HEENT normocephalic atraumatic mucous membranes moist. Breathing unlabored no accessory muscle use good effort. Skin without rashes pallor or i cterus. Neuro without focal deficits. Sepsisactually working towards severe sepsis septic shock due to pseudomonal urinary tract infection related to indwelling Wren catheter present on admissio nfortunately improving. Continue current antibiotics and supportive care. myocardial demand ischemia - due to above. mild. Off of anticoagulation due to recent hemothorax, DVT prophylaxis with SCDs and ambulation Subjective Seen this morning, Found alert and oriented, in NAD. Having breakfast comfortable. Refers pain is control. Denied any SOB, chills, diarrhea or abdominal pain. Ambulated in the afternoon, tolerated well. Review of Systems Review of Systems: as per HPI Physical Exam Constitutional: WD/WN, vitals as above no acute distress ENMT: external ear and nose normal, oropharynx normal Respiratory: normal respiratory effort, lungs clear to auscultation Cardiovascular: RRR, no murmur, no edema Gastrointestinal (Abdomen): normal bowel sounds, soft, nontender, no hepatosplenomegaly Skin: Echymosis on clavicle Chest wound: clean, no drainage, no redness Results & Data Results & Data Vital Signs (Past 12 Hours) Vital Signs Temp Pulse Pulse Resp BP Pulse Ox O2 Del Method 03/07/24 11:41 36.8 C 108 H 18 102/59 L 95 Room Air 03/07/24 10:03 Room Air 03/07/24 08:12 37.5 C 112 H 20 122/70 92 Room Air 03/07/24 08:00 100 H 03/07/24 02:18 37.1 C 105 H 16 106/63 92 Room Air Resident Activity Tracking Resident Involvement: Resident Care Provided Care Provided: Adult Hospital Medicine (10) Hypertension Hypertension type: unspecified Qualified Code(s): I10 - Essential (primary) hypertension
--- NOTE | 2024-03-07 15:03 | Electrocardiogram Report ---
Test Reason : Blood Pressure : */* mmHG Vent. Rate : 107 BPM Atrial Rate : 214 BPM P-R Int : * ms QRS Dur : 102 ms QT Int : 342 ms P-R-T Axes : 257 -39 115 degrees QTcB Int : 456 ms Atrial flutter with variable A-V block Left axis deviation Incomplete right bundle branch block Nonspecific ST and T wave abnormality Abnormal ECG When compared with ECG of 06-Mar-2024 13:13, Inverted T waves have replaced nonspecific T wave abnormality in Lateral leads Confirmed by Jasen Barr ([id number]) on 03/07/2024 3:02:33 PM Referred By: REFERRED SELF Confirmed By: Jasen Barr
[2024-03-07] MEDS: SODIUM CHLORIDE 0.9% 500 ML IV ONE (17:38)
--- NOTE | 2024-03-07 17:39 | Billing Data ---
Date of Service March 07, 2024 Coding Level of Care Code 90339 SUB INP/OBS CARE
[2024-03-08 07:55] LABS: Basophils # (auto) 0.04 K/uL (0.00-0.20); Basophils % (auto) 0.2 %; Eosinophils # (auto) 0.21 K/uL (0.00-0.50); Eosinophils % (auto) 1.1 %; Hematocrit (blood only) 24.7 % (42.0-52.0); Hemoglobin 8.4 g/dl (14.0-18.0); Immature Granulocytes # (auto) 0.18 K/uL (0.01-0.20); Immature Granulocytes % (auto) 0.9 %; Lymphocytes # (auto) 0.77 K/uL (1.20-3.40); Mean Corpuscular Hemoglobin 31.6 pg (25.0-34.0); Mean Corpuscular Volume 92.9 fL (80.0-100.0); Mean Platelet Volume 8.7 fL (9.4-12.4); Monocytes # (auto) 1.28 K/uL (0.11-0.59); Monocytes % (auto) 6.6 %; Neutrophils # (auto) 16.78 K/uL (1.40-6.50); Neutrophils % (auto) 87.2 %; Platelet Count 214 K/uL (130-400); RDW Coefficient of Variation 15.2 % (11.5-14.5); RDW Standard Deviation 51.1 fL (36.4-46.3); Red Blood Count 2.66 M/uL (4.70-6.10); White Blood Count 19.26 K/ul (4.8-10.8)
[2024-03-08 08:30] LABS: Albumin Level 2.4 gm/dl (3.4-5.0); BUN Creatinine Ratio 26.1 (10-20); Bilirubin,Total 0.5 mg/dl (0.2-1.0); Calcium 7.1 mg/dl (8.6-10.3); Globulin 2.4 gm/dl (2.5-4.0); Potassium 3.7 mmol/L (3.5-5.1); Total Protein 4.8 gm/dl (6.0-8.3)
--- NOTE | 2024-03-08 09:39 | Hospitalist Progress Note ---
Date of Service March 08, 2024 Assessment & Plan (1) Sepsis: Plan: Catheter- associated UTI - WBC 24.43, hypotensive (93/55), tachycardic (117), afebrile on admission - leukocytosis trending down - procal 0.62 - lactate 2.1 -> 1.5 - Urine culture: Pseudomonas x2 - Blood culture negative for 48 hrs - d/c IV NSS - patient normotensive now - D/C Vancomycin - Continue Cefepime - - Will do a voiding trial with change of Wren today before placing the new one - CBC AM (2) Generalized weakness: Plan: currently using rollator at baseline after fall noted below suspect secondary to sepsis with possible urinary source above along with polypharmacy with pain medication TSH: 6.56 T4: 1.57 - digoxin: 0.7 - Polypharmacy: patient discharged home from [facility] on oxycodone 5 Mg Q6h, Flexeril 5 mg TID, gabapentin 100 TID, and Tylenol - suspect dizziness and weakness relating to taking all 4 medications together - will discontinue Flexeril - Decreasing gabapentin to 100 BID; plan to titrate during hospitalization and discontinue on discharge - cont oxycodone prn and Tylenol prn - PT/ OT - Would benefit from rehab -Encourage ambulation (3) Fall: Plan: s/p polytrauma and transfer to [facility] 02/25; discharged 03/03 S/p right chest tube for hemopneumothorax, distal right clavicle fracture, R 3- 11 rib fxs, r T11 transverse process fx mild/debatable fall / while using rollator; no HS or LOC as per [facility] records holding Eliquis until 03/17; continue to hold Defer head CT as no HS, no neurological symptoms Q4 hour neurochecks overnight fall precautions (4) Hemothorax on right: Plan: s/p fall above wound care daily to right chest wall incentive spirometry (5) Chronic hyponatremia: Plan: chronic hyponatremia not on sodium supplement 127 on admission Suspect acutely worsened due to decreased p.o. intake Trend BMP (6) Elevated troponin: Plan: Peaked at 74 suspect secondary to demand with acute infection and chronic A-fib denies cp monitor on tele (7) Urinary retention: Plan: dx during recent admission at [facility] wren catheter in place and likely contributing to sepsis/urinary infection suspected continue flomax - Will do a voiding trial with change of Wren before placing the new one. Plan to do it Sunday (8) Atrial fibrillation: Plan: previous history of a fib on Eliquis; currently being held after trauma until 03/17 electrolytes stable EKG in ED with artifact and difficult to differentiate A-fib versus a flutter; will repeat Continue to hold Eliquis Continue metoprolol with holding precautions Continue digoxin and amiodarone (9) Anemia: Plan: chronic Hgb 8.4 , stable continue to trend CBC (10) Hypertension: Plan: Recently discontinued Lasix Continue metoprolol with holding precautions Plan Chronic stable diagnoses: CAD - s/p stent and CABG - continue ASA and statin FEN: Code status: full code DVT ppx: SCDs holding Eliquis PT/OT Dispo: PCU Admission and Anticipated Discharge Date Admission Date: March 06, 2024 Supervising Physician Co-Signing Physician Notes I personally examined the patient and verified all granados points of history and exam, discussed case, and agree with decision making with Dr Bi Herrera Feeling better overall. Out of bed. Did have some bleeding from chest tube sitebut notes this is not a lot different than what been going onnot concerning to him. Whenever I saw him his catheter had been removed for 2-3 hours and he had not yet voidedlater updated by nursing that he did void successfully. Vitals noted, in general he is awake and alert fatigued but appe ars to be in no distress. HEENT normocephalic atraumatic mucous membranes moist. Breathing unlabored no accessory muscle use good effort. Skin without rashes pallor or icterus. Neuro without focal deficits. Sepsisactually working towards severe sepsis septic shock due to pseudomonal urinary tract infection related to indwelling Wren catheter present on admissionfortunately improving. Continue current antibiotics and supportive care. Catheter has been removedand looks like we will not need to replace it Tachycardia/A-fibinitially appears to have been a reflexive tachycardia due to his sepsisas the sepsis is resolving and the tachycardia staying the same, we may reach a point where we need to manage it as more of an RVR pathophysiologyfor now continue to treat the sepsis and follow given that he is overall improving and is asymptomatic. myocardial demand ischemia - due to above. mild. Off of anticoagulation due to recent hemothorax, DVT prophylaxis with SCDs and ambulation Subjective Seen this morning. Found awake and oriented. Refers having breakfast ok. Pain is control worsen with movements. Eating well. Walked outside of the room yesterday. BP improving. Urine culture growing pseudomonas. Want to do a voiding trial Review of Systems Review of Systems: as per HPI Physical Exam Constitutional: WD/WN, vitals as above no acute distress ENMT: external ear and nose normal, oropharynx normal Respiratory: normal respiratory effort, lungs clear to auscultation Cardiovascular: RRR, no murmur, no edema Gastrointestinal (Abdomen): normal bowel sounds, soft, nontender, no hepatosplenomegaly Results & Data Results & Data Vital Signs (Past 12 Hours) Vital Signs Temp Pulse Pulse Resp BP Pulse Ox O2 Del Method 03/08/24 07:54 36.7 C 107 H 18 137/79 92 Room Air 03/08/24 02:59 37.1 C 107 H 18 120/71 93 Room Air 03/07/24 23:00 108 H 03/07/24 22:51 37.1 C 102 H 18 105/61 95 Room Air 03/07/24 22:09 O2 Del Method 03/08/24 07:54 03/08/24 02:59 03/07/24 23:00 03/07/24 22:51 03/07/24 22:09 Room Air Resident Activity Tracking Resident Involvement: Resident Care Provided Care Provided: Adult Hospital Medicine (10) Hypertension Hypertension type: unspecified Qualified Code(s): I10 - Essential (primary) hypertension
[2024-03-08] MEDS: ACETAMINOPHEN 325 MG TAB PO PRN (12:03)
[2024-03-08] MEDS: CEFEPIME 2000MG 2,000 MG/20 ML SYR IV SCH (12:03)
[2024-03-08] MEDS: oxyCODONE HCL IR 5 MG TAB (IMMEDIATE RELEASE) PO PRN (12:03)
--- NOTE | 2024-03-08 17:52 | Billing Data ---
Date of Service March 08, 2024 Coding Level of Care Code 62845 SUB INP/OBS CARE
[2024-03-09 06:59] LABS: Basophils # (auto) 0.03 K/uL (0.00-0.20); Basophils % (auto) 0.3 %; Eosinophils # (auto) 0.36 K/uL (0.00-0.50); Eosinophils % (auto) 3.2 %; Immature Granulocytes # (auto) 0.13 K/uL (0.01-0.20); Immature Granulocytes % (auto) 1.2 %; Lymphocytes # (auto) 0.73 K/uL (1.20-3.40); Lymphocytes % (auto) 6.5 %; Mean Corpuscular Hemoglobin 31.1 pg (25.0-34.0); Mean Corpuscular Hgb Conc 33.3 g/dL (32.0-36.0); Mean Corpuscular Volume 93.4 fL (80.0-100.0); Mean Platelet Volume 8.6 fL (9.4-12.4); Monocytes # (auto) 0.82 K/uL (0.11-0.59); Monocytes % (auto) 7.3 %; Neutrophils # (auto) 9.18 K/uL (1.40-6.50); Neutrophils % (auto) 81.5 %; Platelet Count 246 K/uL (130-400); RDW Standard Deviation 51.4 fL (36.4-46.3); Red Blood Count 2.89 M/uL (4.70-6.10); White Blood Count 11.25 K/ul (4.8-10.8)
[2024-03-09 07:36] LABS: BUN Creatinine Ratio 23.8 (10-20); Calcium 7.3 mg/dl (8.6-10.3); Creatinine Clr Calc Pharmacy 79.9 ml/min
[2024-03-09] MEDS ORDERED: VANCOMYCIN LEVEL ONE (08:30)
--- NOTE | 2024-03-09 11:10 | Hospitalist Progress Note ---
Date of Service March 09, 2024 Assessment & Plan (1) Sepsis: Plan: Catheter- associated UTI - WBC 24.43, hypotensive (93/55), tachycardic (117), afebrile on admission - leukocytosis trending down - Urine culture: Pseudomonas x2 - Blood culture negative - d/c IV NSS - patient normotensive now - D/C Vancomycin - Continue Cefepime - Patient voided spontaneously yesterday, no need to place another Wren catheter. - CBC AM (2) Generalized weakness: Plan: currently using rollator at baseline after fall noted below suspect secondary to sepsis with possible urinary source above along with p olypharmacy with pain medication TSH: 6.56 T4: 1.57 - digoxin: 0.7 - Polypharmacy: patient discharged home from [place] on oxycodone 5 Mg Q6h, Flexeril 5 mg TID, gabapentin 100 TID, and Tylenol - suspect dizziness and weakness relating to taking all 4 medications together - will discontinue Flexeril - Decreasing gabapentin to 100 BID - cont oxycodone prn and Tylenol prn - PT/ OT - Would benefit from rehab -Encourage ambulation (3) Fall: Plan: s/p polytrauma and transfer to [place] 02/25; discharged 03/03 S/p right chest tube for hemopneumothorax, distal right clavicle fracture, R 3- 11 rib fxs, r T11 transverse process fx mild/debatable fall 1/2 while using rollator; no HS or LOC as per [facility] records holding Eliquis until 03/17; continue to hold Defer head CT as no HS, no neurological symptoms fall precautions (4) Hemothorax on right: Plan: s/p fall above wound care daily to right chest wall incentive spirometry (5) Chronic hyponatremia: Plan: chronic hyponatremia not on sodium supplement 127 on admission Suspect acutely worsened due to decreased p.o. intake Trend BMP (6) Elevated troponin: Plan: Peaked at 74 suspect secondary to demand with acute infection and chronic A-fib denies cp monitor on tele (7) Urinary retention: Plan: dx during recent admission at [facility] wren catheter in place and likely contributing to sepsis/urinary infection suspected continue flomax - Will do a voiding trial with change of Wren before placing the new one. Plan to do it Sunday (8) Atrial fibrillation: Plan: previous history of a fib on Eliquis; currently being held after trauma until 03/17 electrolytes stable EKG in ED with artifact and difficult to differentiate A-fib versus a flutter; will repeat Continue to hold Eliquis Continue metoprolol with holding precautions Continue digoxin and amiodarone (9) Anemia: Plan: chronic Hgb 8.4 , stable continue to trend CBC (10) Hypertension: Plan: Recently discontinued Lasix Continue metoprolol with holding precautions Plan Chronic stable diagnoses: CAD - s/p stent and CABG - continue ASA and statin FEN: Code status: full code DVT ppx: SCDs holding Eliquis PT/OT Dispo: PCU Admission and Anticipated Discharge Date Admission Date: March 06, 2024 Supervising Physician Co-Signing Physician Notes I personally examined the patient and verified all granados points of history and exam, discussed case, and agree with decision making with Dr Bi Herrera Continues to feel better. Voiding well. Improving in strength, no new complaints. Vitals noted, in general he is awake and alert fatigued but appears to be in no distress. HEENT normocephalic atraumatic mucous membranes moist. Breathing unlabored no accessory muscle use good effort. Skin without rashes pallor or icterus. Neuro without focal deficits. Sepsisactually working towards severe sepsis septic shock due to pseudomonal urinary tract infection related to indwelling Wren catheter present on admissionfortunately improving. Continue current antibiotics and supportive care. Catheter has been removedand looks like we will not need to replace it (voiding well on his own). As he continues to get better, while he is in the hospital we will utilize cefepime. At discharge we will likely need to transition to a p.o. margaret quinolone Tachycardia/A-fibinitially appears to have been a reflexive tachycardia due to his sepsis and while there was concern yesterday that he may remain tachycardic from RVR, his heart rate is starting to come down. myocardial demand ischemia - due to above. mild. Off of anticoagulation due to recent hemothorax, DVT prophylaxis with SCDs and ambulation DispoPT/OT eval and treat. assessment today suggest that he would probably benefit from rehab Subjective Seen this morning. Found awake and oriented. Pain is somewhat control. Patient voided sponatenously yesterday. No need for new wren. Denied any palpitations. Motivated for PT Review of Systems Review of Systems: as per HPI Physical Exam Constitutional: WD/WN, vitals as above no acute distress ENMT: external ear and nose normal, oropharynx normal Respiratory: normal respiratory effort, lungs clear to auscultation Cardiovascular: RRR, no murmur, no edema Gastrointestinal (Abdomen): normal bowel sounds, soft, nontender, no hepatosplenomegaly Results & Data Results & Data Vital Signs (Past 12 Hours) Vital Signs Temp Pulse Pulse Resp BP Pulse Ox O2 Del Method 03/09/24 08:00 36.9 C 100 H 18 140/79 97 Room Air 03/09/24 04:37 37 C 96 H 20 133/84 98 Room Air 03/09/24 00:27 36.6 C 99 H 20 134/78 94 Room Air 03/08/24 23:21 102 H Resident Activity Tracking Resident Involvement: Resident Care Provided Care Provided: Adult Hospital Medicine (10) Hypertension Hypertension type: unspecified Qualified Code(s): I10 - Essential (primary) hypertension
--- NOTE | 2024-03-09 17:18 | Billing Data ---
Date of Service March 09, 2024 Coding Level of Care Code 14028 SUB INP/OBS CARE MIN
--- NOTE | 2024-03-10 07:13 | Hospitalist Progress Note ---
Date of Service March 10, 2024 Assessment & Plan (1) Sepsis: Plan: Catheter- associated UTI - WBC 24.43, hypotensive (93/55), tachycardic (117), afebrile on admission - leukocytosis - resolved - Urine culture: Pseudomonas x2 - Blood culture negative - d/c IV NSS - patient normotensive now - D/C Vancomycin - Continue Cefepime - - Patient voided spontaneously yesterday, no need to place another Wren catheter - CBC AM (2) Generalized weakness: Plan: currently using rollator at baseline after fall noted below suspect secondary to sepsis with possible urinary source above along with quirino ypharmacy with pain medication TSH: 6.56 T4: 1.57 - digoxin: 0.7 - Polypharmacy: patient discharged home from [facility] on oxycodone 5 Mg Q6h, Flexeril 5 mg TID, gabapentin 100 TID, and Tylenol - suspect dizziness and weakness relating to taking all 4 medications together - will discontinue Flexeril - Decreasing gabapentin to 100 once daily today - cont oxycodone prn and Tylenol prn - PT/ OT - Would benefit from rehab - pending placement -Encourage ambulation (3) Fall: Plan: s/p polytrauma and transfer to [facility] 02/25; discharged 03/03 S/p right chest tube for hemopneumothorax, distal right clavicle fracture, R 3- 11 rib fxs, r T11 transverse process fx mild/debatable fall 1/2 while using rollator; no HS or LOC as per [facility] records holding Eliquis until 03/17; continue to hold Defer head CT as no HS, no neurological symptoms fall precautions (4) Hemothorax on right: Plan: s/p fall above wound care daily to right chest wall incentive spirometry (5) Chronic hyponatremia: Plan: chronic hyponatremia not on sodium supplement 127 on admission - improving Suspect acutely worsened due to decreased p.o. intake Trend BMP (6) Elevated troponin: Plan: Peaked at 74 suspect secondary to demand with acute infection and chronic A-fib denies cp monitor on tele (7) Urinary retention: Plan: dx during recent admission at [facility] continue flomax Wren discontinue Sunday, patient voided spontaneously (8) Atrial fibrillation: Plan: previous history of a fib on Eliquis; currently being held after trauma until 03/17 electrolytes stable EKG in ED with artifact and difficult to differentiate A-fib versus a flutter; will repeat Continue to hold Eliquis until 03/17 Continue metoprolol with holding precautions Continue digoxin and amiodarone (9) Anemia: Plan: chronic Hgb 8.4 , stable continue to trend CBC (10) Hypertension: Plan: Recently discontinued Lasix Continue metoprolol with holding precautions Plan Chronic stable diagnoses: CAD - s/p stent and CABG - continue ASA and statin FEN: Code status: full code DVT ppx: SCDs holding Eliquis PT/OT Dispo: PCU Admission and Anticipated Discharge Date Admission Date: March 06, 2024 Supervising Physician Co-Signing Physician Notes Attending Physician Supervision Note: I independently interviewed and examined the patient and verified the granados history and physical, reviewed labs and image studies and agree with findings and care plan noted above. Sitting in chair this am. Seemed worried about his blood pressure and heart rate being high. Was given additional dose of metoprolol - felt dizzi afterwards. Nursing reported - persistent drainage from the Chest tube site. Vitals noted, in general he is awake and alert fatigued but appears to be in no distress. HEENT normocephalic atraumatic mucous membranes moist. Breathing unlabored no accessory muscle use good effort. Skin without rashes pallor or icterus. Neuro without focal deficits. Severe sepsis septic shock due to pseudomonal UTI related to indwelling Wren catheter present on admission wren removed. continue cefepime. A-fib with RVR - HR controlled overall. continue metoprolol. Off of anticoagulation due to recent hemothorax - to be resumed on 03/17. myocardial demand ischemia - due to above. mild. Chest tube site drainage - continue wound care DVT prophylaxis with SCDs and ambulation Dispofor rehab. Subjective Seen this morning. Found awake and oriented. Pain is somewhat control. He continue to void spontaneously. doing PT. Responding well. Pending placement Denied any SOB, chest pain, abdominal pain, nausea, or diarrhea. . Review of Systems Review of Systems: as per hPI Physical Exam Constitutional: WD/WN, vitals as above no acute distress ENMT: external ear and nose normal, oropharynx normal Respiratory: normal respiratory effort, lungs clear to auscultation Cardiovascular: RRR, no murmur, no edema Gastrointestinal (Abdomen): normal bowel sounds, soft, nontender, no hepatosplenomegaly Results & Data Results & Data Vital Signs (Past 12 Hours) Vital Signs Temp Pulse Pulse Resp BP Pulse Ox Pulse Ox 03/10/24 00:16 106 H 03/09/24 23:00 36.9 C 105 H 18 132/82 95 03/09/24 22:00 95 03/09/24 20:15 36.6 C 88 18 144/87 H 94 03/09/24 19:27 O2 Del Method O2 Del Method 03/10/24 00:16 03/09/24 23:00 Room Air 03/09/24 22:00 Room Air 03/09/24 20:15 Room Air 03/09/24 19:27 Room Air Resident Activity Tracking Resident Involvement: Resident Care Provided Care Provided: Adult Hospital Medicine (10) Hypertension Hypertension type: unspecified Qualified Code(s): I10 - Essential (primary) hypertension
[2024-03-10 08:04] LABS: Basophils # (auto) 0.03 K/uL (0.00-0.20); Basophils % (auto) 0.3 %; Eosinophils # (auto) 0.33 K/uL (0.00-0.50); Eosinophils % (auto) 3.8 %; Hematocrit (blood only) 28.4 % (42.0-52.0); Hemoglobin 9.8 g/dl (14.0-18.0); Immature Granulocytes # (auto) 0.17 K/uL (0.01-0.20); Immature Granulocytes % (auto) 1.9 %; Lymphocytes # (auto) 1.02 K/uL (1.20-3.40); Lymphocytes % (auto) 11.6 %; Mean Corpuscular Hemoglobin 31.6 pg (25.0-34.0); Mean Corpuscular Hgb Conc 34.5 g/dL (32.0-36.0); Mean Corpuscular Volume 91.6 fL (80.0-100.0); Mean Platelet Volume 8.4 fL (9.4-12.4); Monocytes # (auto) 1.04 K/uL (0.11-0.59); Monocytes % (auto) 11.9 %; Neutrophils # (auto) 6.18 K/uL (1.40-6.50); Neutrophils % (auto) 70.5 %; Platelet Count 292 K/uL (130-400); RDW Coefficient of Variation 15.1 % (11.5-14.5); RDW Standard Deviation 50.5 fL (36.4-46.3); White Blood Count 8.77 K/ul (4.8-10.8)
[2024-03-10 08:30] LABS: BUN Creatinine Ratio 17.8 (10-20); Calcium 7.6 mg/dl (8.6-10.3); Potassium 4.1 mmol/L (3.5-5.1)
[2024-03-10] MEDS: METOPROLOL TARTRATE 25 MG TAB PO SCH (08:53)
[2024-03-10 11:40] VITALS: RESP 18
[2024-03-10] MEDS: DOCUSATE SODIUM 100 MG CAP PO PRN (20:58)
[2024-03-11 06:22] LABS: Basophils # (auto) 0.03 K/uL (0.00-0.20); Basophils % (auto) 0.4 %; Eosinophils # (auto) 0.41 K/uL (0.00-0.50); Eosinophils % (auto) 4.8 %; Hematocrit (blood only) 27.2 % (42.0-52.0); Hemoglobin 9.4 g/dl (14.0-18.0); Immature Granulocytes # (auto) 0.33 K/uL (0.01-0.20); Immature Granulocytes % (auto) 3.9 %; Lymphocytes # (auto) 1.15 K/uL (1.20-3.40); Lymphocytes % (auto) 13.5 %; Mean Corpuscular Hemoglobin 31.4 pg (25.0-34.0); Mean Corpuscular Hgb Conc 34.6 g/dL (32.0-36.0); Mean Platelet Volume 8.4 fL (9.4-12.4); Monocytes # (auto) 1.04 K/uL (0.11-0.59); Monocytes % (auto) 12.2 %; Neutrophils # (auto) 5.59 K/uL (1.40-6.50); Neutrophils % (auto) 65.2 %; Platelet Count 281 K/uL (130-400); RDW Coefficient of Variation 14.9 % (11.5-14.5); RDW Standard Deviation 49.5 fL (36.4-46.3); Red Blood Count 2.99 M/uL (4.70-6.10); White Blood Count 8.55 K/ul (4.8-10.8)
[2024-03-11] MEDS: GABAPENTIN 100 MG CAP PO SCH (08:50)
--- NOTE | 2024-03-11 11:02 | Hospitalist Progress Note ---
Date of Service March 11, 2024 Assessment & Plan (1) Sepsis: Plan: Catheter- associated UTI - WBC 24.43, hypotensive (93/55), tachycardic (117), afebrile on admission - leukocytosis - resolved - Urine culture: Pseudomonas x2 - Blood culture negative - d/c IV NSS - patient normotensive now - D/C Vancomycin - Continue Cefepime - total for 7 days. Can be discharge with IV antibiotic - Patient voided spontaneously yesterday, no need to place another Wren cath eter - CBC AM (2) Generalized weakness: Plan: currently using rollator at baseline after fall noted below suspect secondary to sepsis with possible urinary source above along with polypharmacy with pain medication TSH: 6.56 T4: 1.57 - digoxin: 0.7 - Polypharmacy: patient discharged home from [facility] on oxycodone 5 Mg Q6h, Flexeril 5 mg TID, gabapentin 100 TID, and Tylenol - suspect dizziness and weakness relating to taking all 4 medications together - will discontinue Flexeril - Decreasing gabapentin to 100 once daily today - cont oxycodone prn and Tylenol prn - PT/ OT - Would benefit from rehab - pending placement -Encourage ambulation (3) Fall: Plan: s/p polytrauma and transfer to [facility] 02/25; discharged 03/03 S/p right chest tube for hemopneumothorax, distal right clavicle fracture, R 3- 11 rib fxs, r T11 transverse process fx mild/debatable fall 1/2 while using rollator; no HS or LOC as per [facility] records holding Eliquis until 03/17; continue to hold Defer head CT as no HS, no neurological symptoms fall precautions (4) Hemothorax on right: Plan: s/p fall above wound care daily to right chest wall incentive spirometry (5) Chronic hyponatremia: Plan: chronic hyponatremia not on sodium supplement 127 on admission - improving Suspect acutely worsened due to decreased p.o. intake Trend BMP (6) Elevated troponin: Plan: Peaked at 74 suspect secondary to demand with acute infection and chronic A-fib denies cp monitor on tele (7) Urinary retention: Plan: dx during recent admission at [facility] continue flomax Wren discontinue Sunday, patient voided spontaneously (8) Atrial fibrillation: Plan: previous history of a fib on Eliquis; currently being held after trauma until 03/17 electrolytes stable EKG in ED with artifact and difficult to differentiate A-fib versus a flutter Continue to hold Eliquis until 03/17 Continue metoprolol with holding precautions Continue digoxin and amiodarone (9) Anemia: Plan: chronic Hgb 8.4 , stable continue to trend CBC (10) Hypertension: Plan: Recently discontinued Lasix Continue metoprolol with holding precautions Plan Chronic stable diagnoses: CAD - s/p stent and CABG - continue ASA and statin FEN: Code status: full code DVT ppx: SCDs holding Eliquis PT/OT Dispo: PCU Admission and Anticipated Discharge Date Admission Date: March 06, 2024 Supervising Physician Co-Signing Physician Notes Attending Physician Supervision Note: I independently interviewed and examined the patient and verified the granados history and physical, reviewed labs and image studies and agree with findings and care plan noted above. Sitting in chair this am. Still reports being dizzi with movement. Vitals noted, in general he is awake and alert fatigued but appears to be in no distress. HEENT normocephalic atraumatic mucous membranes moist. Breathing unlabored no accessory muscle use good effort. Skin without rashes pallor or icterus. Neuro without focal deficits. CTA, Severe sepsis septic shock due to pseudomonal UTI related to indwelling Wren catheter present on admission wren removed. -continue cefepime. A-fib with RVR - HR controlled overall. continue metoprolol. Off of anticoagulation due to recent hemothorax - to be resumed on 03/17. Dizziness - Orthostatics negative. Likely from deconditioning. Follow. myocardial demand ischemia - due to above. mild. Chest tube site drainage - continue wound care DVT prophylaxis with SCDs and ambulation Dispofor rehab. Subjective Seen this morning. Had been voiding well. Denied any chest pain, SOB, palpitations, diarrhea or abdominal pain. Pending placement Review of Systems Review of Systems: as per hPI Physical Exam Constitutional: WD/WN, vitals as above no acute distress ENMT: external ear and nose normal, oropharynx normal Respiratory: normal respiratory effort, lungs clear to auscultation Cardiovascular: RRR, no murmur, no edema Gastrointestinal (Abdomen): normal bowel sounds, soft, nontender, no hepatosplenomegaly Results & Data Results & Data Vital Signs (Past 12 Hours) Vital Signs Temp Pulse Pulse Resp BP Pulse Ox O2 Del Method 03/11/24 07:56 37.1 C 103 H 18 134/81 96 Room Air 03/11/24 07:30 101 H 03/11/24 03:15 36.7 C 106 H 18 141/79 H 94 Room Air 03/11/24 00:12 36.6 C 103 H 18 132/82 94 Room Air Resident Activity Tracking Resident Involvement: Resident Care Provided Care Provided: Adult Hospital Medicine (10) Hypertension Hypertension type: unspecified Qualified Code(s): I10 - Essential (primary) hypertension
[2024-03-11] MEDS: METOPROLOL TARTRATE 25 MG TAB PO SCH (20:58)
[2024-03-12 07:53] LABS: Hematocrit (blood only) 28.4 % (42.0-52.0); Hemoglobin 9.6 g/dl (14.0-18.0); Mean Corpuscular Hemoglobin 31.4 pg (25.0-34.0); Mean Corpuscular Hgb Conc 33.8 g/dL (32.0-36.0); Mean Corpuscular Volume 92.8 fL (80.0-100.0); Mean Platelet Volume 8.7 fL (9.4-12.4); Platelet Count 275 K/uL (130-400); RDW Coefficient of Variation 15.4 % (11.5-14.5); RDW Standard Deviation 51.8 fL (36.4-46.3); Red Blood Count 3.06 M/uL (4.70-6.10)
[2024-03-12 08:17] LABS: BUN Creatinine Ratio 20.5 (10-20); Calcium 7.8 mg/dl (8.6-10.3); Potassium 4.5 mmol/L (3.5-5.1)
[2024-03-12 09:05] LABS: Basophils # (auto) 0.05 K/uL (0.00-0.20); Basophils % (auto) 0.6 %; Eosinophils # (auto) 0.41 K/uL (0.00-0.50); Eosinophils % (auto) 5.3 %; Immature Granulocytes # (auto) 0.45 K/uL (0.01-0.20); Immature Granulocytes % (auto) 5.8 %; Lymphocytes # (auto) 1.28 K/uL (1.20-3.40); Lymphocytes % (auto) 16.6 %; Monocytes # (auto) 0.76 K/uL (0.11-0.59); Monocytes % (auto) 9.9 %; Neutrophils # (auto) 4.75 K/uL (1.40-6.50); Neutrophils % (auto) 61.8 %
[2024-03-12 10:59] VITALS: PULSE 102; TEMP 97.9; O2SAT 96
--- NOTE | 2024-03-12 13:40 | Discharge Summary ---
Date of Service March 12, 2024 Admission HPI Per Admitting Provider Patient is an 88-year-old male with past medical history of A-fib on Eliquis, hypertension, hyperlipidemia, CAD s/p CABG and stent placement, anemia, chronic hyponatremia. He was transferred to [facility] 02/25 after a fall/trauma. He was just discharged from there on Sunday after needing a right chest tube for hemopneumothorax. He also was found to have a right sided clavicle fracture. He had urinary retention while at [facility] and was discharged home on a Wren catheter. The patient presents today after increase in weakness and a "fall "while walking to the bathroom this morning. Patient's stated that the patient has been using a rollator and was getting around slowly today, he slowly fell to the ground, he denies it being a fall but more so slowly sitting down. He did not strike his head or lose consciousness. He has had decreased p.o. intake for the past few days while being home just due to generalized weakness. His has been changing his Wren catheter and stated it produced 450 mL overnight; she has had assistance with home health. Patient has chronic dizziness and lightheadedness and did feel dizzy prior to the fall today, currently dizzy but at baseline. He was to have home health PT/OT to start tomorrow. He was also discharged home on many new pain medications including oxycodone 5 mg, Flexeril, gabapentin 100 3 times daily, and Tylenol. His gave him all of these medications together at 1040 this morning. He denies any new pain after the "fall "today. He took all of his home medications this morning. He does not use oxygen at baseline. He wishes to be full code at this time. He has been holding his Eliquis as noted by [facility] till 03/17. Principal Diagnosis Catheter induced UTI Discharge Exam Constitutional WD/WN, vitals as above no acute distress ENMT external ear and nose normal, oropharynx normal Respiratory normal respiratory effort, lungs clear to auscultation Cardiovascular Rate/Rhythm: + irregularly irregular Extremities: + edema Gastrointestinal (Abdomen) normal bowel sounds, soft, nontender, no hepatosplenomegaly Discharge Data Allergies Allergy/AdvReac Type Severity Reaction Status Date / Time Sulfa (Sulfonamide Allergy Intermediate Hives Verified 02/13/24 15:57 Antibiotics) tetracycline Allergy Intermediate Hives Verified 02/13/24 15:57 Consultations 03/06/24 15:53 ED Decision to Admit Stat Hospital Course (1) Sepsis: (2) Generalized weakness: (3) Fall: (4) Hemothorax on right: (5) Chronic hyponatremia: (6) Elevated troponin: (7) Urinary retention: (8) Atrial fibrillation: (9) Anemia: (10) Hypertension: Plan 88-year-old male who was recently discharged from [facility] 03/03 after polytrauma due to fall; s/p right sided chest tube for hemopneumothorax, distal right clavicular fracture, multiple right sided rib fractures, T11 fracture. He presents today after an increase weakness and a slow fall to the ground. Suspect weakness is due to taking multiple pain medications together along with sepsis; no known source at this time but suspect urinary given Wren catheter placed for 1 week. Sepsis: Catheter- associated UTI - WBC 24.43, hypotensive (93/55), tachycardic (117), afebrile on admission - leukocytosis - resolved - Urine culture: Pseudomonas x2 - Blood culture negative - d/c IV NSS - patient normotensive now - D/C Vancomycin - Continue Cefepime - for total of 7 days. Will sent prescription to finished today treatment (day 6) and tomorrow day 7. Last dose tomorrow at 1130 - Patient voided spontaneously yesterday, no need to place another Wren catheter Generalized weakness: currently using rollator at baseline after fall noted below suspect secondary to sepsis with possible urinary source above along with polypharmacy with pain medication TSH: 6.56 T4: 1.57 - digoxin: 0.7 - Polypharmacy: patient discharged home from [facility] on oxycodone 5 Mg Q6h, Flexeril 5 mg TID, gabapentin 100 TID, and Tylenol - suspect dizziness and weakness relating to taking all 4 medications together - will discontinue Flexeril - gabapentin was decreased to 100 once daily, consider stop with resolution of pain - cont oxycodone prn and Tylenol prn - PT/ OT - Would benefit from rehab -Encourage ambulation Fall: s/p polytrauma and transfer to [facility] 02/25; discharged 03/03 S/p right chest tube for hemopneumothorax, distal right clavicle fracture, R 3- 11 rib fxs, r T11 transverse process fx mild/debatable fall 1/2 while using rollator; no HS or LOC as per [facility] records holding Eliquis until 03/17; continue to hold Defer head CT as no HS, no neurological symptoms fall precautions Hemothorax on right: s/p fall above wound care daily to right chest wall incentive spirometry Chest wound care: Change the right chest dressing daily and anytime dressing is saturated Chronic hyponatremia: chronic hyponatremia not on sodium supplement 127 on admission - improving Suspect acutely worsened due to decreased p.o. intake Elevated troponin: Peaked at 74 suspect secondary to demand with acute infection and chronic A-fib denies cp Urinary retention - resolved dx during recent admission at [facility] continue flomax Wren discontinue Sunday, patient voided spontaneously Atrial fibrillation: previous history of a fib on Eliquis; currently being held after trauma until 03/17 electrolytes stable EKG in ED with artifact and difficult to differentiate A-fib versus a flutter; will repeat Resume Eliquis on 03/17 Continue metoprolol with holding precautions. Patient tachy on 98. Metoprolol increased to 25 mg BID patient developed dizziness. Continue 25 mg daily Continue digoxin and amiodarone Anemia: chronic Hgb 9 , stable continue to trend CBC Hypertension: Recently discontinued Lasix. Will add as needed for leg edema Continue metoprolol with holding precautions Plan Chronic stable diagnoses: CAD - s/p stent and CABG - continue ASA and statin Total Time Total Time Spent Total Time Spent (In Minutes): see attending documentation Discharge Plan Discharge Items Patient Disposition: Transfer Inpatient Rehab Fac Reason For Visit: SEPSIS, RECENT TRAUMA Discharge Diagnosis: Catheter associated UTI Activity: Per Instructions section Non-emergency contact: Primary Care Provider Call non-emergency contact if: you have any medication questions, your symptoms worsen and your pain is not controlled Follow-up/Referrals: Breanna Asif MD [Primary Care Provider] - 03/13/24 3:00 pm (Hospital follow up 03/13/24 at 3:00 with Allie Jackson) Diet: Heart Healthy Addtl Attending Provider Instructions: 88-year-old male who was recently discharged from [facility] 03/03 after polytrauma due to fall; s/p right sided chest tube for hemopneumothorax, distal right clavicular fracture, multiple right sided rib fractures, T11 fracture. He presents today after an increase weakness and a slow fall to the ground. Suspect weakness is due to taking multiple pain medications together along with sepsis; no known source at this time but suspect urinary given Wren catheter placed for 1 week. Sepsis: Catheter- associated UTI - WBC 24.43, hypotensive (93/55), tachycardic (117), afebrile on admission - leukocytosis - resolved - Urine culture: Pseudomonas x2 - Blood culture negative - d/c IV NSS - patient normotensive now - D/C Vancomycin - Continue Cefepime - for total of 7 days. Will sent prescription to finished today treatment (day 6) and tomorrow day 7. Last dose tomorrow at 1130 - Patient voided spontaneously yesterday, no need to place another Wren catheter Generalized weakness: currently using rollator at baseline after fall noted below suspect secondary to sepsis with possible urinary source above along with polypharmacy with pain medication TSH: 6.56 T4: 1.57 - digoxin: 0.7 - Polypharmacy: patient discharged home from [facility] on oxycodone 5 Mg Q6h, Flexeril 5 mg TID, gabapentin 100 TID, and Tylenol - suspect dizziness and weakness relating to taking all 4 medications together - will discontinue Flexeril - gabapentin was decreased to 100 once daily, consider stop with resolution of pain - cont oxycodone prn and Tylenol prn - PT/ OT - Would benefit from rehab -Encourage ambulation Fall: s/p polytrauma and transfer to [facility] 02/25; discharged 03/03 S/p right chest tube for hemopneumothorax, distal right clavicle fracture, R 3- 11 rib fxs, r T11 transverse process fx mild/debatable fall 1/2 while using rollator; no HS or LOC as per [facility] records holding Eliquis until 03/17; continue to hold Defer head CT as no HS, no neurological symptoms fall precautions Hemothorax on right: s/p fall above wound care daily to right chest wall incentive spirometry Chest wound care: Change the right chest dressing daily and anytime dressing is saturated Chronic hyponatremia: chronic hyponatremia not on sodium supplement 127 on admission - improving Suspect acutely worsened due to decreased p.o. intake Elevated troponin: Peaked at 74 suspect secondary to demand with acute infection and chronic A-fib denies cp Urinary retention - resolved dx during recent admission at [facility] continue flomax Wren discontinue Sunday, patient voided spontaneously Atrial fibrillation: previous history of a fib on Eliquis; currently being held after trauma until 03/17 electrolytes stable EKG in ED with artifact and difficult to differentiate A-fib versus a flutter; will repeat Resume Eliquis on 03/17 Continue metoprolol with holding precautions. Patient tachy on 98. Metoprolol increased to 25 mg BID patient developed dizziness. Continue 25 mg daily Continue digoxin and amiodarone Anemia: chronic Hgb 9 , stable continue to trend CBC Hypertension: Recently discontinued Lasix. Will add as needed for leg edema Continue metoprolol with holding precautions Plan Chronic stable diagnoses: CAD - s/p stent and CABG - continue ASA and statin FEN: Code status: full code DVT ppx: SCDs holding Eliquis PT/OT Pending Studies at Discharge: No Stand-Alone Forms: [facility] Skilled Items Patient informed of condition?: Yes DNR: No Discharge Level of Care: Acute rehab Communicable Disease: No Discharge Prognosis: Stable Lines: Peripheral IV Urinary Catheter: No Medications and DC Order Prescriptions: New gabapentin 100 mg Capsule 100 mg PO DAILY 30 Days Qty: 30 0RF cefepime 2 gram recon soln 2 g IV Q8H 1 Days Continued docusate sodium 100 mg capsule 200 mg PO QPM cranberry 500 mg capsule 1,000 mg PO QPM cholecalciferol (vitamin D3) 50 mcg (2,000 unit) capsule 2,000 units PO QPM nitroglycerin [Nitrostat] 0.4 mg tablet, sublingual 0.4 mg sublingual Q5M PRN (Reason: CHEST PAIN ) Rx Instructions: do not exceed 3 doses per episode calcium carbonate [Tums Ultra] 400 mg calcium (1,000 mg) tablet,chewable 400 mg PO DAILY PRN (Reason: gerd) lutein 20 mg capsule 20 mg PO QPM aspirin [Marisol Low Dose Aspirin] 81 mg Tablet,Delayed Release (Dr/Ec) 81 mg PO PM [id number] Tablet 1 tab PO QPM coQ10 (ubiquinol) 200 mg Capsule 200 mg PO QPM amiodarone 200 mg tablet 200 mg PO QPM atorvastatin [Lipitor] 40 mg tablet 40 mg PO QPM metoprolol tartrate 25 mg tablet 25 mg PO QPM Rx Instructions: ORDERED 50MG TID BUT ONLY TAKES 25MG DAILY ezetimibe [Zetia] 10 mg tablet 10 mg PO QPM digoxin 125 mcg (0.125 mg) tablet 250 mcg PO QPM Rx Instructions: Increased from 125 to 250 11/20/2023 nitrofurantoin macrocrystal 50 mg Capsule 50 mg PO DAILY PRN (Reason: HISTORY OF UTI) Rx Instructions: must administer with a meal/food tamsulosin 0.4 mg capsule 0.4 mg PO QPM oxycodone 5 mg tablet 2.5 - 5 mg PO TID PRN (Reason: Pain) cyclobenzaprine 5 mg tablet 5 mg PO TID gabapentin 1 tab PO TID Rx Instructions: PT CANNOT RECALL DOSEAGE..STATES PILLS SENT HOME WITH HIM FROM [facility]..SO NO RECORD OF THIS MED THROUGH PHARMACY acetaminophen [Tylenol Extra Strength] 500 mg Tablet 1,000 mg PO Q6H PRN (Reason: Pain) Changed furosemide [Lasix] 20 mg tablet 20 mg PO DAILY PRN (Reason: severe leg swelling and weight gain of 2-3 lbs) Qty: 0 0RF Rx Instructions: CURRENTLY ON HOLD...ORDERED DAILY Held magnesium oxide 400 mg magnesium capsule 400 mg PO QPM Hold Instructions: Resume on 03/13/24. Hold if having diarrhea Eliquis 5 mg tablet 5 mg PO UD Hold Instructions: Resume on 03/17/24. Recent hemothorax, Resumen on 03/17 Rx Instructions: ON HOLD UNTIL 03/17/24 THEN RESUME BID Discharge Orders: Discharge Order (Routine); Ordered 03/12/24 Ordered By: Andrez Herrera Admission Data Admit Date/Time: 03/06/24 15:52 Attending Provider: Lashon Coppola Admit Provider: Juan Pablo Pendleton Primary Care Provider: Breanna Asif Other Providers: Juan Pablo Pendleton; Anca [facility]; [facility]; [facility] Other Interventions: Discharge Summary Assessment (RN) Last Done: 03/12/24 13:43 Supervising Physician Co-Signing Physician Notes Attending Physician Supervision Note: I independently interviewed and examined the patient and verified the granados history and physical, reviewed labs and image studies and agree with findings and care plan noted above. Comfortable in chair. No shortness of breath. . Vitals noted, in general he is awake and alert fatigued but appears to be in no distress. HEENT normocephalic atraumatic mucous membranes moist. Breathing unlabored no accessory muscle use good effort. Skin without rashes pallor or icterus. Neuro without focal deficits. CTA, Leg edema bilaterally. Severe sepsis septic shock due to pseudomonal UTI related to indwelling Wren catheter present on admission wren removed. -continue cefepime to finish the course. A-fib with RVR - HR has been controlled. continue metoprolol. Off of anticoagulation due to recent hemothorax - to be resumed on 03/17. Dizziness - Orthostatics negative. Likely from deconditioning. for PT/OT Bilateral leg edema - has been on lasix in past but was d/jemima. prn lasix ordered on discharge. -to keep legs propped up when sitting. myocardial demand ischemia - due to above. mild. Chest tube site drainage - continue wound care Dispofor rehab. Resident Activity Tracking Resident Involvement: Resident Care Provided Care Provided: Adult Hospital Medicine
[2024-03-12 13:45] VITALS: BP 116/76
== END 2024-03-12 14:33 | DRG 698 ==
LOC: ED 12:17 → 2S 15:52 → SUATTDRO 15:52 → 2S 21:40